=== PATIENT | male | born 1945 | race Caucasian/White ===

== ENCOUNTER 2017-11-30 23:20 | Inpatient (IN) | payer MEDICARE ==
[~2017-11-30] VITALS: Ht 182.9 cm; Wt 75.5 kg
[~2017-11-30 23:20] MED LIST: AMLO5TAB22 PO; ASPI81 PO; PROS5TAB2 PO; SIMV5TAB32 PO
[2017-11-30 23:35] VITALS: BP 89/60; PULSE 92; RESP 18; TEMP 97.7; O2SAT 99
[2017-11-30 23:54] VITALS: BP 93/52; O2SAT 99
[2017-12-01] VITALS (13 sets, daily range): BP systolic 81–110; BP diastolic 44–76; PULSE 83–102; RESP 16–22; TEMP 97.4–98; O2SAT 94–97
[2017-12-01] MEDS ORDERED: SODIUM CHLORIDE 0.9% FLUSH 10 ML FLUSH IVF PRN
[2017-12-01] MEDS: SODIUM CHLOR 0.9% 1000 ML INJ 1,000 ML IV SCH ×4 (00:06→22:38)
[2017-12-01 00:19] LABS: AUTOMATED NEUTROPHIL # 4.1 TH/MM3 (1.8-7.7); BASOPHIL % 0.7 % (0.0-2.0); EOSINOPHIL # 0.2 TH/MM3 (0-0.4); EOSINOPHIL % 2.6 % (0.0-4.0); HEMATOCRIT 34.4 % (39.0-51.0); HEMOGLOBIN 11.9 GM/DL (13.0-17.0); LYMPH % 26.8 % (9.0-44.0); LYMPHOCYTE # 1.9 TH/MM3 (1.0-4.8); MEAN CELL VOLUME 85.5 FL (80.0-100.0); MEAN CORPUSCULAR HEMOGLOBIN 29.5 PG (27.0-34.0); MEAN CORPUSCULAR HGB CONC 34.5 % (32.0-36.0); MEAN PLATELET VOLUME 9.5 FL (7.0-11.0); MONO % 11.7 % (0.0-8.0); MONOCYTE # 0.8 TH/MM3 (0-0.9); NEUT % 58.2 % (16.0-70.0); PLATELET COUNT 218 TH/MM3 (150-450); RED BLOOD COUNT 4.02 MIL/MM3 (4.50-5.90); RED CELL DISTRIBUTION WIDTH 14.4 % (11.6-17.2)
--- NOTE | 2017-12-01 00:27 | RADRPT ---
EXAM DATE/TIME: 12/01/2017 00:06 [facility] COMPARISON: CT THORAX W CONTRAST, August 04, 2015, 16:08. INDICATIONS : Chest pain. MEDICAL HISTORY : Cardiovascular disease. Renal calculi. Hypertension SURGICAL HISTORY : ENCOUNTER: Initial ACUITY: 1 day PAIN SCORE: 5/10 LOCATION: Left chest FINDINGS: PA and lateral views of the chest demonstrate the lungs to be symmetrically aerated without evidence of mass, infiltrate or effusion. The cardiomediastinal contours are unremarkable. Osseous structure s are intact. CONCLUSION: No acute cardiopulmonary disease. Woodrow Blount MD on December 01, 2017 at 0:25 Board Certified Radiologist. This report was verified electronically.
[2017-12-01 00:30] LABS: INTERNATIONAL NORMALIZED RATIO 1.1 RATIO; PROTHROMBIN TIME - PATIENT 10.8 SEC (9.8-11.6)
[2017-12-01 00:35] LABS: BICARBONATE 19.8 MEQ/L (21.0-32.0); CALCIUM 8.7 MG/DL (8.5-10.1); CREATININE 2.19 MG/DL (0.60-1.30); MAGNESIUM 2.1 MG/DL (1.5-2.5)
[2017-12-01 00:38] LABS: TROPONIN I 0.07 NG/ML (0.02-0.05)
--- NOTE | 2017-12-01 00:52 | PD ---
HPI Chief Complaint: Chest Pain Time Seen by Provider: 23:46 Travel History International Travel<30 days: No Contact w/Intl Traveler<30days: No Traveled to known affect area: No History of Present Illness HPI 72-year-old male presents to the emergency department by EMS transport from home for evaluation of 5/10 chest discomfort. No sweats no nausea no vomiting no shortness of breath no referred neck jaw back shoulder arm pain. Patient has history of hypertension, dyslipidemia, and tobaccoism. Patient states he was recently put on medication he thinks an antibiotic that caused him to feel weak and fatigued and was recently discontinued off of this medication by his primary care provider Dr. Tillman. Patient has been evaluated in the past for cardiac disease and for possible thoracic aortic aneurysm. Patient states underwent 2 cardiac catheterizations were done approximately 10 years ago and no abnormalities were identified and no subsequent stress tests or evaluation performed. Patient has had no injury or fall. Patient states symptoms began at rest. Patient denies any mid scapular pain ripping tearing pain or abdominal pain. Patient was given aspirin 324 mg prior to arrival to the emergency department by EMS but no nitroglycerin was administered as patient was identified to be hypotensive in route to the hospital. Patient also did not receive any IV fluids. Upon arrival to the emergency department patient continues to complain of 5/10 chest pain but is noted to be hypotensive and IV fluids were administered. Patient denies any recent febrile illness or respiratory illness and no recent vomiting or diarrheal illness. PFSH Past Medical History Narrative Medical Arthritis hypertension dyslipidemia diminished hearing thoracic aneurysm-- reportedly "okay; not managed by surgical intervention"; alcohol use tobacco use ; nursing notes reviewed; turp, cholecystectomy Hx Anticoagulant Therapy: No Arthritis: Yes (KNEES) Anxiety: No Depression: No Heart Rhythm Problems: No Cancer: No Cardiac Catheterization: Yes Cardiovascular Problems: Yes (AAA , RESOLVED, PER PT.) High Cholesterol: Yes Chemotherapy: No Congestive Heart Failure: No Cerebrovascular Accident: No Diabetes: No Diminished Hearing: Yes (TYONEK) Endocrine: No Gastrointestinal Disorders: Yes (EPIGASTRIC PAIN) Genitourinary: Yes (ENLARGED PROSTATE) Hepatitis: No Hiatal Hernia: No Heparin Induced Thrombocytopen: No Hypertension: Yes Immune Disorder: No Implanted Vascular Access Dvce: No Kidney Stones: Yes Musculoskeletal: No Neurologic: No Psychiatric: No Reproductive: No Respiratory: No Immunizations Current: No Thyroid Disease: No Past Surgical History Abdominal Surgery: Yes (CHOLECYSTECTOMY) AICD: No Coronary Artery Bypass Graft: No Genitourinary Surgery: Yes (TURP) Hysterectomy: No Joint Replacement: No Pacemaker: No Other Surgery: Yes Family History Family Myocardial Infarction: No Social History Alcohol Use: Yes (SCOTCH DAILY) Tobacco Use: Yes (CIGARETTES, 1 PPD) Substance Use: No Allergies-Medications (Allergen,Severity, Reaction): Coded Allergies: No Known Allergies (Verified Allergy, Unknown, 12/01/17) Reported Meds & Prescriptions Reported Meds & Active Scripts Active Reported Proscar (Finasteride) 5 Mg Tab 5 Mg PO DAILY Amlodipine Besylate 5 mg (Amlodipine Besylate) 5 Mg Tab 1 Tab PO DAILY Zocor (Simvastatin) 5 Mg Tab 0 PO UNKNOWN DOSE Aspirin 81 Mg Tab 81 Mg PO DAILY Review of Systems Except as stated in HPI: all other systems reviewed are Neg General / Constitutional: No: Fever, Chills HENT: No: Congestion Cardiovascular: Positive: Chest Pain or Discomfort, No: Palpitations, Diaphoresis Respiratory: No: Shortness of Breath Gastrointestinal: No: Nausea, Vomiting Genitourinary: No: Dysuria Musculoskeletal: No: Myalgias, Arthralgias, Edema, Pain Skin: No Rash Neurologic: Positive: Weakness, Dizziness, No: Syncope, Focal Abnormalities Psychiatric: No: Anxiety, Depression Hematologic/Lymphatic: No: Easy Bruising Physical Exam Narrative GENERAL: Well-developed well-nourished male no acute distress or respiratory distress; GCS 15; placed on hospital monitor found to be in sinus rhythm with intermittent runs of ventricular bigeminy. SKIN: Warm and dry. HEAD: Normocephalic. EYES: No scleral icterus. No injection or drainage. NECK: Supple, trachea midline. No JVD or lymphadenopathy. CARDIOVASCULAR: Regular rate and rhythm without murmurs, gallops, or rubs. RESPIRATORY: Breath sounds equal bilaterally. No accessory muscle use. GASTROINTESTINAL: Abdomen soft, non-tender, nondistended. MUSCULOSKELETAL: No cyanosis, or edema. BACK: Nontender without obvious deformity. No CVA tenderness. Data Data Last Documented VS Vital Signs Date Time Temp Pulse Resp B/P (MAP) Pulse Ox O2 Delivery O2 Flow Rate FiO2 12/01/17 01:45 102 18 103/62 (76) 97 Room Air 11/30/17 23:35 97.7 Orders Orders Electrocardiogram (11/30/17 23:46) Basic Metabolic Panel (Bmp) (11/30/17 23:46) Ckmb (Isoenzyme) Profile (11/30/17:46) Complete Blood Count With Diff (11/30/17 23:46) Magnesium (Mg) (11/30/17 23:46) Prothrombin Time / Inr (Pt) (11/30/17:46) Act Partial Throm Time (Ptt) (11/30/17:46) Troponin I (11/30/17:46) Ecg Monitoring (11/30/17:46) Bilateral Bp Monitoring (11/30/17:46) Iv Access Insert/Monitor (11/30/17:46) Oximetry (11/30/17:46) Oxygen Administration (11/30/17:46) Sodium Chloride 0.9% Flush (Ns Flush) (12/01/17 00:00) Chest, Pa & Lat (11/30/17 23:46) Sodium Chlor 0.9% 1000 Ml Inj (Ns 1000 M (12/01/17 00:00) Sodium Chlor 0.9% 1000 Ml Inj (Ns 1000 M (12/01/17 00:00) Type And Screen (11/30/17 23:59) Ct Thorax/ Chest Wo Iv Contras (12/01/17 ) Ct Abd/Pel W/O Iv Contrast (12/01/17 ) Sodium Chlorid 0.9% 500 Ml Inj (Ns 500 M (12/01/17 01:00) Nitroglycerin 2% Oint (Nitroglycerin 2% (12/01/17 01:30) Heparin Inj (Heparin Inj) (12/01/17 02:30) Heparin-D5w 25,000 U/250 Ml (Heparin-D5w (12/01/17 02:30) Act Partial Throm Time (Ptt) (12/01/17 02:28) Prothrombin Time / Inr (Pt) (12/01/17 02:28) Cbc No Diff, Includes Plts (12/01/17 02:28) Cbc No Diff, Includes Plts (12/04/17 06:00) Act Partial Throm Time (Ptt) (12/01/17 09:28) Occult Blood (Hemoccult) Stool (12/01/17 02:28) Sodium Chlorid 0.9% 500 Ml Inj (Ns 500 M (12/01/17 02:30) Potassium Chloride (Kcl) (12/01/17 02:30) Admit Order (Ed Use Only) (12/01/17 ) Research Home Economist / Telemetry [email or web address] (12/01/17 02:48) Diet Npo (12/01/17 Breakfast) Activity Bed Rest (12/01/17 02:48) Notify Dr: Other (12/01/17 02:48) Consult Cardiology (12/01/17 ) Labs Laboratory Tests Test 12/01/17 00:00 White Blood Count 7.0 TH/MM3 Red Blood Count 4.02 MIL/MM3 Hemoglobin 11.9 GM/DL Hematocrit 34.4 % Mean Corpuscular Volume 85.5 FL Mean Corpuscular Hemoglobin 29.5 PG Mean Corpuscular Hemoglobin Concent 34.5 % Red Cell Distribution Width 14.4 % Platelet Count 218 TH/MM3 Mean Platelet Volume 9.5 FL Neutrophils (%) (Auto) 58.2 % Lymphocytes (%) (Auto) 26.8 % Monocytes (%) (Auto) 11.7 % Eosinophils (%) (Auto) 2.6 % Basophils (%) (Auto) 0.7 % Neutrophils # (Auto) 4.1 TH/MM3 Lymphocytes # (Auto) 1.9 TH/MM3 Monocytes # (Auto) 0.8 TH/MM3 Eosinophils # (Auto) 0.2 TH/MM3 Basophils # (Auto) 0.0 TH/MM3 CBC Comment DIFF FINAL Differential Comment Prothrombin Time 10.8 SEC Prothromb Time International Ratio 1.1 RATIO Activated Partial Thromboplast Time 33.0 SEC Blood Urea Nitrogen 39 MG/DL Creatinine 2.19 MG/DL Random Glucose 107 MG/DL Calcium Level 8.7 MG/DL Magnesium Level 2.1 MG/DL Sodium Level 137 MEQ/L Potassium Level 3.4 MEQ/L Chloride Level 107 MEQ/L Carbon Dioxide Level 19.8 MEQ/L Anion Gap 10 MEQ/L Estimat Glomerular Filtration Rate 30 ML/MIN Total Creatine Kinase 66 U/L Troponin I 0.07 NG/ML MDM Medical Decision Making Medical Screen Exam Complete: Yes Emergency Medical Condition: Yes Medical Record Reviewed: Yes Interpretation(s) trop: 0.07, mildly elevated Last Impressions Chest CT 12/01/17 0000 Signed Impressions: Service Date/Time: Friday, December 01, 2017 01:09 - CONCLUSION: 1. An area of early or mild pneumonia in the right lower lobe. 2. Left ventricular hypertrophy and aortic valve calcification. Mild prominence of the ascending thoracic aorta is unchanged, 4.4 cm. 3. Coronary artery calcification. 4. Mild emphysema. Woodrow Blount MD Abdomen/Pelvis CT 12/01/17 0000 Signed Impressions: Service Date/Time: Friday, December 01, 2017 01:09 - CONCLUSION: 1. No acute abnormalities are demonstrated in the abdomen or pelvis. 2. Atherosclerotic aorta and branch vessels. Non-aneurysmal aorta. 3. Cholecystectomy since the prior study. No associated complication demonstrated. No evidence of biliary obstruction. 4. Enlarged prostate again seen. Woodrow Blount MD Chest X-Ray 11/30/17 2346 Signed Impressions: Service Date/Time: Friday, December 01, 2017 00:06 - CONCLUSION: No acute cardiopulmonary disease. Woodrow Blount MD CBC & BMP Diagram 12/01/17 00:00 Calcium Level 8.7, Magnesium Level 2.1 Vital Signs Date Time Temp Pulse Resp B/P (MAP) Pulse Ox O2 Delivery O2 Flow Rate FiO2 12/01/17 01:45 102 18 103/62 (76) 97 Room Air 11/30/17 23:54 99 Room Air 11/30/17 23:54 99 Room Air 11/30/17 23:54 93/52 (66) 11/30/17 23:35 97.7 92 18 89/60 (70) 99 Differential Diagnosis Chest pain, ACS, MO, aortic dissection, aortic aneurysm with leak, PE Narrative Course Patient was placed on hospital monitor with continuous pulse oximetry noted to be hypotensive 1 L normal saline bolus administered EKG shows left bundle branch block pattern comparison EKG showed history of left axis deviation with intraventricular conduction delay minimally change except for duration of QRS duration. Review of medical records identifies patient in [address] of the chest which showed aortic root of 4.3 cm no other documentation identified at that time had normal renal function Call placed to on-call actuarial assistant Dr. metcalf case discussed in detail requests patient to have CT aorta performed as ordered and subsequently place patient on heparin does not want any antiarrhythmics administered for intermittent episodes of sustained ventricular bigeminy is aware patient receiving second liter of normal saline for blood pressure requests patient be started on Nitropaste as tolerated and heparinization if CT is negative for aneurysm or dissection CVA thor/abd cancelled for gfr 30 creatinine: 2.19, changed to CT chest abd/pel w/o; troponin I: 0.07, elevated CT noncontrast ordered reading per radiologist no evidence for aneurysm of the thoracic or abdominal aorta patient started on heparin and actuarial assistant notified of imaging study patient has already received aspirin Nitropaste 2 L of normal saline heparinization started; will not take patient to Child Welfare Social Worker at this time as borderline hypotensive patient's case discussed with medicine because of hypertension requests patient be admitted to director of exhibit development service patient's case discussed with on-call director of exhibit development who graciously accepts patient to their service with consult to Dr. metcalf Critical Care Narrative Aggregate critical care time was 35 minutes. Time to perform other separately billable procedures was not included in the critical care time. My time did not include minutes spent treating any other patients simultaneously or on activities that did not directly contribute to the patient's treatment. The services I provided to this patient were to treat and/or prevent clinically significant deterioration that could result in: Myocardial infarction, arrhythmia, I provided critical care services requiring my management, as noted below: Chart data review, documentation time, medication orders and management, vital sign assessments/reviewing monitor data, ordering and reviewing lab tests, ordering and interpreting/reviewing x-rays and diagnostic studies, care of the patient and discussion of the patient with the admitting physicians. Physician Communication Physician Communication discussed with Dr Metcalf re: cath; discussed with DR Dexter; discussed with DR Metcalf Diagnosis Primary Impression: ACS (acute coronary syndrome) Additional Impressions: Ventricular bigeminy Hypotension Sonia Dyson MD Dec 01, 2017 00:51
[2017-12-01] MEDS ORDERED: SODIUM CHLORID 0.9% 500 ML INJ 500 ML IV ONE ×2 (01:00→02:30)
[2017-12-01] MEDS ORDERED: NITROGLYCERIN 2% OINT 1 GM PACKET TOPICAL ONE (01:30)
--- NOTE | 2017-12-01 01:56 | RADRPT ---
EXAM DATE/TIME: 12/01/2017 01:09 [facility] COMPARISON: CT ABDOMEN & PELVIS W/O CONTRAST, December 01, 2017, 1:09. INDICATIONS : Chest and abdomen pain. RADIATION DOSE: 5.17 CTDIvol (mGy) ; Combined studies - Thorax/Abdomen/Pelvis MEDICAL HISTORY : Aneurysm, abdominal. Hypertension. SURGICAL HISTORY : Cholecystectomy. TURP. ENCOUNTER: Initial ACUITY: 1 day PAIN SCALE: 5/10 LOCATION: chest TECHNIQUE: Volumetric scanning of the chest was performed. Using automated exposure control and adjustment of t he mA and/or kV according to patient size, radiation dose was kept as low as reasonably achievable to obtain optimal diagnostic quality images. DICOM format image data is available electronically for r eview and comparison. Follow-up recommendations for detected pulmonary nodules are based at a minimum on nodule size and pa tient risk factors according to Fleischner Society Guidelines. FINDINGS: Small area of mild consolidation seen posteromedially of the right mid lung in the lower lobe. Lungs otherwise clear. There is mild emphysema. Left ventricular hypertrophy again seen. There is calcification of the aortic valve leaflets again no oren. I believe it is tricuspid. There is coronary artery calcification, diffuse but especially left m ain and proximal left anterior descending. Mild prominence of the ascending thoracic aorta, measures approximately 4.4 cm and is unchanged. No pleural effusion or pneumothorax. No lymphadenopathy. CONCLUSION: 1. An area of early or mild pneumonia in the right lower lobe. 2. Left ventricular hypertrophy and aortic valve calcification. Mild prominence of the ascending thor acic aorta is unchanged, 4.4 cm. 3. Coronary artery calcification. 4. Mild emphysema. Woodrow Blount MD on December 01, 2017 at 1:53 Board Certified Radiologist. This report was verified electronically.
--- NOTE | 2017-12-01 02:01 | RADRPT ---
EXAM DATE/TIME: 12/01/2017 01:09 [facility] COMPARISON: CT ABDOMEN & PELVIS W CONTRAST, July 28, 2015, 22:10. INDICATIONS : Chest and abdomen pain. ORAL CONTRAST: No oral contrast ingested. RADIATION DOSE: 5.17 CTDIvol (mGy) MEDICAL HISTORY : Aneurysm, abdominal. Hypertension. SURGICAL HISTORY : Cholecystectomy. ENCOUNTER: Initial ACUITY: 1 day PAIN SCALE: 5/10 LOCATION: abdomen TECHNIQUE: Volumetric scanning of the abdomen and pelvis was performed. Using automated exposure control and ad justment of the mA and/or kV according to patient size, radiation dose was kept as low as reasonably achievable to obtain optimal diagnostic quality images. DICOM format image data is available electro nically for review and comparison. FINDINGS: Noncontrast appearance of the liver, spleen, pancreas, adrenal glands and kidneys within normal limit s. There is an unchanged 2 cm left renal cyst. Patient has had cholecystectomy since the prior study. Atherosclerotic abdominal aorta and branch vessels. No abdominal aortic aneurysm. There is diverticulosis of the sigmoid colon. No diverticulitis. The appendix is normal. Enlarged prostate again noted. No acute bony abnormality demonstrated. CONCLUSION: 1. No acute abnormalities are demonstrated in the abdomen or pelvis. 2. Atherosclerotic aorta and branch vessels. Non-aneurysmal aorta. 3. Cholecystectomy since the prior study. No associated complication demonstrated. No evidence of jhonny iary obstruction. 4. Enlarged prostate again seen. Woodrow Blount MD on December 01, 2017 at 1:55 Board Certified Radiologist. This report was verified electronically.
[2017-12-01] MEDS ORDERED: HEPARIN SODIUM - IV 10,000 UNITS/10 ML VIAL IV PUSH ONE (02:30)
[2017-12-01] MEDS ORDERED: POTASSIUM CHLORIDE 20 MEQ CONTROLLED RELEASE TAB PO ONE (02:30)
[2017-12-01] MEDS: HEPARIN-D5W 25,000 U/250 ML 250 ML IV PRN (02:52)
[2017-12-01] MEDS ORDERED: BISACODYL 10 MG SUPP RECTAL PRN (05:30)
[2017-12-01] MEDS ORDERED: SODIUM CHLORIDE 0.9% FLUSH 10 ML FLUSH IV FLUSH PRN (05:30)
[2017-12-01] MEDS ORDERED: LACTULOSE SYRUP 20 GM/30 ML CUP PO PRN (05:30)
[2017-12-01] MEDS ORDERED: MORPHINE SULFATE 4 MG/ML INJ IV PUSH PRN (05:30)
[2017-12-01] MEDS ORDERED: ACETAMINOPHEN 325 MG TAB PO PRN (05:30)
[2017-12-01] MEDS ORDERED: TEMAZEPAM 15 MG CAP PO PRN (05:30)
[2017-12-01] MEDS ORDERED: CHLORHEXIDINE GLUCONATE 2 % 1 PACK (2 CLOTHS) TOP PRN (05:30)
[2017-12-01] MEDS ORDERED: SENNOSIDES 8.6 MG TAB PO PRN (05:30)
[2017-12-01] MEDS ORDERED: MAGNESIUM HYDROXIDE SUSP 30 ML CUP PO PRN (05:30)
[2017-12-01] MEDS ORDERED: MISCELLANEOUS NURSING INFORMATION XX SCH (05:30)
[2017-12-01] MEDS ORDERED: ONDANSETRON HCL 4 MG/2 ML VIAL IV PUSH PRN (05:30)
--- NOTE | 2017-12-01 05:39 | HHI.HP ---
HPI Service Critical Care Medicine Primary Care Physician Lars Tillman M.D. Admission Diagnosis ACS; Ventricular bigeminy; LBBB Diagnosis: Travel History International Travel<30 Days: No Contact w/Intl Traveler <30 Da: No Traveled to Known Affected Are: No History of Present Illness 72 -year-old very pleasant gentleman with past medical history of hypertension, dyslipidemia, thoracic aortic aneursym, EtOH use, tobacco use disorder. Patient states he had infection in the Right groin and started Bactrim 11/21/17. Since then he has been fatigued, SOB, mostly laying on couch. Has had chills. Had diarrhea with ~ 2-3 loose stools daily for 3-5 days. Last night he was at rest when he developed L sided chest pain, nonpleuritic non radiating with no n/ v/diaphoresis/arm pain. Pain resolved after arrival and he now states he is chest pain free. No hemoptysis. He has had some cough and sputum production. R groin infection is improved. No prior h/o VTE. Troponin 0.07, on heparin drip. In bigeminy. Creatinine 2.19. CT chest with early RLL pneumonia, has been started on Azithromycin/Zosyn. Review of Systems Constitutional: COMPLAINS OF: Diaphoretic episodes, Fatigue, Fever, Chills, Dizziness, Change in appetite, DENIES: Weight gain, Weight loss, Night Sweats Endocrine: DENIES: Heat/cold intolerance, Polydipsia, Polyuria, Polyphagia Eyes: DENIES: Blurred vision, Diplopia, Eye inflammation, Eye pain, Vision loss , Photosensitivity, Double Vision Ears, nose, mouth, throat: DENIES: Tinnitus, Hearing loss, Vertigo, Nasal discharge, Oral lesions, Throat pain, Hoarseness, Ear Pain, Running Nose, Epistaxis, Sinus Pain, Toothache, Odynophagia Respiratory: DENIES: Apneas, Cough, Snoring, Wheezing, Hemoptysis, Sputum production, Shortness of breath Cardiovascular: COMPLAINS OF: Chest pain, Palpitations, DENIES: Syncope, Dyspnea on Exertion, PND, Lower Extremity Edema, Orthopnea, Claudication Gastrointestinal: COMPLAINS OF: Diarrhea, DENIES: Abdominal pain, Black stools , Bloody stools, Constipation, Nausea, Vomiting, Difficulty Swallowing, Anorexia Genitourinary: DENIES: Sexual dysfunction, Urinary frequency, Urinary incontinence, Urgency, Hematuria, Dysuria, Nocturia, Penile Discharge, Testicular Pain, Testicular Swelling Musculoskeletal: DENIES: Joint pain, Muscle aches, Stiffness, Joint Swelling, Back pain, Neck pain Integumentary: DENIES: Abnormal pigmentation, Nail changes, Pruritus, Rash Hematologic/lymphatic: DENIES: Bruising, Lymphadenopathy Immunologic/allergic: DENIES: Eczema, Urticaria Neurologic: DENIES: Abnormal gait, Headache, Localized weakness, Paresthesias, Seizures, Speech Problems, Tremor, Poor Balance Psychiatric: DENIES: Anxiety, Confusion, Mood changes, Depression, Hallucinations, Agitation, Suicidal Ideation, Homicidal Ideation, Delusions Past Family Social History Allergies: Coded Allergies: No Known Allergies (Verified Allergy, Unknown, 12/01/17) Past Medical History ERCP 3 stones removed. extended sphincterotomy. Hypertension Hyperlipidemia BPH Ecoli biliary sepsis. Thoracic aortic aneurysmal dilatation of aortic root 4.3cm Past Surgical History ERCP Laparoscopic cholecystectomy Reported Medications Reported Meds & Active Scripts Active Reported Proscar (Finasteride) 5 Mg Tab 5 Mg PO DAILY Amlodipine Besylate 5 mg (Amlodipine Besylate) 5 Mg Tab 1 Tab PO DAILY Zocor (Simvastatin) 5 Mg Tab 0 PO UNKNOWN DOSE Aspirin 81 Mg Tab 81 Mg PO DAILY Active Ordered Medications Current Medications Medications (Trade) Dose Ordered Sig/Taz Route PRN Reason Start Time Stop Time Status Last Admin Dose Admin Sodium Chloride (NS Flush) 2 ml UNSCH PRN IVF FLUSH AFTER USING IV ACCESS 12/01/17 00:00 Sodium Chloride 1,000 ml @ 250 mls/hr Q4H IV 12/01/17 00:00 12/01/17 00:06 Heparin Sodium/ Dextrose 250 ml @ 10 mls/hr TITRATE PRN IV Coagulation Management 12/01/17 02:30 12/01/17 02:52 Family History No family history significant for coronary artery disease Social History Quit tobacco and EtOH in Jul 2015. prior to that 1ppd and at least 3 shots per day. Physical Exam Vital Signs Vital Signs Date Time Temp Pulse Resp B/P (MAP) Pulse Ox O2 Delivery O2 Flow Rate FiO2 12/01/17 05:00 88 16 81/50 (60) 96 Room Air 12/01/17 04:00 86 18 91/53 (66) 96 Room Air 12/01/17 02:56 87 18 92/54 (67) 96 Room Air 12/01/17 01:45 102 18 103/62 (76) 97 Room Air 11/30/17 23:54 99 Room Air 11/30/17 23:54 99 Room Air 11/30/17 23:54 93/52 (66) 11/30/17 23:35 97.7 92 18 89/60 (70) 99 Physical Exam GENERAL: Well-nourished, well-developed patient. SKIN: Warm and dry. HEAD: Normocephalic. EYES: No scleral icterus. No injection or drainage. NECK: Supple, trachea midline. No JVD or lymphadenopathy. CARDIOVASCULAR: Regular rate and rhythm without murmurs, gallops, or rubs. RESPIRATORY: Breath sounds equal bilaterally. No accessory muscle use. GASTROINTESTINAL: Abdomen soft, non-tender, nondistended. MUSCULOSKELETAL: No cyanosis, or edema. BACK: Nontender without obvious deformity. NEURO EXAM: GCS: 15 Mental Status: The patient is alert and oriented to person, place, and time with normal speech. Laboratory Laboratory Tests Test 12/01/17 00:00 White Blood Count 7.0 Red Blood Count 4.02 Hemoglobin 11.9 Hematocrit 34.4 Mean Corpuscular Volume 85.5 Mean Corpuscular Hemoglobin 29.5 Mean Corpuscular Hemoglobin Concent 34.5 Red Cell Distribution Width 14.4 Platelet Count 218 Mean Platelet Volume 9.5 Neutrophils (%) (Auto) 58.2 Lymphocytes (%) (Auto) 26.8 Monocytes (%) (Auto) 11.7 Eosinophils (%) (Auto) 2.6 Basophils (%) (Auto) 0.7 Neutrophils # (Auto) 4.1 Lymphocytes # (Auto) 1.9 Monocytes # (Auto) 0.8 Eosinophils # (Auto) 0.2 Basophils # (Auto) 0.0 CBC Comment DIFF FINAL Differential Comment Prothrombin Time 10.8 Prothromb Time International Ratio 1.1 Activated Partial Thromboplast Time 33.0 Blood Urea Nitrogen 39 Creatinine 2.19 Random Glucose 107 Calcium Level 8.7 Magnesium Level 2.1 Sodium Level 137 Potassium Level 3.4 Chloride Level 107 Carbon Dioxide Level 19.8 Anion Gap 10 Estimat Glomerular Filtration Rate 30 Total Creatine Kinase 66 Troponin I 0.07 Result Diagram: 12/01/17 0000 12/01/17 0000 Imaging Last [address] 12/01/17 0000 Signed Impressions: Service Date/Time: Friday, December 01, 2017 01:09 - CONCLUSION: 1. An area of early or mild pneumonia in the right lower lobe. 2. Left ventricular hypertrophy and aortic valve calcification. Mild prominence of the ascending thoracic aorta is unchanged, 4.4 cm. 3. Coronary artery calcification. 4. Mild emphysema. Woodrow Blount MD Abdomen/Pelvis CT 12/01/17 0000 Signed Impressions: Service Date/Time: Friday, December 01, 2017 01:09 - CONCLUSION: 1. No acute abnormalities are demonstrated in the abdomen or pelvis. 2. Atherosclerotic aorta and branch vessels. Non-aneurysmal aorta. 3. Cholecystectomy since the prior study. No associated complication demonstrated. No evidence of biliary obstruction. 4. Enlarged prostate again seen. Woodrow Blount MD Chest X-Ray 11/30/17 2346 Signed Impressions: Service Date/Time: Friday, December 01, 2017 00:06 - CONCLUSION: No acute cardiopulmonary disease. Woodrow Blount MD Septic Shock Reassessment Septic shock perfusion: reassessment completed Caprini VTE Risk Assessment Caprini VTE Risk Assessment: Mod/High Risk (score >= 2) Caprini Risk Assessment Model Point Value = 1 Point Value = 2 Point Value = 3 Point Value = 5 Age 41-60 Minor surgery BMI > 25 kg/m2 Swollen legs Varicose veins or History of unexplained or recurrent spontaneous Oral contraceptives or hormone replacement Sepsis (< 1 month) Serious lung disease, including pneumonia (< 1 month) Abnormal pulmonary function Acute myocardial infarction Congestive heart failure (< 1 month) History of inflammatory bowel disease Medical patient at bed rest Age 61-74 Arthroscopic surgery Major open surgery (> 45 min) Laparoscopic surgery (> 45 min) Malignancy Confined to bed (> 72 hours) Immobilizing plaster cast Central venous access Age >= 75 History of VTE Family history of VTE Factor V Leiden Prothrombin [id number] Lupus anticoagulant Anticardiolipin antibodies Elevated serum homocysteine Heparin-induced thrombocytopenia Other congenital or acquired thrombophilia Stroke (< 1 month) Elective arthroplasty Hip, pelvis, or leg fracture Acute spinal cord injury (< 1 month) Prophylaxis Regimen Total Risk Factor Score Risk Level Prophylaxis Regimen 0-1 Low Early ambulation 2 Moderate Order ONE of the following: *Sequential Compression Device (SCD) *Heparin 5000 units SQ BID 3-4 Higher Order ONE of the following medications: *Heparin 5000 units SQ TID *Enoxaparin/Lovenox 40 mg SQ daily (WT < 150 kg, CrCl > 30 mL/min) *Enoxaparin/Lovenox 30 mg SQ daily (WT < 150 kg, CrCl > 10-29 mL/min) *Enoxaparin/Lovenox 30 mg SQ BID (WT < 150 kg, CrCl > 30 mL/min) AND/OR *Sequential Compression Device (SCD) 5 or more Highest Order ONE of the following medications: *Heparin 5000 units SQ TID (Preferred with Epidurals) *Enoxaparin/Lovenox 40 mg SQ daily (WT < 150 kg, CrCl > 30 mL/min) *Enoxaparin/Lovenox 30 mg SQ daily (WT < 150 kg, CrCl > 10-29 mL/min) *Enoxaparin/Lovenox 30 mg SQ BID (WT < 150 kg, CrCl > 30 mL/min) AND *Sequential Compression Device (SCD) Assessment and Plan Assessment and Plan Left bundle branch block - Heparin drip for ACS protocol - Unable to administer beta cedric due to hypotension - Aspirin statins - Discussed with cardiology by ED attending Pneumonia - Broad-spectrum antibiotics - Follow-up cultures and sensitivity - Urine antigens BPH - Finasteride on hold due to low blood pressure - Resume when indicated History of hypertension - Hold Norvasc due to borderline hypotension DVT GI prophylaxis - Teds SCDs - Heparin drip - Pepcid Critical Care: The total critical care time was 35 minutes. Time to perform other separately billable procedures was not included in the critical care time. Tho Dexter MD Dec 01, 2017 05:39
[2017-12-01] MEDS ORDERED: SODIUM CHLOR 0.9% 1000 ML INJ 1,000 ML IV ONE ×3 (05:45)
[2017-12-01 06:41] LABS: INTERNATIONAL NORMALIZED RATIO 1.1 RATIO; PROTHROMBIN TIME - PATIENT 11.3 SEC (9.8-11.6)
[2017-12-01] MEDS: PIPERACIL-TAZO 3.375 GM PREMIX 50 ML IV SCH ×3 (07:50→17:56)
[2017-12-01] MEDS ORDERED: PIPERACIL-TAZO 4.5 GM PREMIX 100 ML IV SCH (08:00)
[2017-12-01] MEDS: AZITHROMYCIN INJ 500 MG in SODIUM CHLOR 0.9% 250 ML INJ 250 ML IV SCH (08:38)
--- NOTE | 2017-12-01 08:40 | PD.CONS ---
HPI Service cardiology Consult Requested By Reason for Consult ACS, BBB, ventricular bigeminy Primary Care Physician Lars Tillman M.D. History of Present Illness This is a pleasant 72 yo WM with HTN, HLD admitted for chest pain. He began to feel anterior left-sided chest pain, non-exertional yesterday, he is unsure of duration of pain but symptoms resolved when he came to ED and given asa. He does admit to feeling fatigued lately with SOB on exertion. He attributes these symptoms to an antibiotic recently given by PCP for groin infection. Chest pain similar to prior hospitalization in 2005 where cardiac catheterization showed angiographically normal coronary arteries. He has had and an ascending thoracic aneurysm on prior imaging; CT done overnight shows same area to be unchanged in size at 4.4cm. Troponin level increased 0.07, EKG shows LBBB. telemetry overnight showed short duration of ventricular bigeminy. He has been hypotensive since admission with SBP as low as 81; now improving with fluids. (Larissa Kimble) Review of Systems Consitutional: DENIES: Fever, Chills, Weight gain, Weight loss Respiratory: DENIES: Cough, Snoring, Wheezing, Sputum production Cardiovascular: DENIES: Palpitations, Syncope, Tachycardia Gastrointestinal: DENIES: Nausea, Vomiting, Change in bowel habits, Reflux, Bloody stools, Melena (Larissa Kimble) Past Family Social History Allergies: Coded Allergies: No Known Allergies (Verified Allergy, Unknown, 12/01/17) Past Medical History ERCP 3 stones removed. extended sphincterotomy. Hypertension Hyperlipidemia BPH Ecoli biliary sepsis. Thoracic aortic aneurysmal dilatation of aortic root 4.3cm Past Surgical History ERCP Laparoscopic cholecystectomy Reported Medications Reported Meds & Active Scripts Active Reported Proscar (Finasteride) 5 Mg Tab 5 Mg PO DAILY Amlodipine Besylate 5 mg (Amlodipine Besylate) 5 Mg Tab 1 Tab PO DAILY Zocor (Simvastatin) 5 Mg Tab 0 PO UNKNOWN DOSE Aspirin 81 Mg Tab 81 Mg PO DAILY Active Ordered Medications Current Medications Medications (Trade) Dose Ordered Sig/Taz Route Start Time Stop Time Status Last Admin Heparin Sodium/ Dextrose 250 ml @ 10 mls/hr TITRATE PRN IV 12/01/17 02:30 12/01/17 02:52 (Aspirin Chew) 81 mg DAILY PO 12/01/17 09:00 Sodium Chloride 1,000 ml @ 84 mls/hr [id number] IV 12/01/17 05:21 12/01/17 06:46 (NS Flush) 2 ml UNSCH PRN IV FLUSH 12/01/17 05:30 (NS Flush) 2 ml BID IV FLUSH 12/01/17 09:00 (Tylenol) 650 mg Q6H PRN PO 12/01/17 05:30 (Morphine Inj) 2 mg Q2H PRN IV PUSH 12/01/17 05:30 (Pepcid Inj) 10 mg Q12HR IV PUSH 12/01/17 09:00 (Zofran Inj) 4 mg Q6H PRN IV PUSH 12/01/17 05:30 (Restoril) 15 mg HS PRN PO 12/01/17 05:30 (Duoneb Neb) 1 ampule Q2HR NEB PRN INH 12/01/17 05:30 Miscellaneous Information 1 [id number] XX 12/01/17 05:30 (Chlorhexidine 2% Cloth) 3 pack Taper DAILY@04 TOP 12/02/17 04:00 11/28/18 03:59 (Chlorhexidine 2% Cloth) 3 pack UNSCH PRN TOP 12/01/17 05:30 (Irina-Colace) 1 tab BID PO 12/01/17 09:00 (Milk Of Magnesia Liq) 30 ml Q12H PRN PO 12/01/17 05:30 (Senokot) 17.2 mg Q12H PRN PO 12/01/17 05:30 (Dulcolax Supp) 10 mg DAILY PRN RECTAL 12/01/17 05:30 (Lactulose Liq) 30 ml DAILY PRN PO 12/01/17 05:30 Azithromycin 500 mg/Sodium Chloride 250 ml @ 250 mls/hr Q24H IV 12/01/17 08:00 Piperacillin Sod/ Tazobactam Sod 50 ml @ 100 mls/hr Q6H IV 12/01/17 06:00 12/01/17 07:50 Family History No family history significant for coronary artery disease Social History Quit tobacco and EtOH in Jul 2015. prior to that 1ppd and at least 3 shots per day. (Larissa Kimble) Physical Exam Vital Signs Vital Signs Date Time Temp Pulse Resp B/P (MAP) Pulse Ox O2 Delivery O2 Flow Rate FiO2 12/01/17 06:20 96 Room Air 12/01/17 06:20 97.9 89 16 98/65 (76) 96 12/01/17 06:20 90 12/01/17 06:08 90 18 99/68 (78) 96 Room Air 12/01/17 06:04 95 12/01/17 05:58 12/01/17 05:00 88 16 81/50 (60) 96 Room Air 12/01/17 04:00 86 18 91/53 (66) 96 Room Air 12/01/17 02:56 87 18 92/54 (67) 96 Room Air 12/01/17 01:45 102 18 103/62 (76) 97 Room Air 11/30/17 23:54 99 Room Air 11/30/17 23:54 99 Room Air 11/30/17 23:54 93/52 (66) 11/30/17 23:35 97.7 92 18 89/60 (70) 99 Physical Exam GENERAL: SKIN: Warm and dry. HEAD: Atraumatic. Normocephalic. EYES: Pupils equal and round. No scleral icterus. No injection or drainage. ENT: No nasal bleeding or discharge. Mucous membranes pink and moist. NECK: Trachea midline. No JVD. CARDIOVASCULAR: Regular rate and rhythm. RESPIRATORY: No accessory muscle use. Clear to auscultation. Breath sounds equal bilaterally. GASTROINTESTINAL: Abdomen soft, non-tender, nondistended. Hepatic and splenic margins not palpable. MUSCULOSKELETAL: Extremities without clubbing, cyanosis, or edema. No obvious deformities. NEUROLOGICAL: Awake and alert. No obvious cranial nerve deficits. Motor grossly within normal limits. Five out of 5 muscle strength in the arms and legs. Normal speech. PSYCHIATRIC: Appropriate mood and affect; insight and judgment normal. Laboratory Laboratory Tests Test 12/01/17 00:00 12/01/17 06:00 12/01/17 07:20 White Blood Count 7.0 Red Blood Count 4.02 Hemoglobin 11.9 Hematocrit 34.4 Mean Corpuscular Volume 85.5 Mean Corpuscular Hemoglobin 29.5 Mean Corpuscular Hemoglobin Concent 34.5 Red Cell Distribution Width 14.4 Platelet Count 218 Mean Platelet Volume 9.5 Neutrophils (%) (Auto) 58.2 Lymphocytes (%) (Auto) 26.8 Monocytes (%) (Auto) 11.7 Eosinophils (%) (Auto) 2.6 Basophils (%) (Auto) 0.7 Neutrophils # (Auto) 4.1 Lymphocytes # (Auto) 1.9 Monocytes # (Auto) 0.8 Eosinophils # (Auto) 0.2 Basophils # (Auto) 0.0 CBC Comment DIFF FINAL Differential Comment Prothrombin Time 10.8 11.3 Prothromb Time International Ratio 1.1 1.1 Activated Partial Thromboplast Time 33.0 124.5 45.5 Blood Urea Nitrogen 39 Creatinine 2.19 Random Glucose 107 Calcium Level 8.7 Magnesium Level 2.1 Sodium Level 137 Potassium Level 3.4 Chloride Level 107 Carbon Dioxide Level 19.8 Anion Gap 10 Estimat Glomerular Filtration Rate 30 Total Creatine Kinase 66 Troponin I 0.07 (Larissa Kimble) Result Diagram: 12/01/17 0000 12/01/17 0000 Imaging GENERAL: SKIN: Warm and dry. HEAD: Atraumatic. Normocephalic. EYES: Pupils equal and round. No scleral icterus. No injection or drainage. ENT: No nasal bleeding or discharge. Mucous membranes pink and moist. NECK: Trachea midline. No JVD. CARDIOVASCULAR: Regular rate and rhythm. I/IV systolic murmur at L apex RESPIRATORY: No accessory muscle use. Clear to auscultation. Breath sounds equal bilaterally. GASTROINTESTINAL: Abdomen soft, non-tender, nondistended. Hepatic and splenic margins not palpable. MUSCULOSKELETAL: Extremities without clubbing, cyanosis, or edema. No obvious deformities. NEUROLOGICAL: Awake and alert. No obvious cranial nerve deficits. Normal speech. PSYCHIATRIC: Appropriate mood and affect; insight and judgment normal. (Larissa Kimble) Assessment and Plan Problem List: (1) Chest pain ICD Codes: R07.9 - Chest pain Status: Acute (2) Ventricular bigeminy ICD Codes: I49.9 - Cardiac arrhythmia, unspecified Status: Acute (3) Hypotension ICD Codes: I95.9 - Hypotension, unspecified Status: Acute Assessment and Plan This is a pleasant 72 yo WM with HTN, HLD admitted for chest pain. He began to feel anterior left-sided chest pain, non-exertional yesterday, he is unsure of duration of pain but symptoms resolved when he came to ED and given asa. He does admit to feeling fatigued lately with SOB on exertion. He attributes these symptoms to an antibiotic recently given by PCP for groin infection. Chest pain similar to prior hospitalization in 2006 where cardiac catheterization showed angiographically normal coronary arteries. He has had and an ascending thoracic aneurysm on prior imaging; CT done overnight shows same area to be unchanged in size at 4.4cm. Troponin level increased 0.07, EKG shows LBBB. telemetry overnight showed short duration of ventricular bigeminy. He has been hypotensive since admission with SBP as low as 81; now improving with fluids. chest pain- asymptomatic currently, troponin intermediate elevation, will monitor trend. ventricular bigeminy on tele overnight consider ischemic workup hypotensive but improving creatinine elevated echo pending hypotension- antihypertensives being held. ascending thoracic aorta- 4.4cm, stable PNA- abx (Larissa Kimble) Assessment and Plan TTE - bedside, appears to have severe . will await final report repeat Cr after hydration consider V/Q scan for SOB and hypotension avoid nephrotoxic agents LHC pending Cr will need to determine best treatment strategy for valve dz after echo done (Milan Stevenson MD) Larissa Kimble Dec 01, 2017 08:40 Milan Stevenson MD Dec 01, 2017 11:39
[2017-12-01] MEDS ORDERED: FINASTERIDE 5 MG TAB PO SCH (09:00)
[2017-12-01] MEDS ORDERED: amLODIPine BESYLATE 5 MG TAB PO SCH (09:00)
[2017-12-01] MEDS ORDERED: POTASSIUM CHLORIDE 25 MEQ EFFERVESCENT TAB PO PRN (09:15)
[2017-12-01] MEDS ORDERED: POTASSIUM PHOSPHATE INJ 30 MMOL in SODIUM CHLOR 0.9% 250 ML INJ 250 ML IV PRN (09:15)
[2017-12-01] MEDS ORDERED: POTASSIUM CHLOR 40 MEQ PREMIX 100 ML IV PRN ×2 (09:15)
[2017-12-01] MEDS ORDERED: SODIUM PHOSPHATE INJ 30 MMOL in SODIUM CHLOR 0.9% 250 ML INJ 240 ML IV PRN (09:15)
[2017-12-01] MEDS ORDERED: MAGNESIUM SULFATE INJ 4 GM in SODIUM CHLORIDE 0.9% INJ 92 ML IV PRN (09:15)
[2017-12-01] MEDS ORDERED: MAGNESIUM SULFATE INJ 2 GM in SODIUM CHLORIDE 0.9% INJ 96 ML IV PRN (09:15)
[2017-12-01] MEDS ORDERED: MAGNESIUM OXIDE 400 MG TAB PO PRN (09:15)
[2017-12-01] MEDS ORDERED: POTASSIUM CHLOR 20 MEQ PREMIX 100 ML IV PRN ×2 (09:15)
[2017-12-01] MEDS ORDERED: POTASSIUM PHOSPHATE MONOBASIC 500 MG TAB PO/TUBE PRN (09:15)
[2017-12-01] MEDS ORDERED: POTASSIUM PHOSPHATE MONOBASIC 500 MG TAB PO PRN (09:15)
--- NOTE | 2017-12-01 09:22 | HHI.CCPN ---
Subjective Remarks/Hospital Course 72 yo WM with PMH HTN, HLD, thoracic aortic aneursym, EtOH use, tobacco abuse Patient states he had infection in Right groin and started bactrim 11/21/17. Since then he has been fatigued, SOB, mostly laying on couch. Has had chills. Had diarrhea with ~ 2-3 loose stools daily for 3-5 days. Last night he was at rest when he developed L sided chest pain, nonpleuritic non radiating with no n/ v/diaphoresis/arm pain. Pain resolved after arrival and he now states he is chest pain free. No hemoptysis. He has had some cough and sputum production. R groin infection is resolved. No prior h/o VTE. Troponin 0.07, on heparin drip. In bigeminy. Creatinine 2.19. CT chest with early RLL pneumonia, has been started on Azithromycin/Zosyn. BP intermittently 80s/50s despite having received 3 L of NS so will place CVL with anticipation of need for vasopressor support. . Obtaining VQ scan to evaluate for PE. Objective Vital Signs Date Time Temp Pulse Resp B/P (MAP) Pulse Ox O2 Delivery O2 Flow Rate FiO2 12/01/17 07:00 97.9 83 22 105/74 (84) 95 12/01/17 06:20 Room Air Intake and Output 12/01/17 12/01/17 12/02/17 08:00 16:00 00:00 Intake Total 2000 ml Balance 2000 ml Result Diagram: 12/01/17 0000 12/01/17 0000 Imaging Last [address] 12/01/17 0000 Signed Impressions: Service Date/Time: Friday, December 01, 2017 01:09 - CONCLUSION: 1. An area of early or mild pneumonia in the right lower lobe. 2. Left ventricular hypertrophy and aortic valve calcification. Mild prominence of the ascending thoracic aorta is unchanged, 4.4 cm. 3. Coronary artery calcification. 4. Mild emphysema. Woodrow Blount MD Abdomen/Pelvis CT 12/01/17 0000 Signed Impressions: Service Date/Time: Friday, December 01, 2017 01:09 - CONCLUSION: 1. No acute abnormalities are demonstrated in the abdomen or pelvis. 2. Atherosclerotic aorta and branch vessels. Non-aneurysmal aorta. 3. Cholecystectomy since the prior study. No associated complication demonstrated. No evidence of biliary obstruction. 4. Enlarged prostate again seen. Woodrow Blount MD Chest X-Ray 11/30/17 [id number] Signed Impressions: Service Date/Time: Friday, December 01, 2017 00:06 - CONCLUSION: No acute cardiopulmonary disease. Woodrow Blount MD Objective Remarks GENERAL: Pleasant male, making jokes. SKIN: Warm and dry. There is area of healing from prior abscess in right groin that appears to by dried up and resolved; with some dry scaling skin overlying. No fluctuance, erythema or drainage. HEAD: Atraumatic. Normocephalic. EYES: Pupils equal and round. No scleral icterus. No injection or drainage. ENT: No nasal bleeding or discharge. Mucous membranes pink and moist. NECK: Trachea midline. No JVD. CARDIOVASCULAR: Regular rate and rhythm 2/6 systolic murmur RSB. Has nitroglycerin paste on his chest which I removed. RESPIRATORY: No accessory muscle use. Clear to auscultation. Breath sounds equal bilaterally. On NC. GASTROINTESTINAL: Abdomen soft, non-tender, nondistended. Bowel sounds present. : Voiding MUSCULOSKELETAL: Extremities without clubbing, cyanosis, or edema. No obvious deformities. NEUROLOGICAL: Awake and alert, oriented x4. No obvious cranial nerve deficits. Motor grossly within normal limits, moving all extremities Normal speech. A/P Assessment and Plan NEURO: Alert and capacitated for medical decision making RESP: Respiratory insufficiency Community acquired pneumonia Emphysema Tobacco abuse Nasal cannula, wean as tolerated Abx as per below IS q1 hour CV: Left bundle branch block Ventricular bigeminy Elevated troponin Hypertension Hyperlipidemia Severe aortic stenosis Thoracic aortic aneurysm Essential hypertension On heparin drip due to concern for ACS. Not candidate for beta-cedric due to hypotension. Aspirin 81 mg daily Following serial troponin. LBBB on EKG, previously IVCD. CT chest -noncontrast - 4.4 cm aneurysmal dilation of thoracic root, stable compared with prior imaging 07/2015. VQ scan to evaluate PE given hypotension/hypoxia/risk factors/elevated Ddimer. - Low probability. Lower extremity ultrasound negative. Follow-up lipids. Pravastatin 40 mg p.o. daily. Holding home norvasc due to hypotension. 2D Echo - prelim reading severe aortic stenosis, Dr. Stevenson to review. Likely will require cardiac cath but awaiting renal recovery. Has received 3 L of crystalloid. On NS at 50 mL/h. Will use Levophed to maintain mean arterial pressure greater than 65. GI: Diarrhea - improving Heart healthy diet check C diff FEN/RENAL/: [place] ?dehydration due to diarrhea. ischemic ATN secondary to hypotension or contribution from Bactrim considered, but these less likely given prompt creatinine improvement. Daughter also mentions he was on Jimmie-I?? holding now. BPH Hypokalemia - Received potassium chloride 20 mEq p.o. potassium corrected on follow-up BMP. Hold finasteride due to hypotension CT abdomen showed no hydronephrosis. Obtained followup creatinine which is downtrending. Voiding well so will hold off on Luis. Obtain urine eosinophils and FENA ID: Community-acquired pneumonia Small right lower lobe infiltrate noted on CT 12/01. Continue Zosyn and azithromycin for now and adjust based on culture data. Obtain urine Legionella antigen, pneumococcal antigen, Influenza , sputum culture, blood culture HEME: Monitor CBC . BLE u/s neg 12/01. ENDO: Euglycemic. PROPH: SCDs/on heparin drip. Famotidine for stress ulcer prophylaxis. ACCESS: LIJ CVL placed 12/01 #1. Daughter and patient updated at bedside. Multiple questions answered. Discussed with Dr. Stevenson Patient is critically ill with ongoing hypotension with organ dysfunction and is at risk for further compromise. Additional critical care time 25 minutes exclusive of separately billable procedures. Dominique King MD Dec 01, 2017 09:22
[2017-12-01] MEDS ORDERED: POTASSIUM CHLOR 20 MEQ PREMIX 100 ML IV ONE (09:30)
[2017-12-01] MEDS: DOCUSATE SODIUM 50 MG/SENNA 8.6 MG TAB PO SCH ×2 (10:35→21:12)
[2017-12-01] MEDS: ASPIRIN 81 MG CHEW TAB PO SCH (10:35)
[2017-12-01] MEDS: FAMOTIDINE 20 MG/2 ML VIAL IV PUSH SCH ×2 (10:36→21:12)
[2017-12-01] MEDS: SODIUM CHLORIDE 0.9% FLUSH 10 ML FLUSH IV FLUSH SCH ×2 (10:37→21:00)
[2017-12-01 11:44] LABS: CREATININE, RANDOM URINE 71.8 MG/DL
[2017-12-01] MEDS ORDERED: TERBUTALINE INJ 1 MG/ML AMP SQ PRN (12:15)
[2017-12-01] MEDS ORDERED: NOREPINEPHRINE-DEXTROSE DRIP 250 ML IV PRN (12:15)
--- NOTE | 2017-12-01 12:24 | PD.PROCEDR ---
Procedure Note Procedure DATE: 12/01/17 CENTRAL LINE PLACEMENT: Left internal jugular vein. INDICATION: Central venous access CONSENT Informed consent for procedure was obtained from patient after discussion of risks, benefits, alternatives. DESCRIPTION OF THE PROCEDURE The patient was placed in supine position, Trendelenberg. The skin was cleansed with Chloraprep. Additional barrier precautions included large sterile drape, sterile gloves, sterile gown, face mask, and hat. 1 % lidocaine was used for local anesthesia. Under direct ultrasound guidance the R IJ vein was accessed x4with an introducer needle however guidewire would not advance. When the vein was accessed a couple cm above the clavicle, the wire would only advanc ~ 3cm. Stopped procedure and restarted at L IJ site. New kit was obtained. The patient was placed in supine position, Trendelenberg. The skin was cleansed with Chloraprepx3. Additional barrier precautions included large sterile drape, sterile gloves, sterile gown, face mask, and hat. 1 % lidocaine was used for local anesthesia. Under direct ultrasound guidance and on single attempt the L IJ was accessed with an introducer. The guide wire was advanced and the tract was dilated. Using Seldinger technique a 7 Japanese 20 cm antimicrobial coated triple-lumen catheter was advanced to a depth of 18 centimeters. The guide wire was removed. All ports had good return of dark venous blood and flushed easily with saline. The central line was secured with Stat-lock. A sterile dressing with antibiotic disc was applied. ESTIMATED BLOOD LOSS: Minimal COMPLICATIONS: No apparent complications. STAT chest x-ray is pending Dominique King MD Dec 01, 2017 12:24
--- NOTE | 2017-12-01 12:48 | EKG ---
Date Performed: 12/01/2017 Time Performed: 06:07:02 PTAGE: 72 years EKG: Sinus rhythm WITH FIRST DEGREE AV BLOCK WITH FREQUENT VENTRICULAR PREMATURE COMPLEXES IN A BIGEMINAL PATTERN LEFT AXIS DEVIATION NONSPECIFIC INTRAVENTRICULAR CONDUCTION DELAY ABNORMAL ECG PREVIOUS TRACING : 11/30/2017 23.26 Compared to previous tracing, PVCs are now present. DOCTOR: Kush Kearney Interpretating Date/Time 12/01/2017 12:46:34
--- NOTE | 2017-12-01 12:51 | RADRPT ---
EXAM DATE/TIME: 12/01/2017 12:30 [facility] COMPARISON: CT THORAX W/O CONTRAST, December 01, 2017, 1:09. CHEST SINGLE AP, August 02, 2015, 4:26. INDICATIONS : Central line placement. MEDICAL HISTORY : Cardiovascular disease. Renal calculi. Hypertension. SURGICAL HISTORY : None. ENCOUNTER: Initial ACUITY: 1 day PAIN SCORE: 2/10 LOCATION: Left chest FINDINGS: A single view of the chest demonstrates the lungs to be symmetrically aerated without evidence of mas s, infiltrate or effusion. There is a left-sided central line in place. There is no pneumothorax. The cardiomediastinal contours are unremarkable. Osseous structures are intact. CONCLUSION: 1. Left central line in place. No pneumothorax. Cayden Bermudez MD on December 01, 2017 at 12:48 Board Certified Radiologist. This report was verified electronically.
--- NOTE | 2017-12-01 12:55 | EKG ---
Date Performed: 11/30/2017 Time Performed: 23:26:54 PTAGE: 72 years EKG: Sinus rhythm LEFT AXIS DEVIATION NONSPECIFIC INTRAVENTRICULAR CONDUCTION DELAY ABNORMAL ECG PREVIOUS TRACING : 05/03/2016 14.44 Compared to previous tracing, heart rate has increased, PVC s are no longer present. DOCTOR: Kush Kearney Interpretating Date/Time 12/01/2017 12:53:55
[2017-12-01 14:46] LABS: BICARBONATE 21.5 MEQ/L (21.0-32.0); CALCIUM 8.2 MG/DL (8.5-10.1); CREATININE 1.15 MG/DL (0.60-1.30)
--- NOTE | 2017-12-01 14:56 | RADRPT ---
EXAM DATE/TIME: 12/01/2017 13:54 [facility] COMPARISON: CHEST SINGLE AP, December 01, 2017, 12:30. INDICATIONS : Dyspnea. DOSE: 8.5 mCi Tc99m MAA IV 1.25 mCi Tc99m DTPA aerosol MEDICAL HISTORY : Hypertension. Thoracic abdominal aneurysm. SURGICAL HISTORY : Cholecystectomy. ENCOUNTER: Initial ACUITY: 1 day PAIN SCALE: 0/10 LOCATION: chest TECHNIQUE: Following five minutes of tidal breathing of DTPA aerosol, planar images of the lungs were performed in eight projections. The patient was then injected with MAA, and eight-view perfusion scan was perf ormed. FINDINGS: There is a patchy pattern of aerosol delivery to the periphery of both upper lungs. This can be seen with COPD. The perfusion lung scan demonstrates a homogenous pattern of uptake in both lungs. No segmental or s ubsegmental defects are seen. CONCLUSION: 1. No segmental or subsegmental perfusion defects are seen. 2. Low probability for PE. Cayden Bermudez MD on December 01, 2017 at 14:53 Board Certified Radiologist. This report was verified electronically.
--- NOTE | 2017-12-01 15:53 | ECHRPT ---
Indication: CORONARY ATHEROSCLEROSIS CONCLUSIONS Moderately dilated left ventricle. Mild concentric left ventricular hypertrophy. The left ventricular systolic function is riuhjkpi-dg-wewhahx reduced with an estimated ejection fra ction in the range of 35-40%. There is global left ventricular dysfunction. Severe aortic valve stenosis. Droa-bv-livpfjir aortic valve regurgitation. Aortic valve area is 0.41 cm. Aortic valve mean gradient is 50 mmHg. There is estimated moderate pulmonary hypertension present (51 mmHg). BP: / HR: Rhythm: MEASUREMENTS (Male / Female) Normal Values Technical Quality: 2D ECHO LV Diastolic Diameter PLAX 6.9 cm 4.2 - 5.9 / 3.9 - 5.3 cm LV Systolic Diameter PLAX 5.9 cm IVS Diastolic Thickness 1.2 cm 0.6 - 1.0 / 0.6 - 0.9 cm LVPW Diastolic Thickness 1.2 cm 0.6 - 1.0 / 0.6 - 0.9 cm LV Relative Wall Thickness 0.4 RV Internal Dim ED PLAX 2.5 cm LVOT Diameter 2.0 cm LA Systolic Diameter LX 4.1 cm 3.0 - 4.0 / 2.7 - 3.8 cm DOPPLER AV Peak Velocity 462.0 cm/s AV Peak Gradient 85.4 mmHg AV Mean Gradient 50.0 mmHg AV Velocity Time Integral 118.0 cm LVOT Peak Velocity 56.0 cm/s LVOT Peak Gradient 1.3 mmHg LVOT Velocity Time Integral 15.3 cm AV Area Cont Eq vti 0.4 cm AV Area Cont Eq pk 0.4 cm Mitral E Point Velocity 57.3 cm/s Mitral A Point Velocity 50.3 cm/s Mitral E to A Ratio 1.1 TR Peak Velocity 319.0 cm/s TR Peak Gradient 40.7 mmHg Right Atrial Pressure 10.0 mmHg Pulmonary Artery Systolic Pressu 50.7 mmHg Right Ventricular Systolic Press 50.7 mmHg FINDINGS LEFT VENTRICLE Moderately dilated left ventricle. Mild concentric left ventricular hypertrophy. The left ventricular systolic function is esllisdj-dz-bulcujf reduced with an estimated ejection fra ction in the range of 35-40%. There is global left ventricular dysfunction. RIGHT VENTRICLE Normal right ventricular size and systolic function. LEFT ATRIUM The left atrial size is normal. RIGHT ATRIUM The right atrial size is normal. ATRIAL SEPTUM Normal atrial septal thickness without atrial level shunting by limited color doppler interrogation. AORTA The aortic root and proximal ascending aorta are normal in size on limited imaging. MITRAL VALVE Structurally normal mitral valve. No mitral valve stenosis or regurgitation. AORTIC VALVE Severe aortic valve stenosis. Oxoj-az-ldgdslgf aortic valve regurgitation. Aortic valve area is 0.41 cm. Aortic valve mean gradient is 50 mmHg. TRICUSPID VALVE There is estimated moderate pulmonary hypertension present (51 mmHg). PULMONARY VALVE No pulmonary valve regurgitation or stenosis. VESSELS The inferior vena cava is normal in size. PERICARDIUM No pericardial effusion. Milan Stevenson MD, FACC (Electronically Signed) Final Date:01 December 2017 11:47
--- NOTE | 2017-12-01 16:30 | RADRPT ---
EXAM DATE/TIME: 12/01/2017 15:06 [facility] COMPARISON: No previous studies available for comparison. INDICATIONS : Pain. MEDICAL HISTORY : Hypertension. Hypercholesterolemia. Benign prostatic hyperplasia, (BPH) SURGICAL HISTORY : ERCP. Laproscopic Cholecystectomy. ENCOUNTER: Initial ACUITY: 1 day PAIN SCORE: 1/10 LOCATION: Bilateral legs. TECHNIQUE: Venous ultrasound of the left and right leg was performed from the inguinal ligament to the proximal calf. Real-time, color Doppler and spectral tracing, compression and augmentation techniques were us ed. FINDINGS: RIGHT LEG: There is normal compressibility of the deep venous system from the inguinal region to the proximal ca lf. No echogenic clot is seen in the lumen of the common femoral, femoral, popliteal, and posterior tibial veins. There is a normal response of the venous system to proximal and distal augmentation an d respiration. LEFT LEG: There is normal compressibility of the deep venous system from the inguinal region to the proximal ca lf. No echogenic clot is seen in the lumen of the common femoral, femoral, popliteal, and posterior tibial veins. There is a normal response of the venous system to proximal and distal augmentation an d respiration. CONCLUSION: No evidence of DVT. Cayden Bermudez MD on December 01, 2017 at 16:28 Board Certified Radiologist. This report was verified electronically.
[2017-12-01] MEDS: RESP: ALBUTEROL 2.5 MG/IPRATROPIUM 0.5 MG NEB (PRN) INH (17:23)
[2017-12-02] VITALS (8 sets, daily range): BP systolic 91–120; BP diastolic 65–81; PULSE 82–113; RESP 16–24; TEMP 97.5–97.9; O2SAT 92–99
[2017-12-02] MEDS: RESP: ALBUTEROL 2.5 MG/IPRATROPIUM 0.5 MG NEB (PRN) INH ×2 (00:01→06:03)
[2017-12-02] MEDS: PIPERACIL-TAZO 3.375 GM PREMIX 50 ML IV SCH ×2 (00:07→06:00)
[2017-12-02] MEDS: CHLORHEXIDINE GLUCONATE 2 % 1 PACK (2 CLOTHS) TOP SCH (04:00)
[2017-12-02 04:06] LABS: AUTOMATED NEUTROPHIL # 5.4 TH/MM3 (1.8-7.7); BASOPHIL % 0.6 % (0.0-2.0); EOSINOPHIL # 0.1 TH/MM3 (0-0.4); HEMATOCRIT 31.1 % (39.0-51.0); HEMOGLOBIN 10.8 GM/DL (13.0-17.0); LYMPH % 20.4 % (9.0-44.0); LYMPHOCYTE # 1.6 TH/MM3 (1.0-4.8); MEAN CELL VOLUME 85.8 FL (80.0-100.0); MEAN CORPUSCULAR HEMOGLOBIN 29.7 PG (27.0-34.0); MEAN CORPUSCULAR HGB CONC 34.6 % (32.0-36.0); MEAN PLATELET VOLUME 8.4 FL (7.0-11.0); MONO % 9.6 % (0.0-8.0); MONOCYTE # 0.8 TH/MM3 (0-0.9); NEUT % 68.4 % (16.0-70.0); PLATELET COUNT 261 TH/MM3 (150-450); RED BLOOD COUNT 3.63 MIL/MM3 (4.50-5.90); RED CELL DISTRIBUTION WIDTH 15.1 % (11.6-17.2); WHITE BLOOD COUNT 7.9 TH/MM3 (4.0-11.0)
[2017-12-02 04:37] LABS: ALBUMIN 2.7 GM/DL (3.4-5.0); AST (GOT) 49 U/L (15-37); BICARBONATE 21.1 MEQ/L (21.0-32.0); BLOOD UREA NITROGEN 17 MG/DL (7-18); CALCIUM 8.3 MG/DL (8.5-10.1); CHLORIDE 113 MEQ/L (98-107); CREATININE 0.95 MG/DL (0.60-1.30); GLOMERULAR FILTRATION RATE 77 ML/MIN (>89); GLUCOSE,RANDOM 98 MG/DL (74-106); MAGNESIUM 1.8 MG/DL (1.5-2.5); SODIUM (NA) 142 MEQ/L (136-145)
[2017-12-02 04:42] LABS: ALKALINE PHOSPHATASE 84 U/L (45-117); ALT (GPT) 45 U/L (12-78); PHOSPHORUS 3.1 MG/DL (2.5-4.9); TOTAL BILIRUBIN ADULT 0.5 MG/DL (0.2-1.0); TOTAL PROTEIN 6.3 GM/DL (6.4-8.2)
[2017-12-02] MEDS ORDERED: RESP: ALBUTEROL 2.5 MG/3 ML NEB (PRN) NEB (06:00)
[2017-12-02] MEDS: HEPARIN-D5W 25,000 U/250 ML 250 ML IV PRN (06:18)
[2017-12-02] MEDS ORDERED: POTASSIUM CHLORIDE 10 MEQ CONTROLLED RELEASE TAB PO ONE (07:00)
[2017-12-02] MEDS: MAGNESIUM SULFATE 1 GM PREMIX 100 ML IV SCH ×2 (07:45→08:54)
[2017-12-02] MEDS: AZITHROMYCIN INJ 500 MG in SODIUM CHLOR 0.9% 250 ML INJ 250 ML IV SCH (07:46)
[2017-12-02 08:01] LABS: CHOLESTEROL/ HDL RATIO 3.57 RATIO; HDL CHOLESTEROL 29.4 MG/DL (40.0-60.0)
[2017-12-02] MEDS ORDERED: ALTEPLASE RECOMBINANT 2 MG VIAL INTRACATH ONE (08:15)
[2017-12-02] MEDS ORDERED: ALTEPLASE RECOMBINANT 2 MG VIAL INTRACATH PRN (08:15)
[2017-12-02] MEDS ORDERED: RESP: LEVALBUTEROL HYDROCHLORIDE 0.63 MG/3 ML NEB (PRN) NEB (08:45)
[2017-12-02] MEDS: SODIUM CHLORIDE 0.9% FLUSH 10 ML FLUSH IV FLUSH SCH ×2 (08:54→20:54)
[2017-12-02] MEDS: DOCUSATE SODIUM 50 MG/SENNA 8.6 MG TAB PO SCH ×2 (08:54→20:54)
[2017-12-02] MEDS: FAMOTIDINE 20 MG/2 ML VIAL IV PUSH SCH (08:54)
[2017-12-02] MEDS: ASPIRIN 81 MG CHEW TAB PO SCH (08:55)
[2017-12-02] MEDS: MAGNESIUM OXIDE 400 MG TAB PO SCH ×2 (08:55→20:53)
--- NOTE | 2017-12-02 09:07 | HHI.CCPN ---
Subjective Remarks/Hospital Course 72 yo WM with PMH HTN, HLD, thoracic aortic aneurysm, EtOH use, tobacco abuse Patient states he had infection in Right groin and started Bactrim 11/21/17. Since then he has been fatigued, SOB, mostly laying on couch. Has had chills. Had diarrhea with ~ 2-3 loose stools daily for 3-5 days. Last night he was at rest when he developed L sided chest pain, nonpleuritic non radiating with no n/ v/diaphoresis/arm pain. Pain resolved after arrival and he now states he is chest pain free. No hemoptysis. He has had some cough and sputum production. R groin infection is resolved. No prior h/o VTE. Troponin 0.07, on heparin drip. In bigeminy. Creatinine 2.19. CT chest with early RLL pneumonia, has been started on Azithromycin/Zosyn. BP intermittently 80s/50s despite having received 3 L of NS so will place CVL with anticipation of need for vasopressor support. . Obtaining VQ scan to evaluate for PE. Subjective 12/02: Afebrile. Currently in 4 L nasal cannula. Denies chest pain or shortness of breath. Not on any vasopressors. Continues on heparin drip with troponin 0.41. [employer] App[employer] to discuss echocardiogram results with possibility of LHC and evaluation of severe aortic stenosis. Continues on piperacillin/ tazobactam and azithromycin for right lower lobe pneumonia. Objective Vital Signs Date Time Temp Pulse Resp B/P (MAP) Pulse Ox O2 Delivery O2 Flow Rate FiO2 12/02/17 07:20 97 Nasal Cannula 5.00 12/02/17 07:00 97 12/02/17 07:00 97.5 20 114/70 (85) Intake and Output 12/02/17 12/02/17 12/03/17 08:00 16:00 00:00 Intake Total 645 ml Output Total 700 ml Balance -55 ml Result Diagram: 12/02/17 03312/02/17 0330 Other Results Microbiology Date/Time Source Procedure Growth Status 12/01/17 13:09 Blood Peripheral Aerobic Blood Culture Pending Received 12/01/17 13:09 Blood Peripheral Anaerobic Blood Culture Pending Received 12/01/17 16:00 Nasal Aspirate Influenza Types A,B Antigen (MIKIE) - Final NEGATIVE FOR FLU A AND B ANTIGEN.... Complete 12/01/17 10:30 Urine Random Urine Legionella Antigen - Final PRESUMPTIVE NEGATIVE FOR LEGIONELLA P... Complete 12/01/17 10:30 Urine Random Urine Streptococcus pneumoniae Antigen (M - Final PRESUMPTIVE NEGATIVE FOR STREPTOCOCCU... Complete Imaging Last Impressions Lung Scan-VQ Nuclear Medicine 12/01/17 0000 Signed Impressions: Service Date/Time: Friday, December 01, 2017 13:54 - CONCLUSION: 1. No segmental or subsegmental perfusion defects are seen. 2. Low probability for PE. Cayden Bermudez MD Lower Extremity Ultrasound 12/01/17 0000 Signed Impressions: Service Date/Time: Friday, December 01, 2017 15:06 - CONCLUSION: No evidence of DVT. Cayden Bermudez MD Chest X-Ray 12/01/17 0000 Signed Impressions: Service Date/Time: Friday, December 01, 2017 12:30 - CONCLUSION: 1. Left central line in place. No pneumothorax. Cayden Bermudez MD Chest CT 12/01/17 0000 Signed Impressions: Service Date/Time: Friday, December 01, 2017 01:09 - CONCLUSION: 1. An area of early or mild pneumonia in the right lower lobe. 2. Left ventricular hypertrophy and aortic valve calcification. Mild prominence of the ascending thoracic aorta is unchanged, 4.4 cm. 3. Coronary artery calcification. 4. Mild emphysema. Woodrow Blount MD Abdomen/Pelvis CT 12/01/17 0000 Signed Impressions: Service Date/Time: Friday, December 01, 2017 01:09 - CONCLUSION: 1. No acute abnormalities are demonstrated in the abdomen or pelvis. 2. Atherosclerotic aorta and branch vessels. Non-aneurysmal aorta. 3. Cholecystectomy since the prior study. No associated complication demonstrated. No evidence of biliary obstruction. 4. Enlarged prostate again seen. Woodrow Blount MD Procedures Left IJ CVL 12/01 Objective Remarks GENERAL: 72-year-old male currently resting in bed on nasal cannula in no acute distress SKIN: Warm and dry. There is demarcated area in right groin that appears to be resolving right inguinal abscess; with some dry scaling skin overlying. No palpable fluctuance, no visual erythema or drainage. HEAD: Atraumatic. Normocephalic. EYES: Pupils equal and round about 2 mm bilaterally and reactive. No scleral icterus. No injection or drainage. ENT: No nasal bleeding or discharge. Mucous membranes pink and moist. NECK: Trachea midline. No JVD. CARDIOVASCULAR: Regular rate and rhythm . S1, S2. No S4. 2/6 systolic murmur RUSB. RESPIRATORY: Few fine crackles appreciated in right lower lobe. No wheezing. Symmetrical excursion. GASTROINTESTINAL: Abdomen soft, non-tender, nondistended. Hypoactive bowel sounds are present. MUSCULOSKELETAL: Extremities without significant peripheral edema. No obvious deformities. NEUROLOGICAL: Cranial nerves II through XII are grossly intact. Gait was not assessed. Motor grossly within normal limits, moving all extremities Normal speech. Urinary Catheter: No Assessment to: Continue Vascular Central Line Catheter: Yes Assessment to: Continue Date of Insertion: Dec 01, 2017 Line: Central Venous Catheter Side: Left Location: Internal, Jugular A/P Assessment and Plan NEURO/PSYCH: [place] Daily whiskey use Alert and capacitated for medical decision making Acetaminophen 650 mg by mouth every 6 hours when necessary pain 1-5/fever Morphine sulfate 2 mg IV every 2 hours when necessary pain 6-10 We'll start on thiamine 100 mg by mouth daily for daily whiskey use. Along with folic acid 1 mg daily multivitamin daily Denies abuse. RESP: Acute Respiratory insufficiency Community acquired pneumonia Emphysema RLL CT thorax Tobacco abuse Nasal cannula to maintain saturations greater than equal to 92%. Currently in 4 L nasal cannula. Incentive spirometry while awake Will switch to Levalbuterol nebs 0.63mg/3 ml 1 inhalation every 6 hours/2 every 2 hours when necessary dyspnea Ipratropium bromide 0.5 mg aerosols every 6 hours scheduled VQ scan low probability for pulmonary embolism CT thorax 12/01 revealed right lower lobe pneumonia. Mild emphysematous changes. Descending thoracic aorta 4.4 cm/stable. Calcifications around the left main/LAD CV: First degree AV block Ventricular bigeminy Elevated troponin 0.41 Hyperlipidemia - low HDL/low cholesterol Severe aortic stenosis Moderate aortic regurgitation Thoracic aortic aneurysm - 4.4 cm Essential hypertension Moderate pulmonary hypertension - 50 mmHg On heparin drip due to concern for ACS currently at 800 units an hour. Not candidate for beta-cedric due to hypotension. Continue Aspirin 81 mg daily Following serial troponin. First-degree AV block on EKG with IVCD. We'll recheck in a.m. 12/03 CT chest -noncontrast - 4.4 cm aneurysmal dilation of thoracic root, stable compared with prior imaging 07/2015. VQ scan to evaluate PE given hypotension/hypoxia/risk factors/elevated Ddimer. - Low probability. Lower extremity Doppler ultrasound negative for DVT thrombosis Follow-up lipids pending. Pravastatin 40 mg p.o. daily. On simvastatin 5 mill grams daily at home Holding home amlodipine 5 mg daily due to hypotension. 2D Echo - revealed LV mildly dilatated/LV hypertrophy, LV systolic function decrease to 35-40%. Global LV dysfunction. Severe aortic stenosis. Mod AR. AV 0.41 cm. Moderate pulmonary hypertension 50 mm Hg Likely will require left heart cardiac cath but awaiting renal recovery. Patient currently refusing any intervention at this time Has received 3 L of crystalloid. GI: Diarrhea - improving Elevated AST Hypoalbuminemia Sigmoid diverticulosis Heart healthy diet Famotidine 20 mg a night for GI prophylaxis Docusate sodium/senna 1 tablet twice a day for bowel regimen Check C diff per prior loader demolder CT abdomen/pelvis revealed sigmoid diverticulosis without diverticulitis. FEN/RENAL/: [place] - resolved etiology prerenal dehydration due to diarrhea. Ischemic ATN secondary to hypotension or contribution from Bactrim considered, but these less likely given prompt creatinine improvement. Daughter also mentions he was on Jimmie-I?? holding now. BPH Hypokalemia Hypo-magnesium Left renal cyst Resume finasteride 5 milligrams daily. Previously held due to hypotension as this medication can cause orthostatic hypotension CT abdomen/pelvis 12/01 revealed 2 cm left renal cyst and did not reveal hydronephrosis Creatinine currently normalizing. Obtain urine eosinophils - negative and FENA - intrinsic renal 30 mEq potassium chloride 1 now. 2 g mag sulfate IV 1 now. Mag-Ox 400 mg by mouth twice a day for 1 day then discontinue. Recheck electro lites in a.m. ID: Community-acquired pneumonia Small right lower lobe infiltrate noted on CT 12/01. Continue piperacillin/tazobactam and azithromycin for now and adjust based on culture data. Obtain urine Legionella antigen, pneumococcal antigen and influenza A and B Pending sputum culture, blood culture 12/01 no growth HEME: Normocytic anemia Currently on heparin drip for NSTEMI Recheck CBC in a.m. There is no indication for transfusion of blood proximal at this time BLE Doppler ultrasound neg for DVT thrombosis 2/24. ENDO: Euglycemic. Check TSH PROPH: SCDs/on heparin drip. Famotidine for stress ulcer prophylaxis. ACCESS: LIJ CVL placed 12/01 #2. Level II follow-up Marcus Monte MD Dec 02, 2017 09:07
[2017-12-02] MEDS: RESP: LEVALBUTEROL HYDROCHLORIDE 0.63 MG/3 ML NEB (SCH) NEB ×3 (09:28→20:32)
[2017-12-02] MEDS ORDERED: MULTIVITAMIN TAB PO ONE (10:00)
[2017-12-02] MEDS ORDERED: FOLIC ACID 1 MG TAB PO ONE (10:00)
[2017-12-02] MEDS ORDERED: THIAMINE HCL 100 MG TAB PO ONE (10:00)
--- NOTE | 2017-12-02 10:36 | PD.CARD.PN ---
Subjective Subjective Remarks continues to feel SOB and weak, no chest pain overnight. Increased SOB overnight ; IVF held with improvement. albuterol induced ventricular bigeminy, tolerating xopenex well. discussed plan at length with patient and daughter (Larissa Kimble) Objective Medications Current Medications Medications (Trade) Dose Ordered Sig/Taz Route Start Time Stop Time Status Last Admin Heparin Sodium/ Dextrose 250 ml @ 10 mls/hr TITRATE PRN IV 12/01/17 02:30 12/02/17 06:18 (Aspirin Chew) 81 mg DAILY PO 12/01/17 09:00 12/02/17 08:55 Sodium Chloride 1,000 ml @ 50 mls/hr Q20H IV 12/01/17 05:21 Future Hold 12/01/17 22:38 (NS Flush) 2 ml UNSCH PRN IV FLUSH 12/01/17 05:30 (NS Flush) 2 ml BID IV FLUSH 12/01/17 09:00 12/02/17 08:54 (Tylenol) 650 mg Q6H PRN PO 12/01/17 05:30 (Morphine Inj) 2 mg Q2H PRN IV PUSH 12/01/17 05:30 (Zofran Inj) 4 mg Q6H PRN IV PUSH 12/01/17 05:30 (Restoril) 15 mg HS PRN PO 12/01/17 05:30 Future Hold Miscellaneous Information 1 Q361D XX 12/01/17 05:30 (Chlorhexidine 2% Cloth) 3 pack Taper DAILY@04 TOP 12/02/17 04:00 11/28/18 03:59 12/02/17 04:00 (Chlorhexidine 2% Cloth) 3 pack UNSCH PRN TOP 12/01/17 05:30 (Irina-Colace) 1 tab BID PO 12/01/17 09:00 12/02/17 08:54 (Milk Of Magnesia Liq) 30 ml Q12H PRN PO 12/01/17 05:30 (Senokot) 17.2 mg Q12H PRN PO 12/01/17 05:30 (Dulcolax Supp) 10 mg DAILY PRN RECTAL 12/01/17 05:30 (Lactulose Liq) 30 ml DAILY PRN PO 12/01/17 05:30 Azithromycin 500 mg/Sodium Chloride 250 ml @ 250 mls/hr Q24H IV 12/01/17 08:00 12/02/17 07:46 Norepinephrine Bitartrate 250 ml @ 7.5 mls/hr TITRATE PRN IV 12/01/17 12:15 (Brethine Inj) 1 mg UNSCH PRN SQ 12/01/17 12:15 (Cathflo Activase Inj) 2 mg Q2H PRN INTRACATH 12/02/17 08:15 (Mag-Ox) 400 mg Q12HR PO 12/02/17 09:00 12/02/17 21:01 12/02/17 08:55 (Xopenex Neb) 0.63 mg Q6HR NEB NEB 12/02/17 10:00 12/02/17 09:28 (Xopenex Neb) 0.63 mg Q2HR NEB PRN NEB 12/02/17 08:45 (Proscar) 5 mg DAILY PO 12/03/17 09:00 (Pepcid) 20 mg HS PO 12/02/17 21:00 (Pravachol) 40 mg HS PO 12/02/17 21:00 Piperacillin Sod/ Tazobactam Sod 100 ml @ 200 mls/hr Q6H IV 12/02/17 12:00 Vancomycin HCl 1250 mg/Sodium Chloride 262.5 ml @ 262.5 mls/ hr ONCE ONCE IV 12/02/17 11:00 12/02/17 11:59 (Folate) 1 mg DAILY PO 12/03/17 09:00 (Vitamin B1) 100 mg DAILY PO 12/03/17 09:00 (Theragran) 1 tab DAILY PO 12/03/17 09:00 (Atrovent Neb) 0.5 mg Q6HR NEB NEB 12/02/17 16:00 Vital Signs / I&O Vital Signs Date Time Temp Pulse Resp B/P (MAP) Pulse Ox O2 Delivery O2 Flow Rate FiO2 12/02/17 07:20 97 Nasal Cannula 5.00 12/02/17 07:00 97 12/02/17 07:00 93 Nasal Cannula 4.00 12/02/17 07:00 97.5 97 20 114/70 (85) 93 12/02/17 03:00 97.5 82 16 91/70 (77) 96 12/02/17 03:00 86 12/02/17 03:00 96 Nasal Cannula 6.00 12/01/17 23:00 97.4 89 16 110/76 (87) 94 12/01/17 23:00 94 Nasal Cannula 6.00 12/01/17 23:00 89 12/01/17 19:00 97 Nasal Cannula 3.00 12/01/17 19:00 97.7 88 16 98/66 (77) 97 12/01/17 19:00 88 12/01/17 17:24 95 Nasal Cannula 2.00 12/01/17 15:00 97.7 88 20 100/44 (62) 97 12/01/17 15:00 97 Nasal Cannula 2.00 12/01/17 15:00 88 12/01/17 11:00 96 Nasal Cannula 2.00 12/01/17 11:00 85 12/01/17 11:00 98.0 85 20 95/63 (74) 96 I/O 12/01/17 12/01/17 12/01/17 12/02/17 12/02/17 12/02/17 07:00 15:00 23:00 07:00 15:00 23:00 Intake Total 2000 ml 450 ml 1309 ml 645 ml 500 ml Output Total 800 ml 700 ml Balance 2000 ml 450 ml 509 ml -55 ml 500 ml Intake Oral 450 ml 240 ml IV Total 2000 ml 450 ml 859 ml 405 ml 500 ml Output Urine Total 800 ml 700 ml # Bowel Movements 0 Physical Exam GENERAL: SKIN: Warm and dry. HEAD: Atraumatic. Normocephalic. EYES: Pupils equal and round. ENT: No nasal bleeding or discharge. NECK: Trachea midline. No JVD. CARDIOVASCULAR: Regular rate and rhythm. +systolic murmur RESPIRATORY: No accessory muscle use. Clear to auscultation. Breath sounds equal bilaterally. GASTROINTESTINAL: Abdomen soft, non-tender, nondistended. MUSCULOSKELETAL: Extremities without clubbing, cyanosis, or edema. No obvious deformities. NEUROLOGICAL: Awake and alert. No obvious cranial nerve deficits. Normal speech. PSYCHIATRIC: Appropriate mood and affect; insight and judgment normal. Laboratory Laboratory Tests Test 12/01/17 10:30 12/01/17 13:00 12/01/17 15:40 12/01/17 18:40 Urine Eosinophils NONE SEEN /HPF Urine Random Creatinine 71.8 MG/DL Urine Random Sodium 71 MEQ/L Activated Partial Thromboplast Time 33.6 SEC 53.4 SEC Blood Urea Nitrogen 26 MG/DL Creatinine 1.15 MG/DL Random Glucose 94 MG/DL Calcium Level 8.2 MG/DL Sodium Level 143 MEQ/L Potassium Level 4.1 MEQ/L Chloride Level 114 MEQ/L Carbon Dioxide Level 21.5 MEQ/L Anion Gap 8 MEQ/L Estimat Glomerular Filtration Rate 62 ML/MIN Troponin I 0.27 NG/ML 0.41 NG/ML B-Type Natriuretic Peptide 1296 PG/ML Nasal Screen MRSA (PCR) MRSA NOT DETECTED Test 12/02/17 01:05 12/02/17 03:30 Activated Partial Thromboplast Time 47.6 SEC White Blood Count 7.9 TH/MM3 Red Blood Count 3.63 MIL/MM3 Hemoglobin 10.8 GM/DL Hematocrit 31.1 % Mean Corpuscular Volume 85.8 FL Mean Corpuscular Hemoglobin 29.7 PG Mean Corpuscular Hemoglobin Concent 34.6 % Red Cell Distribution Width 15.1 % Platelet Count 261 TH/MM3 Mean Platelet Volume 8.4 FL Neutrophils (%) (Auto) 68.4 % Lymphocytes (%) (Auto) 20.4 % Monocytes (%) (Auto) 9.6 % Eosinophils (%) (Auto) 1.0 % Basophils (%) (Auto) 0.6 % Neutrophils # (Auto) 5.4 TH/MM3 Lymphocytes # (Auto) 1.6 TH/MM3 Monocytes # (Auto) 0.8 TH/MM3 Eosinophils # (Auto) 0.1 TH/MM3 Basophils # (Auto) 0.0 TH/MM3 CBC Comment DIFF FINAL Differential Comment Blood Urea Nitrogen 17 MG/DL Creatinine 0.95 MG/DL Random Glucose 98 MG/DL Total Protein 6.3 GM/DL Albumin 2.7 GM/DL Calcium Level 8.3 MG/DL Phosphorus Level 3.1 MG/DL Magnesium Level 1.8 MG/DL Alkaline Phosphatase 84 U/L Aspartate Amino Transf (AST/SGOT) 49 U/L Alanine Aminotransferase (ALT/SGPT) 45 U/L Total Bilirubin 0.5 MG/DL Sodium Level 142 MEQ/L Potassium Level 3.8 MEQ/L Chloride Level 113 MEQ/L Carbon Dioxide Level 21.1 MEQ/L Anion Gap 8 MEQ/L Estimat Glomerular Filtration Rate 77 ML/MIN Lactic Acid Level 1.1 mmol/L Triglycerides Level 97 MG/DL Cholesterol Level 105 MG/DL LDL Cholesterol 56 MG/DL HDL Cholesterol 29.4 MG/DL Cholesterol/HDL Ratio 3.57 RATIO (Larissa Kimble) Assessment and Plan Problem List: (1) Chest pain ICD Codes: R07.9 - Chest pain Status: Acute (2) Ventricular bigeminy ICD Codes: I49.9 - Cardiac arrhythmia, unspecified Status: Acute (3) Hypotension ICD Codes: I95.9 - Hypotension, unspecified Status: Acute Assessment and Plan 72 yo WM with HTN, HLD admitted for chest pain. He began to feel anterior left- sided chest pain and exertional SOB. He attributes these symptoms to an antibiotic recently given by PCP for groin infection. Chest pain similar to prior hospitalization in 2006 where cardiac catheterization showed angiographically normal coronary arteries. He has had and an ascending thoracic aneurysm on prior imaging; CT shows same area to be unchanged in size at 4.4cm. chest pain- asymptomatic currently, troponin intermediate elevation hypotension improved creatinine improved will need cardiac cath to rule out ischemia cardiomyopathy- reduced EF 35-40% aortic stenosis- severe. DIVYA 0.41cm, mean gradient 50mmHg, mod pHTN will discuss possibility of AVR vs. TAVR ascending thoracic aorta- 4.4cm, stable normocytic anemia SOB- consider VQ scan to r/o P.E PNA- abx (Larissa Kimble) Assessment and Plan NSTEMI Cardiomyopathy Severe ARF cont ATBx. Allow PNA to resolve Cr improved. Allow few days recovery before contrast load with [facility] Severe - AVR vs TAVR, to be determined [facility] - probably Tu or Sun (Milan Stevenson MD) Larissa Kimble Dec 02, 2017 10:36 Milan Stevenson MD Dec 02, 2017 11:24
[2017-12-02] MEDS ORDERED: VANCOMYCIN INJ 1,250 MG in SODIUM CHLOR 0.9% 250 ML INJ 250 ML IV ONE (11:00)
[2017-12-02 12:24] LABS: INTERNATIONAL NORMALIZED RATIO 1.1 RATIO; PROTHROMBIN TIME - PATIENT 11.2 SEC (9.8-11.6)
[2017-12-02] MEDS: PIPERACIL-TAZO 4.5 GM PREMIX 100 ML IV SCH ×2 (12:59→18:08)
[2017-12-02] MEDS: RESP: IPRATROPIUM 0.5 MG/2.5 ML NEB NEB SCH ×2 (15:50→20:31)
[2017-12-02] MEDS: PRAVASTATIN SOD 40 MG TAB PO SCH (20:53)
[2017-12-02] MEDS: FAMOTIDINE 20 MG TAB PO SCH (20:54)
[2017-12-03] VITALS (9 sets, daily range): BP systolic 92–112; BP diastolic 60–75; PULSE 82–99; RESP 14–26; TEMP 97.7–98; O2SAT 94–99
[2017-12-03] MEDS: CHLORHEXIDINE GLUCONATE 2 % 1 PACK (2 CLOTHS) TOP SCH (04:00)
[2017-12-03] MEDS: RESP: LEVALBUTEROL HYDROCHLORIDE 0.63 MG/3 ML NEB (SCH) NEB ×4 (04:07→21:55)
[2017-12-03] MEDS: RESP: IPRATROPIUM 0.5 MG/2.5 ML NEB NEB SCH ×3 (04:07→15:28)
[2017-12-03] MEDS ORDERED: FUROSEMIDE 40 MG/4 ML VIAL IV PUSH ONE ×2 (04:15→12:00)
[2017-12-03] MEDS ORDERED: FUROSEMIDE 40 MG/4 ML VIAL ONE (04:28)
[2017-12-03] MEDS: HEPARIN-D5W 25,000 U/250 ML 250 ML IV PRN (05:09)
[2017-12-03] MEDS ORDERED: methylPREDNISolone SOD SUCC 125 MG/2 ML VIAL IV ONE (05:15)
[2017-12-03 05:20] LABS: AUTOMATED NEUTROPHIL # 6.5 TH/MM3 (1.8-7.7); BASOPHIL # 0.1 TH/MM3 (0-0.2); BASOPHIL % 0.9 % (0.0-2.0); EOSINOPHIL # 0.1 TH/MM3 (0-0.4); EOSINOPHIL % 1.2 % (0.0-4.0); HEMATOCRIT 36.4 % (39.0-51.0); HEMOGLOBIN 12.2 GM/DL (13.0-17.0); LYMPH % 22.3 % (9.0-44.0); LYMPHOCYTE # 2.2 TH/MM3 (1.0-4.8); MEAN CELL VOLUME 86.4 FL (80.0-100.0); MEAN CORPUSCULAR HEMOGLOBIN 29.1 PG (27.0-34.0); MEAN CORPUSCULAR HGB CONC 33.6 % (32.0-36.0); MEAN PLATELET VOLUME 8.3 FL (7.0-11.0); MONO % 9.3 % (0.0-8.0); MONOCYTE # 0.9 TH/MM3 (0-0.9); NEUT % 66.3 % (16.0-70.0); PLATELET COUNT 352 TH/MM3 (150-450); RED BLOOD COUNT 4.21 MIL/MM3 (4.50-5.90); RED CELL DISTRIBUTION WIDTH 15.2 % (11.6-17.2); WHITE BLOOD COUNT 9.8 TH/MM3 (4.0-11.0)
[2017-12-03 05:42] LABS: AST (GOT) 46 U/L (15-37); BICARBONATE 22.4 MEQ/L (21.0-32.0); BLOOD UREA NITROGEN 11 MG/DL (7-18); CHLORIDE 110 MEQ/L (98-107); CREATININE 1.01 MG/DL (0.60-1.30); GLOMERULAR FILTRATION RATE 72 ML/MIN (>89); GLUCOSE,RANDOM 118 MG/DL (74-106); MAGNESIUM 1.9 MG/DL (1.5-2.5); SODIUM (NA) 139 MEQ/L (136-145)
[2017-12-03 05:43] LABS: ALT (GPT) 52 U/L (12-78); PHOSPHORUS 3.6 MG/DL (2.5-4.9)
[2017-12-03 05:54] LABS: ALKALINE PHOSPHATASE 96 U/L (45-117); TOTAL BILIRUBIN ADULT 0.6 MG/DL (0.2-1.0); TOTAL PROTEIN 7.3 GM/DL (6.4-8.2)
[2017-12-03] MEDS: PIPERACIL-TAZO 4.5 GM PREMIX 100 ML IV SCH ×4 (05:57→18:00)
--- NOTE | 2017-12-03 05:58 | RADRPT ---
EXAM DATE/TIME: 12/03/2017 05:12 [place] COMPARISON: CHEST SINGLE AP, December 01, 2017, 12:30. INDICATIONS : Shortness of breath. MEDICAL HISTORY : Cardiovascular disease. Renal calculi. Hypertension. SURGICAL HISTORY : None. ENCOUNTER: Subsequent ACUITY: 2 days PAIN SCORE: 0/10 LOCATION: Bilateral chest FINDINGS: Stable left IJ central line. Worsening perihilar patchy airspace disease and interstitial prominence. There is also worsening airspace disease in the left lower lung zone with obscuration of the diaphra gm. Cardiomediastinal contours are stable. Remainder of exam is unchanged. CONCLUSION: 1. Worsening interstitial edema and bilateral lower lung zone airspace disease, left greater than rig ht. Differential considerations include a atypical pulmonary edema versus multilobar pneumonia versus aspiration. Immanuel Carrasquillo MD on December 03, 2017 at 5:56 Board Certified Radiologist. This report was verified electronically.
[2017-12-03] MEDS: AZITHROMYCIN INJ 500 MG in SODIUM CHLOR 0.9% 250 ML INJ 250 ML IV SCH (08:56)
--- NOTE | 2017-12-03 09:12 | PD.CARD.PN ---
Subjective Subjective Remarks continues to feel SOB and weak, no chest pain overnight. using non-rebreather mask (Larissa Kimble) Objective Medications Current Medications Medications (Trade) Dose Ordered Sig/Taz Route Start Time Stop Time Status Last Admin Heparin Sodium/ Dextrose 250 ml @ 10 mls/hr TITRATE PRN IV 12/01/17 02:30 12/03/17 05:09 (Aspirin Chew) 81 mg DAILY PO 12/01/17 09:00 12/02/17 08:55 Sodium Chloride 1,000 ml @ 50 mls/hr Q20H IV 12/01/17 05:21 Future Hold 12/01/17 22:38 (NS Flush) 2 ml UNSCH PRN IV FLUSH 12/01/17 05:30 (NS Flush) 2 ml BID IV FLUSH 12/01/17 09:00 12/02/17 20:54 (Tylenol) 650 mg Q6H PRN PO 12/01/17 05:30 (Morphine Inj) 2 mg Q2H PRN IV PUSH 12/01/17 05:30 (Zofran Inj) 4 mg Q6H PRN IV PUSH 12/01/17 05:30 (Restoril) 15 mg HS PRN PO 12/01/17 05:30 Future Hold Miscellaneous Information 1 Q361D XX 12/01/17 05:30 (Chlorhexidine 2% Cloth) 3 pack Taper DAILY@04 TOP 12/02/17 04:00 11/28/18 03:59 12/03/17 04:00 (Chlorhexidine 2% Cloth) 3 pack UNSCH PRN TOP 12/01/17 05:30 (Irina-Colace) 1 tab BID PO 12/01/17 09:00 12/02/17 20:54 (Milk Of Magnesia Liq) 30 ml Q12H PRN PO 12/01/17 05:30 (Senokot) 17.2 mg Q12H PRN PO 12/01/17 05:30 (Dulcolax Supp) 10 mg DAILY PRN RECTAL 12/01/17 05:30 (Lactulose Liq) 30 ml DAILY PRN PO 12/01/17 05:30 Azithromycin 500 mg/Sodium Chloride 250 ml @ 250 mls/hr Q24H IV 12/01/17 08:00 12/03/17 08:56 Norepinephrine Bitartrate 250 ml @ 7.5 mls/hr TITRATE PRN IV 12/01/17 12:15 (Brethine Inj) 1 mg UNSCH PRN SQ 12/01/17 12:15 (Cathflo Activase Inj) 2 mg Q2H PRN INTRACATH 12/02/17 08:15 (Xopenex Neb) 0.63 mg Q6HR NEB NEB 12/02/17 10:00 12/03/17 04:07 (Xopenex Neb) 0.63 mg Q2HR NEB PRN NEB 12/02/17 08:45 12/02/17 23:22 (Proscar) 5 mg DAILY PO 12/03/17 09:00 (Pepcid) 20 mg HS PO 12/02/17 21:00 12/02/17 20:54 (Pravachol) 40 mg HS PO 12/02/17 21:00 12/02/17 20:53 Piperacillin Sod/ Tazobactam Sod 100 ml @ 200 mls/hr Q6H IV 12/02/17 12:00 12/03/17 05:57 (Folate) 1 mg DAILY PO 12/03/17 09:00 (Vitamin B1) 100 mg DAILY PO 12/03/17 09:00 (Theragran) 1 tab DAILY PO 12/03/17 09:00 (Atrovent Neb) 0.5 mg Q6HR NEB NEB 12/02/17 16:00 12/03/17 04:07 Vital Signs / I&O Vital Signs Date Time Temp Pulse Resp B/P (MAP) Pulse Ox O2 Delivery O2 Flow Rate FiO2 12/03/17 05:20 97 55 12/03/17 03:00 97.9 97 25 103/75 (84) 96 12/03/17 03:00 97 12/03/17 03:00 90 Partial Non-Rebreather 15.00 12/02/17 23:00 106 12/02/17 23:00 97.6 106 18 120/81 (94) 96 12/02/17 23:00 91 Nasal Cannula 3.00 12/02/17 20:35 95 Nasal Cannula 4.00 12/02/17 19:00 97 Nasal Cannula 3.00 12/02/17 19:00 113 12/02/17 19:00 97.9 113 18 114/81 (92) 95 12/02/17 15:00 82 12/02/17 15:00 99 Nasal Cannula 4.00 12/02/17 15:00 97.5 84 22 100/65 (77) 99 12/02/17 11:00 91 12/02/17 11:00 97.5 88 24 103/68 (80) 92 12/02/17 11:00 92 Nasal Cannula 4.00 I/O 12/02/17 12/02/17 12/02/17 12/03/17 12/03/17 12/03/17 07:00 15:00 23:00 07:00 15:00 23:00 Intake Total 645 ml 850 ml 720 ml 120 ml Output Total 700 ml 750 ml 850 ml Balance -55 ml 850 ml -30 ml -730 ml Intake Oral 240 ml 720 ml 120 ml IV Total 405 ml 850 ml Output Urine Total 700 ml 750 ml 850 ml # Bowel Movements 0 1 Physical Exam GENERAL: SKIN: Warm and dry. HEAD: Atraumatic. Normocephalic. EYES: Pupils equal and round. ENT: No nasal bleeding or discharge. NECK: Trachea midline. No JVD. CARDIOVASCULAR: Regular rate and rhythm. +systolic murmur RESPIRATORY: No accessory muscle use. Clear to auscultation. Breath sounds equal bilaterally. GASTROINTESTINAL: Abdomen soft, non-tender, nondistended. MUSCULOSKELETAL: Extremities without clubbing, cyanosis, or edema. No obvious deformities. NEUROLOGICAL: Awake and alert. No obvious cranial nerve deficits. Normal speech. PSYCHIATRIC: Appropriate mood and affect; insight and judgment normal. Laboratory Laboratory Tests Test 12/02/17 11:53 12/02/17 19:16 12/03/17 04:50 Prothrombin Time 11.2 SEC Prothromb Time International Ratio 1.1 RATIO Stool C. difficile Toxin (PCR) NEGATIVE Stl C. difficile Toxin Epiderm 027 PRESUMPTIVE NEGATIVE White Blood Count 9.8 TH/MM3 Red Blood Count 4.21 MIL/MM3 Hemoglobin 12.2 GM/DL Hematocrit 36.4 % Mean Corpuscular Volume 86.4 FL Mean Corpuscular Hemoglobin 29.1 PG Mean Corpuscular Hemoglobin Concent 33.6 % Red Cell Distribution Width 15.2 % Platelet Count 352 TH/MM3 Mean Platelet Volume 8.3 FL Neutrophils (%) (Auto) 66.3 % Lymphocytes (%) (Auto) 22.3 % Monocytes (%) (Auto) 9.3 % Eosinophils (%) (Auto) 1.2 % Basophils (%) (Auto) 0.9 % Neutrophils # (Auto) 6.5 TH/MM3 Lymphocytes # (Auto) 2.2 TH/MM3 Monocytes # (Auto) 0.9 TH/MM3 Eosinophils # (Auto) 0.1 TH/MM3 Basophils # (Auto) 0.1 TH/MM3 CBC Comment DIFF FINAL Differential Comment Activated Partial Thromboplast Time 55.3 SEC Blood Urea Nitrogen 11 MG/DL Creatinine 1.01 MG/DL Random Glucose 118 MG/DL Total Protein 7.3 GM/DL Albumin 3.0 GM/DL Calcium Level 9.0 MG/DL Phosphorus Level 3.6 MG/DL Magnesium Level 1.9 MG/DL Alkaline Phosphatase 96 U/L Aspartate Amino Transf (AST/SGOT) 46 U/L Alanine Aminotransferase (ALT/SGPT) 52 U/L Total Bilirubin 0.6 MG/DL Sodium Level 139 MEQ/L Potassium Level 4.0 MEQ/L Chloride Level 110 MEQ/L Carbon Dioxide Level 22.4 MEQ/L Anion Gap 7 MEQ/L Estimat Glomerular Filtration Rate 72 ML/MIN Lactic Acid Level 1.2 mmol/L Troponin I 0.60 NG/ML Thyroid Stimulating Hormone 3rd Gen 0.998 uIU/ML (Larissa Kimble) Assessment and Plan Problem List: (1) Chest pain ICD Codes: R07.9 - Chest pain Status: Acute (2) Ventricular bigeminy ICD Codes: I49.9 - Cardiac arrhythmia, unspecified Status: Acute (3) Hypotension ICD Codes: I95.9 - Hypotension, unspecified Status: Acute Assessment and Plan 72 yo WM with HTN, HLD admitted for chest pain. He began to feel anterior left- sided chest pain and exertional SOB. He attributes these symptoms to an antibiotic recently given by PCP for groin infection. Chest pain similar to prior hospitalization in 2006 where cardiac catheterization showed angiographically normal coronary arteries. He has had and an ascending thoracic aneurysm on prior imaging; CT shows same area to be unchanged in size at 4.4cm. NSTEMI- increased SOB, CXR shows pulmonary edema vs. PNA creatinine improved cardiac catheterization planned for Tue or Wed cardiomyopathy- reduced EF 35-40% aortic stenosis- severe. DIVYA 0.41cm, mean gradient 50mmHg, mod pHTN will discuss possibility of AVR vs. TAVR ascending thoracic aorta- 4.4cm, stable normocytic anemia SOB- consider VQ scan to r/o P.E PNA- abx (Larissa Kimble) Assessment and Plan probable C tomorrow NPO p MN (Milan Stevenson MD) Larissa Kimble Dec 03, 2017 09:12 Milan Stevenson MD Dec 03, 2017 16:46
[2017-12-03] MEDS: SODIUM CHLORIDE 0.9% FLUSH 10 ML FLUSH IV FLUSH SCH ×2 (09:25→21:00)
[2017-12-03] MEDS: THIAMINE HCL 100 MG TAB PO SCH (09:27)
[2017-12-03] MEDS: ASPIRIN 81 MG CHEW TAB PO SCH (09:27)
[2017-12-03] MEDS: DOCUSATE SODIUM 50 MG/SENNA 8.6 MG TAB PO SCH ×2 (09:28→21:00)
[2017-12-03] MEDS: MULTIVITAMIN TAB PO SCH (09:28)
[2017-12-03] MEDS: FINASTERIDE 5 MG TAB PO SCH (09:28)
[2017-12-03] MEDS: FOLIC ACID 1 MG TAB PO SCH (09:29)
--- NOTE | 2017-12-03 11:44 | HHI.CCPN ---
Subjective Remarks/Hospital Course 72 yo WM with PMH HTN, HLD, thoracic aortic aneurysm, EtOH use, tobacco abuse Patient states he had infection in Right groin and started Bactrim 11/21/17. Since then he has been fatigued, SOB, mostly laying on couch. Has had chills. Had diarrhea with ~ 2-3 loose stools daily for 3-5 days. Last night he was at rest when he developed L sided chest pain, nonpleuritic non radiating with no n/ v/diaphoresis/arm pain. Pain resolved after arrival and he now states he is chest pain free. No hemoptysis. He has had some cough and sputum production. R groin infection is resolved. No prior h/o VTE. Troponin 0.07, on heparin drip. In bigeminy. Creatinine 2.19. CT chest with early RLL pneumonia, has been started on Azithromycin/Zosyn. BP intermittently 80s/50s despite having received 3 L of NS so will place CVL with anticipation of need for vasopressor support. . Obtaining VQ scan to evaluate for PE. Subjective 12/02: Afebrile. Currently in 4 L nasal cannula. Denies chest pain or shortness of breath. Not on any vasopressors. Continues on heparin drip with troponin 0.41. [facility] to discuss echocardiogram results with possibility of LHC and evaluation of severe aortic stenosis. Continues on piperacillin/ tazobactam and azithromycin for right lower lobe pneumonia. 12/03 Patient went into resp distress this morning placed on BIPAP and Lasix 40mg x1 given. He had good response in UOP post diuretics. CXR showed interstitial edema. Objective Vital Signs Date Time Temp Pulse Resp B/P (MAP) Pulse Ox O2 Delivery O2 Flow Rate FiO2 12/03/17 09:17 99 Partial Rebreather 12.00 12/03/17 07:00 97.8 99 26 96/64 (75) 12/03/17 05:20 55 Intake and Output 12/03/17 12/03/17 12/04/17 08:00 16:00 00:00 Intake Total 120 ml Output Total 850 ml Balance -730 ml Result Diagram: 12/03/17 0450 12/03/17 0450 Other Results Laboratory Tests Test 12/02/17 11:53 12/02/17 19:16 12/03/17 04:50 Prothrombin Time 11.2 SEC Prothromb Time International Ratio 1.1 RATIO Stool C. difficile Toxin (PCR) NEGATIVE Stl C. difficile Toxin Epiderm 027 PRESUMPTIVE NEGATIVE White Blood Count 9.8 TH/MM3 Red Blood Count 4.21 MIL/MM3 Hemoglobin 12.2 GM/DL Hematocrit 36.4 % Mean Corpuscular Volume 86.4 FL Mean Corpuscular Hemoglobin 29.1 PG Mean Corpuscular Hemoglobin Concent 33.6 % Red Cell Distribution Width 15.2 % Platelet Count 352 TH/MM3 Mean Platelet Volume 8.3 FL Neutrophils (%) (Auto) 66.3 % Lymphocytes (%) (Auto) 22.3 % Monocytes (%) (Auto) 9.3 % Eosinophils (%) (Auto) 1.2 % Basophils (%) (Auto) 0.9 % Neutrophils # (Auto) 6.5 TH/MM3 Lymphocytes # (Auto) 2.2 TH/MM3 Monocytes # (Auto) 0.9 TH/MM3 Eosinophils # (Auto) 0.1 TH/MM3 Basophils # (Auto) 0.1 TH/MM3 CBC Comment DIFF FINAL Differential Comment Activated Partial Thromboplast Time 55.3 SEC Blood Urea Nitrogen 11 MG/DL Creatinine 1.01 MG/DL Random Glucose 118 MG/DL Total Protein 7.3 GM/DL Albumin 3.0 GM/DL Calcium Level 9.0 MG/DL Phosphorus Level 3.6 MG/DL Magnesium Level 1.9 MG/DL Alkaline Phosphatase 96 U/L Aspartate Amino Transf (AST/SGOT) 46 U/L Alanine Aminotransferase (ALT/SGPT) 52 U/L Total Bilirubin 0.6 MG/DL Sodium Level 139 MEQ/L Potassium Level 4.0 MEQ/L Chloride Level 110 MEQ/L Carbon Dioxide Level 22.4 MEQ/L Anion Gap 7 MEQ/L Estimat Glomerular Filtration Rate 72 ML/MIN Lactic Acid Level 1.2 mmol/L Troponin I 0.60 NG/ML Thyroid Stimulating Hormone 3rd Gen 0.998 uIU/ML Imaging Last Impressions Lung Scan-VQ Nuclear Medicine 12/01/17 0000 Signed Impressions: Service Date/Time: Friday, December 01, 2017 13:54 - CONCLUSION: 1. No segmental or subsegmental perfusion defects are seen. 2. Low probability for PE. Cayden Bermudez MD Lower Extremity Ultrasound 12/01/17 0000 Signed Impressions: Service Date/Time: Friday, December 01, 2017 15:06 - CONCLUSION: No evidence of DVT. Cayden Bermudez MD Chest X-Ray 12/01/17 0000 Signed Impressions: Service Date/Time: Friday, December 01, 2017 12:30 - CONCLUSION: 1. Left central line in place. No pneumothorax. Cayden Bermudez MD Chest CT 12/01/17 0000 Signed Impressions: Service Date/Time: Friday, December 01, 2017 01:09 - CONCLUSION: 1. An area of early or mild pneumonia in the right lower lobe. 2. Left ventricular hypertrophy and aortic valve calcification. Mild prominence of the ascending thoracic aorta is unchanged, 4.4 cm. 3. Coronary artery calcification. 4. Mild emphysema. Woodrow Blount MD Abdomen/Pelvis CT 12/01/17 0000 Signed Impressions: Service Date/Time: Friday, December 01, 2017 01:09 - CONCLUSION: 1. No acute abnormalities are demonstrated in the abdomen or pelvis. 2. Atherosclerotic aorta and branch vessels. Non-aneurysmal aorta. 3. Cholecystectomy since the prior study. No associated complication demonstrated. No evidence of biliary obstruction. 4. Enlarged prostate again seen. Woodrow Blount MD Procedures Left IJ CVL 12/01 Objective Remarks GENERAL: Patient is 72 yo on BIPAP SKIN: Warm and dry. HEAD: Normocephalic. EYES: No scleral icterus. No injection or drainage. NECK: Supple, trachea midline. No JVD or lymphadenopathy. CARDIOVASCULAR: Regular rate and rhythm, 2/6 systolic murmur RUSB. RESPIRATORY: Breath sounds equal bilaterally. No accessory muscle use. GASTROINTESTINAL: Abdomen soft, non-tender, nondistended. MUSCULOSKELETAL: No cyanosis, or edema. Neuro: Awake and alert Date of Insertion: Dec 01, 2017 Line: Central Venous Catheter Side: Left Location: Internal, Jugular A/P Assessment and Plan NEURO/PSYCH: IGIUGIG Daily whiskey use Awake and alert Acetaminophen 650 mg by mouth every 6 hours when necessary pain 1-5/fever Morphine sulfate 2 mg IV every 2 hours when necessary pain 6-10 on thiamine 100 mg by mouth daily for daily, folic acid 1 mg daily multivitamin daily RESP: Acute Respiratory insufficiency Community acquired pneumonia Emphysema RLL CT thorax Tobacco abuse Continue with oxygen keep sat > 92%. Incentive spirometry while awake Bronchodilators NIPPV PRN for resp distress VQ scan low probability for pulmonary embolism CT thorax 12/01 revealed right lower lobe pneumonia. Mild emphysematous changes. Descending thoracic aorta 4.4 cm/stable. Calcifications around the left main/LAD CV: First degree AV block Ventricular bigeminy Elevated troponin 0.41 Hyperlipidemia - low HDL/low cholesterol Severe aortic stenosis Moderate aortic regurgitation Thoracic aortic aneurysm - 4.4 cm Essential hypertension Moderate pulmonary hypertension - 50 mmHg On heparin drip due to concern for ACS Continue Aspirin [address] chest -noncontrast - 4.4 cm aneurysmal dilation of thoracic root, stable compared with prior imaging 07/2015. VQ scan - Low probability. Lower extremity Doppler ultrasound negative for DVT thrombosis Pravastatin 40 mg p.o. daily. On simvastatin 5 mill grams daily at home 2D Echo - revealed LV mildly dilatated/LV hypertrophy, LV systolic function decrease to 35-40%. Global LV dysfunction. Severe aortic stenosis. Mod AR. AV 0.41 cm. Moderate pulmonary hypertension 50 mm Hg Likely will require left heart cardiac cath but awaiting renal recovery- improving Diurese with Lasix 40mg IV x1 GI: Diarrhea - improving Elevated AST Hypoalbuminemia Sigmoid diverticulosis Heart healthy diet Famotidine 20 mg a night for GI prophylaxis Docusate sodium/senna 1 tablet twice a day for bowel regimen C diff PCR negative CT abdomen/pelvis revealed sigmoid diverticulosis without diverticulitis. FEN/RENAL/: [place] - resolved etiology prerenal dehydration due to diarrhea. Ischemic ATN secondary to hypotension or contribution from Bactrim considered, but these less likely given prompt creatinine improvement. BPH Left renal cyst On finasteride [address] abdomen/pelvis 12/01 revealed 2 cm left renal cyst and did not reveal hydronephrosis Monitor renal function, I/O's, electrolytes replacement per protocol Diurese with Lasix 40mg x1 ID: Community-acquired pneumonia Small right lower lobe infiltrate noted on CT 12/01. Continue piperacillin/tazobactam and azithromycin for now urine Legionella antigen, pneumococcal antigen and influenza A and B all negative Pending sputum culture, blood culture 12/01 no growth HEME: Normocytic anemia Currently on heparin drip for NSTEMI Monitor CBC, coags BLE Doppler ultrasound neg for DVT thrombosis 12/01. ENDO: Euglycemic. TSH:0.99 PROPH: SCDs/on heparin drip. Famotidine for stress ulcer prophylaxis. ACCESS: LIJ CVL placed 12/01 #2. Level III Addis Hinojosa MD Dec 03, 2017 11:44
[2017-12-03] MEDS: PRAVASTATIN SOD 40 MG TAB PO SCH (20:50)
[2017-12-03] MEDS: FAMOTIDINE 20 MG TAB PO SCH (20:50)
[2017-12-04] VITALS (9 sets, daily range): BP systolic 91–139; BP diastolic 62–74; PULSE 77–102; RESP 14–22; TEMP 97.8–98.6; O2SAT 92–99
[2017-12-04] MEDS: PIPERACIL-TAZO 4.5 GM PREMIX 100 ML IV SCH ×5 (00:25→23:20)
[2017-12-04] MEDS: CHLORHEXIDINE GLUCONATE 2 % 1 PACK (2 CLOTHS) TOP SCH (04:00)
[2017-12-04] MEDS: RESP: IPRATROPIUM 0.5 MG/2.5 ML NEB NEB SCH ×4 (04:33→21:40)
[2017-12-04] MEDS: RESP: LEVALBUTEROL HYDROCHLORIDE 0.63 MG/3 ML NEB (SCH) NEB ×4 (04:33→21:40)
[2017-12-04 04:42] LABS: AUTOMATED NEUTROPHIL # 7.3 TH/MM3 (1.8-7.7); BASOPHIL % 0.2 % (0.0-2.0); EOSINOPHIL % 0.1 % (0.0-4.0); HEMOGLOBIN 10.6 GM/DL (13.0-17.0); LYMPH % 12.6 % (9.0-44.0); LYMPHOCYTE # 1.2 TH/MM3 (1.0-4.8); MEAN CELL VOLUME 85.8 FL (80.0-100.0); MEAN CORPUSCULAR HEMOGLOBIN 29.3 PG (27.0-34.0); MEAN CORPUSCULAR HGB CONC 34.1 % (32.0-36.0); MEAN PLATELET VOLUME 8.6 FL (7.0-11.0); MONO % 8.8 % (0.0-8.0); MONOCYTE # 0.8 TH/MM3 (0-0.9); NEUT % 78.3 % (16.0-70.0); PLATELET COUNT 325 TH/MM3 (150-450); RED BLOOD COUNT 3.61 MIL/MM3 (4.50-5.90); RED CELL DISTRIBUTION WIDTH 14.9 % (11.6-17.2); WHITE BLOOD COUNT 9.3 TH/MM3 (4.0-11.0)
[2017-12-04 05:07] LABS: BICARBONATE 24.6 MEQ/L (21.0-32.0); CALCIUM 8.5 MG/DL (8.5-10.1); CREATININE 1.12 MG/DL (0.60-1.30); PHOSPHORUS 3.7 MG/DL (2.5-4.9)
[2017-12-04] MEDS: AZITHROMYCIN INJ 500 MG in SODIUM CHLOR 0.9% 250 ML INJ 250 ML IV SCH (08:33)
[2017-12-04] MEDS: SODIUM CHLORIDE 0.9% FLUSH 10 ML FLUSH IV FLUSH SCH ×2 (08:34→20:44)
[2017-12-04] MEDS: ASPIRIN 81 MG CHEW TAB PO SCH (08:35)
[2017-12-04] MEDS: FOLIC ACID 1 MG TAB PO SCH (08:35)
[2017-12-04] MEDS: FINASTERIDE 5 MG TAB PO SCH (08:35)
[2017-12-04] MEDS: THIAMINE HCL 100 MG TAB PO SCH (08:35)
[2017-12-04] MEDS: MULTIVITAMIN TAB PO SCH (08:35)
[2017-12-04] MEDS: DOCUSATE SODIUM 50 MG/SENNA 8.6 MG TAB PO SCH ×2 (08:50→20:44)
[2017-12-04] MEDS ORDERED: HEPARIN-NS/PF FLUSH BAG 2,000 ML IV FLUSH ONE (09:59)
[2017-12-04] MEDS ORDERED: MIDAZOLAM HCL 2 MG/2 ML VIAL ONE (10:11)
[2017-12-04] MEDS ORDERED: FUROSEMIDE 40 MG/4 ML VIAL IV PUSH ONE (10:45)
--- NOTE | 2017-12-04 10:46 | HHI.CCPN ---
Subjective Remarks/Hospital Course 72 yo WM with PMH HTN, HLD, thoracic aortic aneurysm, EtOH use, tobacco abuse Patient states he had infection in Right groin and started Bactrim 11/21/17. Since then he has been fatigued, SOB, mostly laying on couch. Has had chills. Had diarrhea with ~ 2-3 loose stools daily for 3-5 days. Last night he was at rest when he developed L sided chest pain, nonpleuritic non radiating with no n/ v/diaphoresis/arm pain. Pain resolved after arrival and he now states he is chest pain free. No hemoptysis. He has had some cough and sputum production. R groin infection is resolved. No prior h/o VTE. Troponin 0.07, on heparin drip. In bigeminy. Creatinine 2.19. CT chest with early RLL pneumonia, has been started on Azithromycin/Zosyn. BP intermittently 80s/50s despite having received 3 L of NS so will place CVL with anticipation of need for vasopressor support. . Obtaining VQ scan to evaluate for PE. Subjective 12/02: Afebrile. Currently in 4 L nasal cannula. Denies chest pain or shortness of breath. Not on any vasopressors. Continues on heparin drip with troponin 0.41. Machine Molder Squeeze to discuss echocardiogram results with possibility of LHC and evaluation of severe aortic stenosis. Continues on piperacillin/ tazobactam and azithromycin for right lower lobe pneumonia. 12/03 Patient went into resp distress this morning placed on BIPAP and Lasix 40mg x1 given. He had good response in UOP post diuretics. CXR showed interstitial edema. 12/04 Patient is feeling better off BIPAP and now on 2L oxygen with good sats. For possible cardiac cath today. Objective Vital Signs Date Time Temp Pulse Resp B/P (MAP) Pulse Ox O2 Delivery O2 Flow Rate FiO2 12/04/17 09:37 92 Nasal Cannula 2.00 12/04/17 07:00 97.8 90 16 96/68 (77) 12/03/17 07:00 45 Intake and Output 12/04/17 12/04/17 12/05/17 08:00 16:00 00:00 Intake Total 450 ml Output Total 600 ml Balance -150 ml Result Diagram: 12/04/17 0325 12/04/17 0325 Other Results Laboratory Tests Test 12/03/17 12:23 12/04/17 03:25 Potassium Level 4.0 MEQ/L 4.0 MEQ/L White Blood Count 9.3 TH/MM3 Red Blood Count 3.61 MIL/MM3 Hemoglobin 10.6 GM/DL Hematocrit 31.0 % Mean Corpuscular Volume 85.8 FL Mean Corpuscular Hemoglobin 29.3 PG Mean Corpuscular Hemoglobin Concent 34.1 % Red Cell Distribution Width 14.9 % Platelet Count 325 TH/MM3 Mean Platelet Volume 8.6 FL Neutrophils (%) (Auto) 78.3 % Lymphocytes (%) (Auto) 12.6 % Monocytes (%) (Auto) 8.8 % Eosinophils (%) (Auto) 0.1 % Basophils (%) (Auto) 0.2 % Neutrophils # (Auto) 7.3 TH/MM3 Lymphocytes # (Auto) 1.2 TH/MM3 Monocytes # (Auto) 0.8 TH/MM3 Eosinophils # (Auto) 0.0 TH/MM3 Basophils # (Auto) 0.0 TH/MM3 CBC Comment DIFF FINAL Differential Comment Activated Partial Thromboplast Time 40.3 SEC Blood Urea Nitrogen 19 MG/DL Creatinine 1.12 MG/DL Random Glucose 121 MG/DL Calcium Level 8.5 MG/DL Phosphorus Level 3.7 MG/DL Magnesium Level 2.0 MG/DL Sodium Level 141 MEQ/L Chloride Level 108 MEQ/L Carbon Dioxide Level 24.6 MEQ/L Anion Gap 8 MEQ/L Estimat Glomerular Filtration Rate 64 ML/MIN Imaging Last Impressions Chest X-Ray 12/03/17 0000 Signed Impressions: Service Date/Time: Sunday, December 03, 2017 05:12 - CONCLUSION: 1. Worsening interstitial edema and bilateral lower lung zone airspace disease, left greater than right. Differential considerations include a atypical pulmonary edema versus multilobar pneumonia versus aspiration. Immanuel Carrasquillo MD Lung Scan-VQ Nuclear Medicine 12/01/17 0000 Signed Impressions: Service Date/Time: Friday, December 01, 2017 13:54 - CONCLUSION: 1. No segmental or subsegmental perfusion defects are seen. 2. Low probability for PE. Cayden Bermudez MD Lower Extremity Ultrasound 12/01/17 0000 Signed Impressions: Service Date/Time: Friday, December 01, 2017 15:06 - CONCLUSION: No evidence of DVT. Cayden Bermudez MD Chest CT 12/01/17 0000 Signed Impressions: Service Date/Time: Friday, December 01, 2017 01:09 - CONCLUSION: 1. An area of early or mild pneumonia in the right lower lobe. 2. Left ventricular hypertrophy and aortic valve calcification. Mild prominence of the ascending thoracic aorta is unchanged, 4.4 cm. 3. Coronary artery calcification. 4. Mild emphysema. Woodrow Blount MD Abdomen/Pelvis CT 12/01/17 0000 Signed Impressions: Service Date/Time: Friday, December 01, 2017 01:09 - CONCLUSION: 1. No acute abnormalities are demonstrated in the abdomen or pelvis. 2. Atherosclerotic aorta and branch vessels. Non-aneurysmal aorta. 3. Cholecystectomy since the prior study. No associated complication demonstrated. No evidence of biliary obstruction. 4. Enlarged prostate again seen. Woodrow Blount MD Procedures Left IJ CVL 12/01 Objective Remarks GENERAL: Patient is 72 yo lying inbed in NAD SKIN: Warm and dry. HEAD: Normocephalic. EYES: No scleral icterus. No injection or drainage. NECK: Supple, trachea midline. No JVD or lymphadenopathy. CARDIOVASCULAR: Regular rate and rhythm, 2/6 systolic murmur RUSB. RESPIRATORY: Breath sounds equal bilaterally. No accessory muscle use. GASTROINTESTINAL: Abdomen soft, non-tender, nondistended. MUSCULOSKELETAL: No cyanosis, or edema. Neuro: Awake and alert Date of Insertion: Dec 01, 2017 Line: Central Venous Catheter Side: Left Location: Internal, Jugular A/P Assessment and Plan NEURO/PSYCH: [place]MEHUEVI Daily whiskey use Awake and alert Acetaminophen 650 mg by mouth every 6 hours when necessary pain 1-5/fever Morphine sulfate 2 mg IV every 2 hours when necessary pain 6-10 on thiamine 100 mg by mouth daily for daily, folic acid 1 mg daily multivitamin daily RESP: Acute Respiratory insufficiency Community acquired pneumonia Emphysema RLL CT thorax Tobacco abuse Continue with oxygen keep sat > 92%. Incentive spirometry while awake Bronchodilators NIPPV PRN for resp distress Check CXR today, CXR yesterday showed interstitial edema VQ scan low probability for pulmonary embolism CT thorax 12/01 revealed right lower lobe pneumonia. Mild emphysematous changes. Descending thoracic aorta 4.4 cm/stable. Calcifications around the left main/LAD CV: First degree AV block Ventricular bigeminy Elevated troponin 0.41 Hyperlipidemia - low HDL/low cholesterol Severe aortic stenosis Moderate aortic regurgitation Thoracic aortic aneurysm - 4.4 cm Essential hypertension Moderate pulmonary hypertension - 50 mmHg On heparin drip due to concern for ACS 2D Echo - EF: 35-40%. Global LV dysfunction. Severe aortic stenosis. Mod AR. AV 0.41 cm. Moderate pulmonary hypertension 50 mm Hg For possible cardiac cath today , will need either AVR vs. TAVR Continue Aspirin [address] chest -noncontrast - 4.4 cm aneurysmal dilation of thoracic root, stable compared with prior imaging 07/2015. VQ scan - Low probability. Lower extremity Doppler ultrasound negative for DVT thrombosis Pravastatin 40 mg p.o. daily. On simvastatin 5 mill grams daily at home Diurese with Lasix 40mg IV x1 GI: Diarrhea - improving Elevated AST Hypoalbuminemia Sigmoid diverticulosis Heart healthy diet Famotidine 20 mg a night for GI prophylaxis Docusate sodium/senna 1 tablet twice a day for bowel regimen C diff PCR negative CT abdomen/pelvis revealed sigmoid diverticulosis without diverticulitis. FEN/RENAL/: [place] - resolved etiology prerenal dehydration due to diarrhea. Ischemic ATN secondary to hypotension or contribution from Bactrim considered, but these less likely given prompt creatinine improvement. BPH Left renal cyst On finasteride [address] abdomen/pelvis 12/01 revealed 2 cm left renal cyst and did not reveal hydronephrosis Monitor renal function, I/O's, electrolytes replacement per protocol Diurese with Lasix 40mg x1 ID: Community-acquired pneumonia Small right lower lobe infiltrate noted on CT 12/01. Continue piperacillin/tazobactam and azithromycin for now urine Legionella antigen, pneumococcal antigen and influenza A and B all negative Pending sputum culture, blood culture 12/01 no growth HEME: Normocytic anemia Currently on heparin drip for NSTEMI Monitor CBC, coags BLE Doppler ultrasound neg for DVT thrombosis 12/01. ENDO: Euglycemic. TSH:0.99 PROPH: SCDs/on heparin drip. Famotidine for stress ulcer prophylaxis. ACCESS: LIJ CVL placed 12/01 Level 2 Addis Hinojosa MD Dec 04, 2017 10:46
--- NOTE | 2017-12-04 10:48 | CATHPROC ---
[employer] HIS Report Study Information Study Number Admission Scheduled Start Study Start [id number] Dec 01 2017 2:51AM 12/04/2017 Dec 04 2017 9:29AM [place] [facility] Cardiac Catheterization Admit Source Facility Department Other [facility] Physician and Clinical Staff Initial [place] [employer] Dist[employer] Brandee Michel RN Recorder Elle Sultana,RT(R) Scrub Sandeep Saavedra,RT(R) Procedures Performed Procedure Location (Site) Vessel Name Coronary Angiograms LCA Left Coronary Coronary Angiograms RCA Right Coronary Wire insertion Fem Art (right) Femoral Art Wire insertion Fem Vein (right) Femoral Vein Equipment Time I&C Tech Description Size Mfg Part Number Used/Scraped [employer] CATHETER, FR.7 BALLOON [id number] 10:06 FR 7 Used INC. WEDGE PRESSURE *[id number] TRANSDUCER, TRDownstreamAVE [id number] 10:06 JORDAN BRIDGES * Used W/STOCKCOCK *[id number] *[id number] 10:06 [employer] INDUSTRIES PACK, CCL CUSTOM * Used *[id number] 10:06 [employer] PACER PEN, SKIN DUAL W/ RULER * Used *[id number] 10:14 [employer] JR 4.0 DXTERITY CATHETER FR 5 Used *[id number] 10:06 [employer] WIRE, 3MMJ .035 180CM 180CM Used *[id number] 10:06 NAMIC MANIFOLD, 2 PORT * Used *[id number] 10:06 NAMIC MANIFOLD, 4 PORT * Used *[id number] 10:06 [employer] OMNIPAQUE, 350 MG, 150ML 150ML [id number] Used [id number] 10:06 [employer],WARM AIR CCL * Used *[id number] 10:06 TERUMO MEDICAL SHEATH, FR5 TERUMO (10CM) FR 5 Used *[id number] 10:06 [employer]UM[employer] MEDICAL SHEATH, FR7 TERUMO (10CM) FR 7 Used *[id number] Equipment Model, Serial, Lot Number and Expiration Data Description Model Number Serial Number Lot Number Expiration Date JR 4.0 DXTERITY CATHETER [id number] 07-04-2020 History: Current Medications Medication Dosage/Unit Route Frequency Last Date/Time Taken ASA Albuterol HEPARIN Statins (any) History: Allergies Allergy Reaction No Known Allergies History: Risk Factors Family History of Hypertension Dyslipidemia Previous FL Previous Heart Failure Premature CAD Yes Yes Yes No No Prior Valve Prior PCI Prior CABG Surgery No No No Cerebrovascular Peripheral Artery Chronic Lung On Dialysis Diabetes Disease Disease Disease No No No No No History: Symptoms/Diagnosis Selection Items SOB History: Stress Tests Stress or Imaging Studies Performed No History: Other Current Smoker No Labs Hgb (g/dl) Hct (%) WBC (l/cumm) Platelets (thousands) 11.60-17.00 35.00-51.00 4.00-11.00 150.00-450.00 12.2 36.4 9.8 352 Glucose (mg/dl) BUN (mg/dl) Creatinine (mg/dl) BUN:Creatinine (1:x) 74.00-106.00 7.00-18.00 0.50-1.30 10.00-20.00 118 11 1.0 11 Na (meq/l) K (meq/l) 136.00-145.00 3.50-5.10 139 4 INR (PTT:PT) 0.90-1.10 1.1 CPK-MB (ng/ML) 0.50-3.60 Not Drawn Medication Medication Total Dose (Bolus/Oral) Medication Total Dosage/Unit 1% XYLOCAINE 20 mL FENTANYL 50 mcg VERSED 2 mg Medications (Bolus/Oral) Medication Time Given Dosage/Unit Administered By Reason VERSED 12/04/2017 10:15:06 AM 1 mg Brandee Michel 1 mg VERSED given in lab by Brandee Michel RN in Left Forearm via Peripheral IV. FENTANYL 12/04/2017 10:16:23 AM 25 mcg Brandee Michel 25 mcg FENTANYL given in lab by Brandee Michel, [place] via Peripheral IV. VERSED 12/04/2017 10:18:19 AM 1 mg Brandee Michel 1 mg VERSED given in lab by Brandee Michel, [place] via Peripheral IV. FENTANYL 12/04/2017 10:19:28 AM 25 mcg Brandee Michel 25 mcg FENTANYL given in lab by Brandee Michel, [place] via Peripheral IV. 1% XYLOCAINE 12/04/2017 10:20:44 AM 20 mL Milan Stevesnon 20 mL 1% XYLOCAINE given in lab by Milan Stevenson in Right Groin via Subcutaneous. Medication (Drip) Medication Time Given Dosage/Unit Concentration/Unit Diluent (ml) Solution IV Solutions 12/04/2017 10:07:07 AM 0 mL (IV) 500 NaCl .9 Patient arrived on IV Solutions in Left Forearm via Peripheral IV. Pump/Drip Flow = 20 ml/hr using Na Cl .9. Initial Case Assessment Cardiovascular HR Rhythm NIBP Chest Pain 100 REG-PVC 108/90 0 Edema Present Skin color Skin None Normal Warm Circulatory - Right Pulses Dorsalis Pedis Femoral 1 2 Scale (0,1,2,3,4,d) Circulatory - Left Pulses Dorsalis Pedis Femoral 1 2 Scale (0,1,2,3,4,d) Circulatory - Lower Extremities Color Lower Right Color Lower Left Normal Normal Neurological State Oriented to time-place- Alert Moves all extremities person Respiration - General Respiration Rate SpO2 (%) O2 (lpm) Short Of Breath (B/min) 21 94 2 Yes Chronological Log Time Study Chronological Log 9:43:00 heaparin discontinued in pt.s room 9:51:26 Patient arrived via Bed. 9:55:33 Patient Name, D.O.B, / Armband Verified By R.N. 9:55:34 Consent signed by the physician and the patient and verified by the [facility] staff. 9:55:35 Pre-op and post- op instructions given; patient acknowledges understanding of instructions. 9:55:35 Verbal Stimulation=2 Physical Stimulation=2 Airway=2 Respiration=2 TOTAL=8. (0=absent, 1=li mited, 2=present) 9:55:37 Presedation assessment performed by [facility] RN. 9:55:41 Patient has been NPO for More than 6Hrs. 9:55:42 Skin Breakdown-NONE 9:55:45 Patient Warmer Placed on the Table. 9:55:46 Bennett Prominences Protected 9:55:47 A # 20 IV was noted in the Forearm (right). Grade = 0 9:55:49 History and physical on the chart or being dictated. Assessment: Initial Case, DR=696 BPM, Rhythm=REG-PVC, TGNN=037/90 mmhg, Chest Pain=0, Edema=Non e, Color=Normal, Skin = Warm Right Pulses: Syed Ped=1, Femoral=2 Left Pulses: Syed Ped=1, Femoral=2 9:55:51 Lower Right Extremities: Color=Normal Lower Left Extremities: Color=Normal Neurological: State=Alert, Ox3, AVALOS Respiration: Resp=21 B/min, SpO2=94 %, O2=2 lpm, Short of Breath 10:01:38 Reference ECG taken Vitals capture started with the following parameters, Patient=Adult, Interval=5 min, Initial Pr iotruw=664 mmHg, 10:03:13 Deflation Rate=5 mmHg, Cuff placed on Left Arm 10:03:46 UE=621 bpm, KPEY=532/90 mmhg, SpO2=95.0 %, Resp=20 B/min, Pain=0, Zarina=10, Landeros=2 10:06:54 A # 20 IV was noted in the Forearm (left). Grade = 0 10:07:07 Patient arrived on IV Solutions in Left Forearm via Peripheral IV. Pump/Drip Flow = 20 ml/h r using NaCl .9. 10:08:32 History and physical on the chart or being dictated. 10:08:39 Bilateral groins prepped with 2% chlorhexidine, and draped after a 3 minute waiting time. 10:08:54 EQ=623 bpm, LHEN=825/63 mmhg, SpO2=95.0 %, Resp=18 B/min, Pain=0, Zarina=10, Landeros=2 10:12:40 MD paged 10:12:48 Pressure channel 1 zeroed. 10:13:13 MD responded 10:13:44 HR=98 bpm, IZZW=193/72 mmhg, SpO2=94.0 %, Resp=20 B/min, Pain=0, Zarina=10, Landeros=2 10:14:41 MD arrived. 10:15:06 1 mg VERSED given in lab by Brandee Michel, RN in Left Forearm via Peripheral IV. 10:16:23 25 mcg FENTANYL given in lab by Brandee Michel, [place] via Peripheral IV. 10:18:19 1 mg VERSED given in lab by Brandee Michel, [place] via Peripheral IV. 10:18:45 HR=97 bpm, KMME=209/64 mmhg, SpO2=93.0 %, Resp=29 B/min, Pain=0, Zarina=10, Landeros=2 Time Out. Correct patient, correct procedure, correct physician, power injector not loaded with contrast with surgical 10:19:27 team present. Time Out Concurred by MD and individual staff in procedure. 10:19:28 25 mcg FENTANYL given in lab by Brandee Michel RN via Peripheral IV. 10:20:05 Contrast Scanned 10:20:07 Case Start 10:20:09 Verbal Stimulation=2 Physical Stimulation=2 Airway=2 Respiration=2 TOTAL=8. (0=absent, 1=li mited, 2=present) 10:20:44 20 mL 1% XYLOCAINE given in lab by Milan Stevenson in Right Groin via Subcutaneous. 10:23:47 HR=96 bpm, NIBP=90/69 mmhg, SpO2=91.0 %, Resp=18 B/min, Pain=0, Zarina=10, Landeros=2 10:25:31 Access site was Right Femoral Vein. 10:25:38 A wire was inserted via Fem Vein (right). 10:25:51 A SHEATH, FR7 TERUMO (10CM) FR 7 was advanced into the Fem Vein (right) using the Percutane ous technique. 10:28:43 HR=89 bpm, SYBM=225/62 mmhg, SpO2=92.0 %, Resp=30 B/min, Pain=0, Zarina=10, Landeros=2 10:28:52 Access site was Right Femoral Artery. 10:28:57 A wire was inserted via Fem Art (right). 10:28:59 A SHEATH, FR5 TERUMO (10CM) FR 5 was advanced into the Fem Art (right) using the Percutaneo us technique. Recorded Pressure: RA, HR=94, Condition=Condition 1 10:30:56 (Right Atrium) RA 8 Recorded Pressure: RV, HR=92, Condition=Condition 1 10:31:27 (Right Ventricle) RV 34 Recorded Pressure: MPA, HR=92, Condition=Condition 1 10:32:12 (Main Pulmonary Artery) MPA 35 10:32:20 Saturation: Site=Ao (Aorta) , O2=91.5 %, Hgb=12.2 gm/dl, Condition=Condition 1. Used in ca lculation. 10:32:45 Saturation: Site=PA (Pulmonary Artery) , O2=61.5 %, Hgb=12.2 gm/dl, Condition=Condition 1. Used in calculation. 10:33:45 HR=90 bpm, NIBP=89/61 mmhg, SpO2=92.0 %, Resp=15 B/min, Pain=0, Zarina=10, Landeros=2 Recorded Pressure: PCW, HR=95, Condition=Condition 1 10:34:05 (Pulmonary Capillary Wedge) PCW 25/24/21 10:34:37 Bennet Placido Catheter Removed A JR 4.0 DXTERITY CATHETER FR 5 was advanced over a wire. OMNIPAQUE, 350 MG, 150ML 150ML was u sed for 10:35:12 injections. Recorded Pressure: Ao, HR=92, Condition=Condition 1 10:36:01 (Aorta) Ao 86/62/73 10:36:33 The RCA was injected and visualized at various angles. OMNIPAQUE, 350 MG, 150ML 150ML use d. 10:37:05 Catheter was removed A JL 4.0 INFINITI CATHETER FR 5 was advanced over a wire. OMNIPAQUE, 350 MG, 150ML 150ML was u sed for 10:37:15 injections. 10:38:44 HR=93 bpm, NIBP=94/60 mmhg, SpO2=93.0 %, Resp=12 B/min, Pain=0, Zarina=10, Landeros=2 After removing the current catheter a JL 5.0 INFINITI CATHETER FR 5 was advanced over a WIRE, 3MMJ .035 180CM 10:39:08 180CM. 10:41:03 The LCA was injected and visualized at various angles. OMNIPAQUE, 350 MG, 150ML 150ML use d. 10:42:17 Catheter was removed 10:42:42 Case End 10:44:22 HR=95 bpm, NIBP=99/70 mmhg, SpO2=92.0 %, Resp=28 B/min, Pain=0, Zarina=10, Landeros=2 End Study - Contrast Media Used In Study Contrast Total Opened (mL) Total Used (mL) Total Wasted (mL) Omnipaque 25 25 0 End Study - Maximum Contrast Load Max Contrast Load (mL) 382.5 End Study - Radiation Exposure Fluoro Time (minutes) 2.7 End Study - Patient Disposition Complications Transferred To No Critical Care Bed
[2017-12-04] MEDS ORDERED: LIDOCAINE HCL 1% 20 ML VIAL INFIL PRN (11:00)
[2017-12-04] MEDS ORDERED: BACITRACIN OINT 0.9 GM PKT TOP ONE (11:00)
[2017-12-04] MEDS ORDERED: IOHEXOL 350 MG/ML 50 ML BTL (for Cath Lab) OTHER ONE (11:12)
--- NOTE | 2017-12-04 11:35 | RADRPT ---
EXAM DATE/TIME: 12/04/2017 11:05 [facility] COMPARISON: CHEST SINGLE AP, December 03, 2017, 5:12. INDICATIONS : Congestive heart failure. MEDICAL HISTORY : Cardiovascular disease. Renal calculi. Hypertension. SURGICAL HISTORY : None. ENCOUNTER: Subsequent ACUITY: 2 days PAIN SCORE: 0/10 LOCATION: Bilateral chest FINDINGS: A single view of the chest demonstrates cardiomegaly with minimal interstitial densities. Left basila r airspace disease. Osseous structures are intact. CONCLUSION: 1. Left basilar airspace disease could be atelectasis or residual edema. 2. Minimal interstitial edema with almost complete resolution of pulmonary edema. Rajendra Paniagua MD on December 04, 2017 at 11:33 Board Certified Radiologist. This report was verified electronically.
--- NOTE | 2017-12-04 12:49 | MA ---
cc: Milan Stevenson MD, Stephen E MD 12/04/2017 INDICATION Aortic stenosis, Non-ST elevation PA. PROCEDURE PREFORMED 1. Fluoroscopy with interpretation. 2. Right heart catheterization. 3. Coronary angiography. METHOD Risks, benefits and alteratives were discussed with the patient, the patient understood and consented to the procedure. The patient was brought into the catheterization lab and placed on the catheterization table. Right groin was prepped and draped in sterile fashion, right groin was anesthetized with 2% lidocaine. Right femoral vein was accessed and a 7 [place], 11 centimeter sheath was placed without difficulty. The right common femoral artery was accessed and a 5 Mongolian 11 centimeter sheath was placed without difficulty. Right heart cath was preformed with a 7 [place] pulmonary arterial catheter was advanced through the right atrium under fluoroscopic guidance. Hemodynamics were preformed and all chambers while advancing to the pulmonary capillary wedge position. HEMODYNAMICS 1. Right atrial pressure measured 10 mmHg. 2. Right ventricular pressure is at 34/7 mmHg. 3. Pulmonary pressure measured at 35/20 mmHg. 4. Pulmonary capillary wedge pressure 21 mmHg. 5. Cardiac output is 5.0 liters per minute. 6. Cardiac index 2.5 liters per minute, per meter squared. CORONARY ANGIOGRAPHY 1. Left main coronaries angiographically normal. 2. Left anterior descending coronaries with moderate luminal irregularities to the mid segment. 3. Left circumflex gives rise to an obtuse marginal. First, small first obtuse marginal, larger second obtuse marginal branch, both which have minor luminal irregularities. 4. Right coronary dominant vessel, giving rise to posterior descending or posterior lateral branch which has minor luminal irregularities. CONCLUSIONS 1. Mild nonobstructive coronary disease. 2. Normal right sided filling pressures. 3. Mildly elevated left sided filling pressures. 4. Low normal cardiac output and index. 5. Severe aortic stenosis. PLAN No significant obstructive coronary disease. We will discuss the case further with cardiothoracic surgery for consideration of surgical aortic valve replacement versus transcatheter aortic valve replacement. Milan Stevenson MD [facility]/ , 10:49 AM , 12:48 PM
[2017-12-04 14:25] LABS: MYCOPLASMA PNEUMONIAE IGG Positive (Negative); MYCOPLASMA PNEUMONIAE IGM Negative (Negative)
--- NOTE | 2017-12-04 16:39 | MB ---
cc: Isidra Holland DATE OF CONSULT: Patient of Dr. Lars Tillman, also patient of Dr. Stevenson. Presented with shortness of breath, also chills, diarrhea for about 3-5 days, presented to the emergency room, left-sided chest pain, nonpleuritic, nonradiating. No diaphoresis, nausea or vomiting. Upon arrival to the emergency department, he was then pain free. He had been recently treated for a right groin infection where they started him on Bactrim on the . His troponin was 0.07. They also did a CT chest, which shows early right lower lobe pneumonia. He was started on Zithromax and Zosyn. He was transferred to the ICU on the for respiratory distress, was placed on BIPAP, was given a dose of Lasix, which he has since improved. He is now on 4 L nasal cannula. He has been afebrile. He underwent 2-D echo on the , which showed an EF of 35-40%, global left ventricular dysfunction, systolic dysfunction with severe aortic valve stenosis with a valve area of 0.41, mean gradient of 50, peak gradient of 85. There was no mitral valve stenosis or regurgitation. The left atrium and the right atrial sizes were normal. There was some moderate pulmonary hypertension with a PA pressure of 51 mmHg. No evidence of effusion. He then underwent cardiac cath today by Dr. Stevenson, which showed nonobstructing coronary disease. We were consulted to evaluate for aortic valve replacement versus transcatheter aortic valve replacement candidate. PAST MEDICAL HISTORY: Includes hypertension, hyperlipidemia, history of thoracic aortic aneurysm, which he just had a CT chest, which showed that the ascending thoracic aorta was unchanged at 4.4 cm. There was evidence of mild pneumonia in the right lower lobe, mild emphysema. History of tobacco use, recent right groin infection, history of benign prostatic hypertrophy, history of prior E. coli biliary sepsis. He has had surgeries including ERCP where 3 stones were removed, extended sphincterotomy. He has had a laparoscopic cholecystectomy. HE HAS NO KNOWN ALLERGIES. HOME MEDICATIONS: Include simvastatin, amlodipine, aspirin and Proscar. FAMILY HISTORY: Mother from stomach cancer. Father from CHF. SOCIAL HISTORY: Patient , 1 child. He smoked for 40 years. He has since quit, 07/22. Retired maintenance. Currently, no alcohol. He is active. He gardens, he still drives. REVIEW OF SYSTEMS: GENERAL: No night sweats, fever, heat and cold intolerance. SKIN: No psoriasis, itching or hives. HEENT: No blurred, hearing loss. RESPIRATORY: Positive for recent cough, shortness of breath. CARDIOVASCULAR: He has recent some atypical chest pain, since resolved. No palpitations, no paroxysmal nocturnal dyspnea. GASTROINTESTINAL: Recent diarrhea, which is resolved. GENITOURINARY: No burning, frequency or urgency. CENTRAL NERVOUS SYSTEM: No history of TIA, CVA, seizure disorder. ENDOCRINOLOGY: No history of diabetes and/or hypothyroidism. EXAMINATION: Blood pressure 140/70, heart rate of 90, temp max 98.6, O2 sat 92 on 4 L. Patient is awake, alert, no acute distress. Head is normocephalic, atraumatic. Pupils equal and reactive. Oral mucosa pink, moist. NECK: Supple, no JVD. HEART: Sounds S1, S2, regular rate and rhythm with a grade III/ systolic murmur best noted at the left sternal border. LUNGS: Diminished in the bases. He has got a few crackles in the right lower lobe. ABDOMEN: Soft, nontender, no masses or organomegaly. EXTREMITIES: No cyanosis, clubbing or edema. LABORATORY WORK: Shows hemoglobin 10.6, hematocrit of 31, white cell count of 9.3, platelet count of 325. Sodium 141, potassium 4.0, BUN of 19, creatinine 1.12. BNP was elevated at 1720. TSH is 0.9. AST 46, ALT 52. INR 1.1. Urinalysis was not done. MRSA non-strip tank tender. Negative for C. difficile. Mycoplasma pneumoniae IgG was positive, IgM was negative. MICROBIOLOGY: He has had negative blood cultures x 48 hours. Also, negative urine legionella antigen, negative A and B flu influenza. RADIOLOGY: As above. He also had abdominal CT, which showed no acute abnormalities, enlarged prostate. IMPRESSION: This is a 72-year-old male with recent admission with congestive heart failure, respiratory distress, also right lower lobe pneumonia, history of recent right groin infection, hypertension, hyperlipidemia, the echocardiogram showing an aortic valve area again of 0.4, now with an ejection fraction of 35-40%. [employer] risk mortality 3.645, morbidity mortality 23. At this time, recommend if patient recovering from his recent pneumonia and congestive heart failure exacerbation and patient to be evaluated by our partner, Dr. John, patient meets intermediate risk for transcatheter aortic valve replacement, which will need to be decided, versus a minimally invasive aortic valve replacement. SUZANNA Caballero MD JRT/PÉREZ , 03:53 PM , 04:37 PM
[2017-12-04] MEDS: PRAVASTATIN SOD 40 MG TAB PO SCH (20:44)
[2017-12-04] MEDS: FAMOTIDINE 20 MG TAB PO SCH (20:44)
--- NOTE | 2017-12-04 23:01 | EKG ---
Date Performed: 12/03/2017 Time Performed: 07:34:06 PTAGE: 72 years EKG: Sinus rhythm with PVC(s). Left axis deviation Incomplete LBBB Left ventricular hypertrophy Lateral ST-T changes a re probably due to ventricular hypertrophy Abnormal ECG PREVIOUS TRACING : 12/01/2017 06.07 Since the prior tracing, there has been no significant [place] DOCTOR: Zaria Hazel Interpretating Date/Time 12/04/2017 23:01:13
[2017-12-05] VITALS (15 sets, daily range): BP systolic 98–115; BP diastolic 65–72; PULSE 72–102; RESP 16–20; TEMP 97.4–97.9; O2SAT 93–97
[2017-12-05] MEDS: RESP: LEVALBUTEROL HYDROCHLORIDE 0.63 MG/3 ML NEB (SCH) NEB ×3 (03:44→15:45)
[2017-12-05] MEDS: RESP: IPRATROPIUM 0.5 MG/2.5 ML NEB NEB SCH ×4 (03:46→21:55)
[2017-12-05] MEDS: CHLORHEXIDINE GLUCONATE 2 % 1 PACK (2 CLOTHS) TOP SCH (04:00)
[2017-12-05] MEDS: PIPERACIL-TAZO 4.5 GM PREMIX 100 ML IV SCH ×3 (05:30→18:07)
[2017-12-05 05:35] LABS: AUTOMATED NEUTROPHIL # 4.4 TH/MM3 (1.8-7.7); BASOPHIL % 0.5 % (0.0-2.0); EOSINOPHIL # 0.1 TH/MM3 (0-0.4); EOSINOPHIL % 0.8 % (0.0-4.0); HEMATOCRIT 31.2 % (39.0-51.0); HEMOGLOBIN 10.6 GM/DL (13.0-17.0); LYMPH % 25.8 % (9.0-44.0); LYMPHOCYTE # 1.8 TH/MM3 (1.0-4.8); MEAN CELL VOLUME 86.7 FL (80.0-100.0); MEAN CORPUSCULAR HEMOGLOBIN 29.4 PG (27.0-34.0); MEAN CORPUSCULAR HGB CONC 33.9 % (32.0-36.0); MEAN PLATELET VOLUME 8.5 FL (7.0-11.0); MONO % 8.5 % (0.0-8.0); MONOCYTE # 0.6 TH/MM3 (0-0.9); NEUT % 64.4 % (16.0-70.0); PLATELET COUNT 350 TH/MM3 (150-450); RED CELL DISTRIBUTION WIDTH 15.5 % (11.6-17.2); WHITE BLOOD COUNT 6.9 TH/MM3 (4.0-11.0)
--- NOTE | 2017-12-05 05:56 | RADRPT ---
EXAM DATE/TIME: 12/05/2017 04:42 [facility] COMPARISON: CHEST SINGLE AP, December 04, 2017, 11:05. INDICATIONS : Short of breath. MEDICAL HISTORY : Cardiovascular disease. Renal calculi. Hypertension. SURGICAL HISTORY : None. ENCOUNTER: Subsequent ACUITY: 3 days PAIN SCORE: 0/10 LOCATION: Bilateral chest FINDINGS: Cardiac silhouette is enlarged with more prominent central pulmonary vasculature. Slightly increased diffuse interstitial prominence. Persistent left lower lung zone airspace consolidation. The remainde r of the exam is unchanged. CONCLUSION: 1. Cardiomegaly with slight progression of positive fluid balance. 2. Stable left lower lung zone airspace disease. Immanuel Carrasquillo MD on December 05, 2017 at 5:53 Board Certified Radiologist. This report was verified electronically.
[2017-12-05 05:59] LABS: BICARBONATE 26.9 MEQ/L (21.0-32.0); CALCIUM 8.7 MG/DL (8.5-10.1); CREATININE 1.08 MG/DL (0.60-1.30)
--- NOTE | 2017-12-05 07:50 | HHI.CCPN ---
Subjective Remarks/Hospital Course 72 yo WM with PMH HTN, HLD, thoracic aortic aneurysm, EtOH use, tobacco abuse Patient states he had infection in Right groin and started Bactrim 11/21/17. Since then he has been fatigued, SOB, mostly laying on couch. Has had chills. Had diarrhea with ~ 2-3 loose stools daily for 3-5 days. Last night he was at rest when he developed L sided chest pain, nonpleuritic non radiating with no n/ v/diaphoresis/arm pain. Pain resolved after arrival and he now states he is chest pain free. No hemoptysis. He has had some cough and sputum production. R groin infection is resolved. No prior h/o VTE. Troponin 0.07, on heparin drip. In bigeminy. Creatinine 2.19. CT chest with early RLL pneumonia, has been started on Azithromycin/Zosyn. BP intermittently 80s/50s despite having received 3 L of NS so will place CVL with anticipation of need for vasopressor support. . Obtaining VQ scan to evaluate for PE. Subjective 12/02: Afebrile. Currently in 4 L nasal cannula. Denies chest pain or shortness of breath. Not on any vasopressors. Continues on heparin drip with troponin 0.41. Typer to discuss echocardiogram results with possibility of LHC and evaluation of severe aortic stenosis. Continues on piperacillin/ tazobactam and azithromycin for right lower lobe pneumonia. 12/03 Patient went into resp distress this morning placed on BIPAP and Lasix 40mg x1 given. He had good response in UOP post diuretics. CXR showed interstitial edema. 12/04 Patient is feeling better off BIPAP and now on 2L oxygen with good sats. For possible cardiac cath today. 12/05 currently on nasal cannula breathing comfortably. 2-D echo showed an EF of 35-40%, global left ventricular dysfunction, severe aortic valve stenosis with a valve area of 0.41, mean gradient of 50, peak gradient of 85. Cardiac cath 12/[address] Stevenson, which showed nonobstructing coronary disease. CTS consult for open aortic valve replacement versus transcatheter aortic valve replacement. Objective Vital Signs Date Time Temp Pulse Resp B/P (MAP) Pulse Ox O2 Delivery O2 Flow Rate FiO2 12/05/17 03:00 94 Nasal Cannula 4.00 12/05/17 03:00 90 12/05/17 03:00 97.9 18 98/72 (81) 12/03/17 07:00 45 Intake and Output 12/05/17 12/05/17 12/06/17 08:00 16:00 00:00 Intake Total 420 ml Output Total 500 ml Balance -80 ml Result Diagram: 12/05/17 0328 12/05/17 0328 Imaging Last Impressions Chest X-Ray 12/03/17 0000 Signed Impressions: Service Date/Time: Sunday, December 03, 2017 05:12 - CONCLUSION: 1. Worsening interstitial edema and bilateral lower lung zone airspace disease, left greater than right. Differential considerations include a atypical pulmonary edema versus multilobar pneumonia versus aspiration. Immanuel Carrasquillo MD Lung Scan-V Nuclear Medicine 12/01/17 0000 Signed Impressions: Service Date/Time: Friday, December 01, 2017 13:54 - CONCLUSION: 1. No segmental or subsegmental perfusion defects are seen. 2. Low probability for PE. Cayden Bermudez MD Lower Extremity Ultrasound 12/01/17 0000 Signed Impressions: Service Date/Time: Friday, December 01, 2017 15:06 - CONCLUSION: No evidence of DVT. Cayden Bermudez MD Chest CT 12/01/17 0000 Signed Impressions: Service Date/Time: Friday, December 01, 2017 01:09 - CONCLUSION: 1. An area of early or mild pneumonia in the right lower lobe. 2. Left ventricular hypertrophy and aortic valve calcification. Mild prominence of the ascending thoracic aorta is unchanged, 4.4 cm. 3. Coronary artery calcification. 4. Mild emphysema. Woodrow Blount MD Abdomen/Pelvis CT 12/01/17 0000 Signed Impressions: Service Date/Time: Friday, December 01, 2017 01:09 - CONCLUSION: 1. No acute abnormalities are demonstrated in the abdomen or pelvis. 2. Atherosclerotic aorta and branch vessels. Non-aneurysmal aorta. 3. Cholecystectomy since the prior study. No associated complication demonstrated. No evidence of biliary obstruction. 4. Enlarged prostate again seen. Woodrow Blount MD Procedures Left IJ CVL 12/01 Objective Remarks GENERAL: Patient is 72 yo lying in bed in NAD, breathing comfortably SKIN: Warm and dry. HEAD: Normocephalic. EYES: No scleral icterus. No injection or drainage. NECK: Supple, trachea midline. No JVD or lymphadenopathy. CARDIOVASCULAR: Regular rate and rhythm, 2/6 systolic murmur RUSB. RESPIRATORY: Breath sounds equal bilaterally. No accessory muscle use. GASTROINTESTINAL: Abdomen soft, non-tender, nondistended. MUSCULOSKELETAL: No cyanosis, or edema. Neuro: Awake and alert. Moving all extremities, follows commands Urinary Catheter: Yes Assessment to: Continue Date of Insertion: Dec 01, 2017 Line: Central Venous Catheter Side: Left Location: Internal, Jugular A/P Assessment and Plan NEURO/PSYCH: YOMBA SHOSHONE Daily whiskey use Awake and alert. Acetaminophen 650 mg by mouth every 6 hours when necessary pain 1-5/fever Morphine sulfate 2 mg IV every 2 hours when necessary pain 6-10 on thiamine 100 mg by mouth daily for daily, folic acid 1 mg daily multivitamin daily RESP: Acute Respiratory insufficiency Community acquired pneumonia Emphysema RLL CT thorax Tobacco abuse Continue with oxygen keep sat > 92%. Incentive spirometry while awake Bronchodilators NIPPV PRN for resp distress CXR 12/05, mild interstitial edema, left lower lobe infiltrate VQ scan low probability for pulmonary embolism CT thorax 12/01 revealed right lower lobe pneumonia. Mild emphysematous changes. Descending thoracic aorta 4.4 cm/stable. Calcifications around the left main/LAD CV: First degree AV block Ventricular bigeminy Elevated troponin 0.41 Hyperlipidemia - low HDL/low cholesterol Severe aortic stenosis Moderate aortic regurgitation Thoracic aortic aneurysm - 4.4 cm Essential hypertension Moderate pulmonary hypertension - 50 mmHg On heparin drip due to concern for ACS -change to sq 2D Echo - EF: 35-40%. Global LV dysfunction. Severe aortic stenosis. Mod AR. AV 0.41 cm. Moderate pulmonary hypertension 50 mm Hg Mild CAD on cath, Sev . CTS consulted for AVR vs. TAVR Continue Aspirin [address] chest -noncontrast - 4.4 cm aneurysmal dilation of thoracic root, stable compared with prior imaging 07/2015. VQ scan - Low probability. Lower extremity Doppler ultrasound negative for DVT thrombosis Pravastatin 40 mg p.o. daily. On simvastatin 5 mill grams daily at home s/p Lasix 40mg IV x1 GI: Diarrhea - improving Elevated AST Hypoalbuminemia Sigmoid diverticulosis Heart healthy diet Famotidine 20 mg a night for GI prophylaxis Docusate sodium/senna 1 tablet twice a day for bowel regimen C diff PCR negative CT abdomen/pelvis revealed sigmoid diverticulosis without diverticulitis. FEN/RENAL/: [place] - resolved etiology prerenal dehydration due to diarrhea. Ischemic ATN secondary to hypotension or contribution from Bactrim considered, but these less likely given prompt creat improvement. BPH Left renal cyst On finasteride [address] abdomen/pelvis 12/01 revealed 2 cm left renal cyst and did not reveal hydronephrosis Monitor renal function, I/O's, electrolytes replacement per protocol ID: Community-acquired pneumonia Small right lower lobe infiltrate noted on CT 12/01. Continue piperacillin/tazobactam and azithromycin urine Legionella antigen, pneumococcal antigen and influenza A and B all negative Blood culture 12/01 no growth HEME: Normocytic anemia Currently on heparin drip for NSTEMI change to sq Lovenox Monitor CBC, coags BLE Doppler ultrasound neg for DVT thrombosis 12/01. ENDO: Euglycemic. TSH:0.99 PROPH: SCDs/Lovenox 40 sq daily Famotidine for stress ulcer prophylaxis. ACCESS: LIJ CVL placed 12/01 Level [address] Stevenson. Plan is to treat pneumonia optimize CHF management possible discharge and reevaluate outpatient for TAVR versus open aortic valve replacement Niko Troy MD Dec 05, 2017 07:50
--- NOTE | 2017-12-05 08:48 | PD.CARD.PN ---
Subjective Subjective Remarks no complaints Objective Medications Current Medications Medications (Trade) Dose Ordered Sig/Taz Route Start Time Stop Time Status Last Admin (Aspirin Chew) 81 mg DAILY PO 12/01/17 09:00 12/04/17 08:35 (NS Flush) 2 ml UNSCH PRN IV FLUSH 12/01/17 05:30 (NS Flush) 2 ml BID IV FLUSH 12/01/17 09:00 12/04/17 20:44 (Tylenol) 650 mg Q6H PRN PO 12/01/17 05:30 (Morphine Inj) 2 mg Q2H PRN IV PUSH 12/01/17 05:30 (Zofran Inj) 4 mg Q6H PRN IV PUSH 12/01/17 05:30 (Restoril) 15 mg HS PRN PO 12/01/17 05:30 Future Hold Miscellaneous Information 1 Q361D XX 12/01/17 05:30 (Chlorhexidine 2% Cloth) 3 pack Taper DAILY@04 TOP 12/02/17 04:00 11/28/18 03:59 12/04/17 04:00 (Chlorhexidine 2% Cloth) 3 pack UNSCH PRN TOP 12/01/17 05:30 (Irina-Colace) 1 tab BID PO 12/01/17 09:00 12/03/17 09:28 (Milk Of Magnesia Liq) 30 ml Q12H PRN PO 12/01/17 05:30 (Senokot) 17.2 mg Q12H PRN PO 12/01/17 05:30 (Dulcolax Supp) 10 mg DAILY PRN RECTAL 12/01/17 05:30 (Lactulose Liq) 30 ml DAILY PRN PO 12/01/17 05:30 Azithromycin 500 mg/Sodium Chloride 250 ml @ 250 mls/hr Q24H IV 12/01/17 08:00 12/06/17 07:59 12/04/17 08:33 (Brethine Inj) 1 mg UNSCH PRN SQ 12/01/17 12:15 (Cathflo Activase Inj) 2 mg Q2H PRN INTRACATH 12/02/17 08:15 (Xopenex Neb) 0.63 mg Q6HR NEB NEB 12/02/17 10:00 12/04/17 09:29 (Xopenex Neb) 0.63 mg Q2HR NEB PRN NEB 12/02/17 08:45 12/02/17 23:22 (Proscar) 5 mg DAILY PO 12/03/17 09:00 12/04/17 08:35 (Pepcid) 20 mg HS PO 12/02/17 21:00 12/04/17 20:44 (Pravachol) 40 mg HS PO 12/02/17 21:00 12/04/17 20:44 Piperacillin Sod/ Tazobactam Sod 100 ml @ 200 mls/hr Q6H IV 12/02/17 12:00 12/05/17 05:30 (Folate) 1 mg DAILY PO 12/03/17 09:00 12/04/17 08:35 (Vitamin B1) 100 mg DAILY PO 12/03/17 09:00 12/04/17 08:35 (Theragran) 1 tab DAILY PO 12/03/17 09:00 12/04/17 08:35 (Atrovent Neb) 0.5 mg Q6HR NEB NEB 12/02/17 16:00 12/05/17 03:46 (Xylocaine 1% Inj) 10 ml UNSCH PRN INFIL 12/04/17 11:00 12/05/17 10:59 (Lovenox Inj) 40 mg Q24H SQ 12/05/17 08:00 Vital Signs / I&O Vital Signs Date Time Temp Pulse Resp B/P (MAP) Pulse Ox O2 Delivery O2 Flow Rate FiO2 12/05/17 07:00 99 Nasal Cannula 3.00 12/05/17 07:00 72 12/05/17 07:00 97.8 72 20 100/70 (80) 97 12/05/17 03:00 94 Nasal Cannula 4.00 12/05/17 03:00 90 12/05/17 03:00 97.9 82 18 98/72 (81) 94 12/04/17 23:00 100 12/04/17 23:00 95 Nasal Cannula 4.00 12/04/17 23:00 98.4 78 16 94/70 (78) 95 12/04/17 21:40 97 Nasal Cannula 3.00 12/04/17 19:00 97.9 102 22 118/74 (89) 97 12/04/17 19:00 97 Nasal Cannula 4.00 12/04/17 19:00 100 12/04/17 15:00 97.9 94 14 97/67 (77) 92 12/04/17 15:00 94 12/04/17 15:00 95 Nasal Cannula 4.00 12/04/17 11:00 91 Nasal Cannula 4.00 12/04/17 11:00 94 12/04/17 11:00 98.6 92 18 139/69 (92) 92 12/04/17 09:37 92 Nasal Cannula 2.00 I/O 12/04/17 12/04/17 12/04/17 12/05/17 12/05/17 12/05/17 07:00 15:00 23:00 07:00 15:00 23:00 Intake Total 450 ml 350 ml 440 ml 520 ml Output Total 600 ml 875 ml 500 ml Balance -150 ml 350 ml -435 ml 20 ml Intake Oral 120 ml 240 ml 320 ml IV Total 330 ml 350 ml 200 ml 200 ml Output Urine Total 600 ml 875 ml 500 ml # Bowel Movements 2 0 Physical Exam HEAD: Normocephalic. EYES: No scleral icterus. No injection or drainage. NECK: Supple, trachea midline. No JVD or lymphadenopathy. CARDIOVASCULAR: Regular rate and rhythm 2/6 SM. RESPIRATORY: Breath sounds equal bilaterally. No accessory muscle use. GASTROINTESTINAL: Abdomen soft, non-tender, nondistended. MUSCULOSKELETAL: No cyanosis, or edema. BACK: Nontender without obvious deformity. No CVA tenderness. Laboratory Laboratory Tests Test 12/05/17 03:28 White Blood Count 6.9 TH/MM3 Red Blood Count 3.60 MIL/MM3 Hemoglobin 10.6 GM/DL Hematocrit 31.2 % Mean Corpuscular Volume 86.7 FL Mean Corpuscular Hemoglobin 29.4 PG Mean Corpuscular Hemoglobin Concent 33.9 % Red Cell Distribution Width 15.5 % Platelet Count 350 TH/MM3 Mean Platelet Volume 8.5 FL Neutrophils (%) (Auto) 64.4 % Lymphocytes (%) (Auto) 25.8 % Monocytes (%) (Auto) 8.5 % Eosinophils (%) (Auto) 0.8 % Basophils (%) (Auto) 0.5 % Neutrophils # (Auto) 4.4 TH/MM3 Lymphocytes # (Auto) 1.8 TH/MM3 Monocytes # (Auto) 0.6 TH/MM3 Eosinophils # (Auto) 0.1 TH/MM3 Basophils # (Auto) 0.0 TH/MM3 CBC Comment DIFF FINAL Differential Comment Blood Urea Nitrogen 21 MG/DL Creatinine 1.08 MG/DL Random Glucose 86 MG/DL Calcium Level 8.7 MG/DL Phosphorus Level 4.0 MG/DL Magnesium Level 2.0 MG/DL Sodium Level 143 MEQ/L Potassium Level 4.0 MEQ/L Chloride Level 109 MEQ/L Carbon Dioxide Level 26.9 MEQ/L Anion Gap 7 MEQ/L Estimat Glomerular Filtration Rate 67 ML/MIN B-Type Natriuretic Peptide 982 PG/ML Imaging Last 24 hours Impressions Chest X-Ray 12/05/17 0000 Signed Impressions: Service Date/Time: Tuesday, December 05, 2017 04:42 - CONCLUSION: 1. Cardiomegaly with slight progression of positive fluid balance. 2. Stable left lower lung zone airspace disease. Immanuel Carrasquillo MD Assessment and Plan Problem List: (1) Chest pain ICD Codes: R07.9 - Chest pain Status: Acute (2) Ventricular bigeminy ICD Codes: I49.9 - Cardiac arrhythmia, unspecified Status: Acute (3) Hypotension ICD Codes: I95.9 - Hypotension, unspecified Status: Acute Assessment and Plan [facility] mild nonobstructive dz appreciate CTS input TAVR vs mini-AVR continue current mgt no plan for AVR this admission need to be optimized first Milan Stevenson MD Dec 05, 2017 08:48
[2017-12-05] MEDS: DOCUSATE SODIUM 50 MG/SENNA 8.6 MG TAB PO SCH ×2 (09:00→21:00)
[2017-12-05] MEDS: MULTIVITAMIN TAB PO SCH (09:05)
[2017-12-05] MEDS: THIAMINE HCL 100 MG TAB PO SCH (09:05)
[2017-12-05] MEDS: ASPIRIN 81 MG CHEW TAB PO SCH (09:05)
[2017-12-05] MEDS: SODIUM CHLORIDE 0.9% FLUSH 10 ML FLUSH IV FLUSH SCH ×2 (09:06→21:15)
[2017-12-05] MEDS: FINASTERIDE 5 MG TAB PO SCH (09:06)
[2017-12-05] MEDS: FOLIC ACID 1 MG TAB PO SCH (09:06)
[2017-12-05] MEDS: ENOXAPARIN SODIUM 40 MG/0.4 ML SYRINGE SQ SCH (09:06)
[2017-12-05] MEDS: AZITHROMYCIN INJ 500 MG in SODIUM CHLOR 0.9% 250 ML INJ 250 ML IV SCH (09:28)
[2017-12-05] MEDS: FAMOTIDINE 20 MG TAB PO SCH (21:15)
[2017-12-05] MEDS: PRAVASTATIN SOD 40 MG TAB PO SCH (21:15)
[2017-12-06] VITALS (28 sets, daily range): BP systolic 97–123; BP diastolic 56–77; PULSE 82–103; RESP 16–18; TEMP 96.6–98; O2SAT 93–97
[2017-12-06] MEDS: RESP: IPRATROPIUM 0.5 MG/2.5 ML NEB NEB SCH ×4 (02:51→20:34)
[2017-12-06] MEDS: RESP: LEVALBUTEROL HYDROCHLORIDE 0.63 MG/3 ML NEB (SCH) NEB (02:51)
[2017-12-06] MEDS: CHLORHEXIDINE GLUCONATE 2 % 1 PACK (2 CLOTHS) TOP SCH (03:36)
[2017-12-06 03:52] LABS: C PNEUMO IGA <1:16 (<1:16); C PNEUMO IGG <1:64 (<1:64); C PNEUMO IGM <1:10 (<1:10)
[2017-12-06] MEDS: PIPERACIL-TAZO 4.5 GM PREMIX 100 ML IV SCH ×4 (06:19→17:07)
--- NOTE | 2017-12-06 07:50 | PD.FRAIL ---
Date: Dec 06, 2017 Height: 182.88 cm Weight: 76.5 kg BMI: 22.9 Assessment Performed: Inpatient Days in Hospital at Exam: 5 Albumin 12/03/17 04:50: Albumin 3.0 Pass/Fail: Fail [place] Activities Daily Living [place] ADL Score: Bathing(bathes self/help in single area): [place] (1), Dressing(gets/puts clothes on self): [place] (1), Toileting(goes without help): [place] ( 1), [facility] [place] (1), Continence( complete self-control): [place] (1), Feeding(self, prep by another allowed) : [place] (1), Total: 6 Pass/Fail: Pass Web Marketing Strategist Strength Grasp 1: 24 Grasp 2: 23 Grasp 3: 26 Average: 23 Pass/Fail: Fail 15-Foot Walk 15-Foot Walk (seconds): 8 Pass/Fail: Fail Total Frailty Total Frailty (out of 4): 3 Frailty Index Score Reference Web Marketing Strategist Strength: BMI: <=24 Cutoff for chief of service strength(Kg): <=29 BMI: 24.1-28 Cutoff for chief of service strength(Kg): <=30 BMI: >28 Cutoff for chief of service strength(Kg): <=32 15-Foot Walk: Height: <=173 cm 15-Foot Walk Cutoff Time: >=7 seconds Height: >173 cm 15-Foot Walk Cutoff Time: >=6 seconds Jennifer Jacobs RN Dec 06, 2017 07:50
[2017-12-06] MEDS: DOCUSATE SODIUM 50 MG/SENNA 8.6 MG TAB PO SCH ×2 (08:32→21:00)
[2017-12-06] MEDS: FOLIC ACID 1 MG TAB PO SCH (08:33)
[2017-12-06] MEDS: THIAMINE HCL 100 MG TAB PO SCH (08:33)
[2017-12-06] MEDS: ASPIRIN 81 MG CHEW TAB PO SCH (08:33)
[2017-12-06] MEDS: FINASTERIDE 5 MG TAB PO SCH (08:33)
[2017-12-06] MEDS: MULTIVITAMIN TAB PO SCH (08:33)
[2017-12-06] MEDS: ENOXAPARIN SODIUM 40 MG/0.4 ML SYRINGE SQ SCH (08:33)
[2017-12-06] MEDS: SODIUM CHLORIDE 0.9% FLUSH 10 ML FLUSH IV FLUSH SCH ×2 (08:35→21:04)
--- NOTE | 2017-12-06 09:59 | PD.CARD.PN ---
Subjective Subjective Remarks felt SOB overnight, overall resting comfortably, on room air. no chest pain. wants to go home (Larissa Kimble) Objective Medications Current Medications Medications (Trade) Dose Ordered Sig/Taz Route Start Time Stop Time Status Last Admin (Aspirin Chew) 81 mg DAILY PO 12/01/17 09:00 12/06/17 08:33 (NS Flush) 2 ml UNSCH PRN IV FLUSH 12/01/17 05:30 (NS Flush) 2 ml BID IV FLUSH 12/01/17 09:00 12/06/17 08:35 (Tylenol) 650 mg Q6H PRN PO 12/01/17 05:30 (Morphine Inj) 2 mg Q2H PRN IV PUSH 12/01/17 05:30 (Zofran Inj) 4 mg Q6H PRN IV PUSH 12/01/17 05:30 (Restoril) 15 mg HS PRN PO 12/01/17 05:30 Future Hold Miscellaneous Information 1 Q361D XX 12/01/17 05:30 (Chlorhexidine 2% Cloth) 3 pack Taper DAILY@04 TOP 12/02/17 04:00 11/28/18 03:59 12/04/17 04:00 (Chlorhexidine 2% Cloth) 3 pack UNSCH PRN TOP 12/01/17 05:30 (Irina-Colace) 1 tab BID PO 12/01/17 09:00 12/03/17 09:28 (Milk Of Magnesia Liq) 30 ml Q12H PRN PO 12/01/17 05:30 (Senokot) 17.2 mg Q12H PRN PO 12/01/17 05:30 (Dulcolax Supp) 10 mg DAILY PRN RECTAL 12/01/17 05:30 (Lactulose Liq) 30 ml DAILY PRN PO 12/01/17 05:30 (Brethine Inj) 1 mg UNSCH PRN SQ 12/01/17 12:15 (Cathflo Activase Inj) 2 mg Q2H PRN INTRACATH 12/02/17 08:15 (Xopenex Neb) 0.63 mg Q6HR NEB NEB 12/02/17 10:00 12/06/17 02:51 (Xopenex Neb) 0.63 mg Q2HR NEB PRN NEB 12/02/17 08:45 12/02/17 23:22 (Proscar) 5 mg DAILY PO 12/03/17 09:00 12/06/17 08:33 (Pepcid) 20 mg HS PO 12/02/17 21:00 12/05/17 21:15 (Pravachol) 40 mg HS PO 12/02/17 21:00 12/05/17 21:15 Piperacillin Sod/ Tazobactam Sod 100 ml @ 200 mls/hr Q6H IV 12/02/17 12:00 12/06/17 06:19 (Folate) 1 mg DAILY PO 12/03/17 09:00 12/06/17 08:33 (Vitamin B1) 100 mg DAILY PO 12/03/17 09:00 12/06/17 08:33 (Theragran) 1 tab DAILY PO 12/03/17 09:00 12/06/17 08:33 (Atrovent Neb) 0.5 mg Q6HR NEB NEB 12/02/17 16:00 12/06/17 09:03 (Lovenox Inj) 40 mg Q24H SQ 12/05/17 08:00 12/06/17 08:33 Vital Signs / I&O Vital Signs Date Time Temp Pulse Resp B/P (MAP) Pulse Ox O2 Delivery O2 Flow Rate FiO2 12/06/17 09:03 96 21 12/06/17 09:00 90 12/06/17 08:00 99 12/06/17 07:15 95 Room Air 12/06/17 07:15 96.6 93 16 113/77 (89) 95 12/06/17 07:15 92 12/06/17 06:14 97 12/06/17 05:22 94 12/06/17 04:16 94 12/06/17 03:02 98.0 90 17 112/74 (87) 95 12/06/17 03:02 96 Room Air 12/06/17 03:02 90 12/06/17 02:04 89 12/06/17 01:01 82 12/06/17 00:30 93 12/06/17 00:27 97.9 84 18 105/56 (72) 96 12/06/17 00:27 96 Room Air 12/05/17 23:03 83 12/05/17 22:39 84 12/05/17 21:55 96 Nasal Cannula 2.00 12/05/17 21:00 86 12/05/17 20:20 88 12/05/17 19:49 88 12/05/17 19:49 97.4 87 16 101/67 (78) 93 12/05/17 19:49 93 Room Air 12/05/17 18:00 93 12/05/17 17:00 90 12/05/17 16:24 101 12/05/17 16:14 102 18 115/65 (82) 97 12/05/17 15:00 97.5 87 18 100/68 (79) 97 12/05/17 15:00 96 Room Air 12/05/17 15:00 80 12/05/17 11:00 97.5 80 18 104/69 (81) 97 12/05/17 11:00 99 Nasal Cannula 3.00 12/05/17 11:00 80 I/O 12/05/17 12/05/17 12/05/17 12/06/17 12/06/17 12/06/17 07:00 15:00 23:00 07:00 15:00 23:00 Intake Total 520 ml 580 ml 240 ml 350 ml Output Total 500 ml 625 ml Balance 20 ml 580 ml -385 ml 350 ml Intake Oral 320 ml 480 ml 240 ml IV Total 200 ml 100 ml 350 ml Output Urine Total 500 ml 625 ml # Bowel Movements 0 1 Physical Exam GENERAL: SKIN: Warm and dry. HEAD: Atraumatic. Normocephalic. EYES: Pupils equal and round. ENT: No nasal bleeding or discharge. NECK: Trachea midline. No JVD. CARDIOVASCULAR: Regular rate and rhythm. +systolic murmur RESPIRATORY: No accessory muscle use. Clear to auscultation. Breath sounds equal bilaterally. GASTROINTESTINAL: Abdomen soft, non-tender, nondistended. MUSCULOSKELETAL: Extremities without clubbing, cyanosis, or edema. No obvious deformities. NEUROLOGICAL: Awake and alert. No obvious cranial nerve deficits. Normal speech. PSYCHIATRIC: Appropriate mood and affect; insight and judgment normal. Laboratory Laboratory Tests Test 12/01/17 00:00 12/01/17 07:20 12/01/17 10:30 12/01/17 15:40 Total Creatine Kinase 66 U/L D-Dimer Quantitative (PE/DVT) 3.80 MG/L FEU Urine Eosinophils NONE SEEN /HPF Urine Random Creatinine 71.8 MG/DL Urine Random Sodium 71 MEQ/L Nasal Screen MRSA (PCR) MRSA NOT DETECTED Test 12/02/17 03:30 12/02/17 11:53 12/02/17 19:16 12/03/17 04:50 Triglycerides Level 97 MG/DL Cholesterol Level 105 MG/DL LDL Cholesterol 56 MG/DL HDL Cholesterol 29.4 MG/DL Cholesterol/HDL Ratio 3.57 RATIO Prothrombin Time 11.2 SEC Prothromb Time International Ratio 1.1 RATIO Chlamydia pneumoniae IgG Titer <1:64 Chlamydia pneumoniae IgA Titer <1:16 Chlamydia pneumoniae IgM Titer <1:10 Chlamydia pneumoniae Ab Interpret Mycoplasma Pneumoniae Interpretat . Mycoplasma pneumoniae IgG Antibody Positive Mycoplasma pneumoniae IgM Antibody Negative Stool C. difficile Toxin (PCR) NEGATIVE Stl C. difficile Toxin Epiderm 027 PRESUMPTIVE NEGATIVE Lactic Acid Level 1.2 mmol/L Blood Urea Nitrogen 11 MG/DL Creatinine 1.01 MG/DL Random Glucose 118 MG/DL Total Protein 7.3 GM/DL Albumin 3.0 GM/DL Calcium Level 9.0 MG/DL Phosphorus Level 3.6 MG/DL Magnesium Level 1.9 MG/DL Alkaline Phosphatase 96 U/L Aspartate Amino Transf (AST/SGOT) 46 U/L Alanine Aminotransferase (ALT/SGPT) 52 U/L Total Bilirubin 0.6 MG/DL Sodium Level 139 MEQ/L Potassium Level 4.0 MEQ/L Chloride Level 110 MEQ/L Carbon Dioxide Level 22.4 MEQ/L Troponin I 0.60 NG/ML Thyroid Stimulating Hormone 3rd Gen 0.998 uIU/ML Test 12/04/17 03:25 12/05/17 03:28 Activated Partial Thromboplast Time 40.3 SEC White Blood Count 6.9 TH/MM3 Red Blood Count 3.60 MIL/MM3 Hemoglobin 10.6 GM/DL Hematocrit 31.2 % Mean Corpuscular Volume 86.7 FL Mean Corpuscular Hemoglobin 29.4 PG Mean Corpuscular Hemoglobin Concent 33.9 % Red Cell Distribution Width 15.5 % Platelet Count 350 TH/MM3 Mean Platelet Volume 8.5 FL Neutrophils (%) (Auto) 64.4 % Lymphocytes (%) (Auto) 25.8 % Monocytes (%) (Auto) 8.5 % Eosinophils (%) (Auto) 0.8 % Basophils (%) (Auto) 0.5 % Neutrophils # (Auto) 4.4 TH/MM3 Lymphocytes # (Auto) 1.8 TH/MM3 Monocytes # (Auto) 0.6 TH/MM3 Eosinophils # (Auto) 0.1 TH/MM3 Basophils # (Auto) 0.0 TH/MM3 CBC Comment DIFF FINAL Differential Comment Blood Urea Nitrogen 21 MG/DL Creatinine 1.08 MG/DL Random Glucose 86 MG/DL Calcium Level 8.7 MG/DL Phosphorus Level 4.0 MG/DL Magnesium Level 2.0 MG/DL Sodium Level 143 MEQ/L Potassium Level 4.0 MEQ/L Chloride Level 109 MEQ/L Carbon Dioxide Level 26.9 MEQ/L Anion Gap 7 MEQ/L Estimat Glomerular Filtration Rate 67 ML/MIN B-Type Natriuretic Peptide 982 PG/ML (Larissa Kimble) Assessment and Plan Problem List: (1) Chest pain ICD Codes: R07.9 - Chest pain Status: Acute (2) Ventricular bigeminy ICD Codes: I49.9 - Cardiac arrhythmia, unspecified Status: Acute (3) Hypotension ICD Codes: I95.9 - Hypotension, unspecified Status: Acute Assessment and Plan 72 yo WM with HTN, HLD admitted for chest pain, CHF and pneumonia. NSTEMI- cardiac cath shows mild nonobstructive CAD, no chest pain cardiomyopathy- reduced EF 35-40%, nonischemic aortic stenosis- severe, cardiothoracic surgery following will consider TAVR vs. minimally invasive AVR patient will need to recover from CHF and pneumonia, then plan for surgery on a future date (not this admission) (Larissa Kimble) Assessment and Plan CT chest with contrast gentle hydration Will plan for TAVR. will need full workup IVCD - consult EP +/- PPM evaluation in anticipation pre-TAVR DC planning once resp resolved OP FU (Milan Stevenson MD) Larissa Kimble Dec 06, 2017 09:59 Milan Stevenson MD Dec 06, 2017 12:25
--- NOTE | 2017-12-06 10:21 | RSPPFT ---
DATE OF PROCEDURE: 12/03/17 COMMENTS: Spirometry with FVC of 2.2 at 50% of predicted, FEV1 of 1.3 at 37%, FEV1/FVC ratio is decreased. Flow is decreased at FEF 25, FEF 50, FEF 75 and FEF 25-75. Flow volume loop indicates an obstructive pattern. IMPRESSION: 1. Moderately severe COPD. 2. Post-bronchodilator study was not performed.
[2017-12-06] MEDS ORDERED: IOHEXOL 350 MG/ML 10 ML VIAL (for RAD DIAG) IVCONTRAST ONE (12:05)
--- NOTE | 2017-12-06 14:53 | RADRPT ---
EXAM DATE/TIME: 12/06/2017 11:49 [facility] COMPARISON: No previous studies available for comparison. INDICATIONS : Pre TAVR IV CONTRAST: 100 cc Omnipaque 350 (iohexol) IV RADIATION DOSE: 10.37 CTDIvol (mGy) MEDICAL HISTORY : Cardiovascular disease. Hypertension. SURGICAL HISTORY : None. ENCOUNTER: Initial ACUITY: 1 day PAIN SCALE: 0/10 LOCATION: chest TECHNIQUE: Volumetric scanning was performed using a multi-row detector CT scanner. The data was post processed with a variety of visualization algorithms including full volume maximum intensity projection, multi -planar sliding thin slab reformation, curved planar reformation, and surface rendering techniques. Using automated exposure control and adjustment of the mA and/or kV according to patient size, radiat ion dose was kept as low as reasonably achievable to obtain optimal diagnostic quality images. DIC OM format image data is available electronically for review and comparison. FINDINGS: CARDIAC: The coronary system is right dominant. There is dense eccentric calcific plaque involving the left ma in origin and the distal left main continuing into the LAD. Mild eccentric calcific plaque at the chanelle gin of the circumflex. Minimal plaquing in the proximal right coronary.. There is no pericardial eff usion AORTIC ROOT/VALVE: 3 cusps are evident with dense calcifications. The aortic root measures 3.9 cm. Mid thoracic aorta measures 3.4 cm with patchy eccentric calcific plaquing. THORACIC AORTA: Origin of the great vessels is normal. No evidence of aneurysm, mural thrombus, dissection, mural ca lcification, or stenosis. ABDOMINAL AORTA: No evidence of aneurysm, mural thrombus, dissection, or stenosis. Patchy mild atheromatous irregulari ty and eccentric calcification CELIAC ARTERY: Celiac artery is widely patent. SMA: Superior mesenteric artery is widely patent. RIGHT RENAL ARTERY: 2 widely patent right renal arteries LEFT RENAL ARTERY: 2 widely patent left renal arteries RIGHT ILIAC: Moderate tortuosity. Patchy nonconcentric calcification. Minimum diameter 7 mm. LEFT ILIAC: Moderate tortuosity. Patchy nonconcentric calcification. Minimum diameter 7 mm. THORAX: Small bilateral pleural effusions and compressive lung atelectasis. Patchy small areas of infiltrate elsewhere. ABDOMEN: Colonic diverticulosis. Lateral renal cysts. PELVIS: Prostate enlarged. CONCLUSION: Dense aortic valvular calcifications. Vascular anatomy appears satisfactory for TAVR Woodrow Baca MD on December 06, 2017 at 14:37 Board Certified Radiologist. This report was verified electronically.
--- NOTE | 2017-12-06 17:47 | HHI.PR ---
Subjective Remarks This is a 72 year old male patient with a past medical history which includes HTN, HLD, thoracic aortic aneurysm, EtOH use, tobacco abuse. Patient presented to the ER on 12/01/17 with reports of recent infection in Right groin and started Bactrim 11/21/17. Since then he has been fatigued, SOB, mostly laying on couch. Has had chills. Had diarrhea with ~ 2-3 loose stools daily for 3-5 days. Last night he was at rest when he developed L sided chest pain, nonpleuritic non radiating with no n/v/diaphoresis/arm pain. Pain resolved after arrival. No hemoptysis. He has had some cough and sputum production. R groin infection is resolved. Initial Troponin 0.07, patient was started on heparin drip. Also patient was in bigeminy upon arrival. Creatinine 2.19. CT chest with early RLL pneumonia. Patient was admitted to ICU underwent 2-D echo showed an EF of 35-40%, global left ventricular dysfunction, severe aortic valve stenosis with a valve area of 0.41, mean gradient of 50, peak gradient of 85. Cardiac cath 12/[address] Stevenson , which showed nonobstructing coronary disease. CTS consult for open aortic valve replacement versus transcatheter aortic valve replacement. 12/03 Patient went into resp distress this morning placed on BIPAP and Lasix 40mg x1 given. He had good response in UOP post diuretics. CXR showed interstitial edema. Objective Vitals Vital Signs Date Time Temp Pulse Resp B/P (MAP) Pulse Ox O2 Delivery O2 Flow Rate FiO2 12/06/17 17:00 103 12/06/17 16:00 84 12/06/17 15:00 97 Room Air 12/06/17 15:00 97.7 96 16 105/62 (76) 97 12/06/17 15:00 82 12/06/17 14:00 87 12/06/17 13:00 84 12/06/17 12:00 85 12/06/17 11:00 97.5 95 17 97/66 (76) 94 12/06/17 11:00 94 Room Air 12/06/17 11:00 96 12/06/17 10:00 101 12/06/17 09:03 96 21 12/06/17 09:00 90 12/06/17 08:00 99 12/06/17 07:15 95 Room Air 12/06/17 07:15 96.6 93 16 113/77 (89) 95 12/06/17 07:15 92 12/06/17 06:14 97 12/06/17 05:22 94 12/06/17 04:16 94 12/06/17 03:02 98.0 90 17 112/74 (87) 95 12/06/17 03:02 96 Room Air 12/06/17 03:02 90 12/06/17 02:04 89 12/06/17 01:01 82 12/06/17 00:30 93 12/06/17 00:27 97.9 84 18 105/56 (72) 96 12/06/17 00:27 96 Room Air 12/05/17 23:03 83 12/05/17 22:39 84 12/05/17 21:55 96 Nasal Cannula 2.00 12/05/17 21:00 86 12/05/17 20:20 88 12/05/17 19:49 88 12/05/17 19:49 97.4 87 16 101/67 (78) 93 12/05/17 19:49 93 Room Air 12/05/17 18:00 93 12/06/17 12/06/17 12/07/17 15:00 23:00 07:00 Intake Total 350 ml 820 ml Output Total 450 ml Balance 350 ml 370 ml Intake Oral 720 ml IV Total 350 ml 100 ml Output Urine Total 450 ml # Bowel Movements 1 Result Diagram: 12/05/17 0328 12/05/17 0328 Other Results Laboratory Tests Test 12/04/17 03:25 12/05/17 03:28 White Blood Count 9.3 TH/MM3 6.9 TH/MM3 Red Blood Count 3.61 MIL/MM3 3.60 MIL/MM3 Hemoglobin 10.6 GM/DL 10.6 GM/DL Hematocrit 31.0 % 31.2 % Mean Corpuscular Volume 85.8 FL 86.7 FL Mean Corpuscular Hemoglobin 29.3 PG 29.4 PG Mean Corpuscular Hemoglobin Concent 34.1 % 33.9 % Red Cell Distribution Width 14.9 % 15.5 % Platelet Count 325 TH/MM3 350 TH/MM3 Mean Platelet Volume 8.6 FL 8.5 FL Neutrophils (%) (Auto) 78.3 % 64.4 % Lymphocytes (%) (Auto) 12.6 % 25.8 % Monocytes (%) (Auto) 8.8 % 8.5 % Eosinophils (%) (Auto) 0.1 % 0.8 % Basophils (%) (Auto) 0.2 % 0.5 % Neutrophils # (Auto) 7.3 TH/MM3 4.4 TH/MM3 Lymphocytes # (Auto) 1.2 TH/MM3 1.8 TH/MM3 Monocytes # (Auto) 0.8 TH/MM3 0.6 TH/MM3 Eosinophils # (Auto) 0.0 TH/MM3 0.1 TH/MM3 Basophils # (Auto) 0.0 TH/MM3 0.0 TH/MM3 CBC Comment DIFF FINAL DIFF FINAL Differential Comment Activated Partial Thromboplast Time 40.3 SEC Blood Urea Nitrogen 19 MG/DL 21 MG/DL Creatinine 1.12 MG/DL 1.08 MG/DL Random Glucose 121 MG/DL 86 MG/DL Calcium Level 8.5 MG/DL 8.7 MG/DL Phosphorus Level 3.7 MG/DL 4.0 MG/DL Magnesium Level 2.0 MG/DL 2.0 MG/DL Sodium Level 141 MEQ/L 143 MEQ/L Potassium Level 4.0 MEQ/L 4.0 MEQ/L Chloride Level 108 MEQ/L 109 MEQ/L Carbon Dioxide Level 24.6 MEQ/L 26.9 MEQ/L Anion Gap 8 MEQ/L 7 MEQ/L Estimat Glomerular Filtration Rate 64 ML/MIN 67 ML/MIN B-Type Natriuretic Peptide 982 PG/ML Imaging Last Impressions Chest CTA 12/06/17 0000 Signed Impressions: Service Date/Time: December 11:49 - CONCLUSION: Dense aortic valvular calcifications. Vascular anatomy appears satisfactory for TAVR Woodrow Baca MD Chest X-Ray 12/05/17 0000 Signed Impressions: Service Date/Time: Tuesday, December 05, 2017 04:42 - CONCLUSION: 1. Cardiomegaly with slight progression of positive fluid balance. 2. Stable left lower lung zone airspace disease. Immanuel Carrasquillo MD Lung Scan-V Nuclear Medicine 12/01/17 0000 Signed Impressions: Service Date/Time: Friday, December 01, 2017 13:54 - CONCLUSION: 1. No segmental or subsegmental perfusion defects are seen. 2. Low probability for PE. Cayden J. Siragusa, MD Lower Extremity Ultrasound 12/01/17 0000 Signed Impressions: Service Date/Time: Friday, December 01, 2017 15:06 - CONCLUSION: No evidence of DVT. Cayden Bermudez MD Chest CT 12/01/17 0000 Signed Impressions: Service Date/Time: Friday, December 01, 2017 01:09 - CONCLUSION: 1. An area of early or mild pneumonia in the right lower lobe. 2. Left ventricular hypertrophy and aortic valve calcification. Mild prominence of the ascending thoracic aorta is unchanged, 4.4 cm. 3. Coronary artery calcification. 4. Mild emphysema. Woodrow Blount MD Abdomen/Pelvis CT 12/01/17 0000 Signed Impressions: Service Date/Time: Friday, December 01, 2017 01:09 - CONCLUSION: 1. No acute abnormalities are demonstrated in the abdomen or pelvis. 2. Atherosclerotic aorta and branch vessels. Non-aneurysmal aorta. 3. Cholecystectomy since the prior study. No associated complication demonstrated. No evidence of biliary obstruction. 4. Enlarged prostate again seen. Woodrow Blount MD Objective Remarks GENERAL: This is a well-nourished, well-developed patient, in no apparent distress. CARDIOVASCULAR: Regular rate and rhythm, +systolic murmur RESPIRATORY: Clear to auscultation. Breath sounds equal bilaterally. GASTROINTESTINAL: Abdomen soft, non-tender, nondistended. Normal active bowel sounds MUSCULOSKELETAL: Extremities without clubbing, cyanosis, or edema. NEURO: Alert & Oriented x4 to person, place, time, situation. Moves all ext x4 Date of Insertion: Dec 01, 2017 Line: Central Venous Catheter Side: Left Location: Internal, Jugular A/P Problem List: (1) Severe aortic stenosis ICD Codes: I35.0 - Nonrheumatic aortic (valve) stenosis Plan: 2-D echo showed an EF of 35-40%, global left ventricular dysfunction, severe aortic valve stenosis with a valve area of 0.41, mean gradient of 50, peak gradient of 85. Cardiac cath 12/[address] Stevenson, which showed nonobstructing coronary disease. CTS consult for open aortic valve replacement versus transcatheter aortic valve replacement, not a surgical candidate at this time need to optimize first and follow up outpatient (2) Pulmonary HTN ICD Codes: I27.20 - Pulmonary hypertension, unspecified Plan: 2-D echo showed an EF of 35-40%, global left ventricular dysfunction, severe aortic valve stenosis with a valve area of 0.41, mean gradient of 50, peak gradient of 85. Cardiac cath 12/[address] Stevenson, which showed nonobstructing coronary disease. (3) Community acquired pneumonia ICD Codes: J18.9 - Pneumonia, unspecified organism Plan: CXR 12/05, mild interstitial edema, left lower lobe infiltrate VQ scan low probability for pulmonary embolism CT thorax 12/01 revealed right lower lobe pneumonia. Mild emphysematous changes. Descending thoracic aorta 4.4 cm/stable. Calcifications around the left main/LAD urine Legionella antigen, pneumococcal antigen and influenza A and B all negative Blood culture 12/01 no growth Patient on Zosyn (12/02- present) plan to DC Zosyn 12/06 2300 currently tolerating RA Incentive spirometry while awake repeat CBC, BMP and CXR in AM monitor off abx x 24 hours possible DC Sunday if patient continues to do well (4) Thoracic aortic aneurysm without rupture ICD Codes: I71.2 - Thoracic aortic aneurysm, without rupture Plan: CT chest -noncontrast - 4.4 cm aneurysmal dilation of thoracic root, stable compared with prior imaging 07/2015. (5) Alcohol abuse ICD Codes: F10.10 - Alcohol abuse, uncomplicated Status: Acute Plan: thiamine 100 mg by mouth daily for daily, folic acid 1 mg daily multivitamin daily Recommend patient stop ETOH use (6) BPH (benign prostatic hyperplasia) ICD Codes: N40.0 - Benign prostatic hyperplasia without lower urinary tract symptoms Plan: On finasteride 5 milligrams daily. Assessment and Plan Patient examined. Assessment and plan formulated with Isha Egan PA-C. Cici agree with the above. Isha Egan Dec 06, 2017 17:47 Austin Crow DO Dec 09, 2017 11:30
[2017-12-06] MEDS: PRAVASTATIN SOD 40 MG TAB PO SCH (21:03)
[2017-12-06] MEDS: FAMOTIDINE 20 MG TAB PO SCH (21:03)
[2017-12-07] VITALS (19 sets, daily range): BP systolic 98–135; BP diastolic 66–84; PULSE 76–102; RESP 16–18; TEMP 97.5–98.8; O2SAT 95–98
[2017-12-07] MEDS: RESP: IPRATROPIUM 0.5 MG/2.5 ML NEB NEB SCH ×4 (03:44→20:07)
[2017-12-07] MEDS: CHLORHEXIDINE GLUCONATE 2 % 1 PACK (2 CLOTHS) TOP SCH (04:00)
[2017-12-07 06:07] LABS: AUTOMATED NEUTROPHIL # 4.3 TH/MM3 (1.8-7.7); BASOPHIL % 0.7 % (0.0-2.0); EOSINOPHIL # 0.2 TH/MM3 (0-0.4); EOSINOPHIL % 2.6 % (0.0-4.0); HEMATOCRIT 32.8 % (39.0-51.0); HEMOGLOBIN 11.2 GM/DL (13.0-17.0); LYMPHOCYTE # 1.8 TH/MM3 (1.0-4.8); MEAN CELL VOLUME 86.9 FL (80.0-100.0); MEAN CORPUSCULAR HEMOGLOBIN 29.7 PG (27.0-34.0); MEAN CORPUSCULAR HGB CONC 34.1 % (32.0-36.0); MEAN PLATELET VOLUME 8.1 FL (7.0-11.0); MONO % 7.2 % (0.0-8.0); MONOCYTE # 0.5 TH/MM3 (0-0.9); NEUT % 63.5 % (16.0-70.0); PLATELET COUNT 355 TH/MM3 (150-450); RED BLOOD COUNT 3.77 MIL/MM3 (4.50-5.90); WHITE BLOOD COUNT 6.8 TH/MM3 (4.0-11.0)
[2017-12-07 06:33] LABS: BICARBONATE 25.8 MEQ/L (21.0-32.0); CALCIUM 8.9 MG/DL (8.5-10.1); CREATININE 1.01 MG/DL (0.60-1.30)
--- NOTE | 2017-12-07 06:53 | RADRPT ---
EXAM DATE/TIME: 12/07/2017 05:25 [facility] COMPARISON: CHEST SINGLE AP, December 05, 2017, 4:42. INDICATIONS : Evaluate for pneumonia MEDICAL HISTORY : Cardiovascular disease. Renal calculi. Hypertension. SURGICAL HISTORY : None. ENCOUNTER: Subsequent ACUITY: 1 week PAIN SCORE: 6/10 LOCATION: Bilateral chest FINDINGS: There is persistent consolidation in the left lower lung with loss of delineation of the left hemidia phragm. The central bronchopulmonary markings remain mildly indistinct the heart is upper limits nor mal in size. CONCLUSION: Persistent left lower lobe consolidation. Serg Juárez MD on December 07, 2017 at 6:52 Board Certified Radiologist. This report was verified electronically.
[2017-12-07] MEDS: ENOXAPARIN SODIUM 40 MG/0.4 ML SYRINGE SQ SCH (08:51)
[2017-12-07] MEDS: THIAMINE HCL 100 MG TAB PO SCH (08:51)
[2017-12-07] MEDS: MULTIVITAMIN TAB PO SCH (08:52)
[2017-12-07] MEDS: DOCUSATE SODIUM 50 MG/SENNA 8.6 MG TAB PO SCH ×2 (08:52→20:39)
[2017-12-07] MEDS: FINASTERIDE 5 MG TAB PO SCH (08:52)
[2017-12-07] MEDS: SODIUM CHLORIDE 0.9% FLUSH 10 ML FLUSH IV FLUSH SCH ×2 (08:52→20:39)
[2017-12-07] MEDS: ASPIRIN 81 MG CHEW TAB PO SCH (08:54)
[2017-12-07] MEDS: FOLIC ACID 1 MG TAB PO SCH (09:03)
[2017-12-07] MEDS ORDERED: LORazepam 1 MG TAB PO PRN (12:00)
[2017-12-07] MEDS ORDERED: LORazepam 2 MG/ML VIAL IV PUSH PRN ×4 (12:00)
[2017-12-07] MEDS ORDERED: FLUMAZENIL 0.5 MG/5 ML VIAL IV PUSH PRN (12:00)
[2017-12-07] MEDS ORDERED: LORazepam 2 MG TAB PO PRN (12:00)
--- NOTE | 2017-12-07 12:39 | PD.CARD.PN ---
Subjective Subjective Remarks no complaints breathing improved NSVT yest Objective Medications Current Medications Medications (Trade) Dose Ordered Sig/Taz Route Start Time Stop Time Status Last Admin (Aspirin Chew) 81 mg DAILY PO 12/01/17 09:00 12/07/17 08:54 (NS Flush) 2 ml UNSCH PRN IV FLUSH 12/01/17 05:30 (NS Flush) 2 ml BID IV FLUSH 12/01/17 09:00 12/07/17 08:52 (Tylenol) 650 mg Q6H PRN PO 12/01/17 05:30 (Morphine Inj) 2 mg Q2H PRN IV PUSH 12/01/17 05:30 (Zofran Inj) 4 mg Q6H PRN IV PUSH 12/01/17 05:30 (Restoril) 15 mg HS PRN PO 12/01/17 05:30 Future Hold Miscellaneous Information 1 Q361D XX 12/01/17 05:30 (Chlorhexidine 2% Cloth) Taper DAILY@04 TOP 12/02/17 04:00 11/28/18 03:59 12/04/17 04:00 (Chlorhexidine 2% Cloth) 3 pack UNSCH PRN TOP 12/01/17 05:30 (Irina-Colace) 1 tab BID PO 12/01/17 09:00 12/03/17 09:28 (Milk Of Magnesia Liq) 30 ml Q12H PRN PO 12/01/17 05:30 (Senokot) 17.2 mg Q12H PRN PO 12/01/17 05:30 (Dulcolax Supp) 10 mg DAILY PRN RECTAL 12/01/17 05:30 (Lactulose Liq) 30 ml DAILY PRN PO 12/01/17 05:30 (Brethine Inj) 1 mg UNSCH PRN SQ 12/01/17 12:15 (Cathflo Activase Inj) 2 mg Q2H PRN INTRACATH 12/02/17 08:15 (Xopenex Neb) 0.63 mg Q2HR NEB PRN NEB 12/02/17 08:45 12/02/17 23:22 (Proscar) 5 mg DAILY PO 12/03/17 09:00 12/07/17 08:52 (Pepcid) 20 mg HS PO 12/02/17 21:00 12/06/17 21:03 (Pravachol) 40 mg HS PO 12/02/17 21:00 12/06/17 21:03 (Folate) 1 mg DAILY PO 12/03/17 09:00 12/07/17 09:03 (Vitamin B1) 100 mg DAILY PO 12/03/17 09:00 12/07/17 08:51 (Theragran) 1 tab DAILY PO 12/03/17 09:00 12/07/17 08:52 (Atrovent Neb) 0.5 mg Q6HR NEB NEB 12/02/17 16:00 12/07/17 09:03 (Lovenox Inj) 40 mg Q24H SQ 12/05/17 08:00 12/07/17 08:51 (Romazicon Inj) 0.2 mg Q1M PRN IV PUSH 12/07/17 12:00 (Ativan) 1 mg Q4H PRN PO 12/07/17 12:00 (Ativan Inj) 1 mg Q4H PRN IV PUSH 12/07/17 12:00 (Ativan) 2 mg Q2H PRN PO 12/07/17 12:00 (Ativan Inj) 2 mg Q2H PRN IV PUSH 12/07/17 12:00 (Ativan Inj) 2 mg Q1H PRN IV PUSH 12/07/17 12:00 (Ativan Inj) 2 mg Q15M PRN IV PUSH 12/07/17 12:00 (Xanax) 0.25 mg Q8H PRN PO 12/07/17 12:00 Vital Signs / I&O Vital Signs Date Time Temp Pulse Resp B/P (MAP) Pulse Ox O2 Delivery O2 Flow Rate FiO2 12/07/17 09:06 95 Nasal Cannula 2.00 12/07/17 08:00 98 12/07/17 07:00 97.6 98 16 110/66 (81) 95 12/07/17 07:00 90 12/07/17 07:00 95 Room Air 12/07/17 06:00 102 12/07/17 05:00 96 12/07/17 04:00 80 12/07/17 03:46 96 Nasal Cannula 2.00 12/07/17 03:45 98.0 91 18 120/77 (91) 98 12/07/17 03:41 98 Nasal Cannula 2.00 12/07/17 03:00 92 12/07/17 02:00 84 12/07/17 01:00 76 12/07/17 00:00 80 12/06/17 23:25 97.9 88 16 123/75 (91) 95 12/06/17 23:16 95 Nasal Cannula 2.00 12/06/17 23:00 86 12/06/17 22:00 91 12/06/17 21:00 86 12/06/17 20:36 93 21 12/06/17 20:00 84 12/06/17 20:00 97.9 84 16 106/70 (82) 93 12/06/17 20:00 93 Room Air 12/06/17 19:00 82 12/06/17 18:00 93 12/06/17 17:00 103 12/06/17 16:00 84 12/06/17 15:00 97 Room Air 12/06/17 15:00 97.7 96 16 105/62 (76) 97 12/06/17 15:00 82 12/06/17 14:00 87 12/06/17 13:00 84 I/O 12/06/17 12/06/17 12/06/17 12/07/17 12/07/17 12/07/17 07:00 15:00 23:00 07:00 15:00 23:00 Intake Total 240 ml 350 ml 920 ml 240 ml Output Total 625 ml 450 ml 425 ml Balance -385 ml 350 ml 470 ml -185 ml Intake Oral 240 ml 720 ml 240 ml IV Total 350 ml 200 ml Output Urine Total 625 ml 450 ml 425 ml Stool Total 0 ml # Bowel Movements 1 1 0 Physical Exam HEAD: Normocephalic. EYES: No scleral icterus. No injection or drainage. NECK: Supple, trachea midline. No JVD or lymphadenopathy. CARDIOVASCULAR: Regular rate and rhythm 2/6 SM. RESPIRATORY: Breath sounds equal bilaterally. No accessory muscle use. GASTROINTESTINAL: Abdomen soft, non-tender, nondistended. MUSCULOSKELETAL: No cyanosis, or edema. BACK: Nontender without obvious deformity. No CVA tenderness. Laboratory Laboratory Tests Test 12/07/17 04:15 White Blood Count 6.8 TH/MM3 Red Blood Count 3.77 MIL/MM3 Hemoglobin 11.2 GM/DL Hematocrit 32.8 % Mean Corpuscular Volume 86.9 FL Mean Corpuscular Hemoglobin 29.7 PG Mean Corpuscular Hemoglobin Concent 34.1 % Red Cell Distribution Width 15.0 % Platelet Count 355 TH/MM3 Mean Platelet Volume 8.1 FL Neutrophils (%) (Auto) 63.5 % Lymphocytes (%) (Auto) 26.0 % Monocytes (%) (Auto) 7.2 % Eosinophils (%) (Auto) 2.6 % Basophils (%) (Auto) 0.7 % Neutrophils # (Auto) 4.3 TH/MM3 Lymphocytes # (Auto) 1.8 TH/MM3 Monocytes # (Auto) 0.5 TH/MM3 Eosinophils # (Auto) 0.2 TH/MM3 Basophils # (Auto) 0.0 TH/MM3 CBC Comment DIFF FINAL Differential Comment Blood Urea Nitrogen 14 MG/DL Creatinine 1.01 MG/DL Random Glucose 80 MG/DL Calcium Level 8.9 MG/DL Sodium Level 142 MEQ/L Potassium Level 3.6 MEQ/L Chloride Level 107 MEQ/L Carbon Dioxide Level 25.8 MEQ/L Anion Gap 9 MEQ/L Estimat Glomerular Filtration Rate 72 ML/MIN Imaging Last 24 hours Impressions Chest X-Ray 12/07/17 0600 Signed Impressions: Service Date/Time: Thursday, December 07, 2017 05:25 - CONCLUSION: Persistent left lower lobe consolidation. Serg Juárez MD Assessment and Plan Problem List: (1) Chest pain ICD Codes: R07.9 - Chest pain Status: Acute (2) Ventricular bigeminy ICD Codes: I49.9 - Cardiac arrhythmia, unspecified Status: Acute (3) Hypotension ICD Codes: I95.9 - Hypotension, unspecified Status: Acute Assessment and Plan Severe pre-TAVR workup PNA clearing NSVT yesterday - EP input Milan Stevenson MD Dec 07, 2017 12:39
--- NOTE | 2017-12-07 12:42 | HHI.PR ---
Subjective Remarks No new complaints. Objective Vitals Vital Signs Date Time Temp Pulse Resp B/P (MAP) Pulse Ox O2 Delivery O2 Flow Rate FiO2 12/07/17 09:06 95 Nasal Cannula 2.00 12/07/17 08:00 98 12/07/17 07:00 97.6 98 16 110/66 (81) 95 12/07/17 07:00 90 12/07/17 07:00 95 Room Air 12/07/17 06:00 102 12/07/17 05:00 96 12/07/17 04:00 80 12/07/17 03:46 96 Nasal Cannula 2.00 12/07/17 03:45 98.0 91 18 120/77 (91) 98 12/07/17 03:41 98 Nasal Cannula 2.00 12/07/17 03:00 92 12/07/17 02:00 84 12/07/17 01:00 76 12/07/17 00:00 80 12/06/17 23:25 97.9 88 16 123/75 (91) 95 12/06/17 23:16 95 Nasal Cannula 2.00 12/06/17 23:00 86 12/06/17 22:00 91 12/06/17 21:00 86 12/06/17 20:36 93 21 12/06/17 20:00 84 12/06/17 20:00 97.9 84 16 106/70 (82) 93 12/06/17 20:00 93 Room Air 12/06/17 19:00 82 12/06/17 18:00 93 12/06/17 17:00 103 12/06/17 16:00 84 12/06/17 15:00 97 Room Air 12/06/17 15:00 97.7 96 16 105/62 (76) 97 12/06/17 15:00 82 12/06/17 14:00 87 12/06/17 13:00 84 Result Diagram: 12/07/17 0415 12/07/17 0415 Imaging Last Impressions Chest X-Ray 12/07/17 0600 Signed Impressions: Service Date/Time: Thursday, December 07, 2017 05:25 - CONCLUSION: Persistent left lower lobe consolidation. Serg Juárez MD Chest CTA 12/06/17 0000 Signed Impressions: Service Date/Time: December 11:49 - CONCLUSION: Dense aortic valvular calcifications. Vascular anatomy appears satisfactory for TAVR Woodrow Baca MD Lung Scan-VQ Nuclear Medicine 12/01/17 0000 Signed Impressions: Service Date/Time: Friday, December 01, 2017 13:54 - CONCLUSION: 1. No segmental or subsegmental perfusion defects are seen. 2. Low probability for PE. Cayden Bermudez MD Lower Extremity Ultrasound 12/01/17 0000 Signed Impressions: Service Date/Time: Friday, December 01, 2017 15:06 - CONCLUSION: No evidence of DVT. Cayden Bermudez MD Chest CT 12/01/17 0000 Signed Impressions: Service Date/Time: Friday, December 01, 2017 01:09 - CONCLUSION: 1. An area of early or mild pneumonia in the right lower lobe. 2. Left ventricular hypertrophy and aortic valve calcification. Mild prominence of the ascending thoracic aorta is unchanged, 4.4 cm. 3. Coronary artery calcification. 4. Mild emphysema. Woodrow Blount MD Abdomen/Pelvis CT 12/01/17 0000 Signed Impressions: Service Date/Time: Friday, December 01, 2017 01:09 - CONCLUSION: 1. No acute abnormalities are demonstrated in the abdomen or pelvis. 2. Atherosclerotic aorta and branch vessels. Non-aneurysmal aorta. 3. Cholecystectomy since the prior study. No associated complication demonstrated. No evidence of biliary obstruction. 4. Enlarged prostate again seen. Woodrow Blount MD Objective Remarks GENERAL: This is a well-nourished, well-developed patient, in no apparent distress. CARDIOVASCULAR: Regular rate and rhythm, +systolic murmur RESPIRATORY: Clear to auscultation. Breath sounds equal bilaterally. GASTROINTESTINAL: Abdomen soft, non-tender, nondistended. Normal active bowel sounds MUSCULOSKELETAL: Extremities without clubbing, cyanosis, or edema. NEURO: Alert & Oriented x4 to person, place, time, situation. Moves all ext x4 Date of Insertion: Dec 01, 2017 Line: Central Venous Catheter Side: Left Location: Internal, Jugular A/P Problem List: (1) Community acquired pneumonia ICD Codes: J18.9 - Pneumonia, unspecified organism Plan: CXR 12/05, mild interstitial edema, left lower lobe infiltrate VQ scan low probability for pulmonary embolism CT thorax 12/01 revealed right lower lobe pneumonia. Mild emphysematous changes. Descending thoracic aorta 4.4 cm/stable. Calcifications around the left main/LAD urine Legionella antigen, pneumococcal antigen and influenza A and B all negative Blood culture 12/01 no growth Patient on Zosyn (12/02- 12/06/17) - pt remained afebrile following course of antibiotics - no leukocytosis - currently tolerating RA - Incentive spirometry while awake - anticipate d/c to home following EP study - DVT prophylaxis - supportive care (2) NSVT (nonsustained ventricular tachycardia) ICD Codes: I47.2 - Ventricular tachycardia Status: Acute Plan: - comgmt with Cardiology - await input from EPS, Dr. Baron, 12/10/17 (3) Severe aortic stenosis ICD Codes: I35.0 - Nonrheumatic aortic (valve) stenosis Plan: 2-D echo showed an EF of 35-40%, global left ventricular dysfunction, severe aortic valve stenosis with a valve area of 0.41, mean gradient of 50, peak gradient of 85. Cardiac cath 12/[address] Stevenson, which showed nonobstructing coronary disease. CTS consult for open aortic valve replacement versus transcatheter aortic valve replacement, not a surgical candidate at this time need to optimize first and follow up outpatient - decreased SOB following IV lasix (4) Pulmonary HTN ICD Codes: I27.20 - Pulmonary hypertension, unspecified Plan: 2-D echo showed an EF of 35-40%, global left ventricular dysfunction, severe aortic valve stenosis with a valve area of 0.41, mean gradient of 50, peak gradient of 85. Cardiac cath 12/[address] Stevenson, which showed nonobstructing coronary disease. (5) Thoracic aortic aneurysm without rupture ICD Codes: I71.2 - Thoracic aortic aneurysm, without rupture Plan: CT chest -noncontrast - 4.4 cm aneurysmal dilation of thoracic root, stable compared with prior imaging 07/2015. (6) Alcohol abuse ICD Codes: F10.10 - Alcohol abuse, uncomplicated Status: Acute Plan: thiamine 100 mg by mouth daily for daily, folic acid 1 mg daily multivitamin daily Recommend patient stop ETOH use (7) BPH (benign prostatic hyperplasia) ICD Codes: N40.0 - Benign prostatic hyperplasia without lower urinary tract symptoms Plan: On finasteride 5 milligrams daily. Problem Qualifiers (1) Community acquired pneumonia: Qualified Codes: J18.1 - Lobar pneumonia, unspecified organism Austin Crow DO Dec 07, 2017 12:42
[2017-12-07] MEDS: ALPRAZolam 0.25 MG TAB PO PRN ×2 (13:04→20:38)
[2017-12-07] MEDS: PRAVASTATIN SOD 40 MG TAB PO SCH (20:38)
[2017-12-07] MEDS: FAMOTIDINE 20 MG TAB PO SCH (20:38)
[2017-12-08] VITALS (31 sets, daily range): BP systolic 95–116; BP diastolic 57–75; PULSE 79–109; RESP 18–20; TEMP 97.2–98.3; O2SAT 92–98
[2017-12-08] MEDS: CHLORHEXIDINE GLUCONATE 2 % 1 PACK (2 CLOTHS) TOP SCH (04:00)
[2017-12-08] MEDS: RESP: IPRATROPIUM 0.5 MG/2.5 ML NEB NEB SCH ×4 (04:19→20:46)
[2017-12-08] MEDS: ALPRAZolam 0.25 MG TAB PO PRN (05:03)
[2017-12-08] MEDS: FOLIC ACID 1 MG TAB PO SCH (08:55)
[2017-12-08] MEDS: THIAMINE HCL 100 MG TAB PO SCH (08:55)
[2017-12-08] MEDS: ENOXAPARIN SODIUM 40 MG/0.4 ML SYRINGE SQ SCH (08:55)
[2017-12-08] MEDS: FINASTERIDE 5 MG TAB PO SCH (08:55)
[2017-12-08] MEDS: MULTIVITAMIN TAB PO SCH (08:55)
[2017-12-08] MEDS: ASPIRIN 81 MG CHEW TAB PO SCH (08:55)
[2017-12-08] MEDS: SODIUM CHLORIDE 0.9% FLUSH 10 ML FLUSH IV FLUSH SCH ×2 (08:55→20:37)
[2017-12-08] MEDS: DOCUSATE SODIUM 50 MG/SENNA 8.6 MG TAB PO SCH ×2 (08:58→20:37)
--- NOTE | 2017-12-08 09:40 | PD.CARD.PN ---
Subjective Subjective Remarks Complains of dyspnea especially at night when trying to sleep. No PND. CXR shows questionable infiltrate in left base but BNP elevated from 900 to 1600 Objective Medications Current Medications Medications (Trade) Dose Ordered Sig/Taz Route Start Time Stop Time Status Last Admin (Aspirin Chew) 81 mg DAILY PO 12/01/17 09:00 12/08/17 08:55 (NS Flush) 2 ml UNSCH PRN IV FLUSH 12/01/17 05:30 (NS Flush) 2 ml BID IV FLUSH 12/01/17 09:00 12/08/17 08:55 (Tylenol) 650 mg Q6H PRN PO 12/01/17 05:30 (Morphine Inj) 2 mg Q2H PRN IV PUSH 12/01/17 05:30 (Zofran Inj) 4 mg Q6H PRN IV PUSH 12/01/17 05:30 (Restoril) 15 mg HS PRN PO 12/01/17 05:30 Future Hold Miscellaneous Information 1 Q361D XX 12/01/17 05:30 (Chlorhexidine 2% Cloth) Taper DAILY@04 TOP 12/02/17 04:00 11/28/18 03:59 12/04/17 04:00 (Chlorhexidine 2% Cloth) 3 pack UNSCH PRN TOP 12/01/17 05:30 (Irina-Colace) 1 tab BID PO 12/01/17 09:00 12/03/17 09:28 (Milk Of Magnesia Liq) 30 ml Q12H PRN PO 12/01/17 05:30 (Senokot) 17.2 mg Q12H PRN PO 12/01/17 05:30 (Dulcolax Supp) 10 mg DAILY PRN RECTAL 12/01/17 05:30 (Lactulose Liq) 30 ml DAILY PRN PO 12/01/17 05:30 (Brethine Inj) 1 mg UNSCH PRN SQ 12/01/17 12:15 (Cathflo Activase Inj) 2 mg Q2H PRN INTRACATH 12/02/17 08:15 (Xopenex Neb) 0.63 mg Q2HR NEB PRN NEB 12/02/17 08:45 12/02/17 23:22 (Proscar) 5 mg DAILY PO 12/03/17 09:00 12/08/17 08:55 (Pepcid) 20 mg HS PO 12/02/17 21:00 12/07/17 20:38 (Pravachol) 40 mg HS PO 12/02/17 21:00 12/07/17 20:38 (Folate) 1 mg DAILY PO 12/03/17 09:00 12/08/17 08:55 (Vitamin B1) 100 mg DAILY PO 12/03/17 09:00 12/08/17 08:55 (Theragran) 1 tab DAILY PO 12/03/17 09:00 12/08/17 08:55 (Atrovent Neb) 0.5 mg Q6HR NEB NEB 12/02/17 16:00 12/08/17 04:19 (Lovenox Inj) 40 mg Q24H SQ 12/05/17 08:00 12/08/17 08:55 (Romazicon Inj) 0.2 mg Q1M PRN IV PUSH 12/07/17 12:00 (Ativan) 1 mg Q4H PRN PO 12/07/17 12:00 (Ativan Inj) 1 mg Q4H PRN IV PUSH 12/07/17 12:00 (Ativan) 2 mg Q2H PRN PO 12/07/17 12:00 (Ativan Inj) 2 mg Q2H PRN IV PUSH 12/07/17 12:00 (Ativan Inj) 2 mg Q1H PRN IV PUSH 12/07/17 12:00 (Ativan Inj) 2 mg Q15M PRN IV PUSH 12/07/17 12:00 (Xanax) 0.25 mg Q8H PRN PO 12/07/17 12:00 12/08/17 05:03 (Lasix) 40 mg DAILY PO 12/08/17 09:45 UNV (KCl) 10 meq DAILY PO 12/08/17 09:45 UNV Vital Signs / I&O Vital Signs Date Time Temp Pulse Resp B/P (MAP) Pulse Ox O2 Delivery O2 Flow Rate FiO2 12/08/17 08:00 90 12/08/17 07:32 98 Room Air 12/08/17 07:32 97.4 88 18 116/75 (89) 98 12/08/17 07:00 86 12/08/17 06:00 95 12/08/17 05:00 93 12/08/17 04:00 108 12/08/17 03:54 98.0 90 18 108/68 (81) 93 12/08/17 03:50 93 Room Air 12/08/17 03:00 86 12/08/17 02:00 106 12/08/17 01:00 104 12/08/17 00:28 97.6 96 18 101/63 (76) 92 12/08/17 00:00 104 12/07/17 23:00 97 Room Air 12/07/17 22:00 100 12/07/17 21:00 90 12/07/17 20:07 97 12/07/17 20:00 98 Room Air 12/07/17 20:00 97.5 98 18 135/84 (101) 98 12/07/17 20:00 88 12/07/17 19:00 91 12/07/17 15:00 97 Room Air 12/07/17 15:00 98.6 92 18 97 12/07/17 11:00 96 Room Air 12/07/17 11:00 98.8 90 18 98/73 (81) 96 I/O 12/07/17 12/07/17 12/07/17 12/08/17 12/08/17 12/08/17 07:00 15:00 23:00 07:00 15:00 23:00 Intake Total 240 ml 600 ml 480 ml Output Total 425 ml 500 ml 375 ml Balance -185 ml 100 ml 105 ml Intake Oral 240 ml 600 ml 480 ml Output Urine Total 425 ml 500 ml 375 ml Stool Total 0 ml # Voids 1 # Bowel Movements 0 0 Physical Exam Lungs with rales in left base but poor inspiration. Assessment and Plan Problem List: (1) Chest pain ICD Codes: R07.9 - Chest pain Status: Acute Plan: Will try lasix 40 mg with 10meq of potassium (2) Ventricular bigeminy ICD Codes: I49.9 - Cardiac arrhythmia, unspecified Status: Acute (3) Hypotension ICD Codes: I95.9 - Hypotension, unspecified Status: Acute Wilver Boateng MD Dec 08, 2017 09:40
[2017-12-08] MEDS: FUROSEMIDE 40 MG TAB PO SCH (10:16)
[2017-12-08] MEDS: POTASSIUM CHLORIDE 10 MEQ CONTROLLED RELEASE TAB PO SCH (10:16)
--- NOTE | 2017-12-08 18:46 | HHI.PR ---
Subjective Remarks No new complaints. Objective Vitals Vital Signs Date Time Temp Pulse Resp B/P (MAP) Pulse Ox O2 Delivery O2 Flow Rate FiO2 12/08/17 18:17 94 12/08/17 17:52 96 12/08/17 16:01 96 12/08/17 15:07 97.2 97 18 109/66 (80) 94 12/08/17 15:07 94 Room Air 12/08/17 15:00 96 12/08/17 14:12 105 12/08/17 13:02 89 12/08/17 12:00 86 12/08/17 11:17 93 12/08/17 11:10 97 21 12/08/17 11:04 97.9 91 18 105/65 (78) 94 12/08/17 11:04 94 Room Air 12/08/17 10:02 109 12/08/17 09:00 96 12/08/17 08:00 90 12/08/17 07:32 98 Room Air 12/08/17 07:32 97.4 88 18 116/75 (89) 98 12/08/17 07:00 86 12/08/17 06:00 95 12/08/17 05:00 93 12/08/17 04:00 108 12/08/17 03:54 98.0 90 18 108/68 (81) 93 12/08/17 03:50 93 Room Air 12/08/17 03:00 86 12/08/17 02:00 106 12/08/17 01:00 104 12/08/17 00:28 97.6 96 18 101/63 (76) 92 12/08/17 00:00 104 12/07/17 23:00 97 Room Air 12/07/17 22:00 100 12/07/17 21:00 90 12/07/17 20:07 97 12/07/17 20:00 98 Room Air 12/07/17 20:00 97.5 98 18 135/84 (101) 98 12/07/17 20:00 88 12/07/17 19:00 91 12/08/17 12/08/17 12/09/17 15:00 23:00 07:00 Intake Total 720 ml Output Total 550 ml Balance 170 ml Intake Oral 720 ml Output Urine Total 550 ml # Bowel Movements 2 Result Diagram: 12/07/17 0415 12/07/17 0415 Imaging Last Impressions Chest X-Ray 12/07/17 0600 Signed Impressions: Service Date/Time: Thursday, December 07, 2017 05:25 - CONCLUSION: Persistent left lower lobe consolidation. Serg Juárez MD Chest CTA 12/06/17 0000 Signed Impressions: Service Date/Time: December 11:49 - CONCLUSION: Dense aortic valvular calcifications. Vascular anatomy appears satisfactory for TAVR Woodrow Baca MD Lung Scan-V Nuclear Medicine 12/01/17 0000 Signed Impressions: Service Date/Time: Friday, December 01, 2017 13:54 - CONCLUSION: 1. No segmental or subsegmental perfusion defects are seen. 2. Low probability for PE. Cayden Bermudez MD Lower Extremity Ultrasound 12/01/17 0000 Signed Impressions: Service Date/Time: Friday, December 01, 2017 15:06 - CONCLUSION: No evidence of DVT. Cayden Bermudez MD Chest CT 12/01/17 0000 Signed Impressions: Service Date/Time: Friday, December 01, 2017 01:09 - CONCLUSION: 1. An area of early or mild pneumonia in the right lower lobe. 2. Left ventricular hypertrophy and aortic valve calcification. Mild prominence of the ascending thoracic aorta is unchanged, 4.4 cm. 3. Coronary artery calcification. 4. Mild emphysema. Woodrow Blount MD Abdomen/Pelvis CT 12/01/17 0000 Signed Impressions: Service Date/Time: Friday, December 01, 2017 01:09 - CONCLUSION: 1. No acute abnormalities are demonstrated in the abdomen or pelvis. 2. Atherosclerotic aorta and branch vessels. Non-aneurysmal aorta. 3. Cholecystectomy since the prior study. No associated complication demonstrated. No evidence of biliary obstruction. 4. Enlarged prostate again seen. Woodrow Blount MD Objective Remarks GENERAL: This is a well-nourished, well-developed patient, in no apparent distress. CARDIOVASCULAR: Regular rate and rhythm, +systolic murmur RESPIRATORY: Clear to auscultation. Breath sounds equal bilaterally. GASTROINTESTINAL: Abdomen soft, non-tender, nondistended. Normal active bowel sounds MUSCULOSKELETAL: Extremities without clubbing, cyanosis, or edema. NEURO: Alert & Oriented x4 to person, place, time, situation. Moves all ext x4 Date of Insertion: Dec 01, 2017 Line: Central Venous Catheter Side: Left Location: Internal, Jugular A/P Problem List: (1) Community acquired pneumonia ICD Codes: J18.9 - Pneumonia, unspecified organism Plan: CXR 12/05, mild interstitial edema, left lower lobe infiltrate VQ scan low probability for pulmonary embolism CT thorax 12/01 revealed right lower lobe pneumonia. Mild emphysematous changes. Descending thoracic aorta 4.4 cm/stable. Calcifications around the left main/LAD urine Legionella antigen, pneumococcal antigen and influenza A and B all negative Blood culture 12/01 no growth Patient on Zosyn (12/02- present) plan to DC Zosyn 12/06 2 2300 currently tolerating RA Incentive spirometry while awake - pt remains afebrile - pt stable on RA - anticipate d/c to home following EP study, 1-2 days (2) NSVT (nonsustained ventricular tachycardia) ICD Codes: I47.2 - Ventricular tachycardia Status: Acute Plan: - comgmt with Cardiology - await input from EPS, Dr. Baron, 12/10 (3) Severe aortic stenosis ICD Codes: I35.0 - Nonrheumatic aortic (valve) stenosis Plan: 2-D echo showed an EF of 35-40%, global left ventricular dysfunction, severe aortic valve stenosis with a valve area of 0.41, mean gradient of 50, peak gradient of 85. Cardiac cath 12/[address] Stevenson, which showed nonobstructing coronary disease. CTS consult for open aortic valve replacement versus transcatheter aortic valve replacement, not a surgical candidate at this time need to optimize first and follow up outpatient (4) Pulmonary HTN ICD Codes: I27.20 - Pulmonary hypertension, unspecified Plan: 2-D echo showed an EF of 35-40%, global left ventricular dysfunction, severe aortic valve stenosis with a valve area of 0.41, mean gradient of 50, peak gradient of 85. Cardiac cath 12/[address] Stevenson, which showed nonobstructing coronary disease. (5) Thoracic aortic aneurysm without rupture ICD Codes: I71.2 - Thoracic aortic aneurysm, without rupture Plan: CT chest -noncontrast - 4.4 cm aneurysmal dilation of thoracic root, stable compared with prior imaging 07/2015. (6) Alcohol abuse ICD Codes: F10.10 - Alcohol abuse, uncomplicated Status: Acute Plan: thiamine 100 mg by mouth daily for daily, folic acid 1 mg daily multivitamin daily Recommend patient stop ETOH use (7) BPH (benign prostatic hyperplasia) ICD Codes: N40.0 - Benign prostatic hyperplasia without lower urinary tract symptoms Plan: On finasteride 5 milligrams daily. Problem Qualifiers (1) Community acquired pneumonia: Qualified Codes: J18.1 - Lobar pneumonia, unspecified organism Austin Crow DO Dec 08, 2017 18:45
[2017-12-08] MEDS: FAMOTIDINE 20 MG TAB PO SCH (20:36)
[2017-12-08] MEDS: TEMAZEPAM 15 MG CAP PO PRN (20:37)
[2017-12-08] MEDS: PRAVASTATIN SOD 40 MG TAB PO SCH (20:37)
--- NOTE | 2017-12-08 20:44 | RADRPT ---
EXAM DATE/TIME: 12/08/2017 20:14 [facility] COMPARISON: CHEST SINGLE AP, December 07, 2017, 5:25. INDICATIONS : Shortness of breath. MEDICAL HISTORY : Cardiovascular disease. Renal calculi. Hypertension. SURGICAL HISTORY : None. ENCOUNTER: Subsequent ACUITY: 1 week PAIN SCORE: 0/10 LOCATION: Bilateral chest FINDINGS: There is cardiomegaly and left lower lobe consolidation, possible small left effusion. The right lung demonstrates a 1 cm right upper lobe nodule. CONCLUSION: Left lower lobe consolidation and left effusion. Right upper lobe nodule. Cardiomegaly. Lorne Flores MD on December 08, 2017 at 20:41 Board Certified Radiologist. This report was verified electronically.
[2017-12-09] VITALS (30 sets, daily range): BP systolic 92–104; BP diastolic 53–67; PULSE 78–109; RESP 18–20; TEMP 97.6–98.2; O2SAT 93–98
[2017-12-09] MEDS: RESP: IPRATROPIUM 0.5 MG/2.5 ML NEB NEB SCH ×4 (03:42→20:21)
[2017-12-09] MEDS: CHLORHEXIDINE GLUCONATE 2 % 1 PACK (2 CLOTHS) TOP SCH (04:00)
[2017-12-09] MEDS: ALPRAZolam 0.25 MG TAB PO PRN ×2 (04:12→20:49)
[2017-12-09] MEDS: ENOXAPARIN SODIUM 40 MG/0.4 ML SYRINGE SQ SCH (08:28)
[2017-12-09] MEDS: MULTIVITAMIN TAB PO SCH (08:29)
[2017-12-09] MEDS: ASPIRIN 81 MG CHEW TAB PO SCH (08:29)
[2017-12-09] MEDS: POTASSIUM CHLORIDE 10 MEQ CONTROLLED RELEASE TAB PO SCH (08:29)
[2017-12-09] MEDS: THIAMINE HCL 100 MG TAB PO SCH (08:29)
[2017-12-09] MEDS: FUROSEMIDE 40 MG TAB PO SCH (08:29)
[2017-12-09] MEDS: SODIUM CHLORIDE 0.9% FLUSH 10 ML FLUSH IV FLUSH SCH ×2 (08:29→20:50)
[2017-12-09] MEDS: FINASTERIDE 5 MG TAB PO SCH (08:29)
[2017-12-09] MEDS: DOCUSATE SODIUM 50 MG/SENNA 8.6 MG TAB PO SCH ×2 (08:30→20:50)
[2017-12-09] MEDS: FOLIC ACID 1 MG TAB PO SCH (08:30)
--- NOTE | 2017-12-09 09:10 | PD.CARD.PN ---
Subjective Subjective Remarks Breathing better. good diuresis per patient. no chest pain Objective Medications Current Medications Medications (Trade) Dose Ordered Sig/Taz Route Start Time Stop Time Status Last Admin (Aspirin Chew) 81 mg DAILY PO 12/01/17 09:00 12/09/17 08:29 (NS Flush) 2 ml UNSCH PRN IV FLUSH 12/01/17 05:30 (NS Flush) 2 ml BID IV FLUSH 12/01/17 09:00 12/09/17 08:29 (Tylenol) 650 mg Q6H PRN PO 12/01/17 05:30 (Morphine Inj) 2 mg Q2H PRN IV PUSH 12/01/17 05:30 (Zofran Inj) 4 mg Q6H PRN IV PUSH 12/01/17 05:30 Miscellaneous Information 1 Q361D XX 12/01/17 05:30 (Chlorhexidine 2% Cloth) Taper DAILY@04 TOP 12/02/17 04:00 11/28/18 03:59 12/04/17 04:00 (Chlorhexidine 2% Cloth) 3 pack UNSCH PRN TOP 12/01/17 05:30 (Irina-Colace) 1 tab BID PO 12/01/17 09:00 12/03/17 09:28 (Milk Of Magnesia Liq) 30 ml Q12H PRN PO 12/01/17 05:30 (Senokot) 17.2 mg Q12H PRN PO 12/01/17 05:30 (Dulcolax Supp) 10 mg DAILY PRN RECTAL 12/01/17 05:30 (Lactulose Liq) 30 ml DAILY PRN PO 12/01/17 05:30 (Brethine Inj) 1 mg UNSCH PRN SQ 12/01/17 12:15 (Cathflo Activase Inj) 2 mg Q2H PRN INTRACATH 12/02/17 08:15 (Xopenex Neb) 0.63 mg Q2HR NEB PRN NEB 12/02/17 08:45 12/02/17 23:22 (Proscar) 5 mg DAILY PO 12/03/17 09:00 12/09/17 08:29 (Pepcid) 20 mg HS PO 12/02/17 21:00 12/08/17 20:36 (Pravachol) 40 mg HS PO 12/02/17 21:00 12/08/17 20:37 (Folate) 1 mg DAILY PO 12/03/17 09:00 12/09/17 08:30 (Vitamin B1) 100 mg DAILY PO 12/03/17 09:00 12/09/17 08:29 (Theragran) 1 tab DAILY PO 12/03/17 09:00 12/09/17 08:29 (Atrovent Neb) 0.5 mg Q6HR NEB NEB 12/02/17 16:00 12/09/17 03:42 (Lovenox Inj) 40 mg Q24H SQ 12/05/17 08:00 12/09/17 08:28 (Romazicon Inj) 0.2 mg Q1M PRN IV PUSH 12/07/17 12:00 (Ativan) 1 mg Q4H PRN PO 12/07/17 12:00 (Ativan Inj) 1 mg Q4H PRN IV PUSH 12/07/17 12:00 (Ativan) 2 mg Q2H PRN PO 12/07/17 12:00 (Ativan Inj) 2 mg Q2H PRN IV PUSH 12/07/17 12:00 (Ativan Inj) 2 mg Q1H PRN IV PUSH 12/07/17 12:00 (Ativan Inj) 2 mg Q15M PRN IV PUSH 12/07/17 12:00 (Xanax) 0.25 mg Q8H PRN PO 12/07/17 12:00 12/09/17 04:12 (Lasix) 40 mg DAILY PO 12/08/17 09:45 12/09/17 08:29 (KCl) 10 meq DAILY PO 12/08/17 09:45 12/09/17 08:29 (Restoril) 15 mg HS PRN PO 12/08/17 19:15 12/08/17 20:37 Vital Signs / I&O Vital Signs Date Time Temp Pulse Resp B/P (MAP) Pulse Ox O2 Delivery O2 Flow Rate FiO2 12/09/17 08:47 97 12/09/17 07:41 97.6 93 18 101/65 (77) 97 12/09/17 07:41 95 Room Air 12/09/17 07:00 96 12/09/17 06:11 87 12/09/17 05:04 89 12/09/17 04:09 109 12/09/17 03:42 94 21 12/09/17 03:20 88 12/09/17 03:20 98.2 95 20 100/59 (73) 93 12/09/17 03:20 Room Air 12/09/17 02:17 88 12/09/17 01:00 98 12/09/17 00:56 81 12/08/17 23:31 79 12/08/17 23:31 98.3 92 19 95/57 (70) 92 12/08/17 23:31 Room Air 12/08/17 22:03 83 12/08/17 21:00 102 12/08/17 20:47 95 21 12/08/17 20:41 98 12/08/17 19:00 95 12/08/17 19:00 98.3 92 20 108/63 (78) 95 12/08/17 19:00 Room Air 12/08/17 18:17 94 12/08/17 17:52 96 12/08/17 16:01 96 12/08/17 15:07 97.2 97 18 109/66 (80) 94 12/08/17 15:07 94 Room Air 12/08/17 15:00 96 12/08/17 14:12 105 12/08/17 13:02 89 12/08/17 12:00 86 12/08/17 11:17 93 12/08/17 11:10 97 21 12/08/17 11:04 97.9 91 18 105/65 (78) 94 12/08/17 11:04 94 Room Air 12/08/17 10:02 109 I/O 12/08/17 12/08/17 12/08/17 12/09/17 12/09/17 12/09/17 07:00 15:00 23:00 07:00 15:00 23:00 Intake Total 480 ml 720 ml 480 ml Output Total 375 ml 550 ml 425 ml Balance 105 ml 170 ml 55 ml Intake Oral 480 ml 720 ml 480 ml Output Urine Total 375 ml 550 ml 425 ml # Voids 1 2 # Bowel Movements 2 0 Physical Exam Lungs with rales in left base but poor inspiration. Assessment and Plan Problem List: (1) Chest pain ICD Codes: R07.9 - Chest pain Status: Acute Plan: Will continue furosemide today. recheck BNP and BMP tomorrow (2) Ventricular bigeminy ICD Codes: I49.9 - Cardiac arrhythmia, unspecified Status: Acute (3) Hypotension ICD Codes: I95.9 - Hypotension, unspecified Status: Acute Wilver Boateng MD Dec 09, 2017 09:10
[2017-12-09] MEDS: PRAVASTATIN SOD 40 MG TAB PO SCH (20:49)
[2017-12-09] MEDS: FAMOTIDINE 20 MG TAB PO SCH (20:49)
[2017-12-09] MEDS: TEMAZEPAM 15 MG CAP PO PRN (20:50)
[2017-12-10] VITALS (23 sets, daily range): BP systolic 101–117; BP diastolic 59–78; PULSE 82–102; RESP 18–20; TEMP 97.8–98.4; O2SAT 95–98
[2017-12-10] MEDS: CHLORHEXIDINE GLUCONATE 2 % 1 PACK (2 CLOTHS) TOP SCH (04:00)
[2017-12-10] MEDS: RESP: IPRATROPIUM 0.5 MG/2.5 ML NEB NEB SCH ×4 (04:34→20:27)
[2017-12-10 05:58] LABS: HEMATOCRIT 33.4 % (39.0-51.0); HEMOGLOBIN 11.6 GM/DL (13.0-17.0); MEAN CELL VOLUME 86.7 FL (80.0-100.0); MEAN CORPUSCULAR HEMOGLOBIN 30.1 PG (27.0-34.0); MEAN CORPUSCULAR HGB CONC 34.7 % (32.0-36.0); MEAN PLATELET VOLUME 8.2 FL (7.0-11.0); PLATELET COUNT 299 TH/MM3 (150-450); RED BLOOD COUNT 3.85 MIL/MM3 (4.50-5.90); RED CELL DISTRIBUTION WIDTH 15.4 % (11.6-17.2); WHITE BLOOD COUNT 7.2 TH/MM3 (4.0-11.0)
[2017-12-10 06:23] LABS: BICARBONATE 26.3 MEQ/L (21.0-32.0); CALCIUM 8.8 MG/DL (8.5-10.1); CREATININE 0.99 MG/DL (0.60-1.30)
[2017-12-10] MEDS ORDERED: POTASSIUM CHLORIDE 20 MEQ CONTROLLED RELEASE TAB PO ONE ×2 (07:45→11:00)
--- NOTE | 2017-12-10 08:06 | PD.CARD.PN ---
Subjective Subjective Remarks The patient is upset that he is nothing by mouth because he may be having EP study today. The patient denies any chest pain, shortness of breath, or palpitations. (Augusto Duarte) Objective Medications Current Medications Medications (Trade) Dose Ordered Sig/Taz Route Start Time Stop Time Status Last Admin (Aspirin Chew) 81 mg DAILY PO 12/01/17 09:00 12/09/17 08:29 (NS Flush) 2 ml UNSCH PRN IV FLUSH 12/01/17 05:30 (NS Flush) 2 ml BID IV FLUSH 12/01/17 09:00 12/09/17 20:50 (Tylenol) 650 mg Q6H PRN PO 12/01/17 05:30 (Morphine Inj) 2 mg Q2H PRN IV PUSH 12/01/17 05:30 (Zofran Inj) 4 mg Q6H PRN IV PUSH 12/01/17 05:30 Miscellaneous Information 1 Q361D XX 12/01/17 05:30 (Chlorhexidine 2% Cloth) Taper DAILY@04 TOP 12/02/17 04:00 11/28/18 03:59 12/04/17 04:00 (Chlorhexidine 2% Cloth) 3 pack UNSCH PRN TOP 12/01/17 05:30 (Irina-Colace) 1 tab BID PO 12/01/17 09:00 12/03/17 09:28 (Milk Of Magnesia Liq) 30 ml Q12H PRN PO 12/01/17 05:30 (Senokot) 17.2 mg Q12H PRN PO 12/01/17 05:30 (Dulcolax Supp) 10 mg DAILY PRN RECTAL 12/01/17 05:30 (Lactulose Liq) 30 ml DAILY PRN PO 12/01/17 05:30 (Brethine Inj) 1 mg UNSCH PRN SQ 12/01/17 12:15 (Cathflo Activase Inj) 2 mg Q2H PRN INTRACATH 12/02/17 08:15 (Xopenex Neb) 0.63 mg Q2HR NEB PRN NEB 12/02/17 08:45 12/02/17 23:22 (Proscar) 5 mg DAILY PO 12/03/17 09:00 12/09/17 08:29 (Pepcid) 20 mg HS PO 12/02/17 21:00 12/09/17 20:49 (Pravachol) 40 mg HS PO 12/02/17 21:00 12/09/17 20:49 (Folate) 1 mg DAILY PO 12/03/17 09:00 12/09/17 08:30 (Vitamin B1) 100 mg DAILY PO 12/03/17 09:00 12/09/17 08:29 (Theragran) 1 tab DAILY PO 12/03/17 09:00 12/09/17 08:29 (Atrovent Neb) 0.5 mg Q6HR NEB NEB 12/02/17 16:00 12/10/17 04:34 (Lovenox Inj) 40 mg Q24H SQ 12/05/17 08:00 12/09/17 08:28 (Romazicon Inj) 0.2 mg Q1M PRN IV PUSH 12/07/17 12:00 (Ativan) 1 mg Q4H PRN PO 12/07/17 12:00 (Ativan Inj) 1 mg Q4H PRN IV PUSH 12/07/17 12:00 (Ativan) 2 mg Q2H PRN PO 12/07/17 12:00 (Ativan Inj) 2 mg Q2H PRN IV PUSH 12/07/17 12:00 (Ativan Inj) 2 mg Q1H PRN IV PUSH 12/07/17 12:00 (Ativan Inj) 2 mg Q15M PRN IV PUSH 12/07/17 12:00 (Xanax) 0.25 mg Q8H PRN PO 12/07/17 12:00 12/09/17 20:49 (Lasix) 40 mg DAILY PO 12/08/17 09:45 12/09/17 08:29 (KCl) 10 meq DAILY PO 12/08/17 09:45 12/09/17 08:29 (Restoril) 15 mg HS PRN PO 12/08/17 19:15 12/09/17 20:50 Vital Signs / I&O Vital Signs Date Time Temp Pulse Resp B/P (MAP) Pulse Ox O2 Delivery O2 Flow Rate FiO2 12/10/17 07:50 97.8 93 18 107/60 (76) 96 12/10/17 07:06 Room Air 12/10/17 07:06 102 12/10/17 06:20 88 3/5/18 05:12 100 12/10/17 04:36 98 21 12/10/17 04:19 86 12/10/17 03:08 98.4 98 20 117/69 (85) 96 12/10/17 03:08 92 12/10/17 03:08 Room Air 12/10/17 01:42 93 12/10/17 00:03 82 12/09/17 23:35 98.2 78 20 92/53 (66) 95 12/09/17 23:35 Room Air 12/09/17 23:35 87 12/09/17 22:00 88 12/09/17 21:24 84 12/09/17 20:23 94 21 12/09/17 20:09 99 12/09/17 19:00 98.2 94 19 104/63 (77) 94 12/09/17 19:00 Room Air 12/09/17 19:00 88 12/09/17 18:13 87 12/09/17 17:11 89 12/09/17 16:00 92 12/09/17 15:41 97.9 95 18 104/67 (79) 97 12/09/17 15:41 Room Air 12/09/17 15:00 96 12/09/17 14:18 93 12/09/17 13:00 104 12/09/17 12:00 98 12/09/17 11:54 98 Room Air 12/09/17 11:54 97.8 89 18 96/60 (72) 98 12/09/17 11:49 98 21 12/09/17 11:00 90 12/09/17 10:00 94 12/09/17 09:00 84 12/09/17 08:47 97 I/O 12/09/17 12/09/17 12/09/17 12/10/17 12/10/17 12/10/17 07:00 15:00 23:00 07:00 15:00 23:00 Intake Total 480 ml 900 ml 240 ml Output Total 425 ml 1100 ml 300 ml Balance 55 ml -200 ml -60 ml Intake Oral 480 ml 900 ml 240 ml Output Urine Total 425 ml 1100 ml 300 ml # Voids 2 2 # Bowel Movements 0 1 Physical Exam GENERAL: Well-developed well-nourished. In no acute distress. NECK: No carotid bruits. No JVD. CARDIOVASCULAR: Regular rate and rhythm. Soft systolic ejection murmur appreciated. RESPIRATORY: No accessory muscle use. Clear to auscultation. Mild bibasilar crackle. MUSCULOSKELETAL: No clubbing or cyanosis. No edema. NEUROLOGICAL: Awake and alert. Normal speech. Laboratory Laboratory Tests Test 12/10/17 04:52 White Blood Count 7.2 TH/MM3 Red Blood Count 3.85 MIL/MM3 Hemoglobin 11.6 GM/DL Hematocrit 33.4 % Mean Corpuscular Volume 86.7 FL Mean Corpuscular Hemoglobin 30.1 PG Mean Corpuscular Hemoglobin Concent 34.7 % Red Cell Distribution Width 15.4 % Platelet Count 299 TH/MM3 Mean Platelet Volume 8.2 FL Blood Urea Nitrogen 17 MG/DL Creatinine 0.99 MG/DL Random Glucose 87 MG/DL Calcium Level 8.8 MG/DL Sodium Level 141 MEQ/L Potassium Level 3.4 MEQ/L Chloride Level 104 MEQ/L Carbon Dioxide Level 26.3 MEQ/L Anion Gap 11 MEQ/L Estimat Glomerular Filtration Rate 74 ML/MIN B-Type Natriuretic Peptide 1048 PG/ML Imaging Last Impressions Chest X-Ray 12/08/17 0000 Signed Impressions: Service Date/Time: Friday, December 08, 2017 20:14 - CONCLUSION: Left lower lobe consolidation and left effusion. Right upper lobe nodule. Cardiomegaly. Lorne Flores MD Chest CTA 12/06/17 0000 Signed Impressions: Service Date/Time: December 11:49 - CONCLUSION: Dense aortic valvular calcifications. Vascular anatomy appears satisfactory for TAVR Woodrow Baca MD Lung Scan- Nuclear Medicine 12/01/17 0000 Signed Impressions: Service Date/Time: Friday, December 01, 2017 13:54 - CONCLUSION: 1. No segmental or subsegmental perfusion defects are seen. 2. Low probability for PE. Cayden Bermudez MD Lower Extremity Ultrasound 12/01/17 0000 Signed Impressions: Service Date/Time: Friday, December 01, 2017 15:06 - CONCLUSION: No evidence of DVT. Cayden Bermudez MD Chest CT 12/01/17 0000 Signed Impressions: Service Date/Time: Friday, December 01, 2017 01:09 - CONCLUSION: 1. An area of early or mild pneumonia in the right lower lobe. 2. Left ventricular hypertrophy and aortic valve calcification. Mild prominence of the ascending thoracic aorta is unchanged, 4.4 cm. 3. Coronary artery calcification. 4. Mild emphysema. Woodrow Blount MD Abdomen/Pelvis CT 12/01/17 0000 Signed Impressions: Service Date/Time: Friday, December 01, 2017 01:09 - CONCLUSION: 1. No acute abnormalities are demonstrated in the abdomen or pelvis. 2. Atherosclerotic aorta and branch vessels. Non-aneurysmal aorta. 3. Cholecystectomy since the prior study. No associated complication demonstrated. No evidence of biliary obstruction. 4. Enlarged prostate again seen. Woodrow Blount MD (Augusto Duarte) Assessment and Plan Problem List: (1) Chest pain ICD Codes: R07.9 - Chest pain Status: Acute (2) Ventricular bigeminy ICD Codes: I49.9 - Cardiac arrhythmia, unspecified Status: Acute (3) Hypotension ICD Codes: I95.9 - Hypotension, unspecified Status: Acute Assessment and Plan 72 yo WM with HTN, HLD admitted for chest pain, CHF, and pneumonia. Chest pain: cardiac cath shows mild nonobstructive CAD, severe . cardiomyopathy: reduced EF 35-40%, nonischemic. Continue Lasix. aortic stenosis: severe. cardiothoracic surgery consulted. Planning for TAVR, workup in progress. IVCD: EP consulted for +/- PPM evaluation in anticipation pre-TAVR. (Augusto Duarte) Assessment and Plan discussed with EP. too high risk for EPS given severe plan for DC planning [facility] schedule outpatient TAVR plan for EPS immediately following TAVR (Milan Stevenson MD) Augusto Duarte Dec 10, 2017 08:06 Milan Stevenson MD Dec 10, 2017 10:28
[2017-12-10] MEDS: ENOXAPARIN SODIUM 40 MG/0.4 ML SYRINGE SQ SCH (08:14)
[2017-12-10] MEDS: MULTIVITAMIN TAB PO SCH (08:14)
[2017-12-10] MEDS: FINASTERIDE 5 MG TAB PO SCH (08:15)
[2017-12-10] MEDS: THIAMINE HCL 100 MG TAB PO SCH (08:15)
[2017-12-10] MEDS: FUROSEMIDE 40 MG TAB PO SCH (08:15)
[2017-12-10] MEDS: POTASSIUM CHLORIDE 10 MEQ CONTROLLED RELEASE TAB PO SCH (08:16)
[2017-12-10] MEDS: SODIUM CHLORIDE 0.9% FLUSH 10 ML FLUSH IV FLUSH SCH ×2 (08:16→21:00)
[2017-12-10] MEDS: FOLIC ACID 1 MG TAB PO SCH (08:16)
[2017-12-10] MEDS: ASPIRIN 81 MG CHEW TAB PO SCH (08:16)
[2017-12-10] MEDS: DOCUSATE SODIUM 50 MG/SENNA 8.6 MG TAB PO SCH ×2 (08:17→21:00)
--- NOTE | 2017-12-10 08:30 | MB ---
cc: Madeline Baron MD, Hanscy 0 MD Stevenson,Milan Torres MD DATE OF CONSULT: 12/07/2017 REASON FOR CONSULTATION: Aortic stenosis, left bundle branch block. HISTORY OF PRESENT ILLNESS: Mr. Ruiz is a 72-year-old gentleman with history of severe aortic stenosis. Left heart catheterization done recently by Dr. Stevenson indicated no significant occlusion. The patient has shortness of breath and some respiratory difficulty. He has left bundle-branch block. He is scheduled for TAVR. I was consulted for evaluation and management. The chart was reviewed. The patient was evaluated. ALLERGIES: NONE. SOCIAL HISTORY: The patient denies smoking and drinking. FAMILY HISTORY: Noncontributory to his current medical condition. MEDICATIONS: Currently on ____Zosyn, Xanax, aspirin, Lovenox, ____, Proscar, Ativan, Romazicon, thiamine, Pravachol. REVIEW OF SYSTEMS: He referred some shortness of breath. No chest pain, no chest discomfort. PHYSICAL EXAMINATION: GENERAL: Alert, fully oriented, in bed. VITAL SIGNS: Blood pressure 92/73, pulse 70, respiratory rate 20-22. LUNGS: Some minimal crackles. CARDIOVASCULAR: S1, S2 regular. ____ systolic ejection murmur. ABDOMEN: Soft, no mass. EXTREMITIES: No edema. CARDIOLOGY STUDIES: Electrocardiogram shows sinus rhythm at the beginning, some interventricular conduction delay. Subsequent electrocardiogram shows bigeminy. It looked like alternated bundle-branch block. Current telemetry shows interventricular conduction delay. LABORATORY DATA: Hemoglobin 11.1, white blood cell 6.8, potassium 2.6, creatinine 1.01. BNP on hospitalization was close to 1700. ASSESSMENT AND RECOMMENDATION: Mr. Ruiz currently has some pulmonary process. He has shortness of breath. He is on anticoagulation. He has severe aortic stenosis, is scheduled for TAVR. The interventricular conduction delay apparently is new. He has alternating bundle-branch block versus bigeminy in one of the electrocardiograms. At this point, my recommendation is observation. The gentleman's condition is not stable enough for EP study. I recommend to continue on current medical management. Prior to TAVR if and when the patient is stable, electrophysiology study may be considered. There is no clear ____ right now for pacing support. Case discussed with the patient. I will call Dr. Stevenson and discuss the case also with him. MD DAVION Carlson/SA/ , 07:34 PM , 11:45 PM
[2017-12-10] MEDS ORDERED: DEFIB EXTERNAL (09:09)
--- NOTE | 2017-12-10 10:50 | HHI.PR ---
Subjective Remarks no acute distress Objective Vitals heart reg lung few basilar crackles abd s/nt ext no edema Vital Signs Date Time Temp Pulse Resp B/P (MAP) Pulse Ox O2 Delivery O2 Flow Rate FiO2 12/10/17 09:15 94 12/10/17 08:59 Nasal Cannula 12/10/17 08:00 92 12/10/17 07:50 97.8 93 18 107/60 (76) 96 12/10/17 07:06 Room Air 12/10/17 07:06 102 12/10/17 06:20 88 12/10/17 05:12 100 12/10/17 04:36 98 21 12/10/17 04:19 86 12/10/17 03:08 98.4 98 20 117/69 (85) 96 12/10/17 03:08 92 12/10/17 03:08 Room Air 12/10/17 01:42 93 12/10/17 00:03 82 12/09/17 23:35 98.2 78 20 92/53 (66) 95 12/09/17 23:35 Room Air 12/09/17 23:35 87 12/09/17 22:00 88 12/09/17 21:24 84 12/09/17 20:23 94 21 12/09/17 20:09 99 12/09/17 19:00 98.2 94 19 104/63 (77) 94 12/09/17 19:00 Room Air 12/09/17 19:00 88 12/09/17 18:13 87 12/09/17 17:11 89 12/09/17 16:00 92 12/09/17 15:41 97.9 95 18 104/67 (79) 97 12/09/17 15:41 Room Air 12/09/17 15:00 96 12/09/17 14:18 93 12/09/17 13:00 104 12/09/17 12:00 98 12/09/17 11:54 98 Room Air 12/09/17 11:54 97.8 89 18 96/60 (72) 98 12/09/17 11:49 98 21 12/09/17 11:00 90 Result Diagram: 12/10/17 0452 12/10/17 0452 Imaging Last Impressions Chest X-Ray 12/07/17 0600 Signed Impressions: Service Date/Time: Thursday, December 07, 2017 05:25 - CONCLUSION: Persistent left lower lobe consolidation. Serg Juárez MD Chest CTA 12/06/17 0000 Signed Impressions: Service Date/Time: December 11:49 - CONCLUSION: Dense aortic valvular calcifications. Vascular anatomy appears satisfactory for TAVR Woodrow Baca MD Lung Scan-VQ Nuclear Medicine 12/01/17 0000 Signed Impressions: Service Date/Time: Friday, December 01, 2017 13:54 - CONCLUSION: 1. No segmental or subsegmental perfusion defects are seen. 2. Low probability for PE. Cayden Bermudez MD Lower Extremity Ultrasound 12/01/17 0000 Signed Impressions: Service Date/Time: Friday, December 01, 2017 15:06 - CONCLUSION: No evidence of DVT. Cayden Bermudez MD Chest CT 12/01/17 0000 Signed Impressions: Service Date/Time: Friday, December 01, 2017 01:09 - CONCLUSION: 1. An area of early or mild pneumonia in the right lower lobe. 2. Left ventricular hypertrophy and aortic valve calcification. Mild prominence of the ascending thoracic aorta is unchanged, 4.4 cm. 3. Coronary artery calcification. 4. Mild emphysema. Woodrow Blount MD Abdomen/Pelvis CT 12/01/17 0000 Signed Impressions: Service Date/Time: Friday, December 01, 2017 01:09 - CONCLUSION: 1. No acute abnormalities are demonstrated in the abdomen or pelvis. 2. Atherosclerotic aorta and branch vessels. Non-aneurysmal aorta. 3. Cholecystectomy since the prior study. No associated complication demonstrated. No evidence of biliary obstruction. 4. Enlarged prostate again seen. Woodrow Blount MD Date of Insertion: Dec 01, 2017 Line: Central Venous Catheter Side: Left Location: Internal, Jugular A/P Problem List: (1) Community acquired pneumonia ICD Codes: J18.9 - Pneumonia, unspecified organism Status: Acute Plan: CXR 12/05, mild interstitial edema, left lower lobe infiltrate VQ scan low probability for pulmonary embolism CT thorax 12/01 revealed right lower lobe pneumonia. Mild emphysematous changes. Descending thoracic aorta 4.4 cm/stable. Calcifications around the left main/LAD urine Legionella antigen, pneumococcal antigen and influenza A and B all negative Blood culture 12/01 no growth pt completed course abx. zosyn. (2) NSVT (nonsustained ventricular tachycardia) ICD Codes: I47.2 - Ventricular tachycardia Status: Acute Plan: - comgmt with Cardiology - Dr Baron wants to hold off on eps. d/c home f/u dr Stevenson. (3) Severe aortic stenosis ICD Codes: I35.0 - Nonrheumatic aortic (valve) stenosis Status: Acute Plan: 2-D echo showed an EF of 35-40%, global left ventricular dysfunction, severe aortic valve stenosis with a valve area of 0.41, mean gradient of 50, peak gradient of 85. Cardiac cath 12/[address] Stevenson, which showed nonobstructing coronary disease. CTS consult for open aortic valve replacement versus transcatheter aortic valve replacement, not a surgical candidate at this time need to optimize first and follow up outpatient f/u dr Stevenson in next week or 2. (4) Pulmonary HTN ICD Codes: I27.20 - Pulmonary hypertension, unspecified Status: Chronic Plan: 2-D echo showed an EF of 35-40%, global left ventricular dysfunction, severe aortic valve stenosis with a valve area of 0.41, mean gradient of 50, peak gradient of 85. Cardiac cath 12/[address] Stevenson, which showed nonobstructing coronary disease. (5) Thoracic aortic aneurysm without rupture ICD Codes: I71.2 - Thoracic aortic aneurysm, without rupture Status: Chronic Plan: CT chest -noncontrast - 4.4 cm aneurysmal dilation of thoracic root, stable compared with prior imaging 07/2015. (6) Alcohol abuse ICD Codes: F10.10 - Alcohol abuse, uncomplicated Status: Chronic Plan: thiamine 100 mg by mouth daily for daily, folic acid 1 mg daily multivitamin daily Recommend patient stop ETOH use (7) BPH (benign prostatic hyperplasia) ICD Codes: N40.0 - Benign prostatic hyperplasia without lower urinary tract symptoms Plan: On finasteride 5 milligrams daily. Problem Qualifiers (1) Community acquired pneumonia: Qualified Codes: J18.1 - Lobar pneumonia, unspecified organism Sami Tovar MD Dec 10, 2017 10:50
--- NOTE | 2017-12-10 10:52 | HHI.FF ---
Face to Face Verification Diagnosis: (1) Severe aortic stenosis (2) Community acquired pneumonia (3) NSVT (nonsustained ventricular tachycardia) Physical Therapy Order: Evaluate and Treat, Improve ambulation I have seen patient Timothy Ruiz on 12/10/17. My clinical findings support the need for the requested home health care services because: Patient has SOB I certify that my clinical findings support that this patient is homebound because: Poor cardiac reserve Sami Tovar MD Dec 10, 2017 10:52
[2017-12-10] MEDS ORDERED: POTA-163 PO (10:57)
[2017-12-10] MEDS ORDERED: FURO1TAB60 PO (10:57)
--- NOTE | 2017-12-10 10:57 | HHI.DCPOC ---
Discharge Care Plan Diagnosis: (1) Severe aortic stenosis (2) NSVT (nonsustained ventricular tachycardia) (3) Community acquired pneumonia Goals to Promote Your Health * To prevent worsening of your condition and complications * To maintain your health at the optimal level Directions to Meet Your Goals Take your medications as prescribed Follow your dietary instruction Follow activity as directed Keep your appointments as scheduled Take your immunizations and boosters as scheduled If your symptoms worsen call your PCP, if no PCP go to Urgent Care Center or Emergency Room Smoking is Dangerous to Your Health. Avoid second hand smoke Call the 24-hour hour crisis hotline for domestic abuse at Sami Tovar MD Dec 10, 2017 10:57
[2017-12-10] MEDS: ALPRAZolam 0.25 MG TAB PO PRN (13:55)
--- NOTE | 2017-12-10 18:02 | HHI.PR ---
Subjective Remarks Feeling ok Objective Vital Signs Date Time Temp Pulse Resp B/P (MAP) Pulse Ox O2 Delivery O2 Flow Rate FiO2 12/10/17 17:17 95 12/10/17 16:22 89 12/10/17 16:17 Room Air 12/10/17 16:17 97.9 92 18 104/59 (74) 96 12/10/17 15:00 85 12/10/17 14:32 92 12/10/17 13:00 96 12/10/17 12:00 92 12/10/17 11:42 95 Room Air 12/10/17 11:42 97.8 95 18 101/78 (86) 95 12/10/17 11:00 89 12/10/17 10:00 94 12/10/17 09:15 94 12/10/17 08:59 Nasal Cannula 12/10/17 08:00 92 12/10/17 07:50 97.8 93 18 107/60 (76) 96 12/10/17 07:06 Room Air 12/10/17 07:06 102 12/10/17 06:20 88 12/10/17 05:12 100 12/10/17 04:36 98 21 12/10/17 04:19 86 12/10/17 03:08 98.4 98 20 117/69 (85) 96 12/10/17 03:08 92 12/10/17 03:08 Room Air 12/10/17 01:42 93 12/10/17 00:03 82 12/09/17 23:35 98.2 78 20 92/53 (66) 95 12/09/17 23:35 Room Air 12/09/17 23:35 87 12/09/17 22:00 88 12/09/17 21:24 84 12/09/17 20:23 94 21 12/09/17 20:09 99 12/09/17 19:00 98.2 94 19 104/63 (77) 94 12/09/17 19:00 Room Air 12/09/17 19:00 88 12/09/17 18:13 87 I/O 12/09/17 12/09/17 12/09/17 12/10/17 12/10/17 12/10/17 06:59 14:59 22:59 06:59 14:59 22:59 Intake Total 480 ml 900 ml 240 ml 680 ml Output Total 425 ml 1100 ml 300 ml 502 ml Balance 55 ml -200 ml -60 ml 178 ml Intake Oral 480 ml 900 ml 240 ml 680 ml Output Urine Total 425 ml 1100 ml 300 ml 500 ml Stool Total 2 ml # Voids 2 2 # Bowel Movements 0 1 1 Result Diagram: 12/10/1745112/10/17451 Imaging Alert, fully oriented lungs: some wheezing Heart: s1, S2 regular abdomen: soft, no mass Ext: no edema Current Medications Medications (Trade) Dose Ordered Sig/Taz Route Start Time Stop Time Status Last Admin (Aspirin Chew) 81 mg DAILY PO 12/01/17 09:00 12/10/17 08:16 (NS Flush) 2 ml UNSCH PRN IV FLUSH 12/01/17 05:30 (NS Flush) 2 ml BID IV FLUSH 12/01/17 09:00 12/10/17 08:16 (Tylenol) 650 mg Q6H PRN PO 12/01/17 05:30 (Morphine Inj) 2 mg Q2H PRN IV PUSH 12/01/17 05:30 (Zofran Inj) 4 mg Q6H PRN IV PUSH 12/01/17 05:30 Miscellaneous Information 1 Q361D XX 12/01/17 05:30 (Chlorhexidine 2% Cloth) Taper DAILY@04 TOP 12/02/17 04:00 11/28/18 03:59 12/04/17 04:00 (Chlorhexidine 2% Cloth) 3 pack UNSCH PRN TOP 12/01/17 05:30 (Irina-Colace) 1 tab BID PO 12/01/17 09:00 12/03/17 09:28 (Milk Of Magnesia Liq) 30 ml Q12H PRN PO 12/01/17 05:30 (Senokot) 17.2 mg Q12H PRN PO 12/01/17 05:30 (Dulcolax Supp) 10 mg DAILY PRN RECTAL 12/01/17 05:30 (Lactulose Liq) 30 ml DAILY PRN PO 12/01/17 05:30 (Brethine Inj) 1 mg UNSCH PRN SQ 12/01/17 12:15 (Cathflo Activase Inj) 2 mg Q2H PRN INTRACATH 12/02/17 08:15 (Xopenex Neb) 0.63 mg Q2HR NEB PRN NEB 12/02/17 08:45 12/02/17 23:22 (Proscar) 5 mg DAILY PO 12/03/17 09:00 12/10/17 08:15 (Pepcid) 20 mg HS PO 12/02/17 21:00 12/09/17 20:49 (Pravachol) 40 mg HS PO 12/02/17 21:00 12/09/17 20:49 (Folate) 1 mg DAILY PO 12/03/17 09:00 12/10/17 08:16 (Vitamin B1) 100 mg DAILY PO 12/03/17 09:00 12/10/17 08:15 (Theragran) 1 tab DAILY PO 12/03/17 09:00 12/10/17 08:14 (Atrovent Neb) 0.5 mg Q6HR NEB NEB 12/02/17 16:00 12/10/17 14:55 (Lovenox Inj) 40 mg Q24H SQ 12/05/17 08:00 12/10/17 08:14 (Romazicon Inj) 0.2 mg Q1M PRN IV PUSH 12/07/17 12:00 (Ativan) 1 mg Q4H PRN PO 12/07/17 12:00 (Ativan Inj) 1 mg Q4H PRN IV PUSH 12/07/17 12:00 (Ativan) 2 mg Q2H PRN PO 12/07/17 12:00 (Ativan Inj) 2 mg Q2H PRN IV PUSH 12/07/17 12:00 (Ativan Inj) 2 mg Q1H PRN IV PUSH 12/07/17 12:00 (Ativan Inj) 2 mg Q15M PRN IV PUSH 12/07/17 12:00 (Xanax) 0.25 mg Q8H PRN PO 12/07/17 12:00 12/10/17 13:55 (Lasix) 40 mg DAILY PO 12/08/17 09:45 12/10/17 08:15 (KCl) 10 meq DAILY PO 12/08/17 09:45 12/10/17 08:16 (Restoril) 15 mg HS PRN PO 12/08/17 19:15 12/09/17 20:50 Assessment and Plan Problem List: (1) NSVT (nonsustained ventricular tachycardia) ICD Codes: I47.2 - Ventricular tachycardia Status: Acute Plan: New LBBB, episodes of NSVT case discussed with Dr Stevenson Will wait post TAVR for EPS and possible device patient will need a defib vest Can be DH when ok with the managing team. (2) HTN (hypertension) ICD Codes: I10 - Essential (primary) hypertension Plan: SB 104. Madeline Joyce MD Dec 10, 2017 18:02
[2017-12-10] MEDS ORDERED: ALBU0.08 NEB (19:01)
[2017-12-10] MEDS ORDERED: IPRA0.02 NEB (19:03)
[2017-12-10] MEDS ORDERED: VENTAER INH (19:05)
[2017-12-10] MEDS ORDERED: NEBULIZER/ADULT1 KIT (19:06)
[2017-12-10] MEDS: FAMOTIDINE 20 MG TAB PO SCH (21:30)
[2017-12-10] MEDS: PRAVASTATIN SOD 40 MG TAB PO SCH (21:30)
== END 2017-12-10 21:57 | disposition home health service (06) | DRG 193 ==
LOC: NEPC 23:20 → NEDH 12-01 02:51 → NEDA 12-01 03:10 → HCVI 12-01 06:51 → HCPC 12-05 16:00
PROVIDERS: ADMIT Hospitalist; ATTEND Hospitalist
PROC: 05HN33Z Insertion of Infusion Device into Left Internal Jugular Vein, Percutaneous Approach (ICD-10-PCS; principal; 2017-12-01)
PROC: 5A09357 Assistance with Respiratory Ventilation, Less than 24 Consecutive Hours, Continuous Positive Airway Pressure (ICD-10-PCS; 2017-12-03)
PROC: 4A023N8 Measurement of Cardiac Sampling and Pressure, Bilateral, Percutaneous Approach (ICD-10-PCS; 2017-12-04)
PROC: B2111ZZ Fluoroscopy of Multiple Coronary Arteries using Low Osmolar Contrast (ICD-10-PCS; 2017-12-04)
PROC: B2151ZZ Fluoroscopy of Left Heart using Low Osmolar Contrast (ICD-10-PCS; 2017-12-04)
DX: J18.1 Lobar pneumonia, unspecified organism (principal); N17.0 Acute kidney failure with tubular necrosis; I47.2 Ventricular tachycardia; R64 Cachexia; I42.9 Cardiomyopathy, unspecified; I11.0 Hypertensive heart disease with heart failure; I50.9 Heart failure, unspecified; I27.20 Pulmonary hypertension, unspecified; J43.9 Emphysema, unspecified; I35.2 Nonrheumatic aortic (valve) stenosis with insufficiency; R06.89 Other abnormalities of breathing; E88.09 Other disorders of plasma-protein metabolism, not elsewhere classified; I25.10 Atherosclerotic heart disease of native coronary artery without angina pectoris; I44.7 Left bundle-branch block, unspecified; E78.5 Hyperlipidemia, unspecified; R00.8 Other abnormalities of heart beat; N40.0 Benign prostatic hyperplasia without lower urinary tract symptoms; H91.90 Unspecified hearing loss, unspecified ear; M19.90 Unspecified osteoarthritis, unspecified site; Z87.442 Personal history of urinary calculi; I77.810 Thoracic aortic ectasia; Z90.49 Acquired absence of other specified parts of digestive tract; Z87.891 Personal history of nicotine dependence; I44.0 Atrioventricular block, first degree; R19.7 Diarrhea, unspecified; E87.6 Hypokalemia; K57.30 Diverticulosis of large intestine without perforation or abscess without bleeding; E86.0 Dehydration; N28.1 Cyst of kidney, acquired; D64.9 Anemia, unspecified; Z68.22 Body mass index [BMI] 22.0-22.9, adult; F10.10 Alcohol abuse, uncomplicated; R74.8 Abnormal levels of other serum enzymes
CPT/HCPCS: 71045; 71046; 71250; 74174; 74176; 78582; 80048; 80053; 80061; 82550; 82570; 82810; 83605; 83735; 83880; 84100; 84132; 84300; 84443; 84484; 85025; 85027; 85379; 85610; 85730; 86631; 86632; 86738; 86850; 86900; 86901; 87040; 87205; 87449; 87493; 87641; 87804; 93005; 93306; 93456; 93970; 94002; 94010; 94150; 94640; 94664; 96360; 96361; 99152; 99153; A9540; A9567; C1769; C1893; J0456; J1644; J1650; J1940; J2250; J2543; J2930; J3010; J3370; J3475; J3480; J7030; J7040; J7050; J7614; J7644; Q9967

== ENCOUNTER → 2017-12-25 | Outpatient (CLI) | payer MEDICARE ==
[~2017-12-25] MED LIST changes: +ALBU0.08 NEB; -AMLO5TAB22 PO; +DEFIB EXTERNAL; +ECASA81 PO; +FURO1TAB60 PO; +IPRA0.02 NEB; +NEBULIZER/ADULT1 KIT; +PANT20TA2 PO; +POTA-163 PO; +SIMV5TAB3 PO; +VENTAER INH
[2017-12-25 11:42] LABS: AUTOMATED NEUTROPHIL # 3.9 TH/MM3 (1.8-7.7); BASOPHIL % 0.6 % (0.0-2.0); EOSINOPHIL % 0.7 % (0.0-4.0); HEMATOCRIT 34.8 % (39.0-51.0); HEMOGLOBIN 11.6 GM/DL (13.0-17.0); LYMPH % 27.5 % (9.0-44.0); LYMPHOCYTE # 1.7 TH/MM3 (1.0-4.8); MEAN CELL VOLUME 88.3 FL (80.0-100.0); MEAN CORPUSCULAR HEMOGLOBIN 29.5 PG (27.0-34.0); MEAN CORPUSCULAR HGB CONC 33.4 % (32.0-36.0); MEAN PLATELET VOLUME 8.8 FL (7.0-11.0); MONO % 7.6 % (0.0-8.0); MONOCYTE # 0.5 TH/MM3 (0-0.9); NEUT % 63.6 % (16.0-70.0); PLATELET COUNT 193 TH/MM3 (150-450); RED BLOOD COUNT 3.94 MIL/MM3 (4.50-5.90); RED CELL DISTRIBUTION WIDTH 15.3 % (11.6-17.2); WHITE BLOOD COUNT 6.1 TH/MM3 (4.0-11.0)
[2017-12-25 11:51] LABS: BILIRUBIN, URINE NEG (NEG); BLOOD, URINE SMALL (NEG); GLUCOSE,URINE NEG (NEG); HYALINE CAST, URINE 6 /lpf (RARE); KETONE, URINE NEG (NEG); NITRITE,URINE NEG (NEG); PH, URINE 6.5 (5.0-8.5); SQUAMOUS EPITHELIAL CELL URINE 1 /hpf (0-5); URINE COLOR LIGHT-YELLOW (YELLW/STRAW); URINE LEUKOCYTE ESTERASE NEG (NEG)
[2017-12-25 11:55] LABS: INTERNATIONAL NORMALIZED RATIO 1.1 RATIO; PROTHROMBIN TIME - PATIENT 11.1 SEC (9.8-11.6)
[2017-12-25 12:04] LABS: BICARBONATE 26.8 MEQ/L (21.0-32.0); CALCIUM 9.6 MG/DL (8.5-10.1); CREATININE 1.26 MG/DL (0.60-1.30)
--- NOTE | 2017-12-26 21:00 | EKG ---
Date Performed: 12/25/2017 Time Performed: 11:08:57 PTAGE: 72 years EKG: Sinus rhythm MARKED LEFT AXIS DEVIATION POSSIBLE RIGHT VENTRICULAR CONDUCTION DELAY SEPTAL MYOCARDIAL INFARCTION, PROBABLY OLD MODERATE T-WAVE ABNORMALITY, CONSIDER LATERAL ISCHEMIA ABNORMAL ECG NO PREVIOUS TRACING DOCTOR: Colten Ibanez Interpretating Date/Time 12/26/2017 20:59:03
== END ==
LOC: CPRE 10:39
PROVIDERS: ATTEND Thoracic Surgery (Cardiothoracic Vascular Surgery)
DX: Z01.812 Encounter for preprocedural laboratory examination (principal); Z01.810 Encounter for preprocedural cardiovascular examination; I35.0 Nonrheumatic aortic (valve) stenosis; R94.31 Abnormal electrocardiogram [ECG] [EKG]
CPT/HCPCS: 36415; 80048; 81001; 85025; 85610; 85730; 86850; 86900; 86901; 87640; 87641; 93005

== ENCOUNTER 2018-01-01 05:12 | Inpatient (IN) | payer MEDICARE ==
[2018-01-01] VITALS (13 sets, daily range): BP systolic 95–131; BP diastolic 50–77; PULSE 82–104; RESP 18–26; TEMP 98.5–98.9; O2SAT 92–99
[~2018-01-01] VITALS: Ht 182.9 cm; Wt 75.3 kg
[~2018-01-01 05:12] MED LIST changes: -ALBU0.08 NEB; -ASPI81 PO; -IPRA0.02 NEB; -NEBULIZER/ADULT1 KIT; -PANT20TA2 PO; -PROS5TAB2 PO; -SIMV5TAB32 PO
[2018-01-01] MEDS ORDERED: DEXTROSE 50% IN WATER 50 ML VIAL(D50) IV PUSH PRN ×2 (05:45→13:00)
[2018-01-01] MEDS ORDERED: METOPROLOL TARTRATE 25 MG TAB PO SCH (05:45)
[2018-01-01] MEDS ORDERED: POVIDONE IODINE 5% (ANTISEPSIS KIT) 4 APPLICATIONS EACH NARE PRN (05:45)
[2018-01-01] MEDS ORDERED: CEFAZOLIN INJ 2,000 MG in SODIUM CHLORIDE 0.9% INJ 100 ML IV SCH (05:45)
[2018-01-01] MEDS ORDERED: INSULIN REGULAR 100 UNITS in NS 100 ML IV PRN (05:45)
[2018-01-01] MEDS ORDERED: CHLORHEXIDINE GLUCONATE 2 % 1 PACK (2 CLOTHS) TOPICAL PRN (05:45)
[2018-01-01] MEDS ORDERED: CEFAZOLIN 500 MG in NS IRR BTL 500 ML IRRIGATION SCH (05:45)
[2018-01-01] MEDS ORDERED: METOPROLOL TARTRATE 25 MG TAB PO PRN (05:45)
[2018-01-01] MEDS ORDERED: SODIUM CHLORID 0.9% 500 ML IV PRN (05:45)
[2018-01-01] MEDS ORDERED: LACTATED RINGER'S 1000 ML IV PRN (05:45)
[2018-01-01] MEDS ORDERED: CHLORHEXIDINE GLUCONATE 4% SOLN 120 ML BTL TOPICAL SCH (05:45)
[2018-01-01] MEDS ORDERED: PANT20TA2 PO (06:24)
[2018-01-01] MEDS ORDERED: HEPARIN SODIUM - SQ 10,000 UNITS/ML VIAL ONE (06:28)
[2018-01-01] MEDS ORDERED: ceFAZolin INJ 1,000 MG VIAL ONE ×4 (06:39→18:58)
[2018-01-01] MEDS ORDERED: methylPREDNISolone SOD SUCC 125 MG/2 ML VIAL ONE (06:39)
[2018-01-01] MEDS ORDERED: CUSTODIOL HTK IRR SOLN 2,000 ML ONE (06:43)
[2018-01-01] MEDS ORDERED: CUSTODIOL HTK IRR SOLN 1,000 ML ONE (06:44)
[2018-01-01] MEDS ORDERED: MANNITOL INJ 100 ML ONE (06:44)
[2018-01-01] MEDS ORDERED: POTASSIUM CHLORIDE 20 MEQ/10 ML VIAL ONE (06:45)
[2018-01-01] MEDS ORDERED: HEPARIN SODIUM - IV 10,000 UNITS/10 ML VIAL ONE ×2 (06:45→18:58)
[2018-01-01] MEDS ORDERED: ALBUMIN 25% INJ 50 ML IV ONE ×2 (06:46→19:58)
[2018-01-01] MEDS ORDERED: ARTIFICIAL TEARS OPTH OINT 3.5 APPLIC/3.5 GM TUBO ONE (07:12)
[2018-01-01] MEDS ORDERED: BUPIVACAINE LIPOSO PF 1.3% INJ 20 ML, DEXAMETHASONE INJ 4 MG, MORPHINE INJ 8 MG in SODI... P-ARTICULR SCH (07:30)
[2018-01-01] MEDS ORDERED: BUPIVACAINE LIPOSO PF 1.3% INJ 20 ML, DEXAMETHASONE INJ 4 MG, MORPHINE INJ 8 MG in SODI... IRRIGATION ONE (08:00)
[2018-01-01] MEDS: MUPIROCIN 2% OINT 22 GM TUBE EACH NARE SCH ×2 (09:00→21:00)
[2018-01-01] MEDS ORDERED: VANCOMYCIN HCL 1000 MG VIAL ONE (10:15)
[2018-01-01] MEDS ORDERED: SODIUM CHLOR 0.9% 250 ML INJ 500 ML ONE (11:50)
[2018-01-01] MEDS ORDERED: NITROGLYCERIN 50 MG/DEXTROSE 5% SOLN 250 ML BTL IV ONE (12:00)
[2018-01-01] MEDS ORDERED: NORMOSOL R INJ 3,000 ML IV ONE (12:00)
[2018-01-01] MEDS ORDERED: SODIUM CHLORIDE 0.9% INJ 100 ML IV ONE (12:00)
[2018-01-01] MEDS ORDERED: DEXTROSE 5% IN WATER 100ML INJ 100 ML IV ONE (12:00)
[2018-01-01] MEDS ORDERED: TRANEXAMIC ACID INJ 1,000 MG/10 ML AMP IV ONE (12:00)
[2018-01-01] MEDS ORDERED: LIDOCAINE HCL 1% PF 5 ML SYRINGE OTHER ONE (12:00)
[2018-01-01] MEDS ORDERED: SODIUM BICARBONATE 8.4% INJ 50 MEQ/50 ML SYR IV ONE (12:00)
[2018-01-01] MEDS ORDERED: LIDOCAINE HCL 2% 100 MG/5 ML SYRINGE IV PUSH ONE (12:00)
[2018-01-01] MEDS ORDERED: EPINEPHrine HCL (1:1000) 30 MG/30 ML VIAL IV ONE (12:00)
[2018-01-01] MEDS ORDERED: HEPARIN SODIUM - SQ 10,000 UNITS/ML VIAL SQ ONE (12:00)
[2018-01-01] MEDS ORDERED: SODIUM CHLOR 0.9% 250 ML INJ 500 ML IV ONE (12:00)
[2018-01-01] MEDS ORDERED: ePHEDrine/NS 25 MG/5 ML SYRINGE IV ONE ×2 (12:00)
[2018-01-01] MEDS ORDERED: DEXMEDETOMIDINE HCL 200 MCG/2 ML VIAL IV ONE (12:00)
[2018-01-01] MEDS ORDERED: CALCIUM CHLORIDE 10% SOLN 1 GRAM/10 ML SYR IV ONE (12:00)
[2018-01-01] MEDS ORDERED: ROCURONIUM INJ 50 MG/5 ML SYRINGE IV PUSH ONE (12:00)
[2018-01-01] MEDS ORDERED: CALCIUM GLUCONATE 10% 1 GM/10 ML VIAL IV ONE (12:00)
[2018-01-01] MEDS ORDERED: PHENYLEPH/NS 1000 MCG/10 ML SYR IV ONE ×2 (12:00)
[2018-01-01] MEDS ORDERED: LACTATED RINGER'S 1000 ML INJ 3,000 ML IV ONE (12:00)
[2018-01-01] MEDS ORDERED: PROPOFOL 200 MG/20 ML AMP IV ONE (12:00)
[2018-01-01] MEDS ORDERED: PHENYLEPHRINE HCL 10 MG/ML VIAL IV ONE (12:00)
[2018-01-01] MEDS ORDERED: NOREPINEPHRINE 4 MG/4 ML AMP IV ONE (12:00)
[2018-01-01] MEDS ORDERED: SODIUM CHLORID 0.9% 500 ML INJ 500 ML IV ONE (12:00)
[2018-01-01] MEDS ORDERED: PROTAMINE SULFATE 250 MG/25 ML VIAL IV ONE (12:00)
[2018-01-01] MEDS ORDERED: EPINEPHrine HCL (1:10,000) 1 MG/10 ML SYRINGE IV ONE (12:00)
[2018-01-01] MEDS ORDERED: VECURONIUM BROMIDE 20 MG VIAL IV ONE (12:00)
[2018-01-01] MEDS ORDERED: MAGNESIUM SULFATE 1 GM/2 ML VIAL IV ONE (12:00)
[2018-01-01] MEDS ORDERED: VECURONIUM BROMIDE 10 MG VIAL IV ONE (12:00)
[2018-01-01] MEDS ORDERED: POTASSIUM CHLOR 40 MEQ PREMIX 100 ML ONE ×2 (12:15→19:58)
[2018-01-01] MEDS ORDERED: LACTATED RINGER'S 1000 ML INJ 500 ML IV PRN (12:53)
[2018-01-01] MEDS ORDERED: METOPROLOL TARTRATE 5 MG/5 ML VIAL IV PUSH PRN (13:00)
[2018-01-01] MEDS ORDERED: RESP: RACEPINEPHRINE 2.25% 0.5 ML NEB NEB PRN ×2 (13:00→14:45)
[2018-01-01] MEDS ORDERED: RESP: ALBUTEROL 2.5 MG/IPRATROPIUM 0.5 MG NEB (PRN) NEB ×2 (13:00→14:45)
[2018-01-01] MEDS ORDERED: SODIUM BICARBONATE 8.4% SOLN 50 MEQ/50 ML VIAL IV PUSH PRN ×2 (13:00)
[2018-01-01] MEDS ORDERED: MAGNESIUM SULFATE INJ 2 GM in SODIUM CHLORIDE 0.9% INJ 100 ML IV PRN ×4 (13:00)
[2018-01-01] MEDS ORDERED: POTASSIUM CHLOR 20 MEQ PREMIX 100 ML IV PRN ×3 (13:00)
[2018-01-01] MEDS ORDERED: CLEVIDIPINE INJ 50 ML IV PRN (13:00)
[2018-01-01] MEDS ORDERED: hydrALAZINE HCL 20 MG/ML VIAL IV PUSH PRN (13:00)
[2018-01-01] MEDS ORDERED: SODIUM CHLORIDE 0.9% FLUSH 10 ML FLUSH IV FLUSH PRN (13:00)
[2018-01-01] MEDS ORDERED: ACETAMINOPHEN 325 MG TAB PO PRN (13:00)
[2018-01-01] MEDS ORDERED: CALCIUM CHLORIDE 10% 1 GRAM/10 ML VIAL IV PUSH PRN (13:00)
[2018-01-01] MEDS ORDERED: ACETAMINOPHEN 650 MG SUPP RECTAL PRN (13:00)
[2018-01-01] MEDS ORDERED: POTASSIUM CHLORIDE 20 MEQ CONTROLLED RELEASE TAB PO PRN ×2 (13:00)
[2018-01-01] MEDS ORDERED: Post-op Orders (for Pharmacy) OTHER ONE (13:48)
--- NOTE | 2018-01-01 13:50 | RADRPT ---
EXAM DATE/TIME: 01/01/2018 13:15 [facility] COMPARISON: No previous studies available for comparison. INDICATIONS : Instrument count. Aortic valve replacement. MEDICAL HISTORY : Renal calculi. Hypertension Cardiovascular disease. SURGICAL HISTORY : None. ENCOUNTER: Initial ACUITY: 1 day PAIN SCORE: Non-responsive. LOCATION: Bilateral chest FINDINGS: No unexpected radiopaque foreign bodies. Postoperative aortic valve replacement. Right chest tube, ri ght central line, endotracheal tube and nasogastric tube in good position. CONCLUSION: 1. No unexpected radiopaque foreign bodies. Surgical clips right upper quadrant. Oli Clarke MD on January 01, 2018 at 13:46 Board Certified Radiologist. This report was verified electronically.
--- NOTE | 2018-01-01 13:51 | RADRPT ---
EXAM DATE/TIME: 01/01/2018 13:31 [facility] COMPARISON: No previous studies available for comparison. INDICATIONS : Instrument count. Left iliac repair. MEDICAL HISTORY : Renal calculi. Hypertension Cardiovascular disease. SURGICAL HISTORY : None. ENCOUNTER: Initial ACUITY: 1 day PAIN SCORE: Non-responsive. LOCATION: Left inguinal FINDINGS: Rectal temperature probe present. Right femoral line. No unexpected radiopaque foreign bodies. No acu te findings. CONCLUSION: 1. No unexpected radiopaque foreign bodies. Oli Clarke MD on January 01, 2018 at 13:47 Board Certified Radiologist. This report was verified electronically.
[2018-01-01] MEDS: INSULIN REGULAR (IV INFUSION) 100 UNITS in SODIUM CHLORIDE 0.9% INJ 99 ML IV PRN ×2 (14:00→23:34)
[2018-01-01] MEDS ORDERED: MIDAZOLAM HCL 2 MG/2 ML VIAL ONE ×2 (14:33→22:36)
[2018-01-01] MEDS ORDERED: fentaNYL CITRATE 250 MCG/5 ML AMP ONE ×2 (14:33)
[2018-01-01] MEDS ORDERED: TERBUTALINE INJ 1 MG/ML AMP SQ PRN (14:45)
[2018-01-01] MEDS ORDERED: GLUCAGON 1 MG/ML VIAL OTHER PRN (14:45)
[2018-01-01] MEDS ORDERED: PHENYLEPHRINE 40 MG in D5W 500 ML IV PRN (15:00)
[2018-01-01] MEDS ORDERED: RASS Change Order XX ONE (15:00)
[2018-01-01] MEDS: RESP: ALBUTEROL 2.5 MG/IPRATROPIUM 0.5 MG NEB (SCH) NEB ×2 (15:05→22:37)
--- NOTE | 2018-01-01 15:07 | PD.CAR.PN ---
CVT Progress Note Subjective/Hospital Course: 72/ male intially seen 12/04/17 , Patient of Dr. Lars Tillman, also patient of Dr. Stevenson. Presented with shortness of breath, also chills, diarrhea for about 3-5 days prior presented to the emergency room, left-sided chest pain, nonpleuritic, nonradiating. No diaphoresis, nausea or vomiting. Upon arrival to the emergency department, he was then pain free. He had been recently treated for a right groin infection where they started him on Bactrim on the . His troponin was 0.07. They also did a CT chest, which shows early right lower lobe pneumonia. He was started on Zithromax and Zosyn. He was transferred to the ICU on the for respiratory distress, was placed on BIPAP, was given a dose of Lasix, which he has since improved. He is now on 4 L nasal cannula. He has been afebrile. He underwent 2-D echo on the , which showed an EF of 35-40%, global left ventricular dysfunction, systolic dysfunction with severe aortic valve stenosis with a valve area of 0.41, mean gradient of 50, peak gradient of 85. There was no mitral valve stenosis or regurgitation. The left atrium and the right atrial sizes were normal. There was some moderate pulmonary hypertension with a PA pressure of 51 mmHg. No evidence of effusion. He then underwent cardiac cath today by Dr. Stevenson, which showed nonobstructing coronary disease. We were consulted to evaluate for aortic valve replacement PAST MEDICAL HISTORY: Includes hypertension, hyperlipidemia, history of thoracic aortic aneurysm, which he just had a CT chest, which showed that the ascending thoracic aorta was unchanged at 4.4 cm. There was evidence of mild pneumonia in the right lower lobe, mild emphysema. History of tobacco use, recent right groin infection, history of benign prostatic hypertrophy, history of prior E. coli biliary sepsis. He has had surgeries including ERCP where 3 stones were removed, extended sphincterotomy. He has had a laparoscopic cholecystectomy. 01/01 he was electively admitted today for surgery surgery: Objective: Vital Signs Date Time Temp Pulse Resp B/P (MAP) Pulse Ox O2 Delivery O2 Flow Rate FiO2 01/01/18 14:11 96 50 01/01/18 06:27 97.6 95 20 114/71 (85) 99 Isidra Holland Jan 01, 2018 15:07
[2018-01-01] MEDS: CALCIUM CHLORIDE INJ 1 GM in SODIUM CHLORIDE 0.9% INJ 100 ML IV PRN (15:08)
[2018-01-01] MEDS: ACETAMINOPHEN 1000 MG/100 ML 100 ML IV SCH ×2 (15:13→21:00)
[2018-01-01] MEDS: ALBUMIN 5% INJ 250 ML IV PRN ×2 (15:23→15:44)
--- NOTE | 2018-01-01 16:00 | PD.OP ---
cc: Lissette Wu MD; Gilma Yepez MD; Milan Stevenson MD Operative Report Date of Surgery: Jan 01, 2018 Preoperative Diagnosis: (1) Systolic and diastolic CHF, acute on chronic (2) Severe aortic stenosis (3) Pulmonary HTN Postoperative Diagnosis: same, perforated left iliac artery Procedure: Minimally invasive AVR converted to sternotomy for AVR with a 27 Magna ease tissue valve BRIDGER Ultrasound guided percutaneous left femoral artery and vein access with arterial Perclose closure Emergent left retroperitoneal exploration for bleeding Anesthesia: Dr. Gutierrez Surgeon: Gilma Yepez Leak Detector(s): TORITO Urbano Operation and Findings: The risks, benefits, complications, treatment options, and expected outcomes were discussed with the patient. The possibilities of reaction to medication, pulmonary aspiration, perforation of viscus, bleeding, recurrent infection, the need for additional procedures, failure to diagnose a condition, and creating a complication requiring transfusion or operation were discussed with the patient. The patient concurred with the proposed plan, giving informed consent. The site of surgery properly noted/marked. The patient was taken to Operating Room, identified as Timothy Ruiz and the procedure verified as Minimally Invasive Aortic Valve Replacement. A Time Out was held and the above information confirmed. Standard monitoring lines and Luis catheter were placed. General anesthesia was induced. The patient was prepped and draped in a sterile fashion. . A 6 cm right anterior thoracotomy was performed and the 3rd rib was shingled. The right internal mammary artery and vein were ligated and divided. An Chucho retractor was placed followed by a small chest retractor. The pericardium was opened and a pericardial sling was created using interrupted 0 silk sutures. A small 1 cm incision was made at the 6th intercostal space and an LV vent and pericardial suction were placed through this access port. The aorta was dissected posteriorly for crossclamp placement. A 4F sheath was placed in the right femoral artery percutaneously with ultrasound guidance due to the patient' s low EF at ~25%. The left femoral artery and vein were percutaneously accessed using ultrasound guidance. The patient was heparinized for cardiopulmonary bypass. The left femoral artery was cannulated with a 17F [employer] arterial cannula. The left femoral vein was cannulated with a 21 [employer] cannula under BRIDGER guidance. Two Perclose devices were placed in the artery for later closure. The patient became hemodynamically unstable with marked hypotension at this time. I suspected he may have a retroperitoneal bleed related to arterial cannulation, so a left retroperitoneal incision was made. The oblique muscles were divided and a large retroperitoneal hematoma was encountered. The left iliac artery was bleeding and rapidly controlled with a vascular clamp. Vascular Surgery was consulted emergently at this time to manage this vascular issue and this procedure is dictated under a separate operative note. The patient was resuscitated. Due to the instability and the inability to use femoral access for CPB, a median sternotomy was performed and electrocautery was used to obtain hemostasis. The pericardium was opened and a pericardial sling was created using interrupted 0 silk sutures. The heart was instrumented for cardiopulmonary bypass in the usual manner. Antegrade Custodiol cardioplegia was employed. Additionally, hand-held coronary cardioplegia cannula was used during the procedure due to the patient's AI. The patient was placed on cardiopulmonary bypass. an aortic cross-clamp was applied and the heart was arrested using cold blood cardioplegia. The aorta was opened above the sinotubular ridge and the aortic valve was exposed. On opening the aorta, the valve was found to be heavily calcified and trileaflet. The valve was resected as well as all annular calcification, sized for a 27 mm Magnaease tissue valve which was placed with 2-0 pledgeted Tycron valve sutures. The valve seated well. The aorta was closed with running 4-0 Prolene suture. The patient systemically rewarmed. The heart was vigorously deaired with a clamp on. The clamp was removed, deairing continued. The patient was weaned from cardiopulmonary bypass. Protamine was given. There was no adverse reaction. Decannulation was carried out without incident. Intraoperative BRIDGER following the procedure showed a well-seated aortic valve with no perivalvular leak and preserved ventricular function. Wound was checked for hemostasis was obtained using electrocautery. A 36 F mediastinal and 24F right pleural Cory drains were positioned and secured to the skin. The sternum was closed with stainless steel wire. The fascia was closed with 1. PDS. The subcutaneous tissue was closed using a running 2-0 Vicryl suture. The skin was closed with 4-0 Monocryl. The right thoracotomy incision was closed by approximating the rib with a 2 Vicryl suture. The pectoralis was approximated using a running 2-0 vicryl suture. The subcutaneous tissue was closed with 2-0 Vicryl and the skin with 4-0 monocryl. Sterile dressings were placed. At the end of the operation, all sponge, instruments, and needle counts were correct. The patient was transferred to the CVICU in stable condition. Findings: Poor LV function with a heavily calcified AV with moderate to severe AI and severe . Heavily calcified left iliac artery with perforation and dissection requiring open repair. XC: 47 min CPB: 54 min Drains: mediastinal x 1 right pleural Specimens: aortic valve leaflets Implants: 27 Magnaease tissue valve Complications: as above Disposition: to CVICU in stable condition Gilma Yepez MD Jan 01, 2018 16:00
--- NOTE | 2018-01-01 16:42 | MP ---
cc: Lissette Wu MD DATE OF OPERATION: 01/01/2018 DATE OF SURGERY: 01/01/2018 PREOPERATIVE DIAGNOSIS: Iatrogenically laceration of the left external iliac artery at the junction of the common femoral artery, retroperitoneal bleeding. POSTOPERATIVE DIAGNOSIS: Iatrogenically laceration of the left external iliac artery at the junction of the common femoral artery, retroperitoneal bleeding. DETAILS OF PROCEDURE: Repair of the external iliac artery by preperitoneal approach. SURGEON: MD Bryce ANESTHESIA: General. ESTIMATED BLOOD LOSS: 100 mL. INDICATION FOR PROCEDURE: This 72-year-old gentleman was scheduled for aortic valve replacement and was taken to the operating room by Dr. Gilma Yepez. I was called to the operating room to assist with the above-noted problem. During the placement of the left femoral cannula, the external iliac artery was lacerated. It was immediately recognized, hence the procedure. The patient was already prepped and draped on the table and Dr. Yepez was working on the aorta. The groin was clamped with a clamp to prevent further bleeding. Incision is widened and the retroperitoneum is entered. Retractors are positioned using a large Leanne-Celina and Garner being in the retroperitoneum. The distal common iliac, internal iliac and external iliac arteries are dissected very carefully with the Metzenbaum scissors and blunt dissection with a right angle and then the vessel loop is placed around the external iliac artery just at the junction to the common iliac and then distally. The patient was already heparinized so the profunda clamp is placed proximally allowing flow into the internal iliac and distally on the external iliac artery and then finger pressure is held on the vessel while the distal clamp is released and the groin cannula is withdrawn. This is withdrawn about 3 inches down and then the profunda clamp is reapplied. At this point it is obvious that the patient has a tear in the proximal external iliac artery close to the junction to the common iliac artery. There is so much calcium in this vessel that this was obviously unavoidable and is clearly a result of the anatomy in the area rather than any technical issues. The vessel is opened longitudinally with Yi scissors from the laceration, toward distally and along the line within vessel there is large amount of calcific plaque. This one is dissected in the medial plane using Combs dissector and removed. The vessel is now flushed with heparinized and saline, proximal clamp is flushed and there is excellent flow from proximal to distal. The distal clamp is now released and there is some collateral flow up as well around the cannula. The area is irrigated with saline, then the vessel is closed with running 5-0 Prolene. The patient also has a laceration on the underside of the vessel toward the iliac vein. Therefore, this is dissected very carefully away from the iliac vein and then 2 single 5-0 Prolene stitches with pledgets are placed to control this. Blood flow is now reestablished; there is no more bleeding, area irrigated with saline and at the end of my procedure pulses checked once more; they are excellent. It should be noted that cannula was still in the groin when I left and will be removed by Dr. Hernandez later. The incisions is closed in layers with 0 Vicryl, and skin 4-0 Monocryl. MD CELESTE Iqbal/PÉREZ , 03:45 PM , 04:41 PM [facility]
[2018-01-01] MEDS ORDERED: MAGNESIUM SULFATE 1 GM ONE (17:05)
[2018-01-01] MEDS ORDERED: PROTAMINE SULFATE 50 MG/5 ML VIAL ONE (18:58)
[2018-01-01] MEDS ORDERED: HEPARIN-NS/PF INJ 500 ML ONE (18:59)
[2018-01-01] MEDS: ONDANSETRON HCL 4 MG/2 ML VIAL IV PUSH PRN (19:07)
[2018-01-01] MEDS ORDERED: ETOMIDATE 40 MG/20 ML VIAL ONE (19:26)
[2018-01-01] MEDS: SODIUM CHLORIDE 0.9% FLUSH 10 ML FLUSH IV FLUSH SCH (21:00)
[2018-01-01] MEDS ORDERED: RESP: ALBUTEROL 2.5 MG/IPRATROPIUM 0.5 MG NEB (SCH) NEB (22:00)
[2018-01-01] MEDS: DEXMEDETOMIDINE INJ 200 MCG in SODIUM CHLORIDE 0.9% INJ 50 ML IV PRN (22:20)
[2018-01-01] MEDS ORDERED: PROPOFOL 500 MG/50 ML INJ 50 ML ONE (22:50)
[2018-01-01] MEDS ORDERED: PROPOFOL 1000 MG/100 ML IV PRN (23:00)
[2018-01-01] MEDS: EPINEPHrine 2 MG/D5W 250 ML IV PRN ×2 (23:33)
[2018-01-02] VITALS (14 sets, daily range): BP systolic 81–143; BP diastolic 51–72; PULSE 84–117; RESP 12–21; TEMP 97.7–98.9; O2SAT 93–99
[2018-01-02] MEDS: ACETAMINOPHEN 1000 MG/100 ML 100 ML IV SCH ×2 (03:26→09:08)
[2018-01-02] MEDS: DEXMEDETOMIDINE INJ 200 MCG in SODIUM CHLORIDE 0.9% INJ 50 ML IV PRN (03:27)
[2018-01-02] MEDS: RESP: ALBUTEROL 2.5 MG/IPRATROPIUM 0.5 MG NEB (SCH) NEB ×4 (04:01→20:20)
--- NOTE | 2018-01-02 05:24 | RADRPT ---
EXAM DATE/TIME: 01/02/2018 04:14 [facility] COMPARISON: No previous studies available for comparison. INDICATIONS : Short of breath. MEDICAL HISTORY : Cardiovascular disease. Renal calculi. Hypertension. SURGICAL HISTORY : CABG. ENCOUNTER: Subsequent ACUITY: 1 week PAIN SCORE: 0/10 LOCATION: Bilateral chest FINDINGS: A single view of the chest demonstrates minimal basilar densities. Status post CABG. Cardiomegaly. Me diastinal right-sided chest tube without pneumothorax. Endotracheal tube 3 cm above hunter. Nasogastr ic tube with tip likely in the stomach. Right jugular central line with tip in the caval atrial junct ion. Osseous structures are intact. CONCLUSION: 1. Bibasilar densities likely atelectasis. 2. Status post CABG. Rajendra Paniagua MD on January 02, 2018 at 5:20 Board Certified Radiologist. This report was verified electronically.
[2018-01-02 05:47] LABS: HEMATOCRIT 29.9 % (39.0-51.0); HEMOGLOBIN 10.4 GM/DL (13.0-17.0); MEAN CELL VOLUME 84.3 FL (80.0-100.0); MEAN CORPUSCULAR HEMOGLOBIN 29.2 PG (27.0-34.0); MEAN CORPUSCULAR HGB CONC 34.6 % (32.0-36.0); MEAN PLATELET VOLUME 9.4 FL (7.0-11.0); PLATELET COUNT 77 TH/MM3 (150-450); RED BLOOD COUNT 3.55 MIL/MM3 (4.50-5.90); RED CELL DISTRIBUTION WIDTH 16.5 % (11.6-17.2); WHITE BLOOD COUNT 13.8 TH/MM3 (4.0-11.0)
[2018-01-02] MEDS: PANTOPRAZOLE SOD 40 MG DELAYED RELEASE TAB PO SCH (06:00)
[2018-01-02 06:14] LABS: BICARBONATE 27.2 MEQ/L (21.0-32.0); CALCIUM 7.7 MG/DL (8.5-10.1); CREATININE 0.96 MG/DL (0.60-1.30); MAGNESIUM 2.3 MG/DL (1.5-2.5)
[2018-01-02] MEDS: CALCIUM CHLORIDE INJ 1 GM in SODIUM CHLORIDE 0.9% INJ 100 ML IV PRN (08:10)
[2018-01-02] MEDS: MUPIROCIN 2% OINT 22 GM TUBE EACH NARE SCH ×2 (09:00→20:48)
[2018-01-02] MEDS: PRAVASTATIN SOD 10 MG TAB PO SCH (09:00)
[2018-01-02] MEDS: ASPIRIN 81 MG CHEW TAB PO SCH ×2 (09:00→09:08)
[2018-01-02] MEDS: SODIUM CHLORIDE 0.9% FLUSH 10 ML FLUSH IV FLUSH SCH ×2 (09:12→20:48)
--- NOTE | 2018-01-02 09:37 | PD.CONS ---
[facility] Service Critical Care Medicine Consult Requested By Dr. Hernandez Reason for Consult Respiratory failure Hypotension/Shock s/p minimally invasive AVR converted to sternotomy/AVR with a 27 tissue valve Laceration of the left external iliac artery with retroperitoneal bleeding s/p repair s/p Repair of the external iliac artery by preperitoneal approach. Primary Care Physician Lars Tillman M.D. History of Present Illness Patient is a 72 year old male with past medical history significant for hypertension, dyslipidemia, thoracic aortic aneurysm (4.4 cm aneurysmal dilatation of aortic root), alcohol abuse, tobacco abuse who was recently treated in hospital (12/01/17 to 12/10/17) for community-acquired pneumonia, ACS/ non-ST elevation MA, nonsustained V. tach and sepsis. At that time was by seen Dr. Stevenson. 2-D echo showed an EF of 35-40%, global LV dysfunction, severe aortic stenosis with a valve area of 0.41 (MG 50, PG 85). Cardiac catheterization showed nonobstructing coronary disease. CTS consulted for AVR. Patient was discharged home by hospitalist on 12/10/2017, LifeVest was prescribed Patient was admitted yesterday to Dr. Coffey service and, underwent attempted minimally invasive AVR, which was converted to sternotomy/AVR with a 27 tissue valve. Complicated by laceration of the left external iliac artery, Dr. Wu was consulted and he repaired the external iliac artery. Apparently there was loss of pulse to Left lower extremity in the evening distal to the the Perclose device. Patient was taken again to the OR, there was occlusion of the common femoral artery under the Perclose device which was repaired, and flow reestablished. Total EBL for AVR and vascular repair x2 was 2.6 L and patient received 4 U PRBC, 3L crystalloid. Remains on 6 mcg/min of epinephrine and remains intubated. [facility] consulted for management persistent shock and respiratory failure. On my evaluation patient is breathing comfortably following commands, but remains in persistent shock requiring epinephrine. Hemoglobin in a.m. was 10.4 repeat labs ordered including CBC CMP random cortisol lactic acid levels. A stat 2D echo was also requested. Further recommendations will be based on studies. Patient has EF of 35-40% on previous echo. Review of Systems ROS Limitations: Intubated Past Family Social History Allergies: Coded Allergies: No Known Allergies (Verified Allergy, Unknown, 12/01/17) Past Medical History Hypertension Hyperlipidemia BPH Ecoli biliary sepsis. Thoracic aortic aneurysmal dilatation of aortic root 4.3cm Severe aortic stenosis Recent pneumonia NSTEMI Past Surgical History ERCP 3 stones removed. extended sphincterotomy. Past Surgical History ERCP Laparoscopic cholecystectomy Reported Medications Aspirin Lasix Potassium chloride Protonix Simvastatin LifeVest Albuterol as needed Active Ordered Medications Currently on epinephrine infusion, Precedex infusion Family History Unable to obtain Social History Previous history of significant alcohol use and tobacco use Physical Exam Vital Signs Vital Signs Date Time Temp Pulse Resp B/P (MAP) Pulse Ox O2 Delivery O2 Flow Rate FiO2 01/02/18 07:30 96 40 01/02/18 07:00 98.2 90 21 109/67 (81) 99 143/61 (88) 01/02/18 07:00 40 01/02/18 07:00 90 01/02/18 06:34 87 91/54 01/02/18 04:01 97 50 01/02/18 03:21 97 Mechanical Ventilator 50 01/02/18 03:21 84 01/02/18 03:21 50 01/02/18 03:21 98.9 84 16 81/57 (65) 97 92/59 (70) 01/02/18 01:00 83 92/59 01/02/18 00:14 82 84/57 01/01/18 23:33 82 106/67 01/01/18 23:00 50 01/01/18 23:00 94 Mechanical Ventilator 50 01/01/18 23:00 98.9 87 18 95/68 (77) 94 131/75 (93) 01/01/18 23:00 82 01/01/18 22:37 94 50 01/01/18 19:00 102 01/01/18 18:54 98.6 01/01/18 18:11 94 Nasal Cannula 4.00 01/01/18 17:56 95 Nasal Cannula 4 01/01/18 17:56 94 Mechanical Ventilator 4.00 Nasal Cannula 01/01/18 17:00 99 40 01/01/18 17:00 Nasal Cannula 40 01/01/18 15:10 98.6 01/01/18 15:02 93 50 01/01/18 15:00 98.6 102 25 105/77 (86) 92 107/71 (83) 3/27/18 15:00 96 Mechanical Ventilator 50 01/01/18 15:00 92 Mechanical Ventilator 50 01/01/18 15:00 102 01/01/18 15:00 50 01/01/18 14:30 89 Mechanical Ventilator 50 01/01/18 14:30 50 01/01/18 14:11 96 50 01/01/18 14:10 98.6 01/01/18 13:55 98.5 104 26 103/58 (73) 97 107/50 (69) 01/01/18 13:50 50 01/01/18 13:50 97 Mechanical Ventilator 50 Physical Exam GENERAL: 72-year-old male who is intubated sedated with low-dose Precedex HEENT: Normocephalic. Atraumatic. Pupils are 3 mm, equal, reactive NECK: Trachea is midline. There is no JVD. CHEST: Midline sternotomy incision with wound VAC in place. An entry equal bilaterally CARDIOVASCULAR: S1-S2 distant no murmurs. On epinephrine infusion at 6 mcg/min to maintain map above 65 ABDOMEN: Soft, nontender, nondistended. No guarding. LLQ wound VAC in place MUSCULOSKELETAL: L groin wound vac in place. Left dorsalis pedis pulses are dopplerable, left PT pulses palpable. NEUROLOGICAL: Alert awake. Following commands. Not in distress Laboratory Laboratory Tests Test 01/02/18 05:11 White Blood Count 13.8 Red Blood Count 3.55 Hemoglobin 10.4 Hematocrit 29.9 Mean Corpuscular Volume 84.3 Mean Corpuscular Hemoglobin 29.2 Mean Corpuscular Hemoglobin Concent 34.6 Red Cell Distribution Width 16.5 Platelet Count 77 Mean Platelet Volume 9.4 Blood Urea Nitrogen 24 Creatinine 0.96 Random Glucose 85 Calcium Level 7.7 Magnesium Level 2.3 Sodium Level 144 Potassium Level 4.5 Chloride Level 113 Carbon Dioxide Level 27.2 Anion Gap 4 Estimat Glomerular Filtration Rate 77 Result Diagram: 01/02/18 0511 01/02/18 0511 Imaging Chest x-ray with bibasilar atelectasis Septic Shock Reassessment Septic shock perfusion: reassessment completed Assessment and Plan Assessment and Plan ASSESSMENT: Respiratory failure Hypotension/shock s/p minimally invasive AVR converted to sternotomy/AVR with a 27 tissue valve Laceration of the left external iliac artery with retroperitoneal bleeding s/p repair s/p second repair for occlusion of common femoral artery secondary to Perclose device Anemia requiring transfusion Relative adrenal insufficiency Hypokalemia Coronary artery disease Nonsustained V. tach Cardiomyopathy EF 35-40% PLAN: NEURO: -Minimize sedation, discontinue Precedex -Morphine as needed for postoperative pain RESP: -CPAP trials, extubated if passed SBT -DuoNeb q6 hr PRN -Aggressive pulmonary toilet after extubation -Chest tube management per CT surgery CV: -Stat echo-on my read EF appears 25% on 6 mcg/min of epinephrine, dilated LV -New aortic valve appears well-positioned without significant leak or regurgitation -Start dobutamine at 2.5 mcg/kg/min, target cardiac index >2.2 -Initiate Barrie Trac monitoring, check and trend lactate and central venous gas -Continue fluid and blood product resuscitation as needed -Laceration of the left external iliac artery with retroperitoneal bleeding s/p repair-management per Dr. Baires -Hold off beta blockers secondary to shock. Aspirin when cleared by CT surgery -Relative adrenal insufficiency, random cortisol 5.6 while hypotensive on pressors -Hydrocortisone 100 mg stat and IV every 8 hours -Discussed with CT surgery GI: -Keep n.p.o. until more hemodynamically stable -PPI : -Monitor renal function closely. Maintain Luis catheter. ID: -Perioperative antibiotics per CT surgery -Panculture if persistent shock HEME: -Monitor CBC, CMP, coags, fibrinogen -Received 4 units PRBC yesterday, hemoglobin was 10.4 today -Check CBC stat ENDO: -Electrolyte replacement per protocol -Calcium replacement with blood transfusion PROPH: -Avoid chemical DVT prophylaxis until cleared by both CT surgery and vascular surgery. -Protonix for GI prophylaxis LINES: -Continue central line, arterial line and Luis CC time 82min Code Status Full Discussed Condition With D/W CTS, Dr. Baires, bedside RN Niko Troy MD Jan 02, 2018 09:37
[2018-01-02] MEDS: EPINEPHrine 2 MG/D5W 250 ML IV PRN ×2 (09:48)
--- NOTE | 2018-01-02 09:57 | PD.CAR.PN ---
CVT Progress Note Subjective/Hospital Course: 72/ male intially seen 12/04/17 , Patient of Dr. Lars Tillman, also patient of Dr. Stevenson. Presented with shortness of breath, also chills, diarrhea for about 3-5 days prior presented to the emergency room, left-sided chest pain, nonpleuritic, nonradiating. No diaphoresis, nausea or vomiting. Upon arrival to the emergency department, he was then pain free. He had been recently treated for a right groin infection where they started him on Bactrim on the . His troponin was 0.07. They also did a CT chest, which shows early right lower lobe pneumonia. He was started on Zithromax and Zosyn. He was transferred to the ICU on the for respiratory distress, was placed on BIPAP, was given a dose of Lasix, which he has since improved. He is now on 4 L nasal cannula. He has been afebrile. He underwent 2-D echo on the , which showed an EF of 35-40%, global left ventricular dysfunction, systolic dysfunction with severe aortic valve stenosis with a valve area of 0.41, mean gradient of 50, peak gradient of 85. There was no mitral valve stenosis or regurgitation. The left atrium and the right atrial sizes were normal. There was some moderate pulmonary hypertension with a PA pressure of 51 mmHg. No evidence of effusion. He then underwent cardiac cath today by Dr. Stevenson, which showed nonobstructing coronary disease. We were consulted to evaluate for aortic valve replacement PAST MEDICAL HISTORY: Includes hypertension, hyperlipidemia, history of thoracic aortic aneurysm, which he just had a CT chest, which showed that the ascending thoracic aorta was unchanged at 4.4 cm. There was evidence of mild pneumonia in the right lower lobe, mild emphysema. History of tobacco use, recent right groin infection, history of benign prostatic hypertrophy, history of prior E. coli biliary sepsis. He has had surgeries including ERCP where 3 stones were removed, extended sphincterotomy. He has had a laparoscopic cholecystectomy. 01/01 he was electively admitted today for surgery surgery: Minimally invasive AVR converted to sternotomy for AVR with a 27 Magna ease tissue valve BRIDGER Ultrasound guided percutaneous left femoral artery and vein access with arterial Perclose closure Emergent left retroperitoneal exploration for bleeding Dr Wu :Repair of the external iliac artery by preperitoneal approach. Iatrogenically laceration of the left external iliac artery at the junction of the common femoral artery, retroperitoneal bleeding. 2/2 Iatrogenically laceration of the left external iliac artery at the junction of the common femoral artery, retroperitoneal bleeding. crystalloid 5600cc, 3 units PRBC, cell saver 1200cc EBL 2600cc pt then returned to OR last evening for repair left common femoral patch crystalloid 1600cc, one unit PRBC EBL 600cc 01/02 pt remained intubated on vent this am , weaned off propofol, weaning Epi gtt at 4mcq/ BP still labile EF 30% , awake follows commands , urine output stable , + 1 air leak noted in chest tube will keep in CVICU, remove right fem chet Objective: GENERAL: awake sleepy follows simple commands SKIN: Warm and dry. prevena to chest , incision intact right upper chest wall, prevena intact left upper abdomen , left groin , RAE drain left lower abd / drained 240cc/ 12 hrs HEAD: Atraumatic. Normocephalic. EYES: Pupils equal and round. No scleral icterus. No injection or drainage. ENT: No nasal bleeding or discharge. Mucous membranes pink and moist. NECK: Trachea midline. No JVD. CARDIOVASCULAR: Regular rate and rhythm. slightly tachycardic , Left foot cooler then right , + Doppler pulse left pt only , + Doppler right DP, PT RESPIRATORY: No accessory muscle use. Clear to auscultation. Breath sounds equal bilaterally., diminished in the bases , chest tube drained 300cc/ 12 hrs , +1 air leak chest tube to wall suction, on vent SIMV mode GASTROINTESTINAL: Abdomen soft, non-tender, nondistended. NG tube to suction , bile drainage, very hypoactive bowel sounds MUSCULOSKELETAL: Extremities without clubbing, cyanosis, or edema. No obvious deformities. NEUROLOGICAL: Awake and sleepy . No obvious cranial nerve deficits. Motor grossly within normal limits. PSYCHIATRIC: Appropriate mood and affect; insight and judgment normal. Vital Signs Date Time Temp Pulse Resp B/P (MAP) Pulse Ox O2 Delivery O2 Flow Rate FiO2 01/02/18 07:30 96 40 01/02/18 07:00 98.2 90 21 109/67 (81) 99 143/61 (88) 01/02/18 07:00 40 01/02/18 07:00 90 01/02/18 06:34 87 91/54 01/02/18 04:01 97 50 01/02/18 03:21 97 Mechanical Ventilator 50 01/02/18 03:21 84 01/02/18 03:21 50 01/02/18 03:21 98.9 84 16 81/57 (65) 97 92/59 (70) 01/02/18 01:00 83 92/59 01/02/18 00:14 82 84/57 01/01/18 23:33 82 106/67 01/01/18 23:00 50 01/01/18 23:00 94 Mechanical Ventilator 50 01/01/18 23:00 98.9 87 18 95/68 (77) 94 131/75 (93) 01/01/18 23:00 82 01/01/18 22:37 94 50 01/01/18 19:00 102 01/01/18 18:54 98.6 01/01/18 18:11 94 Nasal Cannula 4.00 01/01/18 17:56 95 Nasal Cannula 4 01/01/18 17:56 94 Mechanical Ventilator 4.00 Nasal Cannula 01/01/18 17:00 99 40 01/01/18 17:00 Nasal Cannula 40 01/01/18 15:10 98.6 01/01/18 15:02 93 50 01/01/18 15:00 98.6 102 25 105/77 (86) 92 107/71 (83) 01/01/18 15:00 96 Mechanical Ventilator 50 01/01/18 15:00 92 Mechanical Ventilator 50 01/01/18 15:00 102 01/01/18 15:00 50 01/01/18 14:30 89 Mechanical Ventilator 50 01/01/18 14:30 50 01/01/18 14:11 96 50 01/01/18 14:10 98.6 01/01/18 13:55 98.5 104 26 103/58 (73) 97 107/50 (69) 01/01/18 13:50 50 01/01/18 13:50 97 Mechanical Ventilator 50 Labs: Laboratory Tests Test 01/02/18 05:11 White Blood Count 13.8 TH/MM3 (4.0-11.0) Red Blood Count 3.55 MIL/MM3 (4.50-5.90) Hemoglobin 10.4 GM/DL (13.0-17.0) Hematocrit 29.9 % (39.0-51.0) Mean Corpuscular Volume 84.3 FL (80.0-100.0) Mean Corpuscular Hemoglobin 29.2 PG (27.0-34.0) Mean Corpuscular Hemoglobin Concent 34.6 % (32.0-36.0) Red Cell Distribution Width 16.5 % (11.6-17.2) Platelet Count 77 TH/MM3 (150-450) Mean Platelet Volume 9.4 FL (7.0-11.0) Blood Urea Nitrogen 24 MG/DL (7-18) Creatinine 0.96 MG/DL (0.60-1.30) Random Glucose 85 MG/DL (74-106) Calcium Level 7.7 MG/DL (8.5-10.1) Magnesium Level 2.3 MG/DL (1.5-2.5) Sodium Level 144 MEQ/L (136-145) Potassium Level 4.5 MEQ/L (3.5-5.1) Chloride Level 113 MEQ/L (98-107) Carbon Dioxide Level 27.2 MEQ/L (21.0-32.0) Anion Gap 4 MEQ/L (5-15) Estimat Glomerular Filtration Rate 77 ML/MIN (>89) Result Diagram: 01/02/18 0511 01/02/18 0511 Telemetry: NSR sinus tach (1) s/p repair external iliac artery (2) S/P AVR (aortic valve replacement) Plan: weaning from vent remains on Epi gtt will need pulm toileting leave in ICU today (3) Severe aortic stenosis (4) Systolic and diastolic CHF, acute on chronic Plan: EF 30% will need diuresis when BP stabilized, received multiple blood products and crystalloid (5) Hypertension (6) Postoperative hypotension (7) Blood loss anemia Plan: s/p 4 units PRBC , f/u labs monitor drainage from RAE drain (8) Thrombocytopenia Plan: Isidra Perez ASA Jan 02, 2018 09:57
[2018-01-02] MEDS ORDERED: CALCIUM CHLORIDE INJ 1 GM in SODIUM CHLORIDE 0.9% INJ 100 ML IV ONE (10:15)
[2018-01-02 10:44] LABS: AUTOMATED NEUTROPHIL # 12.7 TH/MM3 (1.8-7.7); BASOPHIL % 0.2 % (0.0-2.0); HEMATOCRIT 27.9 % (39.0-51.0); HEMOGLOBIN 9.6 GM/DL (13.0-17.0); LYMPHOCYTE # 1.9 TH/MM3 (1.0-4.8); MEAN CELL VOLUME 84.5 FL (80.0-100.0); MEAN CORPUSCULAR HEMOGLOBIN 29.2 PG (27.0-34.0); MEAN CORPUSCULAR HGB CONC 34.5 % (32.0-36.0); MEAN PLATELET VOLUME 9.1 FL (7.0-11.0); MONO % 9.8 % (0.0-8.0); MONOCYTE # 1.6 TH/MM3 (0-0.9); PLATELET COUNT 74 TH/MM3 (150-450); WHITE BLOOD COUNT 16.2 TH/MM3 (4.0-11.0)
[2018-01-02 11:01] LABS: ALBUMIN 2.3 GM/DL (3.4-5.0); AST (GOT) 49 U/L (15-37); BICARBONATE 24.6 MEQ/L (21.0-32.0); BLOOD UREA NITROGEN 26 MG/DL (7-18); CALCIUM 8.4 MG/DL (8.5-10.1); CHLORIDE 112 MEQ/L (98-107); CREATININE 1.04 MG/DL (0.60-1.30); GLOMERULAR FILTRATION RATE 70 ML/MIN (>89); GLUCOSE,RANDOM 103 MG/DL (74-106); MAGNESIUM 2.3 MG/DL (1.5-2.5); SODIUM (NA) 143 MEQ/L (136-145)
[2018-01-02 11:02] LABS: ALT (GPT) 28 U/L (12-78); PHOSPHORUS 3.5 MG/DL (2.5-4.9)
[2018-01-02 11:04] LABS: ALKALINE PHOSPHATASE 38 U/L (45-117); TOTAL BILIRUBIN ADULT 0.6 MG/DL (0.2-1.0); TOTAL PROTEIN 4.3 GM/DL (6.4-8.2)
[2018-01-02 11:09] LABS: INTERNATIONAL NORMALIZED RATIO 1.1 RATIO; PROTHROMBIN TIME - PATIENT 11.4 SEC (9.8-11.6)
[2018-01-02] MEDS: DOBUTamine PREMIX DRIP 250 ML IV PRN (11:16)
--- NOTE | 2018-01-02 11:39 | ECHRPT ---
Indication: POST AORTIC REPAIR CONCLUSIONS The left ventricular systolic function is severely reduced with an estimated ejection fraction in th e range of 25-30%. Severely dilated left ventricle. Wall thickness is normal. There is global left ventricular dysfunction. LV ejection fraction estimated to be 20-25%. Trace mitral valve regurgitation. Moderate mild annular calcification. Mild aortic valve stenosis. . Aortic valve area is 1.3 cm. Aortic valve mean gradient is 16.3 mmHg. There is trace tricuspid valve regurgitation. The estimated pulmonary arterial pressure is 28.1 mmHg. Trivial pulmonary valve regurgitation. BP: / HR: Rhythm: Sinus MEASUREMENTS (Male / Female) Normal Values Technical Quality:Good 2D ECHO LV Diastolic Diameter PLAX 7.8 cm 4.2 - 5.9 / 3.9 - 5.3 cm LV Systolic Diameter PLAX 6.7 cm IVS Diastolic Thickness 0.9 cm 0.6 - 1.0 / 0.6 - 0.9 cm LVPW Diastolic Thickness 0.9 cm 0.6 - 1.0 / 0.6 - 0.9 cm LV Relative Wall Thickness 0.2 LVOT Diameter 2.0 cm LA Systolic Diameter LX 4.0 cm 3.0 - 4.0 / 2.7 - 3.8 cm LV Ejection Fraction MOD 4C 31.3 % LV Ejection Fraction 4C AL 32.5 % M-MODE LV Diastolic Diameter MM 7.6 cm 4.2 - 5.9 / 3.9 - 5.3 cm LV Systolic Diameter MM 6.5 cm LV Ejection Fraction MM Teich 30.5 % IVS Diastolic Thickness MM 1.0 cm 0.6 - 1.0 / 0.6 - 0.9 cm LVPW Diastolic Thickness MM 1.0 cm 0.6 - 1.0 / 0.6 - 0.9 cm LV Relative Wall Thickness MM 0.3 0.24 - 0.42 / 0.22 - 0.42 Aortic Root Diameter MM 2.5 cm LA Systolic Diameter MM 3.9 cm LA Ao Ratio MM 1.6 AV Cusp Separation MM 2.0 cm DOPPLER AV Peak Velocity 273.7 cm/s AV Peak Gradient 30.0 mmHg AV Mean Gradient 16.3 mmHg AV Velocity Time Integral 46.4 cm LVOT Peak Velocity 125.0 cm/s LVOT Peak Gradient 6.3 mmHg LVOT Velocity Time Integral 19.8 cm AV Area Cont Eq vti 1.3 cm AV Area Cont Eq pk 1.4 cm MV Area PHT 11.0 cm Mitral E Point Velocity 76.0 cm/s Mitral A Point Velocity 93.3 cm/s Mitral E to A Ratio 0.8 TR Peak Velocity 213.0 cm/s TR Peak Gradient 18.1 mmHg Right Atrial Pressure 10.0 mmHg Pulmonary Artery Systolic Pressu 28.1 mmHg Right Ventricular Systolic Press 28.1 mmHg PV Peak Velocity 107.0 cm/s PV Peak Gradient 4.6 mmHg FINDINGS LEFT VENTRICLE The left ventricular systolic function is severely reduced with an estimated ejection fraction in th e range of 25-30%. Severely dilated left ventricle. Wall thickness is normal. There is global left ventricular dysfunction. RIGHT VENTRICLE Normal right ventricular size and systolic function. LEFT ATRIUM The left atrial size is normal. RIGHT ATRIUM The right atrial size is normal. ATRIAL SEPTUM Normal atrial septal thickness without atrial level shunting by limited color doppler interrogation. AORTA The aortic root and proximal ascending aorta are normal in size on limited imaging. MITRAL VALVE Structurally normal mitral valve. Trace mitral valve regurgitation. Moderate mild annular calcification. AORTIC VALVE Trileaflet aortic valve. Diffuse calcification of the aortic valve. Mild aortic valve stenosis. . Aortic valve area is 1.3 cm. Aortic valve mean gradient is 16.3 mmHg. TRICUSPID VALVE Structurally normal tricuspid valve. There is trace tricuspid valve regurgitation. The estimated pulmonary arterial pressure is 28.1 mmHg. PULMONARY VALVE Trivial pulmonary valve regurgitation. VESSELS The inferior vena cava was not well visualized. PERICARDIUM No pericardial effusion. Wilver Boateng MD, FACC (Electronically Signed) Final Date:02 January 2018 11:38
[2018-01-02] MEDS ORDERED: HYDROCORTISONE SOD SUCCINATE 100 MG VIAL IV SCH ×2 (13:00→18:00)
[2018-01-02] MEDS ORDERED: FUROSEMIDE 20 MG/2 ML VIAL IV PUSH ONE (13:15)
[2018-01-02] MEDS: oxyCODONE/ACETAMINOPHEN 5 MG/325 MG TAB PO PRN ×3 (13:29→21:11)
--- NOTE | 2018-01-02 13:54 | MP ---
cc: Lissette Wu MD DATE OF OPERATION: 01/01/2018 DATE OF SURGERY: 01/01/2018. PREOPERATIVE DIAGNOSES: Status post aortic valve replacement. Occluded left iliac and femoral arteries. POSTOPERATIVE DIAGNOSES: Status post aortic valve replacement. Occluded left iliac and femoral arteries. Dissection and thrombosis of the left external iliac, common femoral, and deep femoral arteries. Ischemia of the left leg. OPERATIVE PROCEDURE: Preperitoneal approach to the external and common iliac arteries Endarterectomy thrombectomy and patch angioplasty of external iliac artery. Angioplasty endarterectomy of common femoral artery, superficial femoral artery Profundoplasty of the deep femoral artery. SURGEON: MD Bryce ANESTHESIA: General. ESTIMATED BLOOD LOSS: 400 mL. INDICATIONS FOR PROCEDURE: This is a 72-year-old gentleman who underwent open heart surgery today. At that time, there was an iatrogenic perforation of the left iliac artery with one of the cannulas. This was repaired in the operating room by me. The patient then had completion of the procedure by Dr. Coffey, was taken to the ICU, initially had good pulses in the groin and then I was called in the afternoon that those disappeared. PROCEDURE: The patient was taken back to the operating room and a retroperitoneal incision was opened first. The Iliac artery previously repaired is noted to be clotted off. Now, the incision is made in the groin in oblique fashion, deepened down to the common femoral, deep femoral and superficial femoral arteries. Vessel loops are placed around each. It is noted that these are occluded as well. The patient is given 7000 units of heparin and then an incision is made in the common femoral artery overlying the deep femoral. There is a large clot in there and the Perclose tie is in place but it pulled up the tissue laterally into the vessel which is atherosclerotic material occluding hereby the vessel. So this is actually the culprit. The Perclose is removed and the area examined. The patient has a large clot with dissection of the common femoral artery from the piece of atherosclerotic material being pulled up. First a #4 Gabino is passed distally and some clot is retrieved from superficial femoral artery, but this is very little. As a matter of fact, there is good bleeding back right away. The Gabino can be advanced all the way to the foot easily. So, being satisfied with that part of the procedure, the common femoral is now attended. The Gabino is now passed proximally under direct vision and then I followed it by vision and palpation as it went into the iliac artery considering the groin had the retroperitoneal space opened. The Gabino can only advance as far as an angulation in the vessel, and of course, it would have perforated through had I tried to advance it further. Therefore, clot is now retrieved and some debris removed. It is clear, I am going to have to fix the iliac artery at this point with a patch. The deep femoral artery is now entered with a #4 Gabino and this was retrieved and there is excellent backbleeding from there. Somehow a DeBakey clamp is applied to the superficial femoral artery to prevent backbleeding. The deep femoral artery is clamped with a profunda clamp and then the iliac arteries attended. It is freed up all the way to the junction of the common iliac artery and just distal to the junction. The larger profunda clamp is applied because it lays kind of nicely in there and this one is clamped. The vessel is now opened longitudinally with Yi scissors in about a length of about 7 cm. There is large amount of clot as well as debris from atherosclerotic material in this vessel. The vessel is really heavily diseased and calcified. Very carefully the vessel is endarterectomized in the media plane and all the debris removed. This was washed out with heparinized saline. The proximal clamp is flushed and there is superb flow from top down. All the debris is now removed very carefully, then distally the intima is tacked down with 6-0 Prolene in order to prevent dissection once the blood flow is reestablished. This is done with 4 stitches of 6-0 Prolene making sure this is a nice and smooth transition. Then an 8 mm x 8 cm bovine patch is chosen and it is sewn in with running 5-0 Prolene. This is completed and then the vessel is flushed and now there is nice flow down into the groin, which is clearly still open. Clamp is reapplied. The distal external iliac artery is now clamped with a Satinsky clamp and then the proximal clamp in the iliac is released. One more stitch is placed there to control some of the oozing and now the groin is attended. Again, common femoral artery is endarterectomized in the media plane. All the debris is removed and then another 8 mm bovine patch is used to patch the common femoral and distal external iliac arteries. Blood flow is now reestablished in the usual order and fashion. The patient has superb flow through the leg. In a few seconds, the pulse is already strong and dopplerable in dorsalis pedis and posterior tibial and the foot warms up. The area is irrigated with saline, meticulous hemostasis obtained. A 10 flat RAE drain is placed in the preperitoneal space over the iliac and then incisions closed in layers with #1 Vicryl and sadia and the same is done with the groin. The patient tolerated the procedure well. At the end of the procedure the patient has a well perfused, warm foot with strong dopplerable dorsalis pedis and posterior tibial pulses, dopplerable strong popliteal pulse and palpable groin pulses. MD CELESTE Iqbal/PÉREZ , 01:13 PM , 01:54 PM GOLDEN
--- NOTE | 2018-01-02 14:54 | HHI.CCPN ---
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 Foot is warm well perfused and good capillary refill is present Patient should be on Plavix for the next 2 months till the patch grafts endothelialize In addition it should be noted that patient had a HANNAH hose on his left leg all night which is clearly contraindicated in patients with peripheral vascular operations Matter fact that was told by the nurse that the HANNAH hose had to be cut off this morning and then suddenly the pulses distally became "more brisk". Absolutely no HANNAH hose should be applied to patients with vascular operations Objective Vital Signs Date Time Temp Pulse Resp B/P (MAP) Pulse Ox O2 Delivery O2 Flow Rate FiO2 01/02/18 12:30 93 Simple Mask 6.00 50 01/02/18 11:16 108 107/61 01/02/18 11:00 98.9 12 Intake and Output 01/02/18 01/02/18 01/03/18 08:00 16:00 00:00 Intake Total 906 ml 200 ml Output Total 1220 ml Balance -314 ml 200 ml Result Diagram: 01/02/18 1000 01/02/18 1000 Other Results Laboratory Tests Test 01/02/18 10:51 Blood Gas Puncture Site MARCOS Blood Gas Patient Temperature 98.6 Venous Blood pH 7.38 (7.360-7.400) Venous Blood Partial Pressure CO2 44 mmHg (44-48) Venous Blood Partial Pressure O2 42 mmHg (35-40) Venous Blood HCO3 26 mmol/L (22-26) Venous Blood Oxygen Saturation 75 % (70-76) Venous Blood Oxygen Content 9.8 Vol % (9.0-17.0) Venous Blood Base Excess 0.9 mmol/L (-2-2) Oxygen Delivery Device NASAL CANNULA Blood Gas Liter Flow 4 L/M Imaging Last 24 hours Impressions Chest X-Ray 01/02/18 0500 Signed Impressions: Service Date/Time: Tuesday, January 02, 2018 04:14 - CONCLUSION: 1. Bibasilar densities likely atelectasis. 2. Status post CABG. Rajendra F. MD Bryce Paniagua Slobodan MD Jan 02, 2018 14:54
[2018-01-02] MEDS: ONDANSETRON HCL 4 MG/2 ML VIAL IV PUSH PRN (19:00)
--- NOTE | 2018-01-02 22:15 | EKG ---
Date Performed: 01/02/2018 Time Performed: 05:45:48 PTAGE: 72 years EKG: Sinus rhythm Left axis deviation LVH with secondary repolarization abnormality Ant/septal and lateral ST-T change s Abnormal ECG PREVIOUS TRACING : 12/25/2017 11.08 Compared to previous tracing, ST-T changes more prominent DOCTOR: Zaria Hazel Interpretating Date/Time 01/02/2018 22:13:33
[2018-01-03] VITALS (12 sets, daily range): BP systolic 101–134; BP diastolic 53–79; PULSE 103–134; RESP 14–18; TEMP 98–98.6; O2SAT 95–99
[2018-01-03] MEDS: ALBUMIN 5% INJ 250 ML IV PRN (00:06)
[2018-01-03] MEDS: oxyCODONE/ACETAMINOPHEN 5 MG/325 MG TAB PO PRN ×3 (02:36→10:49)
[2018-01-03] MEDS: RESP: ALBUTEROL 2.5 MG/IPRATROPIUM 0.5 MG NEB (SCH) NEB ×3 (03:40→19:34)
--- NOTE | 2018-01-03 05:00 | RADRPT ---
EXAM DATE/TIME: 01/03/2018 03:39 [place] COMPARISON: CHEST SINGLE AP, January 02, 2018, 4:14. INDICATIONS : Shortness of breath, possible pulmonary disease. MEDICAL HISTORY : Cardiovascular disease. Renal calculi. Hypertension. SURGICAL HISTORY : CABG. ENCOUNTER: Subsequent ACUITY: 1 week PAIN SCORE: Non-responsive. LOCATION: Bilateral chest FINDINGS: A single view of the chest demonstrates cardiomegaly and previous CABG. Mediastinal chest tube and tu be overlying the right hemithorax are unchanged. No definite pneumothorax. Minimal bibasilar densitie s. Endotracheal tube and nasogastric tube have been removed. Osseous structures are intact. CONCLUSION: 1. Minimal bibasilar densities. 2. Status post CABG. Rajendra Paniagua MD on January 03, 2018 at 4:57 Board Certified Radiologist. This report was verified electronically.
[2018-01-03 05:16] LABS: HEMATOCRIT 24.1 % (39.0-51.0); HEMOGLOBIN 8.3 GM/DL (13.0-17.0); MEAN CELL VOLUME 85.5 FL (80.0-100.0); MEAN CORPUSCULAR HEMOGLOBIN 29.5 PG (27.0-34.0); MEAN CORPUSCULAR HGB CONC 34.5 % (32.0-36.0); MEAN PLATELET VOLUME 9.3 FL (7.0-11.0); PLATELET COUNT 57 TH/MM3 (150-450); RED BLOOD COUNT 2.82 MIL/MM3 (4.50-5.90); RED CELL DISTRIBUTION WIDTH 16.1 % (11.6-17.2); WHITE BLOOD COUNT 12.2 TH/MM3 (4.0-11.0)
[2018-01-03 05:32] LABS: ALBUMIN 2.6 GM/DL (3.4-5.0); ALT (GPT) 17 U/L (12-78); AST (GOT) 38 U/L (15-37); BICARBONATE 26.4 MEQ/L (21.0-32.0); BLOOD UREA NITROGEN 27 MG/DL (7-18); CALCIUM 7.9 MG/DL (8.5-10.1); CHLORIDE 108 MEQ/L (98-107); CREATININE 1.12 MG/DL (0.60-1.30); GLOMERULAR FILTRATION RATE 64 ML/MIN (>89); GLUCOSE,RANDOM 121 MG/DL (74-106); MAGNESIUM 2.1 MG/DL (1.5-2.5); SODIUM (NA) 141 MEQ/L (136-145)
[2018-01-03 05:34] LABS: ALKALINE PHOSPHATASE 44 U/L (45-117); TOTAL BILIRUBIN ADULT 0.7 MG/DL (0.2-1.0); TOTAL PROTEIN 4.7 GM/DL (6.4-8.2)
[2018-01-03] MEDS: PANTOPRAZOLE SOD 40 MG DELAYED RELEASE TAB PO SCH (06:06)
[2018-01-03] MEDS ORDERED: BISACODYL 10 MG SUPP RECTAL PRN (08:45)
[2018-01-03] MEDS ORDERED: GLUCAGON 1 MG/ML VIAL OTHER PRN (08:45)
[2018-01-03] MEDS ORDERED: DEXTROSE 50% IN WATER 50 ML VIAL(D50) IV PUSH PRN (08:45)
[2018-01-03] MEDS ORDERED: SOD PHOSPHATE/SOD BIPHOSPHATE (ADULT) ENEMA 133ML RECTAL PRN (08:45)
[2018-01-03] MEDS: DOCUSATE SODIUM 100 MG CAP PO SCH ×3 (09:00→21:46)
[2018-01-03] MEDS: MUPIROCIN 2% OINT 22 GM TUBE EACH NARE SCH ×2 (09:00→21:00)
[2018-01-03] MEDS ORDERED: FUROSEMIDE 100 MG/10 ML VIAL IV PUSH ONE (09:00)
[2018-01-03] MEDS: ASPIRIN 81 MG CHEW TAB PO SCH (09:00)
[2018-01-03] MEDS: PRAVASTATIN SOD 10 MG TAB PO SCH (09:00)
--- NOTE | 2018-01-03 09:16 | HHI.CCPN ---
Subjective Remarks/Hospital Course Hospital Course: Patient is a 72 year old male with past medical history significant for hypertension, dyslipidemia, thoracic aortic aneurysm (4.4 cm aneurysmal dilatation of aortic root), alcohol abuse, tobacco abuse who was recently treated in hospital (12/01/17 to 12/10/17) for community-acquired pneumonia, ACS/ non-ST elevation RI, nonsustained V. tach and sepsis. At that time was by seen Dr. Stevenson. 2-D echo showed an EF of 35-40%, global LV dysfunction, severe aortic stenosis with a valve area of 0.41 (MG 50, PG 85). Cardiac catheterization showed nonobstructing coronary disease. CTS consulted for AVR. Patient was discharged home by hospitalist on 12/10/2017, LifeVest was prescribed Patient was admitted yesterday to Dr. Coffey service and, underwent attempted minimally invasive AVR, which was converted to sternotomy/AVR with a 27 tissue valve. Complicated by laceration of the left external iliac artery, Dr. Wu was consulted and he repaired the external iliac artery. Apparently there was loss of pulse to Left lower extremity in the evening distal to the the Perclose device. Patient was taken again to the OR, there was occlusion of the common femoral artery under the Perclose device which was repaired, and flow reestablished. Total EBL for AVR and vascular repair x2 was 2.6 L and patient received 4 U PRBC, 3L crystalloid. Remains on 6 mcg/min of epinephrine and remains intubated. [facility] consulted for management persistent shock and respiratory failure. On my evaluation patient is breathing comfortably following commands, but remains in persistent shock requiring epinephrine. Hemoglobin in a.m. was 10.4 repeat labs ordered including CBC CMP random cortisol lactic acid levels. A stat 2D echo was also requested. Further recommendations will be based on studies. Patient has EF of 35-40% on previous echo. Subjective: 01/03: up in a chair. appears more well-perfused. remains on dobutamine at 1.5 mcg/kg/min. very volume overloaded with pulmonary edema and increased o2 requirement today. complains of worsening shortness of breath and incisional chest pain. Objective Vital Signs Date Time Temp Pulse Resp B/P (MAP) Pulse Ox O2 Delivery O2 Flow Rate FiO2 01/03/18 07:00 98.2 108 14 108/74 (85) 96 114/70 (85) 01/03/18 07:00 Nasal Cannula 5.00 01/02/18 15:00 40 Intake and Output 01/03/18 01/03/18 01/04/18 08:00 16:00 00:00 Intake Total 1078 ml Output Total 720 ml Balance 358 ml Result Diagram: 01/03/18 0422 01/03/18 0422 Other Results Laboratory Tests Test 01/02/18 10:51 Blood Gas Puncture Site MARCOS Blood Gas Patient Temperature 98.6 Venous Blood pH 7.38 (7.360-7.400) Venous Blood Partial Pressure CO2 44 mmHg (44-48) Venous Blood Partial Pressure O2 42 mmHg (35-40) Venous Blood HCO3 26 mmol/L (22-26) Venous Blood Oxygen Saturation 75 % (70-76) Venous Blood Oxygen Content 9.8 Vol % (9.0-17.0) Venous Blood Base Excess 0.9 mmol/L (-2-2) Oxygen Delivery Device NASAL CANNULA Blood Gas Liter Flow 4 L/M Imaging Chest x-ray with bibasilar atelectasis Objective Remarks GENERAL: 72-year-old male, extubated, sitting in chair. HEENT: Normocephalic. Atraumatic. Pupils are 3 mm, equal, reactive NECK: Trachea is midline. +JVD. right IJ introducer sheath in place. CHEST: Midline sternotomy incision with wound VAC in place. An entry equal bilaterally. chest tube exits subxiphoid CARDIOVASCULAR: tachycardic rate, regular rhythm. sinus. on dobutamine at 1.5 mcg/kg/min. +JVD. ABDOMEN: Soft, nontender, nondistended. No guarding. LLQ wound VAC in place MUSCULOSKELETAL: L groin wound vac in place. Left dorsalis pedis pulses are dopplerable, left PT pulses palpable. warm, well perfused. NEUROLOGICAL: Alert awake. Following commands. A/P Assessment and Plan ASSESSMENT: Acute hypoxic Respiratory failure - improving Cardiogenic Shock - improving. s/p minimally invasive AVR converted to sternotomy/AVR with a 27 tissue valve Laceration of the left external iliac artery with retroperitoneal bleeding s/p repair s/p second repair for occlusion of common femoral artery secondary to Perclose device Anemia secondary to acute blood loss requiring transfusion Relative adrenal insufficiency Hypokalemia Coronary artery disease Nonsustained V. tach Cardiomyopathy EF 35-40% Acute intravascular volume overload Acute pulmonary edema PLAN: NEURO: -Minimize sedation, discontinue Precedex -Morphine as needed for postoperative pain RESP: -CPAP trials, extubated 01/02 -DuoNeb q6 hr PRN -Aggressive pulmonary toilet after extubation -Chest tube management per CT surgery - start forced diuresis, lasix 80mg iv x 1. CV: -Stat echo-on my read EF appears 25% on 6 mcg/min of epinephrine, dilated LV -New aortic valve appears well-positioned without significant leak or regurgitation -continue dobutamine while diuresing to improve cardiac output. -Laceration of the left external iliac artery with retroperitoneal bleeding s/p repair-management per Dr. Baries -Hold off beta blockers secondary to shock. Aspirin when cleared by CT surgery -Relative adrenal insufficiency, random cortisol 5.6 while hypotensive on pressors -Hydrocortisone 100 mg IV every 8 hours GI: -slowly advance diet. -PPI : -Monitor renal function closely. Maintain Luis catheter. lasix 80mg iv x 1. goal net -2L/24h. ID: -Perioperative antibiotics per CT surgery HEME: -Monitor CBC, CMP, coags, fibrinogen -Received 4 units PRBC 01/01, hemoglobin stable ENDO: -Electrolyte replacement per protocol -Calcium replacement with blood transfusion PROPH: -Avoid chemical DVT prophylaxis until cleared by both CT surgery and vascular surgery. -Protonix for GI prophylaxis LINES: -Continue central line, arterial line and Luis dispo: remain in ICU. OVERALL IMPRESSION: Remains critically ill and although extubated, remains on inotropes in resolving cardiogenic shock and now pulmonary edema and volume overload. very likely may decline if we are unable to adequately achieve volume removal. Highly complex. remain in ICU. Keagan Funk MD Jan 03, 2018 09:15
[2018-01-03] MEDS: SODIUM CHLORIDE 0.9% FLUSH 10 ML FLUSH IV FLUSH SCH ×2 (09:26→21:47)
[2018-01-03] MEDS: MULTIVITAMINS/MINERALS THERAPEUTIC TAB PO SCH (09:26)
[2018-01-03] MEDS: MAGNESIUM HYDROXIDE SUSP 30 ML CUP PO SCH (09:26)
[2018-01-03] MEDS: INSULIN ASPART SUPPLEMENTAL SCALE SQ SCH ×3 (10:00→18:00)
[2018-01-03] MEDS: DOBUTamine PREMIX DRIP 250 ML IV PRN (10:23)
--- NOTE | 2018-01-03 10:44 | PD.CAR.PN ---
CVT Progress Note Subjective/Hospital Course: 72/ male intially seen 12/04/17 , Patient of Dr. Lars Tillman, also patient of Dr. Stevenson. Presented with shortness of breath, also chills, diarrhea for about 3-5 days prior presented to the emergency room, left-sided chest pain, nonpleuritic, nonradiating. No diaphoresis, nausea or vomiting. Upon arrival to the emergency department, he was then pain free. He had been recently treated for a right groin infection where they started him on Bactrim on the . His troponin was 0.07. They also did a CT chest, which shows early right lower lobe pneumonia. He was started on Zithromax and Zosyn. He was transferred to the ICU on the for respiratory distress, was placed on BIPAP, was given a dose of Lasix, which he has since improved. He is now on 4 L nasal cannula. He has been afebrile. He underwent 2-D echo on the , which showed an EF of 35-40%, global left ventricular dysfunction, systolic dysfunction with severe aortic valve stenosis with a valve area of 0.41, mean gradient of 50, peak gradient of 85. There was no mitral valve stenosis or regurgitation. The left atrium and the right atrial sizes were normal. There was some moderate pulmonary hypertension with a PA pressure of 51 mmHg. No evidence of effusion. He then underwent cardiac cath today by Dr. Stevenson, which showed nonobstructing coronary disease. We were consulted to evaluate for aortic valve replacement PAST MEDICAL HISTORY: Includes hypertension, hyperlipidemia, history of thoracic aortic aneurysm, which he just had a CT chest, which showed that the ascending thoracic aorta was unchanged at 4.4 cm. There was evidence of mild pneumonia in the right lower lobe, mild emphysema. History of tobacco use, recent right groin infection, history of benign prostatic hypertrophy, history of prior E. coli biliary sepsis. He has had surgeries including ERCP where 3 stones were removed, extended sphincterotomy. He has had a laparoscopic cholecystectomy. 01/01 he was electively admitted today for surgery surgery: Minimally invasive AVR converted to sternotomy for AVR with a 27 Magna ease tissue valve BRIDGER Ultrasound guided percutaneous left femoral artery and vein access with arterial Perclose closure Emergent left retroperitoneal exploration for bleeding Dr Wu :Repair of the external iliac artery by preperitoneal approach. Iatrogenically laceration of the left external iliac artery at the junction of the common femoral artery, retroperitoneal bleeding. 2/2 Iatrogenically laceration of the left external iliac artery at the junction of the common femoral artery, retroperitoneal bleeding. crystalloid 5600cc, 3 units PRBC, cell saver 1200cc EBL 2600cc pt then returned to OR last evening for repair left common femoral patch crystalloid 1600cc, one unit PRBC EBL 600cc 01/02 pt remained intubated on vent this am , weaned off propofol, weaning Epi gtt at 4mcq/ BP still labile EF 30% , awake follows commands , urine output stable , + 1 air leak noted in chest tube will keep in CVICU, remove right fem chet 01/03 up in chair, more awake and alert / remains on dobutamine at 1.5mcq CXR volume overload, remains on 5 liter nasal cannula / needs aggressive diuresis EF on Echo 25-30%, no BB at this time remains on stress dose steroids for low cortisol levels improved perfusion left foot / still has bilateral doppler pulses lower ext appreciate CCM Objective: GENERAL: A&O x 3 SKIN: Warm and dry. prevena dressing to chest , prevena left upper abd and left groin , RAE drain in place, drained 90cc/ 12 hrs HEAD: Normocephalic. EYES: No scleral icterus. No injection or drainage. NECK: Supple, trachea midline. No JVD or lymphadenopathy. CARDIOVASCULAR: slightly tachycardic with Pac's Regular rate and rhythm without murmurs, gallops, or rubs. RESPIRATORY: Breath sounds equal bilaterally. No accessory muscle use. few basilar crackles, chest tube drained 180cc/ 12 hrs , no air leak GASTROINTESTINAL: Abdomen soft, non-tender, nondistended. MUSCULOSKELETAL: No cyanosis, or edema. BACK: Nontender without obvious deformity. No CVA tenderness. Vital Signs Date Time Temp Pulse Resp B/P (MAP) Pulse Ox O2 Delivery O2 Flow Rate FiO2 01/03/18 10:23 108 114/70 01/03/18 09:13 97 Nasal Cannula 5.00 01/03/18 08:00 107 131/84 01/03/18 07:00 98.2 108 14 108/74 (85) 96 114/70 (85) 01/03/18 07:00 108 01/03/18 07:00 96 Nasal Cannula 5.00 01/03/18 07:00 108 114/70 01/03/18 03:41 99 Nasal Cannula 5.00 01/03/18 03:34 98.0 108 18 101/68 (79) 99 108/58 (75) 01/03/18 03:34 99 Nasal Cannula 5.00 01/03/18 03:00 109 01/03/18 02:00 93 Nasal Cannula 5.00 01/03/18 00:41 98 Simple Mask 6.00 01/03/18 00:00 99 Simple Mask 6.00 01/02/18 23:53 105 01/02/18 23:22 97.7 104 16 117/72 (87) 98 110/59 (76) 01/02/18 23:22 98 Simple Mask 8.00 01/02/18 21:25 89 Simple Mask 8.00 01/02/18 20:21 98 Nasal Cannula 5.00 01/02/18 19:30 97.7 112 20 101/71 (81) 95 88/51 (63) 01/02/18 19:30 95 Nasal Cannula 5.00 01/02/18 19:00 117 01/02/18 17:15 111 107/68 01/02/18 15:00 98.3 112 12 89/62 (71) 94 102/61 (75) 01/02/18 15:00 112 01/02/18 15:00 94 Venturi Mask 40 Nasal Cannula 01/02/18 14:00 112 111/73 01/02/18 13:00 111 96/62 01/02/18 12:30 93 Simple Mask 6.00 50 01/02/18 11:16 108 107/61 01/02/18 11:00 103 01/02/18 11:00 95 Nasal Cannula 4.00 01/02/18 11:00 98.9 103 12 95/58 (70) 95 112/60 (77) Labs: Laboratory Tests Test 01/03/18 04:22 White Blood Count 12.2 TH/MM3 (4.0-11.0) Red Blood Count 2.82 MIL/MM3 (4.50-5.90) Hemoglobin 8.3 GM/DL (13.0-17.0) Hematocrit 24.1 % (39.0-51.0) Mean Corpuscular Volume 85.5 FL (80.0-100.0) Mean Corpuscular Hemoglobin 29.5 PG (27.0-34.0) Mean Corpuscular Hemoglobin Concent 34.5 % (32.0-36.0) Red Cell Distribution Width 16.1 % (11.6-17.2) Platelet Count 57 TH/MM3 (150-450) Mean Platelet Volume 9.3 FL (7.0-11.0) Blood Urea Nitrogen 27 MG/DL (7-18) Creatinine 1.12 MG/DL (0.60-1.30) Random Glucose 121 MG/DL (74-106) Total Protein 4.7 GM/DL (6.4-8.2) Albumin 2.6 GM/DL (3.4-5.0) Calcium Level 7.9 MG/DL (8.5-10.1) Magnesium Level 2.1 MG/DL (1.5-2.5) Alkaline Phosphatase 44 U/L (45-117) Aspartate Amino Transf (AST/SGOT) 38 U/L (15-37) Alanine Aminotransferase (ALT/SGPT) 17 U/L (12-78) Total Bilirubin 0.7 MG/DL (0.2-1.0) Sodium Level 141 MEQ/L (136-145) Potassium Level 4.6 MEQ/L (3.5-5.1) Chloride Level 108 MEQ/L (98-107) Carbon Dioxide Level 26.4 MEQ/L (21.0-32.0) Anion Gap 7 MEQ/L (5-15) Estimat Glomerular Filtration Rate 64 ML/MIN (>89) Result Diagram: 01/03/1842101/03/18421 Telemetry: sinus tach with pac (1) s/p repair external iliac artery (2) S/P AVR (aortic valve replacement) Plan: extubated yesterday / on 5 liter nasal cannula now on dobutamine at 1.5mcq diuresis pulm toileting leave in ICU today (3) Severe aortic stenosis (4) Systolic and diastolic CHF, acute on chronic Plan: EF 30% , received multiple blood products and crystalloid for diuresis today (5) Hypertension (6) Postoperative hypotension Plan: improving (7) Blood loss anemia Plan: s/p 4 units PRBC , f/u labs monitor drainage from RAE drain (8) Thrombocytopenia Plan: hold ASA PLT> 57 2/2 consumption Isidra Holland Jan 03, 2018 10:44
--- NOTE | 2018-01-03 13:38 | EKG ---
Date Performed: 01/02/2018 Time Performed: 12:15:48 PTAGE: 72 years EKG: Sinus tachycardia with PVC(s) Possible left anterior fascicular block Ant/septal and latera l ST-T changes may be due to myocardial ischemia Abnormal ECG Compared to PREVIOUS TRACING , anterior T-wave abnormalities have improved. Clinical correlation is n eeded. PREVIOUS TRACIN01/02/2018 05.45 DOCTOR: Onel Law Interpretating Date/Time 01/03/2018 13:37:27
[2018-01-03] MEDS: HYDROCORTISONE SOD SUCCINATE 100 MG VIAL IV SCH ×2 (15:53→21:46)
--- NOTE | 2018-01-03 16:27 | HHI.CCPN ---
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 Foot is warm well perfused and good capillary refill is present Patient should be on Plavix for the next 2 months till the patch grafts endothelialize In addition it should be noted that patient had a HANNAH hose on his left leg all night which is clearly contraindicated in patients with peripheral vascular operations Matter fact that was told by the nurse that the HANNAH hose had to be cut off this morning and then suddenly the pulses distally became "more brisk". Absolutely no HANNAH hose should be applied to patients with vascular operations 01/03/2019 Patient doing very well this time Groin incisions are clean and dry Long-term dressing applied Patient has excellent palpable femoral pulse and strong Doppler detectable popliteal dorsalis pedis and posterior tibial pulses/foot is warm Patient can be out of bed and ambulate as tolerated DC Jeremy-Mayer drain Objective Vital Signs Date Time Temp Pulse Resp B/P (MAP) Pulse Ox O2 Delivery O2 Flow Rate FiO2 01/03/18 11:31 98 Nasal Cannula 3.00 01/03/18 11:00 103 01/03/18 11:00 98.4 16 108/63 (78) 122/68 (86) 01/02/18 15:00 40 Intake and Output 01/03/18 01/03/18 01/04/18 08:00 16:00 00:00 Intake Total 1078 ml 21 ml Output Total 720 ml Balance 358 ml 21 ml Result Diagram: 01/03/18 0422 01/03/18 0422 Imaging Last 24 hours Impressions Chest X-Ray 01/03/18 0600 Signed Impressions: Service Date/Time: December 03:39 - CONCLUSION: 1. Minimal bibasilar densities. 2. Status post CABG. MD Bryce Mueller Slobodan MD Jan 03, 2018 16:26
[2018-01-03] MEDS: SENNOSIDES 8.6 MG TAB PO SCH (21:46)
[2018-01-03] MEDS ORDERED: AMIODARONE INJ 450 MG in SODIUM CHLOR 0.9% (EXCEL) INJ 241 ML IV PRN (23:45)
[2018-01-03] MEDS ORDERED: AMIODARONE 150 MG/D5W 97 ML BOLUS 60 MINUTES IV ONE ×2 (23:45)
[2018-01-04] VITALS (16 sets, daily range): BP systolic 87–136; BP diastolic 48–97; PULSE 86–102; RESP 16–20; TEMP 97.6–98.2; O2SAT 94–98
[2018-01-04] MEDS: INSULIN ASPART SUPPLEMENTAL SCALE SQ SCH ×7 (00:09→21:52)
[2018-01-04 04:37] LABS: BASOPHIL % 0.1 % (0.0-2.0); HEMATOCRIT 22.7 % (39.0-51.0); HEMOGLOBIN 7.7 GM/DL (13.0-17.0); LYMPH % 5.9 % (9.0-44.0); LYMPHOCYTE # 0.7 TH/MM3 (1.0-4.8); MEAN CELL VOLUME 85.9 FL (80.0-100.0); MEAN CORPUSCULAR HEMOGLOBIN 29.2 PG (27.0-34.0); MEAN PLATELET VOLUME 9.1 FL (7.0-11.0); MONO % 3.7 % (0.0-8.0); MONOCYTE # 0.4 TH/MM3 (0-0.9); NEUT % 90.3 % (16.0-70.0); PLATELET COUNT 65 TH/MM3 (150-450); RED BLOOD COUNT 2.64 MIL/MM3 (4.50-5.90); WHITE BLOOD COUNT 11.1 TH/MM3 (4.0-11.0)
[2018-01-04 05:08] LABS: BICARBONATE 31.2 MEQ/L (21.0-32.0); CALCIUM 7.7 MG/DL (8.5-10.1); CREATININE 0.87 MG/DL (0.60-1.30); MAGNESIUM 2.1 MG/DL (1.5-2.5)
[2018-01-04] MEDS: HYDROCORTISONE SOD SUCCINATE 100 MG VIAL IV SCH ×3 (06:56→21:24)
[2018-01-04] MEDS: PANTOPRAZOLE SOD 40 MG DELAYED RELEASE TAB PO SCH (06:56)
[2018-01-04] MEDS: RESP: ALBUTEROL 2.5 MG/IPRATROPIUM 0.5 MG NEB (SCH) NEB (07:01)
[2018-01-04] MEDS ORDERED: SODIUM CHLOR 0.9% 250 ML INJ 250 ML IV ONE (07:30)
[2018-01-04] MEDS ORDERED: FUROSEMIDE 20 MG/2 ML VIAL IV PUSH ONE (07:30)
[2018-01-04] MEDS: SODIUM CHLORIDE 0.9% FLUSH 10 ML FLUSH IV FLUSH SCH ×2 (09:00→21:24)
[2018-01-04] MEDS: MAGNESIUM HYDROXIDE SUSP 30 ML CUP PO SCH (09:00)
[2018-01-04] MEDS ORDERED: PILL SPLITTER OTHER PRN (09:00)
[2018-01-04] MEDS: POLYETHYLENE GLYCOL 17 GM PKG PO SCH (09:00)
[2018-01-04] MEDS: PRAVASTATIN SOD 10 MG TAB PO SCH (09:00)
[2018-01-04] MEDS: ASPIRIN 81 MG CHEW TAB PO SCH (09:00)
[2018-01-04] MEDS: MULTIVITAMINS/MINERALS THERAPEUTIC TAB PO SCH (09:00)
[2018-01-04] MEDS: DOCUSATE SODIUM 100 MG CAP PO SCH ×2 (09:00→21:24)
[2018-01-04] MEDS: METOPROLOL TARTRATE 25 MG TAB PO SCH ×2 (09:00→21:25)
[2018-01-04] MEDS: MUPIROCIN 2% OINT 22 GM TUBE EACH NARE SCH ×2 (09:00→21:00)
[2018-01-04] MEDS ORDERED: FUROSEMIDE 40 MG/4 ML VIAL IV PUSH ONE ×2 (11:45→18:00)
--- NOTE | 2018-01-04 11:46 | HHI.CCPN ---
Subjective Remarks/Hospital Course Hospital Course: Patient is a 72 year old male with past medical history significant for hypertension, dyslipidemia, thoracic aortic aneurysm (4.4 cm aneurysmal dilatation of aortic root), alcohol abuse, tobacco abuse who was recently treated in hospital (12/01/17 to 12/10/17) for community-acquired pneumonia, ACS/ non-ST elevation HI, nonsustained V. tach and sepsis. At that time was by seen Dr. Stevenson. 2-D echo showed an EF of 35-40%, global LV dysfunction, severe aortic stenosis with a valve area of 0.41 (MG 50, PG 85). Cardiac catheterization showed nonobstructing coronary disease. CTS consulted for AVR. Patient was discharged home by hospitalist on 12/10/2017, LifeVest was prescribed Patient was admitted yesterday to Dr. Coffey service and, underwent attempted minimally invasive AVR, which was converted to sternotomy/AVR with a 27 tissue valve. Complicated by laceration of the left external iliac artery, Dr. Wu was consulted and he repaired the external iliac artery. Apparently there was loss of pulse to Left lower extremity in the evening distal to the the Perclose device. Patient was taken again to the OR, there was occlusion of the common femoral artery under the Perclose device which was repaired, and flow reestablished. Total EBL for AVR and vascular repair x2 was 2.6 L and patient received 4 U PRBC, 3L crystalloid. Remains on 6 mcg/min of epinephrine and remains intubated. [facility] consulted for management persistent shock and respiratory failure. On my evaluation patient is breathing comfortably following commands, but remains in persistent shock requiring epinephrine. Hemoglobin in a.m. was 10.4 repeat labs ordered including CBC CMP random cortisol lactic acid levels. A stat 2D echo was also requested. Further recommendations will be based on studies. Patient has EF of 35-40% on previous echo. Subjective: 01/03: up in a chair. appears more well-perfused. remains on dobutamine at 1.5 mcg/kg/min. very volume overloaded with pulmonary edema and increased o2 requirement today. complains of worsening shortness of breath and incisional chest pain. 01/04: good diuresis yesterday. off inotropes. clinically improving. hgb dropped to 7.7 from 8.3 and receiving 2 units prbc from surgery. still needs significant diuresis. ROS negative. Objective Vital Signs Date Time Temp Pulse Resp B/P (MAP) Pulse Ox O2 Delivery O2 Flow Rate FiO2 01/04/18 11:00 98.2 100 18 101/81 (88) 94 Arterial Line 01/04/18 11:00 Nasal Cannula 4.00 01/02/18 15:00 40 Intake and Output 01/04/18 01/04/18 01/05/18 08:00 16:00 00:00 Intake Total 440.1 ml Output Total 910 ml Balance -469.9 ml Result Diagram: 01/04/18 0400 01/04/18 0400 Imaging Chest x-ray with bibasilar atelectasis Objective Remarks GENERAL: 72-year-old male, extubated, sitting in chair. HEENT: Normocephalic. Atraumatic. Pupils are 3 mm, equal, reactive NECK: Trachea is midline. +JVD. right IJ introducer sheath in place. CHEST: Midline sternotomy incision with wound VAC in place. An entry equal bilaterally. chest tube exits subxiphoid CARDIOVASCULAR: tachycardic rate, regular rhythm. sinus. on dobutamine at 1.5 mcg/kg/min. +JVD. ABDOMEN: Soft, nontender, nondistended. No guarding. LLQ wound VAC in place MUSCULOSKELETAL: L groin wound vac in place. Left dorsalis pedis pulses are dopplerable, left PT pulses palpable. warm, well perfused. NEUROLOGICAL: Alert awake. Following commands. A/P Assessment and Plan ASSESSMENT: Acute hypoxic Respiratory failure - improving Cardiogenic Shock - improving. s/p minimally invasive AVR converted to sternotomy/AVR with a 27 tissue valve Laceration of the left external iliac artery with retroperitoneal bleeding s/p repair s/p second repair for occlusion of common femoral artery secondary to Perclose device Anemia secondary to acute blood loss requiring transfusion Relative adrenal insufficiency Hypokalemia Coronary artery disease Nonsustained V. tach Cardiomyopathy EF 35-40% Acute intravascular volume overload Acute pulmonary edema PLAN: NEURO: -Minimize sedation, discontinue Precedex -Morphine as needed for postoperative pain RESP: -CPAP trials, extubated 01/02 -DuoNeb q6 hr PRN -Aggressive pulmonary toilet after extubation -Chest tube management per CT surgery - start forced diuresis, lasix 80mg iv x 1. CV: -Stat echo-on my read EF appears 25% on 6 mcg/min of epinephrine, dilated LV -New aortic valve appears well-positioned without significant leak or regurgitation -continue dobutamine while diuresing to improve cardiac output. -Laceration of the left external iliac artery with retroperitoneal bleeding s/p repair-management per Dr. Baires -Hold off beta blockers secondary to shock. Aspirin when cleared by CT surgery -Relative adrenal insufficiency, random cortisol 5.6 while hypotensive on pressors -Hydrocortisone 100 mg IV every 8 hours, taper. GI: -slowly advance diet. -PPI : -Monitor renal function closely. ok to d/c goode. lasix 40mg iv q8h today. goal net -2L/24h. ID: -Perioperative antibiotics per CT surgery HEME: -Monitor CBC, CMP, coags, fibrinogen -Received 4 units PRBC 01/01, hemoglobin stable receiving 2 units prbc today. ENDO: -Electrolyte replacement per protocol -Calcium replacement with blood transfusion PROPH: -Avoid chemical DVT prophylaxis until cleared by both CT surgery and vascular surgery. -Protonix for GI prophylaxis LINES: -d/c art line and goode. dispo: ok to transfer out of ICU. OVERALL IMPRESSION: Clinically improving. needs ongoing forced diuresis. PT and mobilization. can transfer out of ICU provided that he continues to diurese and o2 requirement remains low. Critical care medicine will sign off when patient transfers out of ICU. Keagan Funk MD Jan 04, 2018 11:46
[2018-01-04] MEDS: MAGNESIUM SULFATE 1 GM PREMIX 100 ML IV SCH ×2 (12:00→13:00)
--- NOTE | 2018-01-04 12:36 | HHI.CCPN ---
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 Foot is warm well perfused and good capillary refill is present Patient should be on Plavix for the next 2 months till the patch grafts endothelialize In addition it should be noted that patient had a HANNAH hose on his left leg all night which is clearly contraindicated in patients with peripheral vascular operations Matter fact that was told by the nurse that the HANNAH hose had to be cut off this morning and then suddenly the pulses distally became "more brisk". Absolutely no HANNAH hose should be applied to patients with vascular operations 01/03/2019 Patient doing very well this time Groin incisions are clean and dry Long-term dressing applied Patient has excellent palpable femoral pulse and strong Doppler detectable popliteal dorsalis pedis and posterior tibial pulses/foot is warm Patient can be out of bed and ambulate as tolerated DC Jeremy-Mayer drain 01/04/2018 Doing well from vascular point Well-perfused left leg Patient can be out of bed and ambulate May transfer to floor from my point Nothing to add to care Follow-up with me in about 2 months in the office Objective Vital Signs Date Time Temp Pulse Resp B/P (MAP) Pulse Ox O2 Delivery O2 Flow Rate FiO2 01/04/18 12:32 98.2 90 16 117/86 98 01/04/18 11:00 Nasal Cannula 4.00 01/02/18 15:00 40 Intake and Output 01/04/18 01/04/18 01/05/18 08:00 16:00 00:00 Intake Total 440.1 ml Output Total 910 ml Balance -469.9 ml Result Diagram: 01/04/1839901/04/18399 Lissette Wu MD Jan 04, 2018 12:36
--- NOTE | 2018-01-04 13:39 | PD.CAR.PN ---
CVT Progress Note Subjective/Hospital Course: 72/ male intially seen 12/04/17 , Patient of Dr. Lars Tillman, also patient of Dr. Stevenson. Presented with shortness of breath, also chills, diarrhea for about 3-5 days prior presented to the emergency room, left-sided chest pain, nonpleuritic, nonradiating. No diaphoresis, nausea or vomiting. Upon arrival to the emergency department, he was then pain free. He had been recently treated for a right groin infection where they started him on Bactrim on the . His troponin was 0.07. They also did a CT chest, which shows early right lower lobe pneumonia. He was started on Zithromax and Zosyn. He was transferred to the ICU on the for respiratory distress, was placed on BIPAP, was given a dose of Lasix, which he has since improved. He is now on 4 L nasal cannula. He has been afebrile. He underwent 2-D echo on the , which showed an EF of 35-40%, global left ventricular dysfunction, systolic dysfunction with severe aortic valve stenosis with a valve area of 0.41, mean gradient of 50, peak gradient of 85. There was no mitral valve stenosis or regurgitation. The left atrium and the right atrial sizes were normal. There was some moderate pulmonary hypertension with a PA pressure of 51 mmHg. No evidence of effusion. He then underwent cardiac cath today by Dr. Stevenson, which showed nonobstructing coronary disease. We were consulted to evaluate for aortic valve replacement PAST MEDICAL HISTORY: Includes hypertension, hyperlipidemia, history of thoracic aortic aneurysm, which he just had a CT chest, which showed that the ascending thoracic aorta was unchanged at 4.4 cm. There was evidence of mild pneumonia in the right lower lobe, mild emphysema. History of tobacco use, recent right groin infection, history of benign prostatic hypertrophy, history of prior E. coli biliary sepsis. He has had surgeries including ERCP where 3 stones were removed, extended sphincterotomy. He has had a laparoscopic cholecystectomy. 01/01 he was electively admitted today for surgery surgery: Minimally invasive AVR converted to sternotomy for AVR with a 27 Magna ease tissue valve BRIDGER Ultrasound guided percutaneous left femoral artery and vein access with arterial Perclose closure Emergent left retroperitoneal exploration for bleeding Dr Wu :Repair of the external iliac artery by preperitoneal approach. Iatrogenically laceration of the left external iliac artery at the junction of the common femoral artery, retroperitoneal bleeding. 2/2 Iatrogenically laceration of the left external iliac artery at the junction of the common femoral artery, retroperitoneal bleeding. crystalloid 5600cc, 3 units PRBC, cell saver 1200cc EBL 2600cc pt then returned to OR last evening for repair left common femoral patch crystalloid 1600cc, one unit PRBC EBL 600cc 01/02 pt remained intubated on vent this am , weaned off propofol, weaning Epi gtt at 4mcq/ BP still labile EF 30% , awake follows commands , urine output stable , + 1 air leak noted in chest tube will keep in CVICU, remove right fem chet 01/03 up in chair, more awake and alert / remains on dobutamine at 1.5mcq CXR volume overload, remains on 5 liter nasal cannula / needs aggressive diuresis EF on Echo 25-30%, no BB at this time remains on stress dose steroids for low cortisol levels improved perfusion left foot / still has bilateral doppler pulses lower ext appreciate CCM 01/04 HGB 7.7 / 2 units PRBC off pressors OOB, PT stress dose steroids reduced , now on 4 liter nasal cannula went into afib last pm, now on amiodarone gtt Objective: GENERAL: a&O X 3 SKIN: Warm and dry. prevena dressing to chest left lateral abdomen and left groin HEAD: Normocephalic. EYES: No scleral icterus. No injection or drainage. NECK: Supple, trachea midline. No JVD or lymphadenopathy. CARDIOVASCULAR: Regular rate and rhythm without murmurs, gallops, or rubs. + distal pulses c RESPIRATORY: Breath sounds equal bilaterally. No accessory muscle use. leave chest tube in today, no air leak GASTROINTESTINAL: Abdomen soft, non-tender, nondistended. MUSCULOSKELETAL: No cyanosis, or edema. BACK: Nontender without obvious deformity. No CVA tenderness. Vital Signs Date Time Temp Pulse Resp B/P (MAP) Pulse Ox O2 Delivery O2 Flow Rate FiO2 01/04/18 12:32 98.2 90 16 117/86 98 01/04/18 11:00 98.2 100 18 101/81 (88) 94 Arterial Line 01/04/18 11:00 94 Nasal Cannula 4.00 01/04/18 11:00 94 01/04/18 07:05 98 Nasal Cannula 5.00 01/04/18 07:00 96 Nasal Cannula 4.00 01/04/18 07:00 97.7 101 18 101/72 (82) 96 01/04/18 07:00 98 01/04/18 03:00 98.1 100 16 113/48 (69) 98 87/71 (76) 01/04/18 03:00 102 01/04/18 03:00 98 Nasal Cannula 5.00 01/04/18 00:35 142 120/54 01/03/18 23:00 98.6 134 16 118/79 (92) 96 112/53 (72) 01/03/18 23:00 97 Nasal Cannula 5.00 01/03/18 23:00 120 01/03/18 19:37 95 Nasal Cannula 2.00 01/03/18 19:00 98.4 108 18 96 134/57 (82) 01/03/18 19:00 110 01/03/18 19:00 97 Nasal Cannula 5.00 01/03/18 15:00 98.1 105 16 117/70 (86) 96 129/55 (79) 01/03/18 15:00 105 01/03/18 15:00 98 Nasal Cannula 5.00 Labs: Laboratory Tests Test 01/04/18 04:00 White Blood Count 11.1 TH/MM3 (4.0-11.0) Red Blood Count 2.64 MIL/MM3 (4.50-5.90) Hemoglobin 7.7 GM/DL (13.0-17.0) Hematocrit 22.7 % (39.0-51.0) Mean Corpuscular Volume 85.9 FL (80.0-100.0) Mean Corpuscular Hemoglobin 29.2 PG (27.0-34.0) Mean Corpuscular Hemoglobin Concent 34.0 % (32.0-36.0) Red Cell Distribution Width 16.0 % (11.6-17.2) Platelet Count 65 TH/MM3 (150-450) Mean Platelet Volume 9.1 FL (7.0-11.0) Neutrophils (%) (Auto) 90.3 % (16.0-70.0) Lymphocytes (%) (Auto) 5.9 % (9.0-44.0) Monocytes (%) (Auto) 3.7 % (0.0-8.0) Eosinophils (%) (Auto) 0.0 % (0.0-4.0) Basophils (%) (Auto) 0.1 % (0.0-2.0) Neutrophils # (Auto) 10.0 TH/MM3 (1.8-7.7) Lymphocytes # (Auto) 0.7 TH/MM3 (1.0-4.8) Monocytes # (Auto) 0.4 TH/MM3 (0-0.9) Eosinophils # (Auto) 0.0 TH/MM3 (0-0.4) Basophils # (Auto) 0.0 TH/MM3 (0-0.2) CBC Comment AUTO DIFF Differential Comment AUTO DIFF CONFIRMED Platelet Estimate LOW (NORMAL) Platelet Morphology Comment NORMAL (NORMAL) Blood Urea Nitrogen 20 MG/DL (7-18) Creatinine 0.87 MG/DL (0.60-1.30) Random Glucose 127 MG/DL (74-106) Calcium Level 7.7 MG/DL (8.5-10.1) Magnesium Level 2.1 MG/DL (1.5-2.5) Sodium Level 141 MEQ/L (136-145) Potassium Level 4.4 MEQ/L (3.5-5.1) Chloride Level 107 MEQ/L (98-107) Carbon Dioxide Level 31.2 MEQ/L (21.0-32.0) Anion Gap 3 MEQ/L (5-15) Estimat Glomerular Filtration Rate 86 ML/MIN (>89) Result Diagram: 01/04/18 0400 01/04/18 0400 Telemetry: Afib , pac's (1) s/p repair external iliac artery (2) S/P AVR (aortic valve replacement) Plan: OOB, weaned off dobutamine ambulate, leave chest tube in for 2 units PRBC today wean 02 , (3) Severe aortic stenosis (4) Systolic and diastolic CHF, acute on chronic Plan: EF 30% , received multiple blood products and crystalloid (5) Hypertension (6) Postoperative hypotension Plan: improving (7) Blood loss anemia Plan: for 2 units PRBC today (8) Thrombocytopenia Plan: hold ASA PLT> 57> 67 2/2 consumption Isidra Holland Jan 04, 2018 13:39
[2018-01-04] MEDS: SENNOSIDES 8.6 MG TAB PO SCH (21:24)
[2018-01-05] VITALS (10 sets, daily range): BP systolic 91–118; BP diastolic 51–72; PULSE 73–98; RESP 16–20; TEMP 97.5–98.7; O2SAT 94–99
[2018-01-05] MEDS: INSULIN ASPART SUPPLEMENTAL SCALE SQ SCH ×6 (02:00→22:00)
[2018-01-05] MEDS: PANTOPRAZOLE SOD 40 MG DELAYED RELEASE TAB PO SCH (06:03)
[2018-01-05 07:55] LABS: AUTOMATED NEUTROPHIL # 8.6 TH/MM3 (1.8-7.7); BASOPHIL % 0.4 % (0.0-2.0); HEMATOCRIT 28.5 % (39.0-51.0); HEMOGLOBIN 10.1 GM/DL (13.0-17.0); LYMPH % 14.7 % (9.0-44.0); LYMPHOCYTE # 1.6 TH/MM3 (1.0-4.8); MEAN CELL VOLUME 86.2 FL (80.0-100.0); MEAN CORPUSCULAR HEMOGLOBIN 30.5 PG (27.0-34.0); MEAN CORPUSCULAR HGB CONC 35.4 % (32.0-36.0); MEAN PLATELET VOLUME 9.2 FL (7.0-11.0); MONO % 5.6 % (0.0-8.0); MONOCYTE # 0.6 TH/MM3 (0-0.9); NEUT % 79.3 % (16.0-70.0); PLATELET COUNT 85 TH/MM3 (150-450); RED CELL DISTRIBUTION WIDTH 16.1 % (11.6-17.2); WHITE BLOOD COUNT 10.9 TH/MM3 (4.0-11.0)
[2018-01-05] MEDS ORDERED: FUROSEMIDE 40 MG/4 ML VIAL IV PUSH ONE (08:00)
[2018-01-05] MEDS ORDERED: METOLAZONE 5 MG TAB PO ONE (08:00)
[2018-01-05 08:18] LABS: BICARBONATE 31.9 MEQ/L (21.0-32.0); CREATININE 0.77 MG/DL (0.60-1.30)
[2018-01-05] MEDS ORDERED: POTASSIUM CHLORIDE 25 MEQ EFFERVESCENT TAB PO ONE (08:45)
[2018-01-05 09:07] LABS: BANDS 1 % (0-6); LYMPHOCYTES 15 % (9-44); METAMYELOCYTES 1 % (0-1); MONOCYTES 4 % (0-8); NEUTROPHIL # MANUAL DIFF 8.7 TH/MM3 (1.8-7.7); POLYS (SEG NEUTROPHILS) 78 % (16-70)
[2018-01-05] MEDS: POLYETHYLENE GLYCOL 17 GM PKG PO SCH (09:23)
[2018-01-05] MEDS: MAGNESIUM HYDROXIDE SUSP 30 ML CUP PO SCH (09:23)
[2018-01-05] MEDS: ASPIRIN 81 MG CHEW TAB PO SCH (09:24)
[2018-01-05] MEDS: MULTIVITAMINS/MINERALS THERAPEUTIC TAB PO SCH (09:24)
[2018-01-05] MEDS: DOCUSATE SODIUM 100 MG CAP PO SCH ×2 (09:24→21:00)
[2018-01-05] MEDS: SODIUM CHLORIDE 0.9% FLUSH 10 ML FLUSH IV FLUSH SCH ×2 (09:26→21:00)
[2018-01-05] MEDS: PRAVASTATIN SOD 10 MG TAB PO SCH (09:31)
--- NOTE | 2018-01-05 09:44 | PD.CAR.PN ---
CVT Progress Note CVT: POD #: 4 Subjective/Hospital Course: 72/ male intially seen 12/04/17 , Patient of Dr. Lars Tillman, also patient of Dr. Stevenson. Presented with shortness of breath, also chills, diarrhea for about 3-5 days prior presented to the emergency room, left-sided chest pain, nonpleuritic, nonradiating. No diaphoresis, nausea or vomiting. Upon arrival to the emergency department, he was then pain free. He had been recently treated for a right groin infection where they started him on Bactrim on the . His troponin was 0.07. They also did a CT chest, which shows early right lower lobe pneumonia. He was started on Zithromax and Zosyn. He was transferred to the ICU on the for respiratory distress, was placed on BIPAP, was given a dose of Lasix, which he has since improved. He is now on 4 L nasal cannula. He has been afebrile. He underwent 2-D echo on the , which showed an EF of 35-40%, global left ventricular dysfunction, systolic dysfunction with severe aortic valve stenosis with a valve area of 0.41, mean gradient of 50, peak gradient of 85. There was no mitral valve stenosis or regurgitation. The left atrium and the right atrial sizes were normal. There was some moderate pulmonary hypertension with a PA pressure of 51 mmHg. No evidence of effusion. He then underwent cardiac cath today by Dr. Stevenson, which showed nonobstructing coronary disease. We were consulted to evaluate for aortic valve replacement PAST MEDICAL HISTORY: Includes hypertension, hyperlipidemia, history of thoracic aortic aneurysm, which he just had a CT chest, which showed that the ascending thoracic aorta was unchanged at 4.4 cm. There was evidence of mild pneumonia in the right lower lobe, mild emphysema. History of tobacco use, recent right groin infection, history of benign prostatic hypertrophy, history of prior E. coli biliary sepsis. He has had surgeries including ERCP where 3 stones were removed, extended sphincterotomy. He has had a laparoscopic cholecystectomy. 01/01 he was electively admitted today for surgery surgery: Minimally invasive AVR converted to sternotomy for AVR with a 27 Magna ease tissue valve BRIDGER Ultrasound guided percutaneous left femoral artery and vein access with arterial Perclose closure Emergent left retroperitoneal exploration for bleeding Dr Wu :Repair of the external iliac artery by preperitoneal approach. Iatrogenically laceration of the left external iliac artery at the junction of the common femoral artery, retroperitoneal bleeding. 2/2 Iatrogenically laceration of the left external iliac artery at the junction of the common femoral artery, retroperitoneal bleeding. crystalloid 5600cc, 3 units PRBC, cell saver 1200cc EBL 2600cc pt then returned to OR last evening for repair left common femoral patch crystalloid 1600cc, one unit PRBC EBL 600cc 01/02 pt remained intubated on vent this am , weaned off propofol, weaning Epi gtt at 4mcq/ BP still labile EF 30% , awake follows commands , urine output stable , + 1 air leak noted in chest tube will keep in CVICU, remove right fem chet 01/03 up in chair, more awake and alert / remains on dobutamine at 1.5mcq CXR volume overload, remains on 5 liter nasal cannula / needs aggressive diuresis EF on Echo 25-30%, no BB at this time remains on stress dose steroids for low cortisol levels improved perfusion left foot / still has bilateral doppler pulses lower ext appreciate CCM 01/04 HGB 7.7 / 2 units PRBC off pressors OOB, PT stress dose steroids reduced , now on 4 liter nasal cannula went into afib last pm, now on amiodarone gtt 01/05/18 Doing well today. he has no complaints Objective: Vital Signs Date Time Temp Pulse Resp B/P (MAP) Pulse Ox O2 Delivery O2 Flow Rate FiO2 01/05/18 08:20 95 Nasal Cannula 2.00 01/05/18 08:00 95 Nasal Cannula 2.00 01/05/18 08:00 98.3 85 18 114/72 (86) 95 01/05/18 04:55 95 Nasal Cannula 2.00 01/05/18 04:15 94 Nasal Cannula 3.00 01/05/18 04:00 97.5 73 20 94/67 (76) 94 01/05/18 03:00 74 01/05/18 00:00 96 Nasal Cannula 3.00 01/05/18 00:00 73 01/05/18 00:00 97.8 84 20 102/64 (77) 96 01/04/18 20:00 90 01/04/18 20:00 96 Nasal Cannula 3.00 01/04/18 20:00 97.6 86 20 105/73 (84) 96 01/04/18 19:40 96 Nasal Cannula 3.00 01/04/18 19:30 96 Nasal Cannula 4.00 01/04/18 19:04 96 Nasal Cannula 4.00 01/04/18 18:00 87 16 116/85 98 01/04/18 17:00 94 16 115/97 98 01/04/18 16:45 98 16 136/70 95 01/04/18 16:30 89 16 112/73 98 01/04/18 16:15 98.0 95 18 120/74 97 01/04/18 15:00 98 Nasal Cannula 4.00 01/04/18 15:00 92 01/04/18 15:00 98.0 91 18 95/71 (79) 98 01/04/18 14:00 87 16 111/71 98 01/04/18 13:00 93 16 116/84 98 01/04/18 12:45 91 16 111/75 98 01/04/18 12:32 98.2 90 16 117/86 98 01/04/18 11:00 98.2 100 18 101/81 (88) 94 Arterial Line 01/04/18 11:00 94 Nasal Cannula 4.00 01/04/18 11:00 94 Labs: Laboratory Tests Test 01/05/18 07:30 White Blood Count 10.9 TH/MM3 (4.0-11.0) Red Blood Count 3.30 MIL/MM3 (4.50-5.90) Hemoglobin 10.1 GM/DL (13.0-17.0) Hematocrit 28.5 % (39.0-51.0) Mean Corpuscular Volume 86.2 FL (80.0-100.0) Mean Corpuscular Hemoglobin 30.5 PG (27.0-34.0) Mean Corpuscular Hemoglobin Concent 35.4 % (32.0-36.0) Red Cell Distribution Width 16.1 % (11.6-17.2) Platelet Count 85 TH/MM3 (150-450) Mean Platelet Volume 9.2 FL (7.0-11.0) Neutrophils (%) (Auto) 79.3 % (16.0-70.0) Lymphocytes (%) (Auto) 14.7 % (9.0-44.0) Monocytes (%) (Auto) 5.6 % (0.0-8.0) Eosinophils (%) (Auto) 0.0 % (0.0-4.0) Basophils (%) (Auto) 0.4 % (0.0-2.0) Neutrophils # (Auto) 8.6 TH/MM3 (1.8-7.7) Lymphocytes # (Auto) 1.6 TH/MM3 (1.0-4.8) Monocytes # (Auto) 0.6 TH/MM3 (0-0.9) Eosinophils # (Auto) 0.0 TH/MM3 (0-0.4) Basophils # (Auto) 0.0 TH/MM3 (0-0.2) CBC Comment AUTO DIFF Differential Total Cells Counted 100 Neutrophils % (Manual) 78 % (16-70) Band Neutrophils % 1 % (0-6) Lymphocytes % 15 % (9-44) Monocytes % 4 % (0-8) Eosinophils % 1 % (0-4) Neutrophils # (Manual) 8.7 TH/MM3 (1.8-7.7) Metamyelocytes 1 % (0-1) Differential Comment FINAL DIFF MANUAL Platelet Estimate LOW (NORMAL) Platelet Morphology Comment NORMAL (NORMAL) Red Cell Morphology Comment NORMAL (NORMAL) Blood Urea Nitrogen 21 MG/DL (7-18) Creatinine 0.77 MG/DL (0.60-1.30) Random Glucose 89 MG/DL (74-106) Calcium Level 8.0 MG/DL (8.5-10.1) Sodium Level 143 MEQ/L (136-145) Potassium Level 3.3 MEQ/L (3.5-5.1) Chloride Level 105 MEQ/L (98-107) Carbon Dioxide Level 31.9 MEQ/L (21.0-32.0) Anion Gap 6 MEQ/L (5-15) Estimat Glomerular Filtration Rate 99 ML/MIN (>89) Result Diagram: 01/05/18 0730 01/05/18 0730 Cardiovascular: IRR, SR with PACs and PVCs Telemetry: as above Pulmonary: CTA GI/: NABS, NT Incision: dry and intact CT: min output Plan: Remove chest tubes Transfer to stepdown Change Amio to PO cont low dose BB diurese Ambulate more frequently today PT Supp K Discharge planning. (1) s/p repair external iliac artery (2) S/P AVR (aortic valve replacement) Plan: OOB, weaned off dobutamine ambulate, leave chest tube in for 2 units PRBC today wean 02 , (3) Severe aortic stenosis (4) Systolic and diastolic CHF, acute on chronic Plan: EF 30% , received multiple blood products and crystalloid (5) Hypertension (6) Postoperative hypotension Plan: improving (7) Blood loss anemia Plan: for 2 units PRBC today (8) Thrombocytopenia Plan: hold ASA PLT> 57> 67 2/2 consumption Gilma Yepez MD Jan 05, 2018 09:44
[2018-01-05] MEDS ORDERED: GLUCAGON 1 MG/ML VIAL OTHER PRN (09:45)
[2018-01-05] MEDS ORDERED: DEXTROSE 50% IN WATER 50 ML VIAL(D50) IV PUSH PRN (09:45)
[2018-01-05] MEDS ORDERED: BISACODYL 10 MG SUPP RECTAL PRN (09:45)
[2018-01-05] MEDS ORDERED: AMIODARONE 200 MG TAB PO SCH (09:45)
[2018-01-05] MEDS: oxyCODONE/ACETAMINOPHEN 5 MG/325 MG TAB PO PRN (09:45)
[2018-01-05] MEDS: METOPROLOL TARTRATE 25 MG TAB PO SCH (14:07)
[2018-01-05 16:35] LABS: BICARBONATE 31.8 MEQ/L (21.0-32.0); CALCIUM 8.3 MG/DL (8.5-10.1); CREATININE 0.88 MG/DL (0.60-1.30)
[2018-01-05] MEDS ORDERED: POTASSIUM BICARBONATE 25 MEQ EFFERVESCENT TAB PO SCH (17:00)
[2018-01-05] MEDS: SENNOSIDES 8.6 MG TAB PO SCH (21:00)
[2018-01-06] VITALS (26 sets, daily range): BP systolic 92–106; BP diastolic 56–71; PULSE 78–104; RESP 15–20; TEMP 98.1–98.9; O2SAT 93–97
[2018-01-06] MEDS: INSULIN ASPART SUPPLEMENTAL SCALE SQ SCH ×4 (02:00→14:00)
[2018-01-06] MEDS: METOPROLOL TARTRATE 25 MG TAB PO SCH ×2 (02:29→14:00)
[2018-01-06 03:26] LABS: AUTOMATED NEUTROPHIL # 6.9 TH/MM3 (1.8-7.7); BASOPHIL % 0.3 % (0.0-2.0); EOSINOPHIL % 0.4 % (0.0-4.0); HEMOGLOBIN 11.8 GM/DL (13.0-17.0); LYMPH % 15.7 % (9.0-44.0); LYMPHOCYTE # 1.4 TH/MM3 (1.0-4.8); MEAN CELL VOLUME 87.2 FL (80.0-100.0); MEAN CORPUSCULAR HEMOGLOBIN 29.3 PG (27.0-34.0); MEAN CORPUSCULAR HGB CONC 33.6 % (32.0-36.0); MONOCYTE # 0.7 TH/MM3 (0-0.9); NEUT % 75.6 % (16.0-70.0); PLATELET COUNT 107 TH/MM3 (150-450); RED BLOOD COUNT 4.02 MIL/MM3 (4.50-5.90); RED CELL DISTRIBUTION WIDTH 16.7 % (11.6-17.2); WHITE BLOOD COUNT 9.1 TH/MM3 (4.0-11.0)
[2018-01-06 03:50] LABS: BICARBONATE 28.3 MEQ/L (21.0-32.0); CALCIUM 8.2 MG/DL (8.5-10.1); CREATININE 0.96 MG/DL (0.60-1.30); MAGNESIUM 2.1 MG/DL (1.5-2.5)
[2018-01-06] MEDS: PANTOPRAZOLE SOD 40 MG DELAYED RELEASE TAB PO SCH (05:09)
[2018-01-06] MEDS: AMIODARONE 200 MG TAB PO SCH ×2 (05:09→15:48)
--- NOTE | 2018-01-06 06:15 | RADRPT ---
EXAM DATE/TIME: 01/06/2018 05:36 [facility] COMPARISON: CHEST SINGLE AP, January 03, 2018, 3:39. INDICATIONS : Shortness of breath, possible pneumothorax. MEDICAL HISTORY : Cardiovascular disease. Renal calculi. Hypertension. SURGICAL HISTORY : CABG. ENCOUNTER: Subsequent ACUITY: 1 week PAIN SCORE: 0/10 LOCATION: Bilateral chest FINDINGS: Cardiomegaly with basilar airspace disease and small effusions remain with slight improvement on the left. No pneumothorax. Previous median sternotomy. CONCLUSION: 1. Cardiomegaly with basilar airspace disease, slightly improved on the left. Small pleural effusions . Oli Clarke MD on January 06, 2018 at 6:12 Board Certified Radiologist. This report was verified electronically.
--- NOTE | 2018-01-06 06:44 | PD.CAR.PN ---
CVT Progress Note CVT: POD #: 5 Subjective/Hospital Course: 72/ male intially seen 12/04/17 , Patient of Dr. Lars Tillman, also patient of Dr. Stevenson. Presented with shortness of breath, also chills, diarrhea for about 3-5 days prior presented to the emergency room, left-sided chest pain, nonpleuritic, nonradiating. No diaphoresis, nausea or vomiting. Upon arrival to the emergency department, he was then pain free. He had been recently treated for a right groin infection where they started him on Bactrim on the . His troponin was 0.07. They also did a CT chest, which shows early right lower lobe pneumonia. He was started on Zithromax and Zosyn. He was transferred to the ICU on the for respiratory distress, was placed on BIPAP, was given a dose of Lasix, which he has since improved. He is now on 4 L nasal cannula. He has been afebrile. He underwent 2-D echo on the , which showed an EF of 35-40%, global left ventricular dysfunction, systolic dysfunction with severe aortic valve stenosis with a valve area of 0.41, mean gradient of 50, peak gradient of 85. There was no mitral valve stenosis or regurgitation. The left atrium and the right atrial sizes were normal. There was some moderate pulmonary hypertension with a PA pressure of 51 mmHg. No evidence of effusion. He then underwent cardiac cath today by Dr. Stevenson, which showed nonobstructing coronary disease. We were consulted to evaluate for aortic valve replacement PAST MEDICAL HISTORY: Includes hypertension, hyperlipidemia, history of thoracic aortic aneurysm, which he just had a CT chest, which showed that the ascending thoracic aorta was unchanged at 4.4 cm. There was evidence of mild pneumonia in the right lower lobe, mild emphysema. History of tobacco use, recent right groin infection, history of benign prostatic hypertrophy, history of prior E. coli biliary sepsis. He has had surgeries including ERCP where 3 stones were removed, extended sphincterotomy. He has had a laparoscopic cholecystectomy. 01/01 he was electively admitted today for surgery surgery: Minimally invasive AVR converted to sternotomy for AVR with a 27 Magna ease tissue valve BRIDGER Ultrasound guided percutaneous left femoral artery and vein access with arterial Perclose closure Emergent left retroperitoneal exploration for bleeding Dr Wu :Repair of the external iliac artery by preperitoneal approach. Iatrogenically laceration of the left external iliac artery at the junction of the common femoral artery, retroperitoneal bleeding. 2/2 Iatrogenically laceration of the left external iliac artery at the junction of the common femoral artery, retroperitoneal bleeding. crystalloid 5600cc, 3 units PRBC, cell saver 1200cc EBL 2600cc pt then returned to OR last evening for repair left common femoral patch crystalloid 1600cc, one unit PRBC EBL 600cc 01/02 pt remained intubated on vent this am , weaned off propofol, weaning Epi gtt at 4mcq/ BP still labile EF 30% , awake follows commands , urine output stable , + 1 air leak noted in chest tube will keep in CVICU, remove right fem chet 01/03 up in chair, more awake and alert / remains on dobutamine at 1.5mcq CXR volume overload, remains on 5 liter nasal cannula / needs aggressive diuresis EF on Echo 25-30%, no BB at this time remains on stress dose steroids for low cortisol levels improved perfusion left foot / still has bilateral doppler pulses lower ext appreciate CCM 01/04 HGB 7.7 / 2 units PRBC off pressors OOB, PT stress dose steroids reduced , now on 4 liter nasal cannula went into afib last pm, now on amiodarone gtt 01/05/18 Doing well today. he has no complaints 01/06/18 c/o insomnia. Denies significant pain or discomfort Objective: Vital Signs Date Time Temp Pulse Resp B/P (MAP) Pulse Ox O2 Delivery O2 Flow Rate FiO2 01/06/18 06:16 88 01/06/18 05:22 88 01/06/18 04:47 83 01/06/18 03:35 83 01/06/18 03:35 Nasal Cannula 2.00 01/06/18 03:35 98.6 78 20 106/68 (81) 97 01/06/18 02:19 97 01/05/18 23:00 98.4 88 20 91/56 (68) 95 01/05/18 23:00 Nasal Cannula 2.00 01/05/18 23:00 87 01/05/18 19:40 82 01/05/18 19:40 Nasal Cannula 2.00 01/05/18 19:40 98.7 86 19 103/70 (81) 99 01/05/18 17:25 99 Nasal Cannula 2.00 01/05/18 15:12 97.6 84 16 101/58 (72) 01/05/18 15:12 94 Nasal Cannula 2.00 01/05/18 15:12 90 01/05/18 12:00 95 Nasal Cannula 2.00 01/05/18 12:00 97.9 98 18 118/51 (73) 97 01/05/18 08:20 95 Nasal Cannula 2.00 01/05/18 08:00 95 Nasal Cannula 2.00 01/05/18 08:00 98.3 85 18 114/72 (86) 95 Labs: Laboratory Tests Test 01/06/18 02:41 White Blood Count 9.1 TH/MM3 (4.0-11.0) Red Blood Count 4.02 MIL/MM3 (4.50-5.90) Hemoglobin 11.8 GM/DL (13.0-17.0) Hematocrit 35.0 % (39.0-51.0) Mean Corpuscular Volume 87.2 FL (80.0-100.0) Mean Corpuscular Hemoglobin 29.3 PG (27.0-34.0) Mean Corpuscular Hemoglobin Concent 33.6 % (32.0-36.0) Red Cell Distribution Width 16.7 % (11.6-17.2) Platelet Count 107 TH/MM3 (150-450) Mean Platelet Volume 9.0 FL (7.0-11.0) Neutrophils (%) (Auto) 75.6 % (16.0-70.0) Lymphocytes (%) (Auto) 15.7 % (9.0-44.0) Monocytes (%) (Auto) 8.0 % (0.0-8.0) Eosinophils (%) (Auto) 0.4 % (0.0-4.0) Basophils (%) (Auto) 0.3 % (0.0-2.0) Neutrophils # (Auto) 6.9 TH/MM3 (1.8-7.7) Lymphocytes # (Auto) 1.4 TH/MM3 (1.0-4.8) Monocytes # (Auto) 0.7 TH/MM3 (0-0.9) Eosinophils # (Auto) 0.0 TH/MM3 (0-0.4) Basophils # (Auto) 0.0 TH/MM3 (0-0.2) CBC Comment DIFF FINAL Differential Comment Blood Urea Nitrogen 18 MG/DL (7-18) Creatinine 0.96 MG/DL (0.60-1.30) Random Glucose 91 MG/DL (74-106) Calcium Level 8.2 MG/DL (8.5-10.1) Magnesium Level 2.1 MG/DL (1.5-2.5) Sodium Level 138 MEQ/L (136-145) Potassium Level 3.3 MEQ/L (3.5-5.1) Chloride Level 102 MEQ/L (98-107) Carbon Dioxide Level 28.3 MEQ/L (21.0-32.0) Anion Gap 8 MEQ/L (5-15) Estimat Glomerular Filtration Rate 77 ML/MIN (>89) Result Diagram: 01/06/18 0241 01/06/18 0241 Imaging: Last 24 hours Impressions Chest X-Ray 01/06/18 0600 Signed Impressions: Service Date/Time: Saturday, January 06, 2018 05:36 - CONCLUSION: 1. Cardiomegaly with basilar airspace disease, slightly improved on the left. Small pleural effusions. Oli Clarke MD Cardiovascular: IRR Telemetry: NSR with PVCs Pulmonary: CTA GI/: NABS, NT Incision: dry and intact Plan: Start Plavix Benadryl for sleep PT/OT Supp K Discharge planning (1) s/p repair external iliac artery (2) S/P AVR (aortic valve replacement) Plan: OOB, weaned off dobutamine ambulate, leave chest tube in for 2 units PRBC today wean 02 , (3) Severe aortic stenosis (4) Systolic and diastolic CHF, acute on chronic Plan: EF 30% , received multiple blood products and crystalloid (5) Hypertension (6) Postoperative hypotension Plan: improving (7) Blood loss anemia Plan: for 2 units PRBC today (8) Thrombocytopenia Plan: hold ASA PLT> 57> 67 2/2 consumption Gilma Yepez MD Jan 06, 2018 06:44
[2018-01-06] MEDS ORDERED: diphenhydrAMINE HCL 50 MG CAP PO PRN (06:45)
[2018-01-06] MEDS ORDERED: diphenhydrAMINE HCL 25 MG CAP PO ONE (06:45)
[2018-01-06] MEDS: MULTIVITAMINS/MINERALS THERAPEUTIC TAB PO SCH (08:31)
[2018-01-06] MEDS: ASPIRIN 81 MG CHEW TAB PO SCH (08:31)
[2018-01-06] MEDS: POTASSIUM CHLORIDE 10 MEQ CONTROLLED RELEASE TAB PO SCH ×2 (08:32→20:34)
[2018-01-06] MEDS: POLYETHYLENE GLYCOL 17 GM PKG PO SCH (08:37)
[2018-01-06] MEDS: DOCUSATE SODIUM 100 MG CAP PO SCH ×2 (08:37→20:34)
[2018-01-06] MEDS: MAGNESIUM HYDROXIDE SUSP 30 ML CUP PO SCH (08:37)
[2018-01-06] MEDS: SODIUM CHLORIDE 0.9% FLUSH 10 ML FLUSH IV FLUSH SCH ×2 (08:37→20:34)
[2018-01-06] MEDS: PRAVASTATIN SOD 10 MG TAB PO SCH (08:38)
--- NOTE | 2018-01-06 11:29 | PD.CAR.PN ---
CVT Progress Note Subjective/Hospital Course: 72/ male intially seen 12/04/17 , Patient of Dr. Lars Tillman, also patient of Dr. Stevenson. Presented with shortness of breath, also chills, diarrhea for about 3-5 days prior presented to the emergency room, left-sided chest pain, nonpleuritic, nonradiating. No diaphoresis, nausea or vomiting. Upon arrival to the emergency department, he was then pain free. He had been recently treated for a right groin infection where they started him on Bactrim on the . His troponin was 0.07. They also did a CT chest, which shows early right lower lobe pneumonia. He was started on Zithromax and Zosyn. He was transferred to the ICU on the for respiratory distress, was placed on BIPAP, was given a dose of Lasix, which he has since improved. He is now on 4 L nasal cannula. He has been afebrile. He underwent 2-D echo on the , which showed an EF of 35-40%, global left ventricular dysfunction, systolic dysfunction with severe aortic valve stenosis with a valve area of 0.41, mean gradient of 50, peak gradient of 85. There was no mitral valve stenosis or regurgitation. The left atrium and the right atrial sizes were normal. There was some moderate pulmonary hypertension with a PA pressure of 51 mmHg. No evidence of effusion. He then underwent cardiac cath today by Dr. Stevenson, which showed nonobstructing coronary disease. We were consulted to evaluate for aortic valve replacement PAST MEDICAL HISTORY: Includes hypertension, hyperlipidemia, history of thoracic aortic aneurysm, which he just had a CT chest, which showed that the ascending thoracic aorta was unchanged at 4.4 cm. There was evidence of mild pneumonia in the right lower lobe, mild emphysema. History of tobacco use, recent right groin infection, history of benign prostatic hypertrophy, history of prior E. coli biliary sepsis. He has had surgeries including ERCP where 3 stones were removed, extended sphincterotomy. He has had a laparoscopic cholecystectomy. 01/01 he was electively admitted today for surgery surgery: Minimally invasive AVR converted to sternotomy for AVR with a 27 Magna ease tissue valve BRIDGER Ultrasound guided percutaneous left femoral artery and vein access with arterial Perclose closure Emergent left retroperitoneal exploration for bleeding Dr Wu :Repair of the external iliac artery by preperitoneal approach. Iatrogenically laceration of the left external iliac artery at the junction of the common femoral artery, retroperitoneal bleeding. 2/2 Iatrogenically laceration of the left external iliac artery at the junction of the common femoral artery, retroperitoneal bleeding. crystalloid 5600cc, 3 units PRBC, cell saver 1200cc EBL 2600cc pt then returned to OR last evening for repair left common femoral patch crystalloid 1600cc, one unit PRBC EBL 600cc 01/02 pt remained intubated on vent this am , weaned off propofol, weaning Epi gtt at 4mcq/ BP still labile EF 30% , awake follows commands , urine output stable , + 1 air leak noted in chest tube will keep in CVICU, remove right fem chet 01/03 up in chair, more awake and alert / remains on dobutamine at 1.5mcq CXR volume overload, remains on 5 liter nasal cannula / needs aggressive diuresis EF on Echo 25-30%, no BB at this time remains on stress dose steroids for low cortisol levels improved perfusion left foot / still has bilateral doppler pulses lower ext appreciate CCM 01/04 HGB 7.7 / 2 units PRBC off pressors OOB, PT stress dose steroids reduced , now on 4 liter nasal cannula went into afib last pm, now on amiodarone gtt 01/05/18 Doing well today. he has no complaints 01/06/18 c/o insomnia. Denies significant pain or discomfort 01/06/2018 Nothing to add to care from vascular point Leg is well perfused and patient has good dorsalis pedis and posterior tibial pulses latter being the dominant Normal capillary refill No neurologic deficit Incisions are clean and dry Patient can follow-up with me in the office in about 4-8 weeks and I will repeat Dopplers in the office Objective: Vital Signs Date Time Temp Pulse Resp B/P (MAP) Pulse Ox O2 Delivery O2 Flow Rate FiO2 01/06/18 11:00 95 Room Air 01/06/18 11:00 93 01/06/18 11:00 98.6 90 18 105/69 (81) 95 01/06/18 10:00 94 01/06/18 09:00 91 01/06/18 08:00 92 01/06/18 07:00 98.7 89 18 103/71 (82) 94 01/06/18 07:00 94 Room Air 01/06/18 07:00 86 01/06/18 06:16 88 01/06/18 05:22 88 01/06/18 04:47 83 01/06/18 03:35 83 01/06/18 03:35 Nasal Cannula 2.00 01/06/18 03:35 98.6 78 20 106/68 (81) 97 01/06/18 02:19 97 01/05/18 23:00 98.4 88 20 91/56 (68) 95 01/05/18 23:00 Nasal Cannula 2.00 01/05/18 23:00 87 01/05/18 19:40 82 01/05/18 19:40 Nasal Cannula 2.00 01/05/18 19:40 98.7 86 19 103/70 (81) 99 01/05/18 17:25 99 Nasal Cannula 2.00 01/05/18 15:12 97.6 84 16 101/58 (72) 01/05/18 15:12 94 Nasal Cannula 2.00 01/05/18 15:12 90 01/05/18 12:00 95 Nasal Cannula 2.00 01/05/18 12:00 97.9 98 18 118/51 (73) 97 Labs: Laboratory Tests Test 01/06/18 02:41 White Blood Count 9.1 TH/MM3 (4.0-11.0) Red Blood Count 4.02 MIL/MM3 (4.50-5.90) Hemoglobin 11.8 GM/DL (13.0-17.0) Hematocrit 35.0 % (39.0-51.0) Mean Corpuscular Volume 87.2 FL (80.0-100.0) Mean Corpuscular Hemoglobin 29.3 PG (27.0-34.0) Mean Corpuscular Hemoglobin Concent 33.6 % (32.0-36.0) Red Cell Distribution Width 16.7 % (11.6-17.2) Platelet Count 107 TH/MM3 (150-450) Mean Platelet Volume 9.0 FL (7.0-11.0) Neutrophils (%) (Auto) 75.6 % (16.0-70.0) Lymphocytes (%) (Auto) 15.7 % (9.0-44.0) Monocytes (%) (Auto) 8.0 % (0.0-8.0) Eosinophils (%) (Auto) 0.4 % (0.0-4.0) Basophils (%) (Auto) 0.3 % (0.0-2.0) Neutrophils # (Auto) 6.9 TH/MM3 (1.8-7.7) Lymphocytes # (Auto) 1.4 TH/MM3 (1.0-4.8) Monocytes # (Auto) 0.7 TH/MM3 (0-0.9) Eosinophils # (Auto) 0.0 TH/MM3 (0-0.4) Basophils # (Auto) 0.0 TH/MM3 (0-0.2) CBC Comment DIFF FINAL Differential Comment Blood Urea Nitrogen 18 MG/DL (7-18) Creatinine 0.96 MG/DL (0.60-1.30) Random Glucose 91 MG/DL (74-106) Calcium Level 8.2 MG/DL (8.5-10.1) Magnesium Level 2.1 MG/DL (1.5-2.5) Sodium Level 138 MEQ/L (136-145) Potassium Level 3.3 MEQ/L (3.5-5.1) Chloride Level 102 MEQ/L (98-107) Carbon Dioxide Level 28.3 MEQ/L (21.0-32.0) Anion Gap 8 MEQ/L (5-15) Estimat Glomerular Filtration Rate 77 ML/MIN (>89) Result Diagram: 01/06/18 0241 01/06/18 0241 (1) s/p repair external iliac artery (2) S/P AVR (aortic valve replacement) Plan: OOB, weaned off dobutamine ambulate, leave chest tube in for 2 units PRBC today wean 02 , (3) Severe aortic stenosis (4) Systolic and diastolic CHF, acute on chronic Plan: EF 30% , received multiple blood products and crystalloid (5) Hypertension (6) Postoperative hypotension Plan: improving (7) Blood loss anemia Plan: for 2 units PRBC today (8) Thrombocytopenia Plan: hold ASA PLT> 57> 67 2/2 consumption Lissette Wu MD Jan 06, 2018 11:29
[2018-01-06] MEDS: oxyCODONE/ACETAMINOPHEN 5 MG/325 MG TAB PO PRN ×2 (14:02→20:35)
[2018-01-06] MEDS: SENNOSIDES 8.6 MG TAB PO SCH (20:34)
[2018-01-07] VITALS (30 sets, daily range): BP systolic 85–98; BP diastolic 58–66; PULSE 77–102; RESP 17–18; TEMP 97.8–98.9; O2SAT 94–99
[2018-01-07] MEDS: METOPROLOL TARTRATE 25 MG TAB PO SCH ×2 (01:25→13:17)
[2018-01-07] MEDS: oxyCODONE/ACETAMINOPHEN 5 MG/325 MG TAB PO PRN ×4 (01:25→23:20)
[2018-01-07] MEDS: AMIODARONE 200 MG TAB PO SCH ×2 (03:32→16:38)
[2018-01-07] MEDS: PANTOPRAZOLE SOD 40 MG DELAYED RELEASE TAB PO SCH (05:54)
[2018-01-07] MEDS: MAGNESIUM HYDROXIDE SUSP 30 ML CUP PO SCH (08:21)
[2018-01-07] MEDS: POLYETHYLENE GLYCOL 17 GM PKG PO SCH (08:21)
[2018-01-07] MEDS: PRAVASTATIN SOD 10 MG TAB PO SCH (08:22)
[2018-01-07] MEDS: MULTIVITAMINS/MINERALS THERAPEUTIC TAB PO SCH (08:22)
[2018-01-07] MEDS: ASPIRIN 81 MG CHEW TAB PO SCH (08:22)
[2018-01-07] MEDS: POTASSIUM CHLORIDE 10 MEQ CONTROLLED RELEASE TAB PO SCH ×2 (08:23→20:10)
[2018-01-07] MEDS: DOCUSATE SODIUM 100 MG CAP PO SCH ×2 (08:25→20:10)
[2018-01-07] MEDS: SODIUM CHLORIDE 0.9% FLUSH 10 ML FLUSH IV FLUSH SCH ×2 (08:28→20:11)
[2018-01-07 09:52] LABS: BICARBONATE 25.9 MEQ/L (21.0-32.0); CALCIUM 8.6 MG/DL (8.5-10.1); CREATININE 1.01 MG/DL (0.60-1.30); MAGNESIUM 2.2 MG/DL (1.5-2.5)
[2018-01-07] MEDS ORDERED: POTASSIUM CHLORIDE 10 MEQ CONTROLLED RELEASE TAB PO ONE (12:00)
--- NOTE | 2018-01-07 12:39 | PD.CAR.PN ---
CVT Progress Note Subjective/Hospital Course: 72/ male intially seen 12/04/17 , Patient of Dr. Lars Tillman, also patient of Dr. Stevenson. Presented with shortness of breath, also chills, diarrhea for about 3-5 days prior presented to the emergency room, left-sided chest pain, nonpleuritic, nonradiating. No diaphoresis, nausea or vomiting. Upon arrival to the emergency department, he was then pain free. He had been recently treated for a right groin infection where they started him on Bactrim on the . His troponin was 0.07. They also did a CT chest, which shows early right lower lobe pneumonia. He was started on Zithromax and Zosyn. He was transferred to the ICU on the for respiratory distress, was placed on BIPAP, was given a dose of Lasix, which he has since improved. He is now on 4 L nasal cannula. He has been afebrile. He underwent 2-D echo on the , which showed an EF of 35-40%, global left ventricular dysfunction, systolic dysfunction with severe aortic valve stenosis with a valve area of 0.41, mean gradient of 50, peak gradient of 85. There was no mitral valve stenosis or regurgitation. The left atrium and the right atrial sizes were normal. There was some moderate pulmonary hypertension with a PA pressure of 51 mmHg. No evidence of effusion. He then underwent cardiac cath today by Dr. Stevenson, which showed nonobstructing coronary disease. We were consulted to evaluate for aortic valve replacement PAST MEDICAL HISTORY: Includes hypertension, hyperlipidemia, history of thoracic aortic aneurysm, which he just had a CT chest, which showed that the ascending thoracic aorta was unchanged at 4.4 cm. There was evidence of mild pneumonia in the right lower lobe, mild emphysema. History of tobacco use, recent right groin infection, history of benign prostatic hypertrophy, history of prior E. coli biliary sepsis. He has had surgeries including ERCP where 3 stones were removed, extended sphincterotomy. He has had a laparoscopic cholecystectomy. 01/01 he was electively admitted today for surgery surgery: Minimally invasive AVR converted to sternotomy for AVR with a 27 Magna ease tissue valve BRIDGER Ultrasound guided percutaneous left femoral artery and vein access with arterial Perclose closure Emergent left retroperitoneal exploration for bleeding Dr Wu :Repair of the external iliac artery by preperitoneal approach. Iatrogenically laceration of the left external iliac artery at the junction of the common femoral artery, retroperitoneal bleeding. 2/2 Iatrogenically laceration of the left external iliac artery at the junction of the common femoral artery, retroperitoneal bleeding. crystalloid 5600cc, 3 units PRBC, cell saver 1200cc EBL 2600cc pt then returned to OR last evening for repair left common femoral patch crystalloid 1600cc, one unit PRBC EBL 600cc 01/02 pt remained intubated on vent this am , weaned off propofol, weaning Epi gtt at 4mcq/ BP still labile EF 30% , awake follows commands , urine output stable , + 1 air leak noted in chest tube will keep in CVICU, remove right fem chet 01/03 up in chair, more awake and alert / remains on dobutamine at 1.5mcq CXR volume overload, remains on 5 liter nasal cannula / needs aggressive diuresis EF on Echo 25-30%, no BB at this time remains on stress dose steroids for low cortisol levels improved perfusion left foot / still has bilateral doppler pulses lower ext appreciate CCM 01/04 HGB 7.7 / 2 units PRBC off pressors OOB, PT stress dose steroids reduced , now on 4 liter nasal cannula went into afib last pm, now on amiodarone gtt 01/05/18 Doing well today. he has no complaints 01/06/18 c/o insomnia. Denies significant pain or discomfort 01/06/2018 Nothing to add to care from vascular point Leg is well perfused and patient has good dorsalis pedis and posterior tibial pulses latter being the dominant Normal capillary refill No neurologic deficit Incisions are clean and dry Patient can follow-up with me in the office in about 4-8 weeks and I will repeat Dopplers in the office 4/ pt on 2 liter 02, failed walk test, will need home 02 hold on diuresis today , BP labile, amiodarone dose reduced holding parameters on BB will eval for dc in am also dc prevena dressings in am Objective: GENERAL: A&O x 3 SKIN: Warm and dry. prevena dressing to chest , left lateral mid abdomen and left groin , HEAD: Normocephalic. EYES: No scleral icterus. No injection or drainage. NECK: Supple, trachea midline. No JVD or lymphadenopathy. CARDIOVASCULAR: Regular rate and rhythm without murmurs, gallops, or rubs. + distal pulses RESPIRATORY: Breath sounds equal bilaterally. No accessory muscle use. slightly diminished in bases GASTROINTESTINAL: Abdomen soft, non-tender, nondistended. MUSCULOSKELETAL: No cyanosis, or edema. BACK: Nontender without obvious deformity. No CVA tenderness. Vital Signs Date Time Temp Pulse Resp B/P (MAP) Pulse Ox O2 Delivery O2 Flow Rate FiO2 01/07/18 12:00 92 01/07/18 11:00 90 01/07/18 11:00 97.8 93 18 85/60 (68) 96 01/07/18 11:00 96 Nasal Cannula 2.00 01/07/18 10:25 2.00 01/07/18 10:00 91 01/07/18 09:00 90 01/07/18 08:00 87 01/07/18 07:56 97 Nasal Cannula 2.00 01/07/18 07:00 97.9 77 17 90/63 (72) 96 01/07/18 07:00 81 01/07/18 07:00 96 Nasal Cannula 2.00 01/07/18 06:00 83 01/07/18 05:00 83 01/07/18 04:00 83 01/07/18 03:49 98.9 80 17 97/58 (71) 96 01/07/18 03:49 96 Nasal Cannula 2.00 01/07/18 03:00 81 01/07/18 02:00 96 01/07/18 01:00 94 01/07/18 00:00 92 01/06/18 23:21 93 Nasal Cannula 2.00 01/06/18 23:21 98.9 90 15 99/56 (70) 94 01/06/18 23:00 90 01/06/18 22:00 92 01/06/18 21:00 96 01/06/18 20:20 95 Nasal Cannula 2.00 01/06/18 20:00 98 01/06/18 19:21 98.1 84 15 100/68 (79) 93 01/06/18 19:21 93 Nasal Cannula 2.00 01/06/18 19:00 104 01/06/18 18:00 92 01/06/18 17:00 93 01/06/18 16:53 94 21 01/06/18 16:05 98 01/06/18 15:00 96 Room Air 01/06/18 15:00 98.8 98 18 92/66 (75) 96 01/06/18 15:00 85 01/06/18 14:00 98 01/06/18 13:00 100 Labs: Laboratory Tests Test 01/07/18 09:05 Blood Urea Nitrogen 17 MG/DL (7-18) Creatinine 1.01 MG/DL (0.60-1.30) Random Glucose 136 MG/DL (74-106) Calcium Level 8.6 MG/DL (8.5-10.1) Magnesium Level 2.2 MG/DL (1.5-2.5) Sodium Level 137 MEQ/L (136-145) Potassium Level 3.2 MEQ/L (3.5-5.1) Chloride Level 103 MEQ/L (98-107) Carbon Dioxide Level 25.9 MEQ/L (21.0-32.0) Anion Gap 8 MEQ/L (5-15) Estimat Glomerular Filtration Rate 72 ML/MIN (>89) Result Diagram: 01/06/18 0241 01/07/18 0905 (1) s/p repair external iliac artery (2) S/P AVR (aortic valve replacement) Plan: OOB, ambulate, decrease amiodarone hold on diuresis with labile BP wean 02 , (3) Severe aortic stenosis (4) Systolic and diastolic CHF, acute on chronic Plan: EF 30% no eris 2/2 labile BP (5) Hypertension (6) Postoperative hypotension Plan: improving (7) Blood loss anemia Plan: hgb stable 11.8 (8) Thrombocytopenia Plan: ASA PLT> 57> 67> 107 2/2 consumption Isidra Holland Jan 07, 2018 12:39
[2018-01-07] MEDS ORDERED: OXYGENDME NAS.CANULA (12:41)
--- NOTE | 2018-01-07 12:44 | HHI.FF ---
Face to Face Verification Diagnosis: (1) Severe aortic stenosis (2) Systolic and diastolic CHF, acute on chronic (3) Blood loss anemia (4) Thrombocytopenia (5) S/P AVR (aortic valve replacement) (6) s/p repair external iliac artery Home Health Nursing Order: Signs/symptoms of disease process CHF education Medication education-adverse effect Wound care and dressing changes Nursing assessment with vital signs Instructions: Heart and Vascular Surgery patients *Special attention to sternal dressing Mandatory frequency Assess and evaluation, 4 days in a row The next week 3X week 2 times a week for 4 weeks 1 time a week for 5 weeks Schedule Heart and Vascular patients for full 60 day certification period Initial visit Review Open Heart Surgery Discharge Instructions (Sternal precautions, Activity, Elastic hose, Incision care, Driving, Incentive spirometry, Smoking, Ethan, Work and other) Need Betadine to paint incision Medication reconciliation Importance of follow up care/ check on appointments Make calendar record temperature daily When to call [facility] nurse, review instructions, phone list Incentive Spirometry, demonstration Visit 1- Begin discharge instruction for patient family and/ or caregiver using teach back method- Signs and symptoms of infection Disease characteristics Medicines and side effects Foods and nutrition/ appetite Infection control/ hand washing/ hygiene Visit 2- Continue teaching Discharge instructions- include additional information on smoking cessation , sternal dressing (sternal vac) Visit 3- Continue teaching- Cough and deep breathing, incision monitoring. Choose my plate Visit 4- Continue teaching- Discuss limitations Discuss how they are feeling Discuss progress toward goals Remaining visits- continue teaching and monitoring For any questions please call : Sunday 8am-5pm Heart & Vascular Surgery Office ( Dr. John & Dr. Yepez), After Hours / Nights (5pm -8am) Weekends and Holidays Please call [facility] ([facility]) Charge Nurse Incentive spirometry Q1 hr x 10, while awake, also use acapella device hourly whole awake Sternal Breast Bone Precautions: NO pushing or pulling, ( pt must use sternal pillow to support chest with all activities and with coughing ( takes up to 3 months breast bone to heal ) Daily incision care: ok to shower daily, no tub bath. Wash all incisions with liquid dial soap, clean wash cloth to each site, rinse and pat dry. Observe for any signs of infection, such as drainage which is dark yellow, waggoner, green or foul smelling. Immediately report to the surgeon any drainage from the chest incision, or legs, and for any abnormal drainage from the chest tube sites. Notify surgeon if any temp >101.5 degrees F. When specialty dressing removed/ or if you do not have one, continue to shower daily as above, then rinse and pat incision dry and paint with betadine daily x 5 days. Allow steri strips to fall off if you have any. Avoid lotions, creams, salves, oils, etc. for the first month For Dr. Yepez patients , please obtain CBC, BMP, PA & Lat CXR in 2 weeks, results to Dr. Yepez ( prescription will be given) ( ) (Tele: [phone]) , Valve replacement pts will need 2decho in 2 weeks with results to Dr. Yepez . Please obtain 2 d echo at your creative assistant office if possible F/U appointment: as per DC instructions: PCP in 2 weeks, CV surgeon 2 weeks, Certified Welding Inspector 3-4 weeks For any questions regarding incisions/ dressing / meds / post op care or above Symptoms, Sunday 8am-5pm Heart & Vascular Surgery Office ( Dr. John & Dr. Yepez), After Hours / Nights (5pm -8am) Weekends and Holidays Please call [facility] ([facility]) Charge Nurse I have seen patient Timothy Ruiz on 01/07/18. My clinical findings support the need for the requested home health care services because: Patient has SOB (home 02 / wean off for sat >88%) Deconditioned w/ increased weakness I certify that my clinical findings support that this patient is homebound because: Post-op weakness Isidra Holland Jan 07, 2018 12:44
[2018-01-07] MEDS: CLOPIDOGREL 75 MG TAB PO SCH (13:16)
[2018-01-07] MEDS: SENNOSIDES 8.6 MG TAB PO SCH (20:10)
[2018-01-08] VITALS (18 sets, daily range): BP systolic 82–97; BP diastolic 63–68; PULSE 88–108; RESP 16–18; TEMP 97.9–98.3; O2SAT 92–97
[2018-01-08] MEDS: METOPROLOL TARTRATE 25 MG TAB PO SCH (02:00)
--- NOTE | 2018-01-08 03:54 | RADRPT ---
EXAM DATE/TIME: 01/08/2018 02:35 [place] COMPARISON: CHEST SINGLE AP, January 06, 2018, 5:36. INDICATIONS : Short of breath. MEDICAL HISTORY : Cardiovascular disease. Renal calculi. Hypertension. SURGICAL HISTORY : CABG. ENCOUNTER: Subsequent ACUITY: 1 week PAIN SCORE: 0/10 LOCATION: Bilateral chest FINDINGS: There is persistent mild consolidative change in the left lung base. Cardiac contours are grossly sta ble. CONCLUSION: Mild left base parenchymal opacity. Woodrow Baca MD on January 08, 2018 at 3:52 Board Certified Radiologist. This report was verified electronically.
[2018-01-08 04:57] LABS: BICARBONATE 25.6 MEQ/L (21.0-32.0); CALCIUM 8.3 MG/DL (8.5-10.1); CREATININE 0.93 MG/DL (0.60-1.30)
[2018-01-08 05:02] LABS: HEMATOCRIT 34.2 % (39.0-51.0); HEMOGLOBIN 11.3 GM/DL (13.0-17.0); MEAN CELL VOLUME 87.9 FL (80.0-100.0); MEAN CORPUSCULAR HEMOGLOBIN 29.1 PG (27.0-34.0); MEAN CORPUSCULAR HGB CONC 33.1 % (32.0-36.0); MEAN PLATELET VOLUME 9.1 FL (7.0-11.0); PLATELET COUNT 153 TH/MM3 (150-450); RED BLOOD COUNT 3.89 MIL/MM3 (4.50-5.90); RED CELL DISTRIBUTION WIDTH 16.2 % (11.6-17.2); WHITE BLOOD COUNT 11.6 TH/MM3 (4.0-11.0)
[2018-01-08] MEDS: AMIODARONE 200 MG TAB PO SCH (06:06)
[2018-01-08] MEDS: PANTOPRAZOLE SOD 40 MG DELAYED RELEASE TAB PO SCH (06:06)
[2018-01-08] MEDS: MAGNESIUM HYDROXIDE SUSP 30 ML CUP PO SCH (09:00)
[2018-01-08] MEDS: POLYETHYLENE GLYCOL 17 GM PKG PO SCH (09:00)
[2018-01-08] MEDS: MULTIVITAMINS/MINERALS THERAPEUTIC TAB PO SCH (09:02)
[2018-01-08] MEDS: CLOPIDOGREL 75 MG TAB PO SCH (09:02)
[2018-01-08] MEDS: DOCUSATE SODIUM 100 MG CAP PO SCH (09:02)
[2018-01-08] MEDS: ASPIRIN 81 MG CHEW TAB PO SCH (09:02)
[2018-01-08] MEDS: POTASSIUM CHLORIDE 10 MEQ CONTROLLED RELEASE TAB PO SCH (09:03)
[2018-01-08] MEDS: SODIUM CHLORIDE 0.9% FLUSH 10 ML FLUSH IV FLUSH SCH (09:03)
[2018-01-08] MEDS: PRAVASTATIN SOD 10 MG TAB PO SCH (09:35)
[2018-01-08] MEDS ORDERED: DOCU1CAP39 PO (10:38)
[2018-01-08] MEDS ORDERED: OXYC1TAB63 PO (10:38)
[2018-01-08] MEDS ORDERED: POTA10CA PO (10:38)
[2018-01-08] MEDS ORDERED: METO25TA3 PO (10:38)
[2018-01-08] MEDS ORDERED: THERM PO (10:38)
[2018-01-08] MEDS ORDERED: AMIO200T PO (10:38)
[2018-01-08] MEDS ORDERED: PLAV75TA29 PO (10:38)
[2018-01-08] MEDS ORDERED: FURO1TAB62 PO (10:38)
--- NOTE | 2018-01-08 11:03 | HHI.DS ---
Discharge Summary Admission Date Jan 01, 2018 at 05:12 Discharge Date: Jan 08, 2018 Admitting Diagnosis aortic stenosis, , CHF (1) Systolic and diastolic CHF, acute on chronic Diagnosis: Principal ICD Codes: I50.43 - Acute on chronic combined systolic (congestive) and diastolic (congestive) heart failure (2) s/p repair external iliac artery Diagnosis: Secondary (3) Blood loss anemia Diagnosis: Secondary ICD Codes: D50.0 - Iron deficiency anemia secondary to blood loss (chronic) (4) Atypical chest pain Diagnosis: Principal ICD Codes: R07.89 - Other chest pain Status: Acute (5) S/P AVR (aortic valve replacement) Diagnosis: Secondary ICD Codes: Z95.2 - Presence of prosthetic heart valve Procedures Minimally invasive AVR converted to sternotomy for AVR with a 27 Magna ease tissue valve 01/01 Dr Yepez BRIDGER Ultrasound guided percutaneous left femoral artery and vein access with arterial Perclose closure Emergent left retroperitoneal exploration for bleeding Repair of the external iliac artery by preperitoneal approach. 01/01 Dr Wu Preperitoneal approach to the external and common iliac arteries Endarterectomy thrombectomy and patch angioplasty of external iliac artery. Angioplasty endarterectomy of common femoral artery, superficial femoral artery Profundoplasty of the deep femoral artery. Brief History 72/ male intially seen 12/04/17 , Patient of Dr. Lars Tillman, also patient of Dr. Stevenson. Presented with shortness of breath, also chills, diarrhea for about 3-5 days prior presented to the emergency room, left-sided chest pain, nonpleuritic, nonradiating. No diaphoresis, nausea or vomiting. Upon arrival to the emergency department, he was then pain free. He had been recently treated for a right groin infection where they started him on Bactrim on the . His troponin was 0.07. They also did a CT chest, which shows early right lower lobe pneumonia. He was started on Zithromax and Zosyn. He was transferred to the ICU on the for respiratory distress, was placed on BIPAP, was given a dose of Lasix, which he has since improved. He is now on 4 L nasal cannula. He has been afebrile. He underwent 2-D echo on the , which showed an EF of 35-40%, global left ventricular dysfunction, systolic dysfunction with severe aortic valve stenosis with a valve area of 0.41, mean gradient of 50, peak gradient of 85. There was no mitral valve stenosis or regurgitation. The left atrium and the right atrial sizes were normal. There was some moderate pulmonary hypertension with a PA pressure of 51 mmHg. No evidence of effusion. He then underwent cardiac cath today by Dr. Stevenson, which showed nonobstructing coronary disease. We were consulted to evaluate for aortic valve replacement PAST MEDICAL HISTORY: Includes hypertension, hyperlipidemia, history of thoracic aortic aneurysm, which he just had a CT chest, which showed that the ascending thoracic aorta was unchanged at 4.4 cm. There was evidence of mild pneumonia in the right lower lobe, mild emphysema. History of tobacco use, recent right groin infection, history of benign prostatic hypertrophy, history of prior E. coli biliary sepsis. He has had surgeries including ERCP where 3 stones were removed, extended sphincterotomy. He has had a laparoscopic cholecystectomy. CBC/BMP: 01/08/18 0355 01/08/18 0355 Significant Findings Laboratory Tests Test 01/05/18 15:40 01/06/18 02:41 01/07/18 09:05 01/08/18 03:55 Blood Urea Nitrogen 23 MG/DL (7-18) Calcium Level 8.3 MG/DL (8.5-10.1) 8.2 MG/DL (8.5-10.1) 8.3 MG/DL (8.5-10.1) Potassium Level 2.9 MEQ/L (3.5-5.1) 3.3 MEQ/L (3.5-5.1) 3.2 MEQ/L (3.5-5.1) Estimat Glomerular Filtration Rate 85 ML/MIN (>89) 77 ML/MIN (>89) 72 ML/MIN (>89) 79 ML/MIN (>89) Red Blood Count 4.02 MIL/MM3 (4.50-5.90) 3.89 MIL/MM3 (4.50-5.90) Hemoglobin 11.8 GM/DL (13.0-17.0) 11.3 GM/DL (13.0-17.0) Hematocrit 35.0 % (39.0-51.0) 34.2 % (39.0-51.0) Platelet Count 107 TH/MM3 (150-450) Neutrophils (%) (Auto) 75.6 % (16.0-70.0) Random Glucose 136 MG/DL (74-106) White Blood Count 11.6 TH/MM3 (4.0-11.0) Imaging Last Impressions Chest X-Ray 01/08/18 0600 Signed Impressions: Service Date/Time: Monday, January 08, 2018 02:35 - CONCLUSION: Mild left base parenchymal opacity. Woodrow Baca MD Pelvis X-Ray 01/01/18 0000 Signed Impressions: Service Date/Time: Monday, January 01, 2018 13:31 - CONCLUSION: 1. No unexpected radiopaque foreign bodies. Oli Clarke MD PE at Discharge GENERAL: A&O x 3 SKIN: Warm and dry. incision intact and well approximated to chest left lateral abdomen and groin HEAD: Normocephalic. EYES: No scleral icterus. No injection or drainage. NECK: Supple, trachea midline. No JVD or lymphadenopathy. CARDIOVASCULAR: Regular rate and rhythm without murmurs, gallops, or rubs. RESPIRATORY: Breath sounds equal bilaterally. No accessory muscle use. slightly diminished in bases GASTROINTESTINAL: Abdomen soft, non-tender, nondistended. MUSCULOSKELETAL: No cyanosis, or edema. BACK: Nontender without obvious deformity. No CVA tenderness. Hospital Course 01/01 he was electively admitted today for surgery surgery: Minimally invasive AVR converted to sternotomy for AVR with a 27 Magna ease tissue valve BRIDGER Ultrasound guided percutaneous left femoral artery and vein access with arterial Perclose closure Emergent left retroperitoneal exploration for bleeding Dr Wu :Repair of the external iliac artery by preperitoneal approach. Iatrogenically laceration of the left external iliac artery at the junction of the common femoral artery, retroperitoneal bleeding. 2/2 Iatrogenically laceration of the left external iliac artery at the junction of the common femoral artery, retroperitoneal bleeding. crystalloid 5600cc, 3 units PRBC, cell saver 1200cc EBL 2600cc pt then returned to OR last evening for repair left common femoral patch crystalloid 1600cc, one unit PRBC EBL 600cc 01/02 pt remained intubated on vent this am , weaned off propofol, weaning Epi gtt at 4mcq/ BP still labile EF 30% , awake follows commands , urine output stable , + 1 air leak noted in chest tube will keep in CVICU, remove right fem chet 01/03 up in chair, more awake and alert / remains on dobutamine at 1.5mcq CXR volume overload, remains on 5 liter nasal cannula / needs aggressive diuresis EF on Echo 25-30%, no BB at this time remains on stress dose steroids for low cortisol levels improved perfusion left foot / still has bilateral doppler pulses lower ext appreciate CCM 01/04 HGB 7.7 / 2 units PRBC off pressors OOB, PT stress dose steroids reduced , now on 4 liter nasal cannula went into afib last pm, now on amiodarone gtt 01/05/18 Doing well today. he has no complaints 01/06/18 c/o insomnia. Denies significant pain or discomfort 01/06/2018 Nothing to add to care from vascular point Leg is well perfused and patient has good dorsalis pedis and posterior tibial pulses latter being the dominant Normal capillary refill No neurologic deficit Incisions are clean and dry Patient can follow-up with me in the office in about 4-8 weeks and I will repeat Dopplers in the office 01/07 pt on 2 liter 02, failed walk test, will need home 02 hold on diuresis today , BP labile, amiodarone dose reduced holding parameters on BB will eval for dc in am also dc prevena dressings in am 01/09 stable for discharge home with 02 at 2 liters wean as tolerated continue low dose lasix as tolerated with BB unable to start COLIN 2/2 labile BP Pt Condition on Discharge: Good Discharge Disposition: Disch w/ Home Health Serv Discharge Instructions DIET: Follow Instructions for: Heart Healthy Diet Activities you can perform: Full Weight Bearing, Shower Only-No Bath Activities to avoid: Strenuous Activity, Driving Follow up Referrals: Cardiology, Interventional - 4 Weeks @ [facility] Cardiology with Milan Stevenson MD PCP Follow-up - 2 Weeks with Lars Tillman M.d. Surgical - 2 Weeks with Gilma Yepez MD Vascular Surgery - 2 Months with Lissette Wu MD New Medications: Furosemide (Lasix) 20 Mg Tab 20 MG PO DAILY for CHF for 14 Days, #14 TAB 1 Refill Oxygen (O2) (Oxygen (O2)) Device LITER FRANCHESKA.CANULA CONTINUOUS for Prevent Hypoxemia, #2 Oxygen Concentrator Portable Gaseous 2 L/min via Nasal Canula Continuous For 99 months Potassium Chloride ER (Potassium Chloride ER) 10 Meq Cap 10 MEQ PO DAILY for Electrolyte Replacement, #14 CAP 1 Refill Amiodarone (Amiodarone) 200 Mg Tab 200 MG PO Q12H for heart rhythm, #28 TAB 0 Refills Clopidogrel (Plavix) 75 Mg Tab 75 MG PO DAILY for Blood Clot Prevention, #30 TAB 2 Refills Docusate Sodium (Dok) 100 Mg Cap 100 MG PO BID for Constipation, #60 CAP Metoprolol Tartrate (Metoprolol Tartrate) 25 Mg Tab 12.5 MG PO Q12H for Blood Pressure Management, #60 TAB 2 Refills Multiple Vitamins W/ Minerals (Thera M Plus) 1 Tab 1 TAB PO DAILY for multi vitamin, #30 TAB 2 Refills Oxycodone HCl/Acetaminophen (Oxycodone-Acetaminophen 5-325) 5 Mg-325 Mg Tablet 1 TAB PO Q4HR PRN for PAIN SCALE 1 TO 5, #40 TAB 0 Refills Continued Medications: Albuterol 18 GM Inh (Ventolin Hfa 18 GM Inh) 90 Mcg/Act Aer 2 PUFF INH Q4H PRN for SHORTNESS OF BREATH, #1 INHALER [address] (Aspirin DR) 81 Mg Tabdr 81 MG PO DAILY, TAB 0 Refills Pantoprazole (Pantoprazole) 20 Mg Tab 20 MG PO DAILY for Reflux, #30 TAB 0 Refills Simvastatin (Simvastatin) 5 Mg Tab 5 MG PO DAILY for Cholesterol Management, #30 TAB 0 Refills Discontinued Medications: Furosemide (Lasix) 40 Mg Tab 40 MG PO DAILY for heart failure, #30 TAB 0 Refills Potassium Chloride ER (Potassium Chloride ER) 20 Meq Tab 20 MEQ PO DAILY for Electrolyte Replacement, #30 TAB 0 Refills Isidra Holland Jan 08, 2018 11:02
== END 2018-01-08 13:46 | disposition home health service (06) | DRG 219 ==
LOC: HSDI 05:12 → HCVI 14:00 → HCPC 01-05 19:15
PROVIDERS: ADMIT Thoracic Surgery (Cardiothoracic Vascular Surgery); ATTEND Thoracic Surgery (Cardiothoracic Vascular Surgery)
PROC: 30233N1 Transfusion of Nonautologous Red Blood Cells into Peripheral Vein, Percutaneous Approach (ICD-10-PCS; 2018-01-01)
PROC: 5A1221Z Performance of Cardiac Output, Continuous (ICD-10-PCS; 2018-01-01)
PROC: B246ZZ4 Ultrasonography of Right and Left Heart, Transesophageal (ICD-10-PCS; 2018-01-01)
PROC: 5A1945Z Respiratory Ventilation, 24-96 Consecutive Hours (ICD-10-PCS; 2018-01-01)
PROC: 02RF08Z Replacement of Aortic Valve with Zooplastic Tissue, Open Approach (ICD-10-PCS; principal; 2018-01-01 07:11)
PROC: 04QJ0ZZ Repair Left External Iliac Artery, Open Approach (ICD-10-PCS; 2018-01-01 07:11)
PROC: 04CL0ZZ Extirpation of Matter from Left Femoral Artery, Open Approach (ICD-10-PCS; 2018-01-02)
PROC: 04CD0ZZ Extirpation of Matter from Left Common Iliac Artery, Open Approach (ICD-10-PCS; 2018-01-02)
PROC: 04CJ0ZZ Extirpation of Matter from Left External Iliac Artery, Open Approach (ICD-10-PCS; 2018-01-02)
PROC: 04CL0ZZ Extirpation of Matter from Left Femoral Artery, Open Approach (ICD-10-PCS; 2018-01-02)
PROC: 04UJ0KZ Supplement Left External Iliac Artery with Nonautologous Tissue Substitute, Open Approach (ICD-10-PCS; 2018-01-02)
DX: I35.0 Nonrheumatic aortic (valve) stenosis (principal); I50.43 Acute on chronic combined systolic (congestive) and diastolic (congestive) heart failure; I21.4 Non-ST elevation (NSTEMI) myocardial infarction; J96.01 Acute respiratory failure with hypoxia; R57.0 Cardiogenic shock; E27.40 Unspecified adrenocortical insufficiency; I42.9 Cardiomyopathy, unspecified; K66.1 Hemoperitoneum; J93.82 Other air leak; I97.51 Accidental puncture and laceration of a circulatory system organ or structure during a circulatory system procedure; D62 Acute posthemorrhagic anemia; D69.6 Thrombocytopenia, unspecified; I27.20 Pulmonary hypertension, unspecified; I71.2 Thoracic aortic aneurysm, without rupture; I11.0 Hypertensive heart disease with heart failure; I70.8 Atherosclerosis of other arteries; Y65.8 Other specified misadventures during surgical and medical care; Y82.8 Other medical devices associated with adverse incidents; Y92.234 Operating room of hospital as the place of occurrence of the external cause; Z87.891 Personal history of nicotine dependence; N40.0 Benign prostatic hyperplasia without lower urinary tract symptoms; E78.5 Hyperlipidemia, unspecified; I95.81 Postprocedural hypotension; Z87.01 Personal history of pneumonia (recurrent); I25.10 Atherosclerotic heart disease of native coronary artery without angina pectoris; E87.6 Hypokalemia; I70.209 Unspecified atherosclerosis of native arteries of extremities, unspecified extremity; I48.91 Unspecified atrial fibrillation; J43.9 Emphysema, unspecified; Z90.49 Acquired absence of other specified parts of digestive tract; G47.00 Insomnia, unspecified
CPT/HCPCS: 36430; 71045; 71046; 72170; 76937; 80048; 80053; 82533; 82805; 82948; 83605; 83735; 84100; 85007; 85014; 85025; 85027; 85384; 85610; 85730; 86850; 86900; 86901; 86920; 87040; 88305; 88311; 93005; 93306; 93318; 94002; 94003; 94150; 94618; 94640; 94664; 94667; 94668; C1757; C1768; C1769; J0131; J0171; J0282; J0610; J0690; J1120; J1250; J1644; J1720; J1815; J1817; J1940; J2150; J2250; J2370; J2405; J2720; J2930; J3010; J3370; J3475; J3480; J7040; J7050; J7060; J7120; P9016; P9045; P9047; Q0163

== ENCOUNTER 2018-02-22 13:02 | Emergency (ER) | END 2018-02-22 17:58 | disposition home or self-care (01) | DX: J44.9 Chronic obstructive pulmonary disease, unspecified (principal); R06.00 Dyspnea, unspecified; R94.31 Abnormal electrocardiogram [ECG] [EKG]; I10 Essential (primary) hypertension; I50.9 Heart failure, unspecified; I25.10 Atherosclerotic heart disease of native coronary artery without angina pectoris; K21.9 Gastro-esophageal reflux disease without esophagitis; E78.00 Pure hypercholesterolemia, unspecified; Z98.890 Other specified postprocedural states; Z99.81 Dependence on supplemental oxygen; Z86.79 Personal history of other diseases of the circulatory system; Z87.39 Personal history of other diseases of the musculoskeletal system and connective tissue; Z86.59 Personal history of other mental and behavioral disorders; Z87.448 Personal history of other diseases of urinary system | CPT/HCPCS: 71045; 71275; 80053; 81001; 83690; 84484; 85025; 85379; 85610; 85730; 93005; 99285; Q9967 ==